=== PATIENT | female | born 1950 | race Caucasian/White ===

== ENCOUNTER 2018-10-17 10:09 | Outpatient (CLI) | payer MEDICARE, OTHER, SELFPAY ==
[2018-10-17 11:37] LABS: ALT 29 U/L (12-78); AST 21 U/L (15-37); Albumin 3.7 g/dL (3.4-5.0); Alkaline Phosphatase 44 U/L (46-116); Anion Gap 5.3 mmol/L (3-11); BUN 22 mg/dL (7-18); Bilirubin, Total 0.2 mg/dL (0.2-1.0); CO2 33.7 mmol/L (21.0-32.0); CREATININE 0.72 mg/dL (0.55-1.02); Calcium 9.6 mg/dL (8.5-10.1); Chloride 106 mmol/L (98-107); Glucose 90 mg/dL (70-100); Potassium 5.3 mmol/L (3.5-5.1); Sodium 145 mmol/L (136-145); Total Protein 6.7 g/dL (6.4-8.2)
== END 2018-10-17 10:29 ==
PROVIDERS: PCP Family Medicine; Visit Provider Family Medicine
DX: E83.42 Hypomagnesemia (principal); J44.9 Chronic obstructive pulmonary disease, unspecified
CPT/HCPCS: 36415; 80053; 83735

== ENCOUNTER 2019-01-15 10:52 | Outpatient (CLI) | payer MEDICARE, OTHER, SELFPAY ==
[2019-01-15 13:08] LABS: Anion Gap 5.4 mmol/L (3-11); BUN 18 mg/dL (7-18); CO2 32.6 mmol/L (21.0-32.0); CREATININE 0.71 mg/dL (0.55-1.02); Calcium 9.4 mg/dL (8.5-10.1); Chloride 105 mmol/L (98-107); Glucose 89 mg/dL (70-100); Potassium 4.8 mmol/L (3.5-5.1); Sodium 143 mmol/L (136-145)
== END 2019-01-15 11:12 ==
PROVIDERS: PCP Family Medicine; Visit Provider Family Medicine
DX: E87.5 Hyperkalemia (principal)
CPT/HCPCS: 36415; 80048

== ENCOUNTER 2019-04-22 19:03 | Emergency (ER) | payer MEDICARE, OTHER, SELFPAY ==
[2019-04-22] VITALS (22 sets, daily range): BP systolic 105–129; BP diastolic 61–91; PULSE 93–110; RESP 17–28; TEMP 37.5–37.6; O2SAT 92–97
--- NOTE | 2019-04-22 19:23 | W.ED.GENAD ---
Discharge Plan Disposition Patient Disposition: HOME Condition: Stable Discharge Details Chief Complaint: SOB Clinical Impression: Acute exacerbation of chronic obstructive pulmonary disease (COPD) Primary Care Provider: Ivy Morton ED Provider: Earl Alfaro Home Meds and New Rx's Prescriptions: New prednisone 20 mg tablet 60 mg PO DAILY 4 Days Qty: 12 RF: 0 levofloxacin 750 mg tablet 750 mg PO DAILY Qty: 4 RF: 0 No Action triamcinolone acetonide 0.5 % cream 1 applic TP BID Qty: 15 RF: 2 ascorbic acid (vitamin C) [Vitamin C] 500 MG tablet 500 mg PO DAILY RF: 0 calcium carbonate-vitamin D3 [Calcium 600 + D(3)] 1 EACH tablet 1 ea PO DAILY RF: 0 fluticasone propionate [Flonase] 16 GM spray,suspension 1 - 2 spray NS daily prn Qty: 1 RF: 4 cetirizine 10 MG tablet 10 mg PO DAILY Qty: 30 RF: 3 Oxygen EACH NS PRN Qty: 2 RF: 1 PROVENTIL HFA 18 GM HFA.AER.AD 1 - 2 puff Inhalation Q4H PRN Qty: 2 RF: 4 Incruse Ellipta 62.5 mcg/actuation blister with device 62.5 mcg Inhalation DAILY Qty: 90 RF: 4 Arnuity Ellipta 100 mcg/actuation blister with device 1 inh PO DAILY Qty: 30 RF: 12 simvastatin 10 mg tablet 10 mg PO HS Qty: 90 RF: 4 albuterol sulfate [Ventolin HFA] 90 mcg/actuation HFA aerosol inhaler 1 - 2 puff IH QID PRN (Reason: bronchospasm) Qty: 18 RF: 6 nystatin 100,000 unit/mL suspension 5 ml PO QID PRN (Reason: thrush) Qty: 120 RF: 0 azithromycin 250 mg tablet 250 - 500 mg PO DAILY Qty: 6 RF: 1 prednisone 20 mg tablet 40 mg PO DAILY Qty: 10 RF: 0 ipratropium-albuterol 0.5 mg-3 mg(2.5 mg base)/3 mL solution for nebulization 3 ml Inhalation 5X/DAY Qty: 450 RF: 12 omeprazole 20 mg tablet,delayed release (DR/EC) 20 mg PO DAILY PRNQty: 90 RF: 2 clonazepam 0.5 mg tablet 0.25 mg PO BID PRN (Reason: anxiety) Qty: 90 RF: 1 Discharge Instructions Instructions: COPD (Chronic Obstructive Pulmonary Disease) (ED) Additional Instructions: your lab work and xray did not show any concerning findings. You were treated for a COPD Exacerbation do not start taking the azithromycin, start the levofloxacin if you feel more ill or having worsening shortness of breath or pain return to the emergency department, otherwise follow up with your primary care provider in 1-2 weeks Medical Decision Making 68 yo female with hx of copd on home o2 who comes in with complaints of worsening productive coughs, fevers at home to 101 and worsening dyspnea. She denies recent travel or chest pain but states when she coughs she gets a sharp twinge in her left chest but hasn't had any outside coughing. No chest pressure or radiating chest pain. She does have diffuse wheezing on exam and I suspect her symptoms are likely from copd exacerbation. Will tx with nebs and steroids and also obtain xray and lab work to eval for pna. Physical exam consistent with copd exacerbation, no evidence of dvt so doubt acs and no jcd or peripheral edema so doubt chf pt feeling much better after neb and is speaking in full sentences, will continue to monitor xray negative, labs unremarkable and she feels much better and requesting d/c. Given improvement in symptoms with abx, steroids and neb will d/c on 4 more days of abx and steroids and return precautions given Differential Diagnosis copd exacerbation, pna, anemia Imaging Data Radiologic Study: Attestation: I personally reviewed and interpreted this imaging study as follows: Imaging: X-Ray Radiologist's impression: IMPRESSION: No acute thoracic pathology, within the limits of this exam. Lab Data Lab results reviewed: Yes I reviewed the patient's lab results. ECG Data Attestation: I personally reviewed and interpreted this ECG (s) as follows: Prior ECG tracings: available for review Interpretation: sinus rhythm, rate of 107 pr 138, no acute st t wave ischemic changes HPI General Mode of arrival: ambulatory. Date/Time Provider Initiated Documentation: 04/22/19 19:16. Limitations to Documentation: no limitations. Information obtained by: patient. History of Present Illness 68 year old F presents to the emergency department with the chief complaint of cough, described as moderate, Patient reports no radiation. Patient started experiencing this day(s) (3) and it has been constant. No relieving factors improve symptom(s), No exacerbating factors reported . Patient notes fever/chills. Patient did receive the following treatments prior to arrival, none Related Data Home Medications Medication Instructions Recorded Confirmed ascorbic acid (vitamin C) [Vitamin 500 mg PO DAILY 02/03/13 04/22/19 C] calcium carbonate-vitamin D3 1 ea PO DAILY 02/03/13 04/22/19 [Calcium 600 + D(3)] fluticasone propionate [Flonase] 1 - 2 spray NS daily prn #1 bottle 06/19/14 04/22/19 cetirizine 10 mg PO DAILY #30 tab-cap 01/04/16 04/22/19 umeclidinium 62.5 mcg/actuation 62.5 mcg INHALATION DAILY #90 each 06/18/18 04/22/19 blister powder for inhalation fluticasone furoate 100 1 inh PO DAILY #30 inh 08/26/18 04/22/19 mcg/actuation blister powder for inhalation simvastatin 10 mg tablet 10 mg PO HS #90 tab-cap 10/07/18 04/22/19 albuterol sulfate 90 mcg/actuation 1 - 2 puff IH QID PRN #18 gm 10/30/18 04/22/19 aerosol inhaler azithromycin 250 mg tablet 250 - 500 mg PO DAILY #6 tab 10/30/18 04/22/19 nystatin 100,000 unit/mL oral 5 ml PO QID PRN #120 ml 10/30/18 04/22/19 suspension prednisone 20 mg tablet 40 mg PO DAILY #10 tab 10/30/18 04/22/19 ipratropium-albuterol 0.5 mg-3 3 ml INHALATION 5X/DAY #450 ml 11/15/18 04/22/19 mg(2.5 mg base)/3 mL nebulization soln triamcinolone acetonide 0.5 % 1 applic TP BID #15 gm 01/15/19 04/22/19 topical cream clonazepam 0.5 mg tablet 0.25 mg PO BID PRN #90 tab-cap 02/10/19 04/22/19 levofloxacin 750 mg PO DAILY #4 tab 04/22/19 omeprazole 20 mg tablet,delayed 20 mg PO DAILY PRN #90 tab-cap 07/23/19 07/23/19 release prednisone 60 mg PO DAILY 4 Days #12 tab 04/22/19 Previous Rx's Medication Instructions Recorded umeclidinium 62.5 mcg/actuation 62.5 mcg INHALATION DAILY #90 each 06/18/18 blister powder for inhalation fluticasone furoate 100 1 inh PO DAILY #30 inh 08/26/18 mcg/actuation blister powder for inhalation simvastatin 10 mg tablet 10 mg PO HS #90 tab-cap 10/07/18 albuterol sulfate 90 mcg/actuation 1 - 2 puff IH QID PRN #18 gm 10/30/18 aerosol inhaler azithromycin 250 mg tablet 250 - 500 mg PO DAILY #6 tab 10/30/18 nystatin 100,000 unit/mL oral 5 ml PO QID PRN #120 ml 10/30/18 suspension prednisone 20 mg tablet 40 mg PO DAILY #10 tab 10/30/18 ipratropium-albuterol 0.5 mg-3 3 ml INHALATION 5X/DAY #450 ml 11/15/18 mg(2.5 mg base)/3 mL nebulization soln triamcinolone acetonide 0.5 % 1 applic TP BID #15 gm 01/15/19 topical cream clonazepam 0.5 mg tablet 0.25 mg PO BID PRN #90 tab-cap 02/10/19 levofloxacin 750 mg PO DAILY #4 tab 04/22/19 omeprazole 20 mg tablet,delayed 20 mg PO DAILY PRN #90 tab-cap 04/22/19 release prednisone 60 mg PO DAILY 4 Days #12 tab 04/22/19 Allergies Allergy/AdvReac Type Severity Reaction Status Date / Time doxycycline AdvReac Unknown nausea Verified 04/22/19 19:15 toan Allergy Intermediate Uncoded 04/22/19 19:15 General Stated Complaint: SOB LARON: 2 Review of Systems Review of Systems All systems reviewed & are unremarkable except as noted in HPI and below Constitutional Denies chills Gastrointestinal Denies vomiting Musculoskeletal Denies joint swelling PFS Medical History Chronic obstructive airway disease Hyperlipidemia Low back pain Osteoarthritis Osteopenia Renal cyst Tobacco abuse Surgical History Appendectomy Colonoscopy - MAC (10/10/16) Ligation of fallopian tube NECK SURGERY Open Carpal Tunnel release RIB RESECTION Family History Mother Diabetes Essential hypertension Hyperlipidemia Stroke Asthma Brother Essential hypertension Neoplasm Chronic obstructive lung disease Asthma Maternal Grandmother Chronic obstructive lung disease Asthma Social History Smoking/Tobacco Use Status: Former Tobacco Use Quit Date: 12/29/18 Second Hand Exposure: Yes Alcohol Intake: former Drug use: Never Caregiver/Support person: Yes Household members: spouse Pets and animals: Yes Pets and animals: cat(s) Sexually active: No Do you think of yourself as: straight/heterosexual Current gender identity: female What is your relationship status?: How often do you talk on the phone with friends or family?: decline to answer How often do you get together with friends or relatives?: decline to answer How often do you attend sabianist or jehovah's witness services?: decline to answer Do you belong to any clubs or organized social groups?: no Panel score (0-1 are the most socially isolated patients): 1 What type of physical activity do you participate in: other Details: housework- split level Fay/Adventist: Cheondoism Special fay needs: No Do you feel safe in your relationship?: Yes History History Para 1 Hx # Term Pregnancies Multiple births Hx # Pregnancies Ectopic pregnancies AB induced Hx Number of Living Children AB spontaneous Exam Const General: no acute distress Orientation: alert HENMT Head: normal to inspection Ears: external ears normal General nose exam: external nose normal Mouth: moist mucous membranes Eyes General: appearance normal, both eyes and all related structures Neck Neck: normal visual inspection Resp Effort & Inspection: prolonged expiratory phase Cardio Rate: regular rate Skin General skin exam: no rashes or lesions noted Neuro General: alert and oriented x3 Extrem General: normal to inspection Psych Mental Status: mental status grossly normal Course Vital Signs Temperature 37.5 C 04/22/19 19:12 Pulse 100 H 04/22/19 19:12 Respiratory Rate 28 H 04/22/19 19:12 Blood Pressure 129/83 04/22/19 19:12 Pulse Oximetry 96 04/22/19 19:12 Temperature 37.5 C 04/22/19 19:12 Temperature Source Skin 04/22/19 19:12 Pulse 100 H 04/22/19 19:12 Respiratory Rate 28 H 04/22/19 19:12 Respiratory Effort Accessory Muscle Use 04/22/19 19:14 Blood Pressure 129/83 04/22/19 19:12 Blood Pressure Position Supine 04/22/19 19:12 Pulse Oximetry 96 04/22/19 19:12 Oxygen Delivery Method Nasal Cannula 04/22/19 19:12 Oxygen Flow Rate 2 04/22/19 19:12 Pain Level 0 04/22/19 19:12 Lab/Test Results Lab/Test Results: 04/22/19 19:21 Blood Blood Culture - Pending 04/22/19 19:21 Blood Blood Culture - Pending
--- NOTE | 2019-04-22 19:25 | DI.RAD_ITS ---
SYMPTOMS/DIAGNOSIS: COUGH, FEVERS PORTABLE CHEST: The study is limited due to technique. The heart size and pulmonary vasculature are within normal limits. No focal consolidating infiltrates, effusions or pneumothoraces are identified. Nonunited left rib fracture is identified. No acute osseous abnormality is identified. IMPRESSION: No acute pulmonary process.
[2019-04-22] MEDS: Albuterol/Ipratropium 3 ML UPD VIAL UPD (19:30)
[2019-04-22] MEDS: methylPREDNISolone SUCC 125 MG VIAL IVP (19:45)
--- NOTE | 2019-04-22 19:51 | DI.VRAD_ITS ---
EXAM: XR Chest, 1 View EXAM DATE/TIME: 04/22/2019 7:22 PM CLINICAL HISTORY: 68 years old, female; Cough and fever; Patient HX: Fever, cough, smoker, chronic obstructive airway disease TECHNIQUE: Imaging protocol: XR of the chest, 1 view. COMPARISON: CR CHEST 2 VIEWS PA,LAT 12/10/2017 10:09 AM FINDINGS: Limitations: Overpenetrated film limits evaluation of the pulmonary parenchyma. Lungs: No discrete interstitial or airspace disease appreciated. Pleural space: Costophrenic angles are clear. Heart/Mediastinum: Normal cardiomediastinal silhouette except for a calcified aortic knob. Bones/joints: No acute skeletal abnormality or aggressive osseous lesion. IMPRESSION: No acute thoracic pathology, within the limits of this exam. Dictated and Authenticated by: Alex Brower MD. Ordering:LYNN Elliott MD
[2019-04-22 19:52] LABS: Abs Immature Grans 0.01 k/cumm (0.0-0.09); Absolute Basophil Count 0.04 k/cumm (0.0-0.2); Absolute Eosinophil Count 0.09 k/cumm (0.0-0.7); Absolute Lymphocyte Count 1.58 k/cumm (1.2-3.4); Absolute Monocyte Count 1.08 k/cumm (0.11-0.7); Absolute Neutrophil Count 5.87 k/cumm (1.2-6.7); Basophils % 0.5; HCT 40.6 % (36.0-46.0); HGB 13.3 g/dL (12.0-15.5); Immature Grans % 0.1; Lymphocytes % 18.2; Mean Corp. HGB Concentration 32.8 g/dL (32.0-36.0); Mean Corpuscular Hemoglobin 31.1 pg (27.0-33.0); Mean Corpuscular Volume 94.9 fL (80-95); Mean Platelet Volume 10.6 fL (8.0-11.0); Monocytes % 12.5; Neutrophils % 67.7; Platelet Count 201 x1000/uL (130-400); RBC 4.28 m/cumm (4.00-5.20); RBC Distribution Width 13.3 % (11.7-14.6); White Blood Cell Count 8.67 k/cumm (4.4-10.8)
[2019-04-22] MEDS: levoFLOXacin 750 MG/150 ML BAG 100 MG IVPB (20:07)
[2019-04-22] MEDS: Normal Saline 1,000 ML 1000 ML IV (20:07)
[2019-04-22 20:08] LABS: ALT 19 U/L (12-78); AST 10 U/L (15-37); Albumin 3.6 g/dL (3.4-5.0); Alkaline Phosphatase 54 U/L (46-116); Anion Gap 7.6 mmol/L (3-11); BUN 14 mg/dL (7-18); Bilirubin, Total 0.4 mg/dL (0.2-1.0); CO2 30.4 mmol/L (21.0-32.0); CREATININE 0.67 mg/dL (0.55-1.02); Calcium 9.4 mg/dL (8.5-10.1); Chloride 100 mmol/L (98-107); Glucose 104 mg/dL (70-100); Potassium 4.1 mmol/L (3.5-5.1); Sodium 138 mmol/L (136-145); Total Protein 7.7 g/dL (6.4-8.2)
== END 2019-04-22 21:47 | disposition home or self-care (01) ==
PROVIDERS: Emergency Provider Emergency Medicine; PCP Family Medicine
DX: J44.1 Chronic obstructive pulmonary disease with (acute) exacerbation (principal); Z87.891 Personal history of nicotine dependence; Z99.81 Dependence on supplemental oxygen
CPT/HCPCS: 36415; 80053; 87040; 93005; 94640; 96361; 96365; 96375; 99285; 71045; 85025; 93010; J1956; J2930; J7620

== ENCOUNTER 2019-09-27 04:44 | Emergency (ER) | payer MEDICARE, OTHER, SELFPAY ==
[2019-09-27 04:49] VITALS: BP 121/76; PULSE 94; RESP 22; TEMP 36.4; O2SAT 91
[2019-09-27] MEDS: diphenhydrAMINE 25 MG CAP (04:57)
--- NOTE | 2019-09-27 04:59 | ED.GENADUL_ITS ---
Discharge Plan Disposition Patient Disposition: HOME Condition: Stable Discharge Details Chief Complaint: Allergic Clinical Impression: Hives Primary Care Provider: Ivy Morton ED Provider: Earl Alfaro Home Meds and New Rx's Prescriptions: Continued Incruse Ellipta 62.5 mcg/actuation blister with device 62.5 mcg Inhalation DAILY Qty: 90 RF: 4 albuterol sulfate [Ventolin HFA] 90 mcg/actuation HFA aerosol inhaler 1 - 2 puff IH QID PRN (Reason: bronchospasm) Qty: 18 RF: 6 simvastatin 10 mg tablet 10 mg PO HS Qty: 90 RF: 4 clonazepam 0.5 mg tablet 0.25 mg PO BID PRN (Reason: anxiety) Qty: 90 RF: 1 prednisone 20 mg tablet 20 mg PO DAILY Qty: 13 RF: 3 citalopram 20 mg tablet 20 mg PO DAILY Qty: 30 RF: 3 cholecalciferol (vitamin D3) 2,000 unit capsule 2,000 unit PO DAILY RF: 0 fexofenadine 180 mg tablet 180 mg PO DAILY Qty: 30 RF: 6 ascorbic acid (vitamin C) [Vitamin C] 500 MG tablet 500 mg PO DAILY RF: 0 calcium carbonate-vitamin D3 [Calcium 600 + D(3)] 1 EACH tablet 1 ea PO DAILY RF: 0 fluticasone propionate [Flonase] 16 GM spray,suspension 1 - 2 spray NS daily prn Qty: 1 RF: 4 Oxygen EACH NS PRN Qty: 2 RF: 1 nystatin 100,000 unit/mL suspension 5 ml PO QID PRN (Reason: thrush) Qty: 120 RF: 0 ipratropium-albuterol 0.5 mg-3 mg(2.5 mg base)/3 mL solution for nebulization 3 ml Inhalation 5X/DAY Qty: 450 RF: 12 omeprazole 20 mg tablet,delayed release (DR/EC) 20 mg PO DAILY PRNQty: 90 RF: 2 Arnuity Ellipta 200 mcg/actuation blister with device 1 inh IH DAILY Qty: 30 RF: 6 Discharge Instructions Instructions: Urticaria (ED) Additional Instructions: if symptoms continue this week see your primary care provider for itching take 25mg benadryl every 6 hours as needed if you feel more ill, have worsening trouble breathing or abdominal pain return to the emergency department Medical Decision Making 69 yo female with copd on home o2 who yesterday finished prednisone which she blair s been on numerous times in her life withotu issues and bactrim which she is unsure if she's been on before comes in with itching rash on her torso. Denies on my questioning any increase in her baseline dyspnea, speaking in full setntences on exam and denies fevers or gi symptoms. She has multiple areas of mild erythema that is slightly raised and of various sizes not warm to touch or tender and bessie that seem consistent with urticaria. Unclear if this is from the bactrim or other etologies such as detergents, No evidence of anaphylaxis will give a dose of benadryl and observe pt feels better and has no itching and requesting d/c. ADvised f/u with pcp and return precautions given Differential Diagnosis Differential Diagnosis: medication reaction, hives, urticaria HPI General Mode of arrival: ambulatory . Date/Time Provider Initiated Documentation: 09/27/19 04:47 . Limitations to Documentation: no limitations . Information obtained by: patient . History of Present Illness 69 year old F presents to the emergency department with the chief complaint of rash, described as moderate, Quality is described as other (itching), and it has been constant. No relieving factors improve symptom(s), No exacerbating factors reported . Patient did receive the following treatments prior to arrival, none Related Data Home Medications Medication Instructions Recorded Confirmed ascorbic acid (vitamin C) [Vitamin 500 mg PO DAILY 02/03/13 09/27/19 C] calcium carbonate-vitamin D3 1 ea PO DAILY 02/03/13 09/27/19 [Calcium 600 + D(3)] fluticasone propionate [Flonase] 1 - 2 spray NS daily prn #1 bottle 06/19/14 09/15/19 nystatin 100,000 unit/mL oral 5 ml PO QID PRN #120 ml 10/30/18 09/27/19 suspension ipratropium-albuterol 0.5 mg-3 3 ml INHALATION 5X/DAY #450 ml 11/15/18 09/27/19 mg(2.5 mg base)/3 mL nebulization soln omeprazole 20 mg tablet,delayed 20 mg PO DAILY PRN #90 tab-cap 04/22/19 09/27/19 release cholecalciferol (vitamin D3) 50 2,000 unit PO DAILY 05/22/19 09/27/19 mcg (2,000 unit) capsule fexofenadine 180 mg tablet 180 mg PO DAILY #30 tab 05/22/19 09/27/19 albuterol sulfate 90 mcg/actuation 1 - 2 puff IH QID PRN #18 gm 07/28/19 09/27/19 aerosol inhaler clonazepam 0.5 mg tablet 0.25 mg PO BID PRN #90 tab-cap 07/28/19 09/27/19 fluticasone furoate 200 1 inh IH DAILY #30 each 07/28/19 09/27/19 mcg/actuation blister powder for inhalation simvastatin 10 mg tablet 10 mg PO HS #90 tab-cap 07/28/19 09/27/19 umeclidinium 62.5 mcg/actuation 62.5 mcg INHALATION DAILY #90 each 07/28/19 09/27/19 blister powder for inhalation citalopram 20 mg tablet 20 mg PO DAILY #30 tab 09/15/19 09/27/19 prednisone 20 mg tablet 20 mg PO DAILY #13 tab 09/15/19 09/27/19 Previous Rx's Medication Instructions Recorded nystatin 100,000 unit/mL oral 5 ml PO QID PRN #120 ml 10/30/18 suspension ipratropium-albuterol 0.5 mg-3 3 ml INHALATION 5X/DAY #450 ml 11/15/18 mg(2.5 mg base)/3 mL nebulization soln omeprazole 20 mg tablet,delayed 20 mg PO DAILY PRN #90 tab-cap 04/22/19 release fexofenadine 180 mg tablet 180 mg PO DAILY #30 tab 05/22/19 albuterol sulfate 90 mcg/actuation 1 - 2 puff IH QID PRN #18 gm 07/28/19 aerosol inhaler clonazepam 0.5 mg tablet 0.25 mg PO BID PRN #90 tab-cap 07/28/19 fluticasone furoate 200 1 inh IH DAILY #30 each 07/28/19 mcg/actuation blister powder for inhalation simvastatin 10 mg tablet 10 mg PO HS #90 tab-cap 07/28/19 umeclidinium 62.5 mcg/actuation 62.5 mcg INHALATION DAILY #90 each 10/28/19 blister powder for inhalation citalopram 20 mg tablet 20 mg PO DAILY #30 tab 09/15/19 prednisone 20 mg tablet 20 mg PO DAILY #13 tab 09/15/19 Allergies Allergy/AdvReac Type Severity Reaction Status Date / Time sulfamethoxazole Allergy Mild Skin Rash Unverified 09/27/19 04:55 [From Bactrim] trimethoprim [From Bactrim] Allergy Mild Skin Rash Unverified 09/27/19 04:55 doxycycline AdvReac Unknown nausea Verified 09/27/19 04:53 toan Allergy Intermediate Uncoded 09/27/19 04:53 General Stated Complaint: Allergic LARON: 3 Review of Systems All systems reviewed & are unremarkable except as noted in HPI and below Constitutional Constitutional: Denies chills, Denies fever(s) and Denies weakness Eyes Eyes: Denies loss of vision Cardiovascular Cardiovascular: Denies chest pain Respiratory Respiratory: Denies cough Gastrointestinal Gastrointestinal: Denies abdominal pain, Denies nausea and Denies vomiting Musculoskeletal Musculoskeletal: Denies joint swelling Neurologic Neurologic: Denies loss of vision and Denies weakness [facility] Social History Smoking/Tobacco Use Status: Former Tobacco Use Quit Date: 12/29/18 Second Hand Exposure: Yes Alcohol Intake: former Drug use: Never Substance use type: does not use Caregiver/Support person: Yes Household members: spouse Pets and animals: Yes Pets and animals: cat(s) Sexually active: No Do you think of yourself as: straight/heterosexual Current gender identity: female What is your relationship status?: How often do you talk on the phone with friends or family?: decline to answer How often do you get together with friends or relatives?: decline to answer How often do you attend hindu or yazidi services?: decline to answer Do you belong to any clubs or organized social groups?: no Panel score (0-1 are the most socially isolated patients): 1 What type of physical activity do you participate in: other Details: housework- split level Fay/Shinto: Muslim Special fay needs: No Do you feel safe at home: Yes Do you feel safe in your relationship?: Yes History History Para 1 Hx # Term Pregnancies Multiple births Hx # Pregnancies Ectopic pregnancies AB induced Hx Number of Living Children AB spontaneous Exam Const General: no acute distress Orientation: alert HENMT Head: normal to inspection Ears: external ears normal General nose exam: external nose normal Mouth: moist mucous membranes Eyes General: appearance normal, both eyes and all related structures Neck Neck: normal visual inspection Resp Effort & Inspection: normal respiratory effort and able to speak in complete sentences Cardio Rate: regular rate Skin General skin exam: elasticity normal Neuro General: alert and oriented x3 Extrem General: normal to inspection Psych Mental Status: mental status grossly normal Course Vital Signs Vital signs: Vital Signs Temperature 36.4 C L 09/27/19 04:49 Pulse 94 H 09/27/19 04:49 Respiratory Rate 22 09/27/19 04:49 Blood Pressure 121/76 09/27/19 04:49 Pulse Oximetry 91 L 09/27/19 04:49 Temperature 36.4 C L 09/27/19 04:49 Temperature Source Temporal Artery Scan 09/27/19 04:49 Pulse 94 H 09/27/19 04:49 Respiratory Rate 22 09/27/19 04:49 Respiratory Effort Pursed Lip 09/27/19 04:49 Respiratory Pattern Normal 09/27/19 04:49 Blood Pressure 121/76 09/27/19 04:49 Blood Pressure Position Sitting 09/27/19 04:49 Pulse Oximetry 91 L 09/27/19 04:49 Oxygen Delivery Method Nasal Cannula 09/27/19 04:49 Oxygen Flow Rate 2 09/27/19 04:49 Comment 09/27/19 04:49
[2019-09-27 05:22] VITALS: PULSE 85; O2SAT 95
[2019-09-27 05:51] VITALS: PULSE 88; RESP 16; O2SAT 94
== END 2019-09-27 05:50 | disposition home or self-care (01) ==
PROVIDERS: Emergency Provider Emergency Medicine; PCP Family Medicine
DX: L50.0 Allergic urticaria (principal); J44.9 Chronic obstructive pulmonary disease, unspecified; Z87.891 Personal history of nicotine dependence; Z99.81 Dependence on supplemental oxygen
CPT/HCPCS: 99284

== ENCOUNTER 2019-11-26 01:37 | Outpatient (CLI) | payer MEDICARE, OTHER, SELFPAY ==
--- NOTE | 2019-11-26 11:15 | DI.MAMMO_ITS ---
EXAM: MAMMO SCREENING CLINICAL HISTORY: screening Z12.39 TECHNIQUE: Mammograms were interpreted according to the usual protocol including computer analysis w [employer] CAD system, tomosynthesis and C-view imaging. COMPARISON: 2009 through 2017 FINDINGS: The breasts are composed of heterogeneously dense fibroglandular densities, Breast Density category C . No suspicious masses or suspicious microcalcifications are seen. No skin thickening or abnormal axillary lymph nodes are seen. There has been no significant change from prior exams. IMPRESSION: BIRADS Category 1, negative mammogram. Yearly screening mammography is recommended. BREAST DENSITY: The mammogram demonstrates the patient's breast tissue is dense. Dense breast tissue is very common and is not abnormal but dense breast tissue can make it harder to find cancer on a ma mmogram. Also, dense breast tissue may increase breast cancer risk. This information about the result of the mammogram report was provided to the patient to raise their awareness. Use this report when y ou speak with the patient about their risks for breast cancer, which includes their family history. A t that time, you may recommend additional screening tests (Ultrasound or MRI) as they might be useful based on their risk. A negative radiographic report should not delay biopsy if a dominant or clinically suspicious mass is present. Up to ten percent of cancers are not identified on mammography. A negative report may reinforce clinical impression. Adenosis and dense breasts may obscure an underlying neoplasm. False positive reports average 6 to 10%.
== END 2019-11-26 01:57 ==
PROVIDERS: PCP Family Medicine; Visit Provider Family Medicine
DX: Z12.31 Encounter for screening mammogram for malignant neoplasm of breast (principal)
CPT/HCPCS: 77063; 77067

== ENCOUNTER 2020-09-29 16:59 | Outpatient (REF) | payer MEDICARE, OTHER, SELFPAY ==
[2020-09-30 04:19] LABS: COVID-19 RT-PCR UVMMC Result Negative (Negative)
== END 2020-09-29 17:19 ==
LOC: LBN 16:59
PROVIDERS: PCP Family Medicine; Visit Provider Nurse Practitioner Family
DX: Z11.59 Encounter for screening for other viral diseases (principal)
CPT/HCPCS: U0003

== ENCOUNTER 2020-11-26 04:01 | Outpatient (CLI) | payer MEDICARE, OTHER, SELFPAY ==
[2020-11-26 08:39] LABS: Abs Immature Grans 0.01 10^3/uL (0.0-0.06); Absolute Basophil Count 0.07 10^3/uL (0.0-0.2); Absolute Eosinophil Count 0.49 10^3/uL (0.0-0.7); Absolute Lymphocyte Count 1.57 10^3/uL (1.2-3.4); Absolute Monocyte Count 0.63 10^3/uL (0.1-0.8); Absolute Neutrophil Count 2.53 10^3/uL (1.2-6.7); Basophils % 1.3; Eosinophils % 9.2; HCT 37.8 % (36.0-46.0); HGB 12.2 g/dL (11.2-15.7); Immature Grans % 0.2; Lymphocytes % 29.6; MCH 31.4 pg (27.0-33.0); MCHC 32.3 % (32.0-36.0); MCV 97.2 fL (80-95); MPV 10.1 fL (8.0-11.0); Monocytes % 11.9; Neutrophils % 47.8; Nucleated RBC 0 %; Platelet Count 210 10^3/uL (130-400); RBC 3.89 10^6/uL (3.93-5.22); RDW 13.6 % (11.7-14.6); RDW-SD 49.1 fL
[2020-11-26 09:00] LABS: ALT 20 U/L (14-59); AST 15 U/L (15-37); Albumin 3.4 g/dL (3.4-5.0); Alkaline Phosphatase 46 U/L (46-116); Anion Gap 6.1 mmol/L (3-11); BUN 12 mg/dL (7-18); Bilirubin, Total 0.2 mg/dL (0.2-1.0); CO2 31.9 mmol/L (21.0-32.0); CREATININE 0.7 mg/dL (0.55-1.02); Calcium 9.1 mg/dL (8.5-10.1); Calculated LDL 120 mg/dL (<100); Chloride 104 mmol/L (98-107); Cholesterol 207 mg/dL (<200); Glucose 90 mg/dL (74-106); HDL Cholesterol 74 mg/dL (40-60); Magnesium 1.9 mg/dL (1.8-2.4); Potassium 3.6 mmol/L (3.5-5.1); Sodium 142 mmol/L (136-145); TSH 3.41 uIU/mL (0.36-3.74); Triglyceride 66 mg/dL (<150)
--- NOTE | 2020-11-26 09:33 | DI.CT_ITS ---
EXAM: CT CHEST W CLINICAL HISTORY: increased dyspnea /emphysema/weight loss,LUNG NODULE,R91.1 TECHNIQUE: Imaging Protocol: Axial computed tomography images with coronal and sagittal reformatted images were created and reviewed CONTRAST MATERIAL: Intravenous: Omnipaque 350 Contrast volume:70 ml. COMPARISON: CT CHEST WITH CONTRAST from 08/17/2016 FINDINGS: Tracheobronchial tree: Patent where visualized. Mediastinum and Angelina: No dominant adenopathy or fluid collection. Pulmonary parenchyma: No consolidation or dominant measurable mass. Moderate to severe emphysematous changes could greatest in the upper lobes. Scarring greatest in the right upper lobe. Medial basila r atelectasis. Scattered tiny peripheral nodules in both posterior lower lobes with a tree-in-bud ap pearance, likely infectious or inflammatory. Pleura: No effusion or pneumothorax. Heart: The heart is not dilated. No coronary artery calcifications are seen. Aorta: Thoracic aorta non-dilated. Nuen-jx-uititikd calcification. Upper abdomen: Cyst upper pole left kidney. Liver and spleen are unremarkable. Adrenals appear nor mal. Lymph nodes: Within normal limits. Bones: Degenerative changes greatest in the thoracolumbar junction. Soft tissues: Unremarkable. IMPRESSION: Moderate to severe underlying emphysematous changes, greatest in the upper lobes. No evidence of a s uspicious mass or adenopathy. Bilateral posterior lower lobe tree-in-bud opacities likely reflecting inflammation or infection. No consolidation. RADIATION DOSE DELIVERED: 348.24mGy.cm Total DLP DATA REPOSITORY: All CT scans at this facility are submitted to the National Radiology Data Registry (NRDR) Dose Index Registry (DIR) with the [employer] (A[employer]). RADIATION OPTIMIZATION: All CT scans at this facility use at least one of these dose optimization te chniques: automated exposure control; mA and/or kV adjustment per patient size (includes targeted exa ms where dose is matched to clinical indication); or iterative reconstruction.
[2020-11-26] MEDS: Omnipaque 350 MG/ML 100 ML BTL IJ (09:38)
[2020-11-26 16:20] LABS: ESR 16 mm/hr (<or=30)
== END 2020-11-26 04:21 ==
PROVIDERS: PCP Family Medicine; Visit Provider Family Medicine
DX: R06.09 Other forms of dyspnea (principal); R06.02 Shortness of breath; R91.1 Solitary pulmonary nodule; R91.8 Other nonspecific abnormal finding of lung field; E78.5 Hyperlipidemia, unspecified; R63.4 Abnormal weight loss; E83.42 Hypomagnesemia; J43.9 Emphysema, unspecified; J44.9 Chronic obstructive pulmonary disease, unspecified
CPT/HCPCS: 80053; 80061; 85652; 71260; 83735; 84443; 85025; J3490

== ENCOUNTER 2020-12-01 15:55 | Outpatient (REF) | payer MEDICARE, SELFPAY | END 2020-12-01 15:56 | disposition home or self-care (01) | LOC: NCHCN 15:55 | PROVIDERS: PCP Family Medicine; Visit Provider Family Medicine | DX: R09.3 Abnormal sputum (principal); J44.1 Chronic obstructive pulmonary disease with (acute) exacerbation | CPT/HCPCS: 87070; 87205 ==

== ENCOUNTER 2021-03-01 18:12 | Inpatient (IN) | payer MEDICARE, SELFPAY ==
[2021-03-01] VITALS (36 sets, daily range): BP systolic 132–151; BP diastolic 71–116; PULSE 64–90; RESP 11–27; TEMP 35.7–36.8; O2SAT 90–99
--- NOTE | 2021-03-01 18:00 | RT.EKG_ITS ---
APPROVED REPORT Exam: Resting ECG Reason for Exam: chest pain Patient Location: E HR:93 bpm ECG Measurements Heart Rate 93 AXIS ME 145 P 263 QRSd 84 QRS 255 QT 362 T 90 QTc 452 Conclusion Poor/wandering baseline Multiform ventricular premature complexes Left anterior fascicular block. Nonspecific T abnrm, anterolateral leads.. ST elevation, consider lateral injury...ST >0.10mV, I aVL V5 V6
--- NOTE | 2021-03-01 18:15 | RT.EKG_ITS ---
APPROVED REPORT Exam: Resting ECG Reason for Exam: chest pain Patient Location: E HR:[id number] bpm ECG Measurements Heart Rate [id number] AXIS [place] [id number] P [id number] QRSd [id number] QRS [id number] QT [id number] T [id number] QTc 0 Conclusion error
--- NOTE | 2021-03-01 18:15 | RT.EKG_ITS ---
APPROVED REPORT Exam: Resting ECG Reason for Exam: cp, poor quality 1st ekg Patient Location: E HR:[id number] bpm ECG Measurements Heart Rate [id number] [place] [id number] P [id number] QRSd 9526580238 QRS [id number] QT 1383578615 T [id number] QTc 0 Conclusion error
--- NOTE | 2021-03-01 18:15 | DI.RAD_ITS ---
Exam(s) XR PORTABLE CHEST AP EXAM: XR PORTABLE CHEST AP CLINICAL HISTORY: R chest pain, COPD TECHNIQUE: 2D digital imaging was performed. COMPARISON: CR XR PORTABLE CHEST AP from 04/22/2019 FINDINGS: MEDIASTINUM: Normal. HEART: Normal. PULMONARY VASCULATURE: Normal. LUNGS: Clear. Lungs are hyperinflated suggesting underlying COPD. PLEURAL SPACE: No pleural effusion or pneumothorax. BONE:Within normal limits for the patient's age. There is a nonunited fracture of the posterior aspe ct of the left 7th rib. OTHER FINDINGS:Normal. IMPRESSION: No acute pulmonary findings. DATA REPOSITORY: RADIATION DOSE DELIVERED:
--- NOTE | 2021-03-01 18:26 | ED.GENADUL_ITS ---
Discharge Plan Disposition Patient Disposition: [facility] INPATIENT Condition: Improving Discharge Details Chief Complaint: Chest Pain Clinical Impression: Chest pain Admit Date/Time: 03/03/21 09:10 Admit Provider: Mac Quintana Attending Provider: Mac Quintana Primary Care Provider: Ivy Morton ED Provider: Kristopher Pereira Discharge Instructions Activity:: Activity as Tolerated Equipment/Supplies:: No Equipment Needed Diet:: low cholesterol Discharge Orders Discharge Orders: Discharge Order (Routine); Ordered 03/05/21 Ordered By: Karol Chacon Discharge Data Discharge Date/Time-TO BE ENTERED AT DEPARTURE: 03/01/21 23:11 Medical Decision Making 70-year-old female presents from home with onset of right posterior chest pain this been constant since yesterday. She feels it improved while leaning over forward. Somewhat worse lying flat and with deep breath. She is a former smoker with a history of COPD. States that she has recently been well. She arrives to the ER afebrile, with blood pressure 151/91, pulse 87, 98% on room air. Differential diagnosis is broad and includes muscle spasm, pneumothorax, pericarditis, dissection, PE. IV access established, screening labs obtained, patient given morphine for analgesia. Laboratories reveal a normal troponin, white blood cell count of 7, hematocrit 39. Chemistries reassuring and unremarkable. D-dimer elevated at 1105. Stated chest x-ray without acute findings. Patient self referred for CT of the chest which reveals emphysematous changes, no pulmonary embolism. See formal report. Patient does have some mild recurrent right infrascapular pain for which she was given repeat parenteral analgesia. She is observed on a cardiac monitor technician and repeat troponin and EKG obtained (negative). Given the patient's age, cardiac risk factors, ongoing posterior thoracic pain, will admit for further observation and management. HPI General Mode of arrival: ambulatory . Date/Time Provider Initiated Documentation: 03/01/21 18:12 . Limitations to Documentation: no limitations . Information obtained by: patient . History of Present Illness 70 year old F presents to the emergency department with the chief complaint of Right posterior chest pain since last night, Quality is described as dull and constant, and is localized to the chest and right. Patient reports no radiation. Patient started experiencing this hour(s) and it has been constant. other things th at improve symptom(s), (Relieved sitting up and leaning over) No exacerbating factors reported . Patient notes denies malaise, nausea/vomiting, syncope and weakness. Patient did receive the following treatments prior to arrival, none Related Data Home Medications Medication Instructions Recorded Confirmed ascorbic acid (vitamin C) [Vitamin 500 mg PO DAILY 02/03/13 03/01/21 C] calcium carbonate-vitamin D3 1 ea PO DAILY 02/03/13 03/01/21 [Calcium 600 + D(3)] nystatin 100,000 unit/mL oral 5 ml PO QID PRN #120 ml 10/30/18 03/01/21 suspension ipratropium 0.5 mg-albuterol 3 mg 3 ml INHALATION 5X/DAY #450 ml 11/15/18 03/01/21 (2.5 mg base)/3 mL nebulization soln cholecalciferol (vitamin D3) 50 2,000 unit PO DAILY 05/22/19 03/01/21 mcg (2,000 unit) capsule citalopram 20 mg tablet 20 mg PO DAILY #90 tab 03/01/20 03/02/21 albuterol sulfate 90 mcg/actuation 1 - 2 puff IH QID PRN #3 units 08/27/20 03/01/21 aerosol inhaler clonazepam 0.5 mg tablet 0.25 mg PO BID PRN #90 tab-cap 09/07/20 03/01/21 diphenhydramine HCl 25 mg tablet 25 mg PO QHS 09/29/20 03/01/21 budesonide-formoterol HFA 160 2 puff INHALATION BID #10.2 g 12/02/20 03/01/21 mcg-4.5 mcg/actuation aerosol inhaler fluticasone propionate 50 1 - 2 spray NS DAILY #15.8 ml 12/30/20 03/01/21 mcg/actuation nasal spray,suspension simvastatin 10 mg tablet 10 mg PO HS #90 tab-cap 01/04/21 03/01/21 baclofen 5 mg PO Q12H #20 tab 03/05/21 diclofenac sodium 100 g TOPICAL QID #100 g 03/05/21 gabapentin 100 mg PO TID #90 cap 03/05/21 pantoprazole [Protonix] 40 mg PO DAILY #30 tab 03/05/21 polyethylene glycol 3350 17 g PO DAILY PRN PRN #14 ea 03/05/21 prednisone 40 mg PO DAILY #2 tab 03/05/21 tramadol 50 mg PO Q4H PRN PRN #20 tab 03/05/21 Previous Rx's Medication Instructions Recorded nystatin 100,000 unit/mL oral 5 ml PO QID PRN #120 ml 10/30/18 suspension ipratropium 0.5 mg-albuterol 3 mg 3 ml INHALATION 5X/DAY #450 ml 11/15/18 (2.5 mg base)/3 mL nebulization soln citalopram 20 mg tablet 20 mg PO DAILY #90 tab 03/01/20 albuterol sulfate 90 mcg/actuation 1 - 2 puff IH QID PRN #3 units 08/27/20 aerosol inhaler clonazepam 0.5 mg tablet 0.25 mg PO BID PRN #90 tab-cap 09/07/20 budesonide-formoterol HFA 160 2 puff INHALATION BID #10.2 g 12/02/20 mcg-4.5 mcg/actuation aerosol inhaler fluticasone propionate 50 1 - 2 spray NS DAILY #15.8 ml 12/30/20 mcg/actuation nasal spray,suspension simvastatin 10 mg tablet 10 mg PO HS #90 tab-cap 01/04/21 baclofen 5 mg PO Q12H #20 tab 03/05/21 diclofenac sodium 100 g TOPICAL QID #100 g 03/05/21 gabapentin 100 mg PO TID #90 cap 03/05/21 pantoprazole [Protonix] 40 mg PO DAILY #30 tab 03/05/21 polyethylene glycol 3350 17 g PO DAILY PRN PRN #14 ea 03/05/21 prednisone 40 mg PO DAILY #2 tab 03/05/21 tramadol 50 mg PO Q4H PRN PRN #20 tab 03/05/21 Allergies Allergy/AdvReac Type Severity Reaction Status Date / Time sulfamethoxazole Allergy Mild Hives Unverified 03/01/21 22:39 [From Bactrim] trimethoprim [From Bactrim] Allergy Mild Hives Unverified 03/01/21 22:39 levofloxacin AdvReac Intermediate BACK AND Verified 03/01/21 22:39 STOMACH ACHE doxycycline AdvReac Unknown nausea Verified 03/01/21 22:39 toan Allergy Intermediate Uncoded 03/01/21 22:39 General Stated Complaint: Chest Pain LARON: 2 Review of Systems Narrative: 6 systems reviewed and otherwise negative [facility] Medical History Chronic obstructive airway disease Oxygen dependent Hyperlipidemia Low back pain Osteoarthritis Osteopenia Pneumonia (11/28/14) Renal cyst Tobacco abuse Tubular adenoma of colon (10/12/16) Surgical History Appendectomy Colonoscopy - MAC (10/10/16) Ligation of fallopian tube BSO NECK SURGERY Open Carpal Tunnel release X 2 RIB RESECTION Family History Mother Diabetes Essential hypertension Hyperlipidemia Stroke Asthma Brother , 58 Essential hypertension Neoplasm Throat Chronic obstructive lung disease Asthma Maternal Grandmother , 93 Chronic obstructive lung disease Asthma Father No problems noted. Sister No problems noted. Sister No problems noted. Brother No problems noted. Son , age 32 - Drown No problems noted. Maternal Grandfather , age 91 No problems noted. Paternal Grandfather No problems noted. Paternal Grandmother No problems noted. Social History Smoking/Tobacco Use Status: Former Tobacco Use tobacco type: cigarettes Quit Date: 12/29/18 Tobacco: How many years used: 51 Second Hand Exposure: Yes Smoking risk assessment performed?: Yes Alcohol Intake: former Drug use: Never Substance use type: does not use Caregiver/Support person: Yes Household members: spouse Housing: house Communication Needs: Corrective Lenses Do you need help understanding health information?: Rarely Pets and animals: Yes Pets and animals: cat(s) Sexually active: No Do you think of yourself as: straight/heterosexual Current gender identity: female What is your relationship status?: How often do you talk on the phone with friends or family?: decline to answer How often do you get together with friends or relatives?: decline to answer How often do you attend caodaism or episcopal services?: decline to answer Do you belong to any clubs or organized social groups?: no Panel score (0-1 are the most socially isolated patients): 1 What type of physical activity do you participate in: other Details: housework- split level Frequency: daily Fay/Alevism: Mormon Special fay needs: No Seatbelt use: always 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 Pleasant, well groomed, interactive. HEAD: Normocephalic, atraumatic ENT: Mucous membranes moist, oropharynx unremarkable, External ear exam unremarkable EYES: PERRL, EOMI NECK: Full ROM, no TIFFANIE, no menigismus CHEST/RESP: No posterior rash. Subtle right infrascapular tenderness posteriorly, anterior nontender, clear to auscultation bilateral, but diminished bilaterally CARDIOVASCULAR: RRR, no murmur, rub rhett. 2+ Rad pulse bilateral ABDOMEN: Soft, nontender, no mass. +Bowel sounds EXT: Full ROM, no edema, no rash Neuro: Grossly normal neurologic exam, conversant, interactive. Psych: Speech fluent, thoughts congruent, affect normal Course Vital Signs Vital signs: Vital Signs Temperature 36.8 C 03/01/21 18:17 Pulse 87 03/01/21 18:17 Respiratory Rate 27 H 03/01/21 18:17 Blood Pressure 151/91 H 03/01/21 18:17 Pulse Oximetry 99 03/01/21 18:17 Temperature 36.8 C 03/01/21 18:17 Temperature Source Temporal Artery Scan 03/01/21 18:17 Pulse 87 03/01/21 18:17 Respiratory Rate 27 H 03/01/21 18:17 Blood Pressure 151/91 H 03/01/21 18:17 Blood Pressure Position Supine 03/01/21 18:17 Pulse Oximetry 99 03/01/21 18:17 Oxygen Delivery Method Nasal Cannula 03/01/21 18:17 Oxygen Flow Rate 2 03/01/21 18:17 Pain Level 10 03/01/21 18:17
[2021-03-01 18:36] LABS: Abs Immature Grans 0.03 10^3/uL (0.0-0.06); Absolute Basophil Count 0.06 10^3/uL (0.0-0.2); Absolute Eosinophil Count 0.34 10^3/uL (0.0-0.7); Absolute Lymphocyte Count 1.98 10^3/uL (1.2-3.4); Absolute Monocyte Count 0.72 10^3/uL (0.1-0.8); Absolute Neutrophil Count 4.35 10^3/uL (1.2-6.7); Basophils % 0.8; Eosinophils % 4.5; HCT 39.7 % (36.0-46.0); Immature Grans % 0.4; Lymphocytes % 26.5; MCHC 32.7 % (32.0-36.0); MCV 97.8 fL (80-95); MPV 10.4 fL (8.0-11.0); Monocytes % 9.6; Neutrophils % 58.2; Nucleated RBC 0 %; Platelet Count 245 10^3/uL (130-400); RBC 4.06 10^6/uL (3.93-5.22); RDW 13.6 % (11.7-14.6); RDW-SD 49.4 fL; WBC 7.48 10^3/uL (4.4-10.8)
[2021-03-01 18:49] LABS: ALT 31 U/L (14-59); AST 23 U/L (15-37); Albumin 3.7 g/dL (3.4-5.0); Alkaline Phosphatase 68 U/L (46-116); BUN 10 mg/dL (7-18); Bilirubin, Total 0.3 mg/dL (0.2-1.0); CREATININE 0.7 mg/dL (0.55-1.02); Chloride 104 mmol/L (98-107); Glucose 106 mg/dL (74-106); Potassium 4.2 mmol/L (3.5-5.1); Sodium 141 mmol/L (136-145); Total Protein 7.5 g/dL (6.4-8.2)
[2021-03-01] MEDS: Normal Saline 1,000 ML 125 ML IV (18:54)
[2021-03-01] MEDS: Normal Saline Flush 10 ML SYR IVP ×2 (18:54→20:06)
[2021-03-01 18:57] LABS: Troponin I < 0.05 ng/mL (<0.06)
--- NOTE | 2021-03-01 19:00 | DI.CT_ITS ---
Exam(s) CT CHEST PE CTA EXAM: CT CHEST PE CTA CLINICAL HISTORY: R posterior pain. TECHNIQUE: Imaging Protocol: Axial CT angiography was performed with multi-slice acquisition and mu lti-planar and/or 3D reconstructions. CONTRAST MATERIAL: Intravenous: Omnipaque 350 Contrast volume:70 mL COMPARISON: CT CT CHEST W from 11/26/2020 FINDINGS: Tracheobronchial tree: Patent where visualized. Pulmonary parenchyma: No consolidation or dominant measurable mass. There is a modest changes are see n in the lungs. Pulmonary Arteries: No evidence of filling defect to suggest pulmonary emboli. Mediastinum and Angelina: No dominant adenopathy or fluid collection. Visualized thyroid gland: Unremarkable. Pleura: No effusion or pneumothorax. Heart: The heart is not dilated. No coronary artery calcifications are seen. No pericardial effusion. Aorta: Thoracic aorta non-dilated. Atherosclerosis. No evidence of dissection. Upper abdomen: Unremarkable. Soft tissues: Unremarkable. Bones: No acute abnormality. IMPRESSION: 1. No evidence of pulmonary embolism, thoracic aortic dissection or aneurysm. 2. No acute fracture. RADIATION DOSE DELIVERED: 214.09mGy.cm Total DLP DATA REPOSITORY: All CT scans at this facility are submitted to the National Radiology Data Registry (NRDR) Dose Index Registry (DIR) with the [employer] (ACR). RADIATION OPTIMIZATION: All CT scans at this facility use at least one of these dose optimization te chniques: automated exposure control; mA and/or kV adjustment per patient size (includes targeted exa ms where dose is matched to clinical indication); or iterative reconstruction.
[2021-03-01 19:05] LABS: D-Dimer 1105 ng/mlFEU (<500)
--- NOTE | 2021-03-01 19:23 | DI.VRAD_ITS ---
PROCEDURE INFORMATION: Exam: XR Chest Exam date and time: 03/01/2021 6:26 PM Age: 70 years old Clinical indication: Other: R chest pain, copd TECHNIQUE: Imaging protocol: XR of the chest. Views: 1 view. COMPARISON: CT CHEST W 11/26/2020 9:22 AM FINDINGS: Lungs: Lungs are hyperinflated. No mass or focal consolidation. Pleural spaces: Unremarkable. No pleural effusion. No pneumothorax. Heart/Mediastinum: Unremarkable. No cardiomegaly. Vasculature: Calcified atherosclerotic disease. Bones/joints: Unremarkable. IMPRESSION: 1. No acute cardiopulmonary abnormality. 2. COPD changes. Dictated and Authenticated by: Ravinder Weldon MD. Ordering:BRENDAN Summers MD
[2021-03-01] MEDS: Omnipaque 350 MG/ML 100 ML BTL IV (20:05)
[2021-03-01] MEDS: Normal Saline - Diluent 50 ML VIAL IV (20:06)
--- NOTE | 2021-03-01 20:30 | RT.EKG_ITS ---
APPROVED REPORT Exam: Resting ECG Reason for Exam: R back pain Patient Location: E HR:74 bpm ECG Measurements Heart Rate 74 AXIS W[place] 178 P 84 QRSd 94 QRS -89 QT 416 T 62 QTc 462 Conclusion Sinus rhythm Probable left atrial enlargement. Left anterior fascicular block. No ST elevation
--- NOTE | 2021-03-01 20:37 | DI.VRAD_ITS ---
PROCEDURE INFORMATION: Exam: CTA Chest With Contrast Exam date and time: 03/01/2021 7:01 PM Age: 70 years old Clinical indication: Right-sided; Patient HX: Right posterior chest pain TECHNIQUE: Imaging protocol: Computed tomographic angiography of the chest with contrast. 3D rendering (Not supervised by radiologist): MIP and/or 3D reconstructed images were created by the technologist. Radiation optimization: All CT scans at this facility use at least one of these dose optimization techniques: automated exposure control; mA and/or kV adjustment per patient size (includes targeted exams where dose is matched to clinical indication); or iterative reconstruction. Contrast material: OMNIPAQUE 350; Contrast volume: 70 ml; Contrast route: INTRAVENOUS (IV); COMPARISON: CT CHEST W 11/26/2020 9:22 AM FINDINGS: Pulmonary arteries: Normal. No pulmonary emboli. Aorta: Mild calcified atherosclerotic disease. No aortic aneurysm. No aortic dissection. Lungs: Severe centrilobular emphysema. No focal mass or airspace consolidation. Pleural spaces: Unremarkable. No pneumothorax. No pleural effusion. Heart: Unremarkable. No cardiomegaly. No pericardial effusion. Lymph nodes: Unremarkable. No enlarged lymph nodes. Spleen: Normal heterogeneous early enhancement of the spleen. Bones/joints: Ununited fracture of the posterolateral left 8th rib, unchanged. No acute fracture. Soft tissues: Unremarkable. IMPRESSION: 1. No pulmonary embolism. 2. Severe centrilobular emphysema. 3. No acute low fracture. Dictated and Authenticated by: Ravinder Weldon MD. Ordering:BRENDAN Summers MD
[2021-03-01 21:54] LABS: Troponin I < 0.05 ng/mL (<0.06)
[2021-03-01 22:25] LABS: Source Nasal/Nares
[2021-03-01] MEDS: Albuterol/Ipratropium 3 ML UPD VIAL IH (23:53)
[2021-03-01] MEDS: Acetaminophen 325 MG TAB 650 MG PO (23:54)
[2021-03-01] MEDS: Baclofen 10 MG TAB PO (23:54)
[2021-03-02] VITALS (14 sets, daily range): BP systolic 106–138; BP diastolic 67–77; PULSE 70–95; RESP 2–22; TEMP 36.5–36.8; O2SAT 90–93
[2021-03-02] MEDS: Ondansetron 4 MG/2 ML VIAL IVP ×3 (00:02→18:12)
[2021-03-02] MEDS: Normal Saline Flush 10 ML SYR IVP ×5 (00:02→20:47)
[2021-03-02 00:06] LABS: COVID-19 PCR Negative (Negative)
[2021-03-02 02:04] LABS: Troponin I < 0.05 ng/mL (<0.06)
[2021-03-02] MEDS: Normal Saline 1,000 ML 125 ML IV (03:04)
[2021-03-02] MEDS: Albuterol/Ipratropium 3 ML UPD VIAL IH ×3 (05:16→17:12)
--- NOTE | 2021-03-02 05:21 | W.PM.HP.N ---
Date of service: 03/01/21 Time of Service: 22:07 Assessment and Plan Assessment and plan (1) COPD (chronic obstructive pulmonary disease): Status: Acute Assessment and plan: Appears to have a possible mild exacerbation. Cont Symbicort. Schedule duonebs. PRN albuterol. IV steroids. Consider oral doxycycline. (2) Acute right-sided thoracic back pain: Status: Acute Assessment and plan: Musculoskeletal vs pleuritic in nature. Exacerbated by deep breath. Given a dose of Baclofen upon admission; slept intermittently and feels some improvement today. Will give a dose of IV solu-medrol and then decision can be made to change to prednisone and taper. PT consult. History of Present Illness History of Present Illness Chief Complaint: R sided back and chest pain Narrative: This is a 70 yo female with a PMH of COPD, former tobacco use, HLD, Depression/anxiety, gastric ulcer. She presented w/o complaint of pain that started to develop in the right side of her back several days prior to admission. She stated it felt like a baseball causing pressure and then the pain spread to her R flank and chest. She did mention a somewhat worsening cough beyond her baseline. No trauma. No F/C. She states no change in her sputum. She started using her albuterol MDI more frequently w/o improvement. She was last on a prednisone taper started on 12/29/20. In the ED her WBC count was normal. Troponin negative x 2. CXR was normal other than changes of COPD. CT chest also showed emphysematous changes, no pulmonary embolism or PNA. Doses of IV morphine in the ED helped with her pain. Review of Systems All systems reviewed & are unremarkable except as noted in HPI and below PFSH Medical History Chronic obstructive airway disease Oxygen dependent Hyperlipidemia Low back pain Osteoarthritis Osteopenia Pneumonia (11/28/14) Renal cyst Tobacco abuse Tubular adenoma of colon (10/12/16) Surgical History Appendectomy Colonoscopy - MAC (10/10/16) Ligation of fallopian tube BSO NECK SURGERY Open Carpal Tunnel release X 2 RIB RESECTION Family History Mother Diabetes Essential hypertension Hyperlipidemia Stroke Asthma Brother , 58 Essential hypertension Neoplasm Throat Chronic obstructive lung disease Asthma Maternal Grandmother , 93 Chronic obstructive lung disease Asthma Father No problems noted. Sister No problems noted. Sister No problems noted. Brother No problems noted. Son , age 32 - Drown No problems noted. Maternal Grandfather , age 91 No problems noted. Paternal Grandfather No problems noted. Paternal Grandmother No problems noted. Social History Smoking/Tobacco Use Status: Former Tobacco Use tobacco type: cigarettes Quit Date: 12/29/18 Tobacco: How many years used: 51 Second Hand Exposure: Yes Smoking risk assessment performed?: Yes Alcohol Intake: former Drug use: Never Substance use type: does not use Caregiver/Support person: Yes Household members: spouse Housing: house Communication Needs: Corrective Lenses Do you need help understanding health information?: Rarely Pets and animals: Yes Pets and animals: cat(s) Sexually active: No Do you think of yourself as: straight/heterosexual Current gender identity: female What is your relationship status?: How often do you talk on the phone with friends or family?: decline to answer How often do you get together with friends or relatives?: decline to answer How often do you attend oriental orthodox or anabaptism services?: decline to answer Do you belong to any clubs or organized social groups?: no Panel score (0-1 are the most socially isolated patients): 1 What type of physical activity do you participate in: other Details: housework- split level Frequency: daily Fay/Worship: Hoahaoism Special fay needs: No Seatbelt use: always 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 Do you feel safe at home: Yes Do you feel safe in your relationship?: Yes History History Para 1 Hx # Term Pregnancies Multiple births Hx # Pregnancies Ectopic pregnancies AB induced Hx Number of Living Children AB spontaneous Meds Allergies and Home Medications Allergies Allergy/AdvReac Type Severity Reaction Status Date / Time sulfamethoxazole Allergy Mild Hives Unverified 03/01/21 22:39 [From Bactrim] trimethoprim [From Bactrim] Allergy Mild Hives Unverified 03/01/21 22:39 levofloxacin AdvReac Intermediate BACK AND Verified 03/01/21 22:39 STOMACH ACHE doxycycline AdvReac Unknown nausea Verified 03/01/21 22:39 toan Allergy Intermediate Uncoded 03/01/21 22:39 Home Medications Medication Instructions Recorded Confirmed Type ascorbic acid (vitamin C) [Vitamin 500 mg PO DAILY 02/03/13 03/01/21 History C] calcium carbonate-vitamin D3 1 ea PO DAILY 02/03/13 03/01/21 History [Calcium 600 + D(3)] Oxygen l NS PRN #2 04/10/16 05/22/19 Clinic nystatin 100,000 unit/mL oral 5 ml PO QID PRN #120 ml 10/30/18 03/01/21 Rx suspension ipratropium 0.5 mg-albuterol 3 mg 3 ml INHALATION 5X/DAY #450 ml 11/15/18 03/01/21 Rx (2.5 mg base)/3 mL nebulization soln cholecalciferol (vitamin D3) 50 2,000 unit PO DAILY 05/22/19 03/01/21 History mcg (2,000 unit) capsule citalopram 20 mg tablet 20 mg PO DAILY #90 tab 03/01/20 03/01/21 Rx omeprazole 20 mg tablet,delayed 20 mg PO DAILY PRN #90 tab-cap 06/23/20 03/01/21 Rx release albuterol sulfate 90 mcg/actuation 1 - 2 puff IH QID PRN #3 units 08/27/20 03/01/21 Rx aerosol inhaler clonazepam 0.5 mg tablet 0.25 mg PO BID PRN #90 tab-cap 09/07/20 03/01/21 Rx diphenhydramine HCl 25 mg tablet 25 mg PO QHS 09/29/20 03/01/21 History budesonide-formoterol HFA 160 2 puff INHALATION BID #10.2 g 12/02/20 03/01/21 Rx mcg-4.5 mcg/actuation aerosol inhaler tiotropium bromide 18 mcg capsule 1 cap INHALATION DAILY #90 inh 12/02/20 03/01/21 Rx with inhalation device fluticasone propionate 50 1 - 2 spray NS DAILY #15.8 ml 12/30/20 03/01/21 Rx mcg/actuation nasal spray,suspension simvastatin 10 mg tablet 10 mg PO HS #90 tab-cap 01/04/21 03/01/21 Rx Exam Const General: cooperative and no acute distress Nutritional Appearance: underweight Orientation: alert and oriented x3 HENMT Head: normocephalic and atraumatic Neck Neck: full ROM and no JVD Chest Chest: no tenderness Resp Effort & Inspection: normal respiratory effort Auscultation: diminished lung sounds, no rhonchi and wheezes (Faint expiratory wheeze in L anterior chest.) Cardio Rate: regular rate Rhythm: regular rhythm Heart Sounds: S1 normal and S2 normal GI Palpation: soft and nontender Skin General skin exam: no rashes or lesions noted and no ecchymosis Extrem General: no pedal edema and no calf tenderness Psych Appearance: grossly normal Mental Status: mental status grossly normal Mood: congruent mood Affect: normal affect Results Labs Result diagrams: 03/01/21 18:18 03/01/21 18:18 Labs: Laboratory Results - last 24 hr 03/01/21 03/01/21 03/01/21 18:18 18:18 18:18 WBC 7.48 RBC 4.06 Hgb 13.0 Hct 39.7 MCV 97.8 H MCH 32.0 MCHC 32.7 RDW 13.6 Plt Count 245 MPV 10.4 Immature Gran % 0.4 Neutrophils % 58.2 Lymphocytes % 26.5 Monocytes % 9.6 Eosinophils % 4.5 Basophils % 0.8 Nucleated RBC % 0 Absolute Neutrophils 4.35 Absolute Lymphocytes 1.98 Absolute Monocytes 0.72 Absolute Eosinophils 0.34 Absolute Basophils 0.06 D-Dimer 1105 H Sodium 141 Potassium 4.2 Chloride 104 Carbon Dioxide 31.0 Anion Gap 6.0 BUN 10 Creatinine 0.7 Estimated GFR/1.73 m2 >= 60.00 Glucose 106 Calcium 9.0 Magnesium 2.0 Total Bilirubin 0.3 AST 23 ALT 31 Alkaline Phosphatase 68 Troponin I < 0.05 Total Protein 7.5 Albumin 3.7 COVID-19 Source SARS-CoV-2 (PCR) 03/01/21 03/01/21 03/02/21 21:30 22:25 01:30 WBC RBC Hgb Hct MCV MCH MCHC RDW Plt Count MPV Immature Gran % Neutrophils % Lymphocytes % Monocytes % Eosinophils % Basophils % Nucleated RBC % Absolute Neutrophils Absolute Lymphocytes Absolute Monocytes Absolute Eosinophils Absolute Basophils D-Dimer Sodium Potassium Chloride Carbon Dioxide Anion Gap BUN Creatinine Estimated GFR/1.73 m2 Glucose Calcium Magnesium Total Bilirubin AST ALT Alkaline Phosphatase Troponin I < 0.05 < 0.05 Total Protein Albumin COVID-19 Source Nasal/nares SARS-CoV-2 (PCR) Negative Last Vital Signs Temp 36.7 C 03/02/21 03:35 Pulse 81 03/02/21 03:35 Resp 22 03/02/21 03:35 BP 118/70 03/02/21 03:35 Pulse Ox 92 03/02/21 03:35 COVID-19 Screening Have you, or household traveled for leisure in last 14 days?: No Had IN PERSON contact w/suspected or confirmed C-19 person: No
[2021-03-02] MEDS: methylPREDNISolone SUCC 125 MG VIAL 60 MG IVP (06:59)
[2021-03-02] MEDS: Budesonide/Formoterol 160/4.5 6 GM 60 PUFF INH IH ×2 (07:57→20:50)
--- NOTE | 2021-03-02 08:54 | PDOC.CMIN ---
- If Service Date Differs Date of service: 03/02/21 Time of Service: 09:02 Care Management Initial Assess REASON FOR HOSPITALIZATION:: Chest Pain PAST MEDICAL HISTORY/PAST SURGICAL HISTORY:: Chronic obstructive airway disease. Oxygen dependent. Hyperlipidemia. Low back pain. Osteoarthritis. Osteopenia. Pneumonia (11/28/14). Renal cyst. Tobacco abuse. Tubular adenoma of colon (10/12/16). Appendectomy. Colonoscopy - MAC (10/10/16). Ligation of fallopian tube. BSO. NECK SURGERY. Open Carpal Tunnel release. X 2. RIB RESECTION PREVIOUS FUNCTIONAL STATUS/SOCIAL/FAMILY SUPPORTS:: Nathalia resides with her Clyde in [facility]. 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 CURRENT FUNCTIONAL STATUS:: Nathalia is lying in bed, David at her bedside. She is pleasant in interaction and forthcoming with information; she is open to increased service supports including [facility] options and [facility] PT/OT. David continues to work as a electric clock mechanic at his own business in a garage attached to their home. ADVANCE DIRECTIVES:: AD and POA lists David as agent. Has patient been provided with info about the portal/API?: Yes Did the patient sign up for the portal?: No CODE STATUS:: Full Code INSURANCE COVERAGE / FINANCIAL ISSUES:: Puja Hernandez, Medicare CURRENT HOME/COMMUNITY SERVICES/EQUIPMENT:: Resume home O2. PRIMARY CARE PHYSICIAN:: Ivy Morton POTENTIAL DISCHARGE NEEDS:: Review discharge instructions, discuss Ask Me Three. PATIENT/FAMILY EDUCATION NEEDS:: Discuss Ask me 3 questions to assure patient understanding of reason for hospitalization and knowledge of self care needs upon discharge. Review d/c instructions re., medications, activity levels, and follow up appointment with PCP. ANTICIPATED BARRIERS TO DISCHARGE:: None anticipated at this time. TRANSPORTATION:: to transport home via private car. PLAN:: Nathalia will return home when ready per MD, she will resume home O2 through [facility] and respiratory medications through [facility]. She will follow up with her PCP and plan of care as prescribed. CM faxed referrals to [facility] for options counseling (MOD needs support) and [facility] for PT/OT. Nathalia will transport via private vehicle with family.
[2021-03-02] MEDS: Furosemide 20 MG/2 ML VIAL IVP (09:30)
[2021-03-02] MEDS: Acetaminophen 325 MG TAB 650 MG PO (09:31)
[2021-03-02] MEDS: Omeprazole 20 MG CAPCR PO (09:31)
[2021-03-02] MEDS: clonazePAM 0.5 MG TAB 0.25 MG PO (09:31)
[2021-03-02] MEDS: Citalopram 10 MG TAB PO (12:36)
--- NOTE | 2021-03-02 16:44 | W.PM.PROGNOT ---
Date of Service Date of service: 03/02/21 Time of Service: 16:45 Assessment and Plan Assessment and plan (1) Acute right-sided thoracic back pain: Status: Acute Assessment and plan: this has now become bilateral. I suspect the patient has a herniated disc with radiculopathy, especially since baclofen was helpful. Encourage IS. Rx prednisone, lidocaine patch, baclofen. PT consult. (2) COPD (chronic obstructive pulmonary disease): Status: Acute Assessment and plan: I agree that this is in mild exacerbation. Continue steroids (prednisone). Continue scheduled and prn nebs as well as Symbicort. No role for abx at this time. Check exercise oximetry (3) Hypoxemia: Status: Chronic Assessment and plan: Due to COPD. COVID-19 ruled out. Check ambulatory pulse ox (4) Osteopenia: Status: Chronic Assessment and plan: Check vitamin d level (5) DVT prophylaxis: Status: Acute Assessment and plan: SC lovenox (6) Discharge planning issues: Status: Acute Assessment and plan: Full code c/s PT anticipate discharge home tomorrow Consider outpatient palliative care due to severity of COPD Subjective Subjective Interval history since last seen: C/o back pain that is radiating to the front of the chest circumferentially. Baclofen helped. Denies dizziness, feels short of breath - feels cannot take deep breaths due to pain. Denies n/v now, but did feel nauseated earlier. Reports a headache. Does not feel ready to go home. Exam Narrative Exam Narrative: General: Pleasant frail elderly female who is dyspneic, speaking in 3-5 word phrases, A&Ox3, uncomfortable when taking deep breaths HEENT: EOMI, MMM Heart: RRR, no m/r/g Lungs: Diminished breath sounds B but clear Abdomen: soft, nontender, nondistended Extremities: no edema BLE's Objective Last Vital Signs Temp 36.7 C 03/02/21 15:30 Pulse 85 03/02/21 15:30 Resp 18 03/02/21 15:30 BP 135/72 03/02/21 15:30 Pulse Ox 92 03/02/21 15:30 Laboratory Results - last 24 hr 03/01/21 03/01/21 03/01/21 18:18 18:18 18:18 WBC 7.48 RBC 4.06 Hgb 13.0 Hct 39.7 MCV 97.8 H MCH 32.0 MCHC 32.7 RDW 13.6 Plt Count 245 MPV 10.4 Immature Gran % 0.4 Neutrophils % 58.2 Lymphocytes % 26.5 Monocytes % 9.6 Eosinophils % 4.5 Basophils % 0.8 Nucleated RBC % 0 Absolute Neutrophils 4.35 Absolute Lymphocytes 1.98 Absolute Monocytes 0.72 Absolute Eosinophils 0.34 Absolute Basophils 0.06 D-Dimer 1105 H Sodium 141 Potassium 4.2 Chloride 104 Carbon Dioxide 31.0 Anion Gap 6.0 BUN 10 Creatinine 0.7 Estimated GFR/1.73 m2 >= 60.00 Glucose 106 Calcium 9.0 Magnesium 2.0 Total Bilirubin 0.3 AST 23 ALT 31 Alkaline Phosphatase 68 Troponin I < 0.05 Total Protein 7.5 Albumin 3.7 COVID-19 Source SARS-CoV-2 (PCR) 03/01/21 03/01/21 03/02/21 21:30 22:25 01:30 WBC RBC Hgb Hct MCV MCH MCHC RDW Plt Count MPV Immature Gran % Neutrophils % Lymphocytes % Monocytes % Eosinophils % Basophils % Nucleated RBC % Absolute Neutrophils Absolute Lymphocytes Absolute Monocytes Absolute Eosinophils Absolute Basophils D-Dimer Sodium Potassium Chloride Carbon Dioxide Anion Gap BUN Creatinine Estimated GFR/1.73 m2 Glucose Calcium Magnesium Total Bilirubin AST ALT Alkaline Phosphatase Troponin I < 0.05 < 0.05 Total Protein Albumin COVID-19 Source Nasal/nares SARS-CoV-2 (PCR) Negative
[2021-03-02] MEDS: Baclofen 10 MG TAB 5 MG PO (17:18)
[2021-03-02] MEDS: predniSONE 20 MG TAB 40 MG PO (17:18)
[2021-03-02] MEDS: Enoxaparin 40 MG/0.4 ML SYR SC (18:07)
[2021-03-02] MEDS: Lidocaine 5% Patch 1 PATCH TP (20:45)
[2021-03-02] MEDS: Mylanta Suspension 30 ML CUP PO (20:45)
[2021-03-02] MEDS: oxyCODONE 5 MG TAB PO (22:57)
[2021-03-02] MEDS: Simvastatin 10 MG TAB PO (22:58)
[2021-03-03] VITALS (7 sets, daily range): BP systolic 129–146; BP diastolic 72–75; PULSE 78–115; RESP 16–20; TEMP 36.5–36.9; O2SAT 84–96
--- NOTE | 2021-03-03 | DI.US_ITS ---
Exam(s) US ABDOMEN LIMITED EXAM: US ABDOMEN LIMITED CLINICAL HISTORY: ?cholecystitis TECHNIQUE: Ultrasound examination was limited to the liver, gallbladder, bile duct and pancreas. COMPARISON: US ABD PELVIS TRANSVAG from 08/10/2017 FINDINGS: PANCREAS: Normal where visualized. LIVER: Visualized portions are unremarkable. Hepatopedal flow in the Portal Vein. GALLBLADDER: No evidence of cholelithiasis. No evidence of wall thickening. No pericholecystic fluid identified. BILIARY SYSTEM: Common bile duct measures < 7 mm. No intrahepatic biliary ductal dilation. HUERTAS'S SIGN: Negative. ASCITES: None seen. IMPRESSION: No findings of cholelithiasis or evidence of acute cholecystitis. No biliary ductal dilatation. DATA REPOSITORY:
[2021-03-03] MEDS: Lidocaine Patch Removal 1 EACH TD (03:05)
[2021-03-03] MEDS: Albuterol/Ipratropium 3 ML UPD VIAL IH ×2 (06:12→18:33)
[2021-03-03] MEDS: Baclofen 10 MG TAB 5 MG PO ×2 (06:12→17:53)
[2021-03-03] MEDS: Acetaminophen 325 MG TAB 650 MG PO ×2 (07:45→15:42)
[2021-03-03] MEDS: Omeprazole 20 MG CAPCR PO (07:45)
[2021-03-03] MEDS: clonazePAM 0.5 MG TAB 0.25 MG PO (07:45)
[2021-03-03] MEDS: Normal Saline Flush 10 ML SYR IVP ×4 (07:46→20:33)
[2021-03-03] MEDS: predniSONE 20 MG TAB 40 MG PO (07:46)
[2021-03-03] MEDS: Citalopram 20 MG TAB 10 MG PO (07:46)
[2021-03-03] MEDS: Budesonide/Formoterol 160/4.5 6 GM 60 PUFF INH IH ×2 (08:02→20:32)
[2021-03-03] MEDS: Ondansetron 4 MG/2 ML VIAL IVP (08:52)
[2021-03-03] MEDS: Pantoprazole 40 MG VIAL IVP (09:17)
--- NOTE | 2021-03-03 11:12 | CMPROGNOTE_ITS ---
- If Service Date Differs Date of service: 03/03/21 Time of Service: 11:12 Care Management Progress Note S/O:Nathalia was sitting up on the side of the bed when CM met with her. She was pleasant and engaged readily with CM. Nathalia talked a bit about her 2 marriages and some of the challenges she has faced. Her first of a heart attack in his 40s and her second also had a heart attack but survived. She also lost her son in an accident 2 years after her first . Nathalia also discussed the fact that she and her have completed a will and advanced directives. She has an elderly mother who lives in [place] who is alone and may lose her house after putting her into exterminator helper termite care and Nathalia does not want the same thing to happen to her. A: Nathalia is a 70 year old woman admitted on 03/01/21 with chest pain P:Nathalia will return home when ready per MD, she will resume home O2 through [facility] and respiratory medications through [facility]. She will follow up with her PCP and plan of care as prescribed. CM faxed referrals to [facility] for options counseling (MOD needs support) and [facility] for PT/OT. Nathalia will transport via private vehicle with family.
--- NOTE | 2021-03-03 11:18 | PT.INIE ---
Date of service: 03/04/21 Time of Service: 11:18 PT Notes Visit Reasons: CHEST PAIN Physical Therapy Inpatient Initial Evaluation Date: 03/03/2021 Referring Doctor: Neelam Coleman MD PT Orders: PT CONSULT: Limited ability Precautions: Fall. Standard. Activity as tolerated. Patient Profile/Admitting Diagnosis: Nathalia is a 70-year-old female who presented to the ED on 03/01/2021 with right posterior thoracic pain that has been constant since yesterday, improved with leaning forward and worse with lying flat. Patient is diagnosed with COPD exacerbation and acute right-sided thoracic back pain. PMHX: Medical History Chronic obstructive airway disease Oxygen dependent Hyperlipidemia Low back pain Osteoarthritis Osteopenia Pneumonia (11/28/14) Renal cyst Tobacco abuse Tubular adenoma of colon (10/12/16) Surgical History Appendectomy Colonoscopy - MAC (10/10/16) Ligation of fallopian tube BSO NECK SURGERY Open Carpal Tunnel release X 2 RIB RESECTION Social History/Home Situation: Lives with in a private home. Independent with all aspects of ADLs without an assistive ambulatory device nor adaptive equipment. Equipment Owned/DME: None Subjective: Indicates that pain is constant and is not related to position changes. Emphasizes that pain is brought on when she breathes deep deeply regardless of her position. Reports no trauma no falls prior to ED admission. She points to the origin of deep pain as the area close to the origin of the left lower trapezius to the T10-T12 level that radiates across the spine onto the same level on the right side and disappears quickly. She elaborated that pain is not constant but is diffused and quick when it happens. She describes the size of the pain as baseball size when she came to the ED but states that the area of pain is now much smaller but radiates still onto the right side with deep breathing. Objective: General Observation: Seated at edge of bed trunk hunched forward. No SOB at rest. On 2 L of oxygen per minute Mental Status: Alert and oriented as to person, place, time, and purpose. Able to pay attention, focus, and respond appropriately. Pain: Moderate pain in the area described above ROM: Right Upper Extremity: Shoulder Flexion WFL. Shoulder abduction WFL. Shoulder ER/IR WFL. Elbow flexion WFL. Forearm pronation/supination WFL. Wrist flexion WFL. Opening and closing of hand WFL. Left Upper Extremity: Shoulder Flexion WFL. Shoulder abduction WFL. Shoulder ER/IR WFL. Elbow flexion WFL. Forearm pronation/supination WFL. Wrist flexion WFL. Opening and closing of hand WFL. Right Lower Extremity: Hip flexion WFL. Hip abduction WFL. Hip ER/IR WFL. Knee flexion WFL. Knee extension. Ankle dorsiflexion/eversion WFL. Ankle plantarflexion/inversion WFL. Left Lower Extremity: Hip flexion WFL. Hip abduction WFL. Hip ER/IR WFL. Knee flexion WFL. Knee extension. Ankle dorsiflexion WFL. Ankle plantarflexion WFL. Strength: Right Upper Extremity: Shoulder flexors 4-/5. Shoulder abductors 4-/5. Elbow flexors 4-/5. Elbow extensors 4-/5. Senior Firmware Engineer strong. Left Upper Extremity: Shoulder flexors 4-/5. Shoulder abductors 4-/5. Elbow flexors 4-/5. Elbow extensors 4-/5. Senior Firmware Engineer strong. Right Lower Extremity: Hip flexors 4-/5. Hip abductors 4-/5. Knee flexors 4-/5. Knee extensors 4-/5. Ankle dorsiflexors/evertors 4-/5. Ankle plantarflexors/invertors 4-/5. Left Lower Extremity: Hip flexors 4-/5. Hip abductors 4-/5. Knee flexors 4-/5. Knee extensors 4-/5. Ankle dorsiflexors/evertors 4-/5. Ankle plantarflexors/invertors 4-/5. Bed Mobility/Transfers: Rolling standby assist Supine to sit standby assist Sit to supine standby assist Sit to stand standby assist Stand to sit standby assist Bed to chair standby assist Gait: Guided patient through level surface ambulation of 20 feet using front wheeled walker with full weightbearing requiring only standby assist with no report of increase in pain in the thoracic area. Minimal shortness of breath observed. Decreased bowen . Step height decreased. Step length decreased. Balance: Static Sitting: Normal Dynamic Sitting: Normal Static Standing: Fair Dynamic Standing: Fair Special Tests: Mobility Limitations Standardized Measure [facility] AM-PAC 6 clicks Basic Mobility Inpatient Short Form: Raw Score: 19 CMS Score: 42% deficit Informed Consent/Education: Patient was instructed in purpose of PT consult and plan of care. Agreeable to proceed with established PT POC to achieve personal goals. Assessment: Nathalia demonstrates functional mobility decline requiring use of front wheel walker for mobility ADL performance to maximize independence, increase activity tolerance and decreased report of back pain. Patient will benefit from chest expansion exercises and deep breathing exercises to increase mobility of ventilatory muscles, increased ability of trunk, and address pain complaint. Patient presents with clinical signs and symptoms consistent with current/admitting diagnoses that have resulted to mobility limitations, gait instability, generalized weakness, and impairment of motor control as demonstrated by the following impairment level findings: 1. Decreased strength to BLE major muscle groups 2. Impaired sitting/standing balance 3. Impaired activity tolerance 4. Shortness of breath 5. Thoracic back pain Impairments are contributing to the following functional limitations: 1. Increased dependence with transfers 2. Inability to safely ambulate without assistive device and physical assistance 3. Increase completion time for mobility ADL performance 4. Increased fall risk 5. Inability to negotiate steps alone safely 6. Inability to return to prior living environment at this time Patient is assessed as a 17708 moderate complexity based on the following: History: 70-year-old female with past medical history as indicated above Examination: Demonstrable impairment in strength, balance, and mobility level with underlying impairments and functional limitations as exhibited above as well as deficit score of 42% utilizing the [facility] Mobility Inpatient Short Form Presentation: Evolving Decision Makin moderate complexity Goals: Goals X1 week 1. Supine-Sit independent 2. Sit-Supine independent 3. Sit-Stand independent 4. Stand-Sit independent 5. Bed-Chair independent 6. Chair-Bed independent 7. Independent gait on level surface with use of front wheel walker for at least 300 feet without report of pain nor dyspnea 8. Independent stair negotiation while holding onto B rails for at least 5 steps without report of pain nor dyspnea 9. Independent with home exercise program 10. Good static and dynamic standing balance/tolerance Plan of Care/Treatment Plan: 1-2x/day, 7 days/week x 1 week. Plan of care has been reviewed with the RADIO ENGINEERING TEACHER providing the service under Physical Therapy direction. Initiate Physical Therapy intervention for pain management as needed, strengthening, bed mobility, transfers, gait, stairs, balance training, and use of assistive device. DISCHARGE RECOMMENDATIONS: Patient will benefit from home health PT services in order to progress mobility level using least restrictive assistive ambulatory device, assess home safety, identify additional equipment needs, and establish a functional maintenance program that will increase ability of patient to remain at home. TREATMENT CODE/TIME: 81633 x 28 minutes beginning at 11:18 AM. Thank you for the opportunity to participate in the care of this patient. Shirlene Bourne PT, DPT, CLT [facility] [place], [place]
[2021-03-03 11:31] LABS: Abs Immature Grans 0.03 10^3/uL (0.0-0.06); Absolute Lymphocyte Count 0.49 10^3/uL (1.2-3.4); Absolute Monocyte Count 0.29 10^3/uL (0.1-0.8); Absolute Neutrophil Count 5.08 10^3/uL (1.2-6.7); HGB 11.3 g/dL (11.2-15.7); Immature Grans % 0.5; Lymphocytes % 8.3; MCH 31.7 pg (27.0-33.0); MCHC 33.2 % (32.0-36.0); MCV 95.2 fL (80-95); MPV 10.3 fL (8.0-11.0); Monocytes % 4.9; Neutrophils % 86.3; Nucleated RBC 0 %; Platelet Count 214 10^3/uL (130-400); RBC 3.57 10^6/uL (3.93-5.22); RDW 13.3 % (11.7-14.6); RDW-SD 47.5 fL; WBC 5.89 10^3/uL (4.4-10.8)
[2021-03-03 11:45] LABS: Anion Gap 7.1 mmol/L (3-11); BUN 13 mg/dL (7-18); CO2 29.9 mmol/L (21.0-32.0); CREATININE 0.9 mg/dL (0.55-1.02); Chloride 99 mmol/L (98-107); Glucose 136 mg/dL (74-106); Magnesium 2.1 mg/dL (1.8-2.4); Potassium 4.2 mmol/L (3.5-5.1); Sodium 136 mmol/L (136-145)
[2021-03-03] MEDS: oxyCODONE 5 MG TAB PO (13:21)
--- NOTE | 2021-03-03 14:38 | CHAPLAIN ---
Nathalia was sitting in the edge of her bed this morning when I visited. She told me she had been restricted to liquids, so she wasn't sure what her diagnosis is. Because of her COPD, Nathalia said she has not been out much during the past year due to COVID. Her runs an auto garage next door to their house. He won't likely retire Nathalia said, because he likes to talk and interact with people. He has been visiting Nathalia here.
--- NOTE | 2021-03-03 15:37 | PT.INTREAT ---
Date of service: 03/03/21 Time of Service: 15:00 PT Notes Visit Reasons: CHEST PAIN Inpatient Physical Therapy Treatment Note [facility] Date: 03/03/2021 PRECAUTIONS: Fall SUBJECTIVE: Nathalia states I'm not feeling to sure of myself right now. She is agreeable to participating in PT. OBJECTIVE: PAIN: Patient c/o R-sided back pain with taking breaths in. BED MOBILITY/TRANSFERS Supine-sit: I Sit-stand: S Stand-sit: S Chair-bed: S GAIT Assistive Device: FWW 4WW Weight bearing: Full Assist: SBA Distance: 150' with FWW 150' with 4WW 4WW TRAINING: Educated and reviewed patient on safe and appropriate use of 4WW locks, brakes, and seat for seated rest. ASSESSMENT: Patient tolerated session with c/o R-sided back pain with taking breaths in. She was able to tolerate a progression in gait distance with 4WW support and SBA, demonstrating steady gait and pacing. PLAN: Continue with gait training with 4WW, and add global strengthening activities for improved activity tolerance and mobility. TREATMENT CODE/TIME: 20 minutes; 74162 (15:00)
--- NOTE | 2021-03-03 16:47 | PGE_ITS ---
Date of Service Date of service: 03/03/21 Time of Service: 16:49 Assessment and Plan Assessment and plan (1) Acute right-sided thoracic back pain: Status: Acute Assessment and plan: bilateral. Will rule out cholecystitis. The patient is more willing to consider MRI with ativan now, so this is being ordered. I suspect the patient has a herniated disc with radiculopathy, especially since baclofen was helpful. Get records from [facility]. Encourage IS. Continue prednisone, lidocaine patch, baclofen. PPI increased. PT consult. (2) COPD (chronic obstructive pulmonary disease): Status: Acute Assessment and plan: I agree that this is in mild exacerbation. Continue steroids (prednisone). Continue scheduled and prn nebs as well as Symbicort. No role for abx at this time. (3) Hypoxemia: Status: Chronic Assessment and plan: Due to COPD. COVID-19 ruled out. Check amb. pulse ox prior to d/c. (4) Osteopenia: Status: Chronic Assessment and plan: Check vitamin d level (5) DVT prophylaxis: Status: Acute Assessment and plan: SC lovenox (6) Discharge planning issues: Status: Acute Assessment and plan: Full code Consult palliative care due to severity of COPD Subjective Subjective Interval history since last seen: Ms Cat states that she is nauseated and vomited several times. Her back pain continues. She now states that this exact this happened two years ago and that she has weekly episodes of n/v at home. She denies abdominal pain, diarrhea, constipation. She states she has seen a Neurosurgeon before in [place] (?at [facility]; no records at [facility]) for this problem and was told it was neurological. Denies dizziness, chest pain, shortness of breath. Exam Narrative Exam Narrative: General: Pleasant frail elderly female who is less dyspneic, but does not look like she is feeling well, A&Ox3, uncomfortable when taking deep breaths/coughing HEENT: EOMI, MMM Heart: RRR, no m/r/g Lungs: Diminished breath sounds B but clear Abdomen: soft, nontender, nondistended, specifically RUQ is nontender Extremities: no edema BLE's Objective Last Vital Signs Temp 36.9 C 03/03/21 15:02 Pulse 80 03/03/21 15:02 Resp 17 03/03/21 15:02 BP 146/74 H 03/03/21 15:02 Pulse Ox 92 03/03/21 15:02 Laboratory Results - last 24 hr 03/03/21 03/03/21 11:15 11:15 WBC 5.89 RBC 3.57 L Hgb 11.3 Hct 34.0 L MCV 95.2 H MCH 31.7 MCHC 33.2 RDW 13.3 Plt Count 214 MPV 10.3 Immature Gran % 0.5 Neutrophils % 86.3 Lymphocytes % 8.3 Monocytes % 4.9 Eosinophils % 0.0 Basophils % 0.0 Nucleated RBC % 0 Absolute Neutrophils 5.08 Absolute Lymphocytes 0.49 L Absolute Monocytes 0.29 Absolute Eosinophils 0.00 Absolute Basophils 0.00 Sodium 136 Potassium 4.2 Chloride 99 Carbon Dioxide 29.9 Anion Gap 7.1 BUN 13 Creatinine 0.9 Estimated GFR/1.73 m2 >= 60.00 Glucose 136 H Calcium 9.0 Magnesium 2.1
--- NOTE | 2021-03-03 17:45 | DI.VRAD_ITS ---
PROCEDURE INFORMATION: Exam: US Abdomen, Limited; Right Upper Quadrant Exam date and time: 03/03/2021 4:46 PM Age: 70 years old Clinical indication: Abdominal pain; Localized; Right upper quadrant (ruq) TECHNIQUE: Imaging protocol: US abdomen. Real time ultrasound with image documentation. Limited exam focused on the right upper quadrant. COMPARISON: CT UPPER ABD W/WO CONTRAST(P) 01/03/2016 8:37 AM FINDINGS: Liver: Visualized portion appears unremarkable. Gallbladder: There appears to be folding of the gallbladder in the midbody region, which was present on prior study as well. The gallbladder wall has a normal thickness of 1-2 mm. No shadowing gallstones are identified. There is no pericholecystic fluid. The technologist reports a negative sonographic Cornelius's sign. Common bile duct: The common duct has a diameter of 3 mm, which is within normal limits. There is no evidence for biliary ductal dilatation. Pancreas: The visualized portion of the pancreatic head, neck and distal body appear unremarkable. The more proximal body and tail of the pancreas are not well visualized due to overlying bowel gas. Intraperitoneal space: No ascites in the right upper quadrant is identified. IMPRESSION: 1. No gallstones or evidence of acute cholecystitis. 2. No biliary ductal dilatation. Dictated and Authenticated by: Zachary Emerson MD. Ordering:VERNA Richter MD
[2021-03-03] MEDS: Enoxaparin 40 MG/0.4 ML SYR SC (17:53)
[2021-03-03] MEDS: Lidocaine 5% Patch 1 PATCH TP (20:32)
[2021-03-03] MEDS: Gabapentin 100 MG CAP PO (20:32)
[2021-03-03] MEDS: Simvastatin 10 MG TAB PO (21:30)
[2021-03-04] VITALS (10 sets, daily range): BP systolic 114–134; BP diastolic 65–82; PULSE 72–96; RESP 1–20; TEMP 36.1–36.9; O2SAT 93–98
[2021-03-04] MEDS: Albuterol/Ipratropium 3 ML UPD VIAL IH ×4 (00:15→18:30)
[2021-03-04] MEDS: Baclofen 10 MG TAB 5 MG PO ×2 (05:33→17:56)
[2021-03-04 06:59] LABS: Abs Immature Grans 0.02 10^3/uL (0.0-0.06); Absolute Eosinophil Count 0.01 10^3/uL (0.0-0.7); Absolute Lymphocyte Count 1.93 10^3/uL (1.2-3.4); Absolute Monocyte Count 0.79 10^3/uL (0.1-0.8); Absolute Neutrophil Count 4.12 10^3/uL (1.2-6.7); Eosinophils % 0.1; HCT 36.1 % (36.0-46.0); HGB 12.3 g/dL (11.2-15.7); Immature Grans % 0.3; Lymphocytes % 28.1; MCH 32.3 pg (27.0-33.0); MCHC 34.1 % (32.0-36.0); MCV 94.8 fL (80-95); MPV 10.6 fL (8.0-11.0); Monocytes % 11.5; Nucleated RBC 0 %; Platelet Count 216 10^3/uL (130-400); RBC 3.81 10^6/uL (3.93-5.22); RDW 13.8 % (11.7-14.6); RDW-SD 47.9 fL; WBC 6.87 10^3/uL (4.4-10.8)
[2021-03-04 07:30] LABS: Anion Gap 4.3 mmol/L (3-11); BUN 10 mg/dL (7-18); CO2 34.7 mmol/L (21.0-32.0); CREATININE 0.9 mg/dL (0.55-1.02); Chloride 102 mmol/L (98-107); Glucose 90 mg/dL (74-106); Potassium 3.5 mmol/L (3.5-5.1); Sodium 141 mmol/L (136-145)
[2021-03-04] MEDS: Budesonide/Formoterol 160/4.5 6 GM 60 PUFF INH IH ×2 (07:49→20:27)
--- NOTE | 2021-03-04 08:00 | DI.MRI_ITS ---
Exam(s) MR THORACIC SPINE WO EXAM: MR THORACIC SPINE WO CLINICAL HISTORY: circumferential back pain. TECHNIQUE: Multiplanar multisequence MRI of the Thoracic spine was performed. COMPARISON: MR MRI - THORACIC SPINE WO CONT from 03/08/2015 FINDINGS: Bones: There has been interval development of loss of height of the T5 vertebral body. Hyperintense signal is seen on the STIR images with hypointense signal seen on the T1 weighted images. The signal abnormality appears to be limited to the vertebral bodies. There is loss of approximately 20 percen t of the height of the vertebral body. No associated soft tissue mass is appreciated no central spin al canal stenosis is present. Alignment is satisfactory. The signal characteristics are unremarkable . Cord: The thoracic cord is normal size and signal intensity. No intrinsic cord lesion is present. Discs: No disc herniation or bulge is present. No central spinal canal or neural foraminal stenosis i s seen in the thoracic spine. Soft tissues: Normal. IMPRESSION: Acute to subacute compression fracture deformity of the T5 vertebral body. There is loss of approxim ately 20 percent of the height of the vertebral body. No retropulsion, central spinal canal or neura l foraminal stenosis. No associated soft tissue mass. DATA REPOSITORY:
[2021-03-04] MEDS: Gabapentin 100 MG CAP PO ×2 (08:41→20:27)
[2021-03-04] MEDS: predniSONE 20 MG TAB 40 MG PO (08:41)
[2021-03-04] MEDS: Citalopram 10 MG TAB PO (08:41)
[2021-03-04] MEDS: Lidocaine Patch Removal 1 EACH TD (08:42)
[2021-03-04] MEDS: oxyCODONE 5 MG TAB PO (08:46)
--- NOTE | 2021-03-04 08:54 | RESPIRATORY ---
Pt uses 2L O2 via nasal cannula / at home. Uses Inogen pulse-dose at 3L when ambulating. DME: [facility].
[2021-03-04] MEDS: Ondansetron 4 MG/2 ML VIAL IVP (10:28)
[2021-03-04] MEDS: Pantoprazole 40 MG VIAL IVP (10:28)
[2021-03-04] MEDS: Normal Saline Flush 10 ML SYR IVP (10:29)
[2021-03-04] MEDS: LORazepam 2 MG/ML VIAL 1 MG IVP (11:22)
--- NOTE | 2021-03-04 11:29 | PT.INNT ---
Date of service: 03/04/21 Time of Service: 11:29 PT Notes Visit Reasons: CHEST PAIN Patient not available. She is headed out for MRI testing. Will plan on seeing patient this afternoon, as scheduled.
--- NOTE | 2021-03-04 12:40 | DI.MRI_ITS ---
Exam(s) MR LUMBAR SPINE WO EXAM: MR LUMBAR SPINE WO CLINICAL HISTORY: circumferential back pain. TECHNIQUE: Multiplanar multisequence MRI of the Lumbar spine was performed. COMPARISON: MR MRI - LUMBAR SPINE WO CONTRAST from 12/31/2014 FINDINGS: Bones: The last intervertebral disc space is designated the L5/S1 level for the numbering purpose of this examination. The vertebral body heights are well maintained. Alignment is satisfactory. The si gnal characteristics are unremarkable. No evidence of an occult fracture. Cord: The conus tip ends at the L1 level. It is of normal size and signal intensity. T12-L1: No disc herniations or bulges are present. No central spinal canal or neural foraminal stenos is. L1-2: No disc herniations or bulges are present. No central spinal canal or neural foraminal stenosis . L2-3: Degenerative endplate signal changes are present. Mild prominence of the osteophyte disc compl ex. No significant central spinal canal or neural foraminal stenosis. L3-4: There is a mild diffuse disc bulge eccentric to the left. No significant central spinal canal stenosis is seen. No significant right neural foraminal stenosis is present. There is mild narrowin g of the left neural foramen. L4-5: There is disc desiccation. There is a mild diffuse disc bulge. Mild degenerative changes of t he facets are seen. No significant central spinal canal stenosis is seen. No significant neural for aminal stenosis is present. L5-S1: No disc herniations or bulges are present. Degenerative changes of the facets are seen. No si gnificant central spinal canal or neural foraminal stenosis is present. Soft tissues: The visualized SI joints and sacrum are well maintained. The paraspinal soft tissues ar e unremarkable. IMPRESSION: 1. No evidence of an occult fracture or subluxation. 2. Multilevel degenerative changes in the lumbar spine as described above. DATA REPOSITORY:
--- NOTE | 2021-03-04 15:26 | PDOC.CMPRO ---
Care Management Progress Note S/O: Nathalia remains pleasant and engages easily with CM. Per MD, she will be pre-medicated for an MRI; awaiting results to inform next steps in treatment plan, CM continues to follow. A: Nathalia is a 70 year old woman admitted on 03/01/21 with chest pain P: Nathalia will return home when ready per MD, she will resume home O2 through [facility] and respiratory medications through [facility]. She will follow up with her PCP and plan of care as prescribed. CM faxed referrals to [facility] for options counseling ([facility] needs support) and [facility] for PT/OT. Nathalia will transport via private vehicle with family.
--- NOTE | 2021-03-04 17:29 | W.PM.PROGNOT ---
Date of Service Date of service: 03/04/21 Time of Service: 17:29 Assessment and Plan Assessment and plan (1) Compression fracture of T5 vertebra: Status: Acute Assessment and plan: compression fracture T5 pain better managed, continue current pain management Encourage IS. Continue prednisone, lidocaine patch, baclofen. PPI increased. PT consult. (2) Acute right-sided thoracic back pain: Status: Acute Assessment and plan: d/t compression fracture T5 pain better managed, continue current pain management Encourage IS. Continue prednisone, lidocaine patch, baclofen. PPI increased. PT consult. (3) COPD (chronic obstructive pulmonary disease): Status: Acute Assessment and plan: mild exacerbation. Continue steroids (prednisone). Continue scheduled and prn nebs as well as Symbicort. No role for abx at this time. (4) Hypoxemia: Status: Chronic Assessment and plan: Due to COPD. COVID-19 ruled out. Check amb. pulse ox prior to d/c. (5) Osteopenia: Status: Chronic Assessment and plan: continue vit d/calcium add calcitonin (6) DVT prophylaxis: Status: Acute Assessment and plan: SC lovenox (7) Discharge planning issues: Status: Acute Assessment and plan: Full code Consult palliative care due to severity of COPD anticipate discharge to home over the weekend with home health services discussed with dr Coleman Subjective Subjective Patient reports: pain is less, tolerating liquids well and afebrile; denies nausea and vomiting Interval history since last seen: pain is better controlled, no further nausea and tolerating fluids well. Exam Narrative Exam Narrative: GEN: awake, alert, oriented 3. Pleasant, well groomed, interactive. HEAD: Normocephalic, atraumatic ENT: Mucous membranes moist, oropharynx unremarkable, External ear exam unremarkable EYES: PERRL, EOMI NECK: Full ROM, no TIFFANIE, no menigismus CHEST/RESP: No posterior rash. Subtle right infrascapular tenderness posteriorly, anterior nontender, clear to auscultation bilateral, but diminished bilaterally CARDIOVASCULAR: RRR, no murmur, rub rhett. 2+ Rad pulse bilateral ABDOMEN: Soft, nontender, no mass. +Bowel sounds EXT: Full ROM, no edema, no rash Neuro: Grossly normal neurologic exam, conversant, interactive. Psych: Speech fluent, thoughts congruent, affect normal Objective Last Vital Signs Temp 36.7 C 03/04/21 15:10 Pulse 80 03/04/21 15:10 Resp 18 03/04/21 15:10 BP 114/74 03/04/21 15:10 Pulse Ox 94 03/04/21 15:10 Laboratory Results - last 24 hr 03/04/21 03/04/21 06:20 06:20 WBC 6.87 RBC 3.81 L Hgb 12.3 Hct 36.1 MCV 94.8 MCH 32.3 MCHC 34.1 RDW 13.8 Plt Count 216 MPV 10.6 Immature Gran % 0.3 Neutrophils % 60.0 Lymphocytes % 28.1 Monocytes % 11.5 Eosinophils % 0.1 Basophils % 0.0 Nucleated RBC % 0 Absolute Neutrophils 4.12 Absolute Lymphocytes 1.93 Absolute Monocytes 0.79 Absolute Eosinophils 0.01 Absolute Basophils 0.00 Sodium 141 Potassium 3.5 Chloride 102 Carbon Dioxide 34.7 H Anion Gap 4.3 BUN 10 Creatinine 0.9 Estimated GFR/1.73 m2 >= 60.00 Glucose 90 Calcium 9.0 Magnesium 2.0
[2021-03-04] MEDS: Acetaminophen 325 MG TAB 650 MG PO (17:56)
[2021-03-04] MEDS: Enoxaparin 40 MG/0.4 ML SYR SC (17:56)
[2021-03-04] MEDS: Lidocaine 5% Patch 1 PATCH TP (20:26)
[2021-03-04] MEDS: Simvastatin 10 MG TAB PO (21:27)
[2021-03-05] MEDS: Acetaminophen 325 MG TAB 650 MG PO (00:22)
[2021-03-05 00:23] VITALS: BP 152/73; PULSE 86; RESP 18; TEMP 37.1; O2SAT 96
[2021-03-05] MEDS: Albuterol/Ipratropium 3 ML UPD VIAL IH ×3 (00:23→11:24)
[2021-03-05 00:53] VITALS: RESP 1; RESP 8
[2021-03-05] MEDS: Baclofen 10 MG TAB 5 MG PO (06:28)
[2021-03-05] MEDS: Lidocaine Patch Removal 1 EACH TD (06:29)
[2021-03-05 07:18] VITALS: BP 118/74; PULSE 80; RESP 18; TEMP 36.5; O2SAT 92
[2021-03-05] MEDS: Budesonide/Formoterol 160/4.5 6 GM 60 PUFF INH IH (08:25)
[2021-03-05] MEDS: Calcitonin-Salmon, Synthetic 3.7 ML BTL NS (08:48)
[2021-03-05] MEDS: Ondansetron 4 MG/2 ML VIAL IVP (08:50)
[2021-03-05] MEDS: Citalopram 10 MG TAB PO (08:50)
[2021-03-05] MEDS: Gabapentin 100 MG CAP PO (08:50)
[2021-03-05] MEDS: predniSONE 20 MG TAB 40 MG PO (08:50)
[2021-03-05] MEDS: Normal Saline Flush 10 ML SYR IVP (08:51)
--- NOTE | 2021-03-05 09:15 | PDOC.CMPRO ---
Care Management Progress Note S/O: Nathalia remains pleasant and engages easily with CM. No change to overall plan, CM continues to follow. A: Nathalia is a 70 year old woman admitted on 03/01/21 with chest pain P: Nathalia will return home when ready per MD, she will resume home O2 through [facility] and respiratory medications through [facility]. She will follow up with her PCP and plan of care as prescribed including Palliative Care. CM faxed referrals to [facility] for options counseling ([facility] needs support) and [facility] for PT/OT. Nathalia will transport via private vehicle with family.
[2021-03-05 09:20] VITALS: O2SAT 96
[2021-03-05 11:24] VITALS: RESP 4
--- NOTE | 2021-03-05 11:32 | CMDISCH_ITS ---
LACE Index Scoring Tool - Questions: Length of Stay (in days): 4 - 6 Acuity (Admit via E.D.?): Yes Comorbidities: Chronic Pulmonary Disease E.D. Visits: 1 - Answers: Total Score: 10 Risk of Readmission: High Risk Care Management Discharge Reason for Hospitalization: Chest Pain Discharge Plan: Nathalia will return home when ready per MD, she will resume home O2 through [facility] and respiratory medications through [facility]. She will follow up with her PCP and plan of care as prescribed including Palliative Care. CM faxed referrals to [facility] for options counseling ([facility] needs support) and [facility] for PT/OT. Nathalia will transport via private vehicle with her , David. Patient/Family Education Needs: Discuss Ask me 3 questions to assure patient understanding of reason for hospitalization and knowledge of self care needs upon discharge. Review d/c instructions re., medications, activity levels, and follow up appointment with PCP. Services Needed at Discharge: Home Health Care Services ([facility] RN/PT/OT )
[2021-03-05] MEDS: Pantoprazole 40 MG TABCR PO (11:40)
[2021-03-05] MEDS: traMADol 50 MG TAB PO (11:40)
[2021-03-05 11:54] VITALS: RESP 4
--- NOTE | 2021-03-05 12:21 | PTTR_ITS ---
PT Notes Visit Reasons: CHEST PAIN Inpatient Physical Therapy Treatment Note [facility] Date: 03/05/21 SUBJECTIVE: Nathalia reports that she continues to have pain with deep breaths. She indicated that she feels fine as long as she is not doing anything. She ind icated that muscle relaxers worked in past but not sure if she still has them. OBJECTIVE: [] PAIN: pain in left thoracic region BED MOBILITY/TRANSFERS Supine-sit: I Sit-supine: I Sit-stand: I Stand-sit: I GAIT Assistive Device: 4WW Weight bearing: full Assist: SBA Distance: 150'x2 2L of O2 ASSESSMENT: increased pain/spasms in her left thoracic region with deep breathing. I did provide her with PRT of left iliocostalis thoracic which responded well. She may benefit from diaphragm release. PLAN: possible dc to home per pt. TREATMENT CODE/TIME: 20 min. [id number]
--- NOTE | 2021-03-05 12:26 | DSE_ITS ---
Date of service: 03/05/21 Time of Service: 12:26 DS: Diagnosis Discharge Diagnosis (1) Compression fracture of T5 vertebra: Start date: 03/05/21 Start time: 12:27 Status: Acute Asessment and Plan: compression fracture T5 found on MRI ,Will give tramadol for better pain control along with voltaren gel to area as she stated lidocaine not effective. Walker for home per PT HH services PT/OT RN, AIRPLANE FLIGHT ATTENDANT IS, prednisone burst voltaren gel, baclofen. PPI . F/U with PCP in 1 week. (2) Acute right-sided thoracic back pain: Start date: 03/05/21 Start time: 12:57 Status: Acute Asessment and Plan: d/t compression fracture T5 pain better managed, continue current pain management (3) COPD (chronic obstructive pulmonary disease): Start date: 03/05/21 Start time: 13:00 Status: Chronic Asessment and Plan: not exacerbated at this time continue home regimen (4) Hypoxemia: Start date: 03/05/21 Start time: 13:01 Status: Chronic Asessment and Plan: Due to COPD. Negative COVID At baseline oxygen requirement. Continue home oxygen (5) Osteopenia: Start date: 03/05/21 Start time: 13:03 Status: Chronic Asessment and Plan: continue calcium and vitamin D discussed with Dr. De La O Discharge Plan Disposition Patient Disposition: HOME W/HOME HEALTH SERVICE Condition: Improving Discharge Details Reason For Visit: CHEST PAIN Admit Date/Time: 03/03/21 09:10 Admit Provider: Mac Quintana Attending Provider: Mac Quintana Primary Care Provider: [facility] Hospital Course: This is a 70 yo female with a PMH of COPD, former tobacco use, HLD, Depression/anxiety, gastric ulcer. She presented w/o complaint of pain that started to develop in the right side of her back several days prior to admission. She stated it felt like a baseball causing pressure and then the pain spread to her R flank and chest. She did mention a somewhat worsening cough beyond her baseline. No trauma. No F/C. She states no change in her sputum. She started using her albuterol MDI more frequently w/o improvement. She was last on a prednisone taper started on 12/29/20. In the ED her WBC count was normal. Troponin negative x 2. CXR was normal other than changes of COPD. CT chest also showed emphysematous changes, no pulmonary embolism or PNA. She was asked to be admitted to Hospitalist group for further management. She was placed on steroids with thought to be in mild COPD exacerbation, , prn meds, no anbx. Placed on lidocaine patch, baclofen, PT consult. MRI ordered and found to have compression fracture of T5 per patient today she didn't want to move due to pain, tramadol pain and pain was relieved without nausea, vomiting or AMS. Voltaren gel also improved pain. At this time she is at baseline oxygen requirements and no longer having any exacerbation of COPD. She is on a steroid burst for fracture and exacerbation. Recommend f/u with PCP in 1 week. She is ready to be discharged home will discharge home with HH services PT/OT/RN/AIRPLANE FLIGHT ATTENDANT. PT recommends home PT with walker. Will supply analgesic, muscle relaxant and topical gel. Patient denies CP, SOB, N/V/D. Home Meds and New Rx's Prescriptions: New polyethylene glycol 3350 17 gram Powder In Packet 17 g PO DAILY PRN PRN (Reason: Constipation) Qty: 14 RF: 0 baclofen 10 mg Tablet 5 mg PO Q12H Qty: 20 RF: 0 gabapentin 100 mg Capsule 100 mg PO TID Qty: 90 RF: 0 diclofenac sodium 1 % Gel 100 g topical QID Qty: 100 RF: 0 prednisone 20 mg Tablet 40 mg PO DAILY Qty: 2 RF: 0 tramadol 50 mg Tablet 50 mg PO Q4H PRN PRNQty: 20 RF: 0 pantoprazole [Protonix] 40 mg tablet,delayed release (DR/EC) 40 mg PO DAILY Qty: 30 RF: 0 Continued citalopram 20 mg tablet 20 mg PO DAILY Qty: 90 RF: 3 diphenhydramine HCl [Complete Allergy] 25 mg tablet 25 mg PO QHS RF: 0 cholecalciferol (vitamin D3) 2,000 unit capsule 2,000 unit PO DAILY RF: 0 ascorbic acid (vitamin C) [Vitamin C] 500 MG tablet 500 mg PO DAILY RF: 0 calcium carbonate-vitamin D3 [Calcium 600 + D(3)] 1 EACH tablet 1 ea PO DAILY RF: 0 Oxygen EACH NS PRN Qty: 2 RF: 1 nystatin 100,000 unit/mL suspension 5 ml PO QID PRN (Reason: thrush) Qty: 120 RF: 0 ipratropium-albuterol 0.5 mg-3 mg(2.5 mg base)/3 mL solution for nebulization 3 ml Inhalation 5X/DAY Qty: 450 RF: 12 albuterol sulfate [Ventolin HFA] 90 mcg/actuation HFA aerosol inhaler 1 - 2 puff IH QID PRN (Reason: bronchospasm) Qty: 3 RF: 6 clonazepam 0.5 mg tablet 0.25 mg PO BID PRN (Reason: anxiety) Qty: 90 RF: 1 budesonide-formoterol [Symbicort] 160-4.5 mcg/actuation HFA aerosol inhaler 2 puff inhalation BID Qty: 10.2 RF: 6 Spiriva with HandiHaler 18 mcg capsule, w/inhalation device 1 cap inhalation DAILY Qty: 90 RF: 4 fluticasone propionate 50 mcg/actuation spray,suspension 1 - 2 spray NS DAILY Qty: 15.8 RF: 3 simvastatin 10 mg tablet 10 mg PO HS Qty: 90 RF: 4 Discontinued omeprazole 20 mg tablet,delayed release (DR/EC) 20 mg PO DAILY PRN (Reason: GERD) Qty: 90 RF: 2 Discharge Instructions Instructions: Chest Pain (DC), Vertebral Compression Fracture (DC), Acute Low Back Pain (GEN) Additional Instructions: Follow up with PCP in 1-2 weeks Take medications as directed Use walker at home PT/OT/Nursing and AIRPLANE FLIGHT ATTENDANT will come to the house to help Follow up with pain management as an outpatient Stand Alone Forms: Nursing Discharge Form Referrals: [facility] [OTHER] - (Compression fracture T 5) Ivy Morton MD [Primary Care Provider] - (call your pcp sunday for an appt in one week) Activity:: Activity as Tolerated Equipment/Supplies:: No Equipment Needed Diet:: low cholesterol Discharge Orders Discharge Orders: Discharge Order (Routine); Ordered 03/05/21 Ordered By: Karol Chacon DS: Summary Time Spent with Patient providing and/or coordinating discharge services: Greater than 30 minutes (approx 45) Status at Discharge Functional status at discharge: uses cane/walker Overall status at discharge: patient is progressing back to baseline Mental Status: mental status grossly normal Speech and Movement: speech and movement normal Mood: congruent mood Affect: normal affect Exam Narrative Exam Narrative: GEN: awake, alert, oriented 3. Pleasant, well groomed, interactive. HEAD: Normocephalic, atraumatic ENT: Mucous membranes moist, oropharynx unremarkable, External ear exam unremarkable EYES: PERRL, EOMI NECK: Full ROM, no TIFFANIE, no menigismus CHEST/RESP: No posterior rash. Subtle right infrascapular tenderness posteriorly, anterior nontender, clear to auscultation bilateral, but diminished bilaterally CARDIOVASCULAR: RRR, no murmur, rub rhett. 2+ Rad pulse bilateral ABDOMEN: Soft, nontender, no mass. +Bowel sounds EXT: Full ROM, no edema, no rash Neuro: Grossly normal neurologic exam, conversant, interactive. Psych: Speech fluent, thoughts congruent, affect normal Psych Mental Status: mental status grossly normal Speech and Movement: speech and movement normal Mood: congruent mood Affect: normal affect DS: Data Vitals/I&O Vitals and I&O: Vital Signs Temperature 36.5 C 03/05/21 07:18 Temperature Source Tympanic 03/05/21 07:18 Pulse 80 03/05/21 07:18 Pulse Rhythm Regular 03/05/21 00:25 Pulse 64 03/01/21 22:10 Respiratory Rate 18 03/05/21 07:18 Respiratory Effort Non-Labored 03/05/21 00:25 Respiratory Depth Normal 03/05/21 00:25 Respiratory Pattern Normal 03/05/21 00:25 Blood Pressure 118/74 03/05/21 07:18 Blood Pressure Mean 96 03/01/21 20:00 Blood Pressure Position Supine 03/01/21 18:17 Pulse Oximetry 92 03/05/21 07:18 Oxygen Delivery Method Nasal Cannula 03/05/21 07:18 Oxygen Flow Rate 2 03/05/21 07:18 Pain Level 0 03/05/21 11:40 Comment 03/04/21 23:56 Intake & Output 03/04/21 03/05/21 03/05/21 23:59 11:59 23:59 Intake Total 600 / 600 Output Total 900 / 2250 600 / 600 Balance -900 / -1170 0 / 0 Intake: Oral 600 / 600 Output: Urine 900 / 2250 600 / 600 Other: Urine Color Yellow Yellow Urine Appearance Clear Clear Urine Odor Normal Normal Comment pT ind. in room Voiding Methods Toilet Toilet Data Completed and Pending Completed studies during hospitalization [Text1]: Exam(s) XR PORTABLE CHEST AP EXAM: XR PORTABLE CHEST AP CLINICAL HISTORY: R chest pain, COPD TECHNIQUE: 2D digital imaging was performed. COMPARISON: CR XR PORTABLE CHEST AP from 04/22/2019 FINDINGS: MEDIASTINUM: Normal. HEART: Normal. PULMONARY VASCULATURE: Normal. LUNGS: Clear. Lungs are hyperinflated suggesting underlying COPD. PLEURAL SPACE: No pleural effusion or pneumothorax. BONE:Within normal limits for the patient's age. There is a nonunited fracture of the posterior aspect of the left 7th rib. OTHER FINDINGS:Normal. IMPRESSION: No acute pulmonary findings. Exam(s) a CT:CT chest PE CTA Exam(s) CT CHEST PE CTA EXAM: CT CHEST PE CTA CLINICAL HISTORY: R posterior pain. TECHNIQUE: Imaging Protocol: Axial CT angiography was performed with multi- slice acquisition and multi-planar and/or 3D reconstructions. CONTRAST MATERIAL: Intravenous: Omnipaque 350 Contrast volume:70 mL COMPARISON: CT CT CHEST W from 11/26/2020 FINDINGS: Tracheobronchial tree: Patent where visualized. Pulmonary parenchyma: No consolidation or dominant measurable mass. There is a modest changes are seen in the lungs. Pulmonary Arteries: No evidence of filling defect to suggest pulmonary emboli. Mediastinum and Angelina: No dominant adenopathy or fluid collection. Visualized thyroid gland: Unremarkable. Pleura: No effusion or pneumothorax. Heart: The heart is not dilated. No coronary artery calcifications are seen. No pericardial effusion. Aorta: Thoracic aorta non-dilated. Atherosclerosis. No evidence of dissection. Upper abdomen: Unremarkable. Soft tissues: Unremarkable. Bones: No acute abnormality. IMPRESSION: 1. No evidence of pulmonary embolism, thoracic aortic dissection or aneurysm. 2. No acute fracture. Exam(s) PROCEDURE INFORMATION: Exam: XR Chest Exam date and time: 03/01/2021 6:26 PM Age: 70 years old Clinical indication: Other: R chest pain, copd TECHNIQUE: Imaging protocol: XR of the chest. Views: 1 view. COMPARISON: CT CHEST W 11/26/2020 9:22 AM FINDINGS: Lungs: Lungs are hyperinflated. No mass or focal consolidation. Pleural spaces: Unremarkable. No pleural effusion. No pneumothorax. Heart/Mediastinum: Unremarkable. No cardiomegaly. Vasculature: Calcified atherosclerotic disease. Bones/joints: Unremarkable. IMPRESSION: 1. No acute cardiopulmonary abnormality. 2. COPD changes. Exam(s) PROCEDURE INFORMATION: Exam: CTA Chest With Contrast Exam date and time: 03/01/2021 7:01 PM Age: 70 years old Clinical indication: Right-sided; Patient HX: Right posterior chest pain TECHNIQUE: Imaging protocol: Computed tomographic angiography of the chest with contrast. 3D rendering (Not supervised by radiologist): MIP and/or 3D reconstructed images were created by the technologist. Radiation optimization: All CT scans at this facility use at least one of these dose optimization techniques: automated exposure control; mA and/or kV adjustment per patient size (includes targeted exams where dose is matched to clinical indication); or iterative reconstruction. Contrast material: OMNIPAQUE 350; Contrast volume: 70 ml; Contrast route: INTRAVENOUS (IV); COMPARISON: CT CHEST W 11/26/2020 9:22 AM FINDINGS: Pulmonary arteries: Normal. No pulmonary emboli. Aorta: Mild calcified atherosclerotic disease. No aortic aneurysm. No aortic dissection. Lungs: Severe centrilobular emphysema. No focal mass or airspace consolidation. Pleural spaces: Unremarkable. No pneumothorax. No pleural effusion. Heart: Unremarkable. No cardiomegaly. No pericardial effusion. Lymph nodes: Unremarkable. No enlarged lymph nodes. Spleen: Normal heterogeneous early enhancement of the spleen. Bones/joints: Ununited fracture of the posterolateral left 8th rib, unchanged. No acute fracture. Soft tissues: Unremarkable. IMPRESSION: 1. No pulmonary embolism. 2. Severe centrilobular emphysema. 3. No acute low fracture. Exam(s) US ABDOMEN LIMITED EXAM: US ABDOMEN LIMITED CLINICAL HISTORY: ?cholecystitis TECHNIQUE: Ultrasound examination was limited to the liver, gallbladder, bile duct and pancreas. COMPARISON: US ABD PELVIS TRANSVAG from 08/10/2017 FINDINGS: PANCREAS: Normal where visualized. LIVER: Visualized portions are unremarkable. Hepatopedal flow in the Portal Vein. GALLBLADDER: No evidence of cholelithiasis. No evidence of wall thickening. No pericholecystic fluid identified. BILIARY SYSTEM: Common bile duct measures < 7 mm. No intrahepatic biliary ductal dilation. CORNELIUS'S SIGN: Negative. ASCITES: None seen. IMPRESSION: No findings of cholelithiasis or evidence of acute cholecystitis. No biliary ductal dilatation. Exam(s) PROCEDURE INFORMATION: Exam: US Abdomen, Limited; Right Upper Quadrant Exam date and time: 03/03/2021 4:46 PM Age: 70 years old Clinical indication: Abdominal pain; Localized; Right upper quadrant (ruq) TECHNIQUE: Imaging protocol: US abdomen. Real time ultrasound with image documentation. Limited exam focused on the right upper quadrant. COMPARISON: CT UPPER ABD W/WO CONTRAST(P) 01/03/2016 8:37 AM FINDINGS: Liver: Visualized portion appears unremarkable. Gallbladder: There appears to be folding of the gallbladder in the midbody region, which was present on prior study as well. The gallbladder wall has a normal thickness of 1-2 mm. No shadowing gallstones are identified. There is no pericholecystic fluid. The technologist reports a negative sonographic Cornelius's sign. Common bile duct: The common duct has a diameter of 3 mm, which is within normal limits. There is no evidence for biliary ductal dilatation. Pancreas: The visualized portion of the pancreatic head, neck and distal body appear unremarkable. The more proximal body and tail of the pancreas are not well visualized due to overlying bowel gas. Intraperitoneal space: No ascites in the right upper quadrant is identified. IMPRESSION: 1. No gallstones or evidence of acute cholecystitis. 2. No biliary ductal dilatation. Bones: There has been interval development of loss of height of the T5 vertebral body. Hyperintense signal is seen on the STIR images with hypointense signal seen on the T1 weighted images. The signal abnormality appears to be limited to the vertebral bodies. There is loss of approximately 20 percent of the height of the vertebral body. No associated soft tissue mass is appreciated no central spinal canal stenosis is present. Alignment is satisfactory. The signal characteristics are unremarkable. Cord: The thoracic cord is normal size and signal intensity. No intrinsic cord lesion is present. Discs: No disc herniation or bulge is present. No central spinal canal or neural foraminal stenosis is seen in the thoracic spine. Soft tissues: Normal. IMPRESSION: Acute to subacute compression fracture deformity of the T5 vertebral body. There is loss of approximately 20 percent of the height of the vertebral body. No retropulsion, central spinal canal or neural foraminal stenosis. No associated soft tissue mass. Exam(s) MR LUMBAR SPINE WO EXAM: MR LUMBAR SPINE WO CLINICAL HISTORY: circumferential back pain. TECHNIQUE: Multiplanar multisequence MRI of the Lumbar spine was performed. COMPARISON: MR MRI - LUMBAR SPINE WO CONTRAST from 12/31/2014 FINDINGS: Bones: The last intervertebral disc space is designated the L5/S1 level for the numbering purpose of this examination. The vertebral body heights are well maintained. Alignment is satisfactory. The signal characteristics are unremarkable. No evidence of an occult fracture. Cord: The conus tip ends at the L1 level. It is of normal size and signal intensity. T12-L1: No disc herniations or bulges are present. No central spinal canal or neural foraminal stenosis. L1-2: No disc herniations or bulges are present. No central spinal canal or neural foraminal stenosis. L2-3: Degenerative endplate signal changes are present. Mild prominence of the osteophyte disc complex. No significant central spinal canal or neural foraminal stenosis. L3-4: There is a mild diffuse disc bulge eccentric to the left. No significant central spinal canal stenosis is seen. No significant right neural foraminal stenosis is present. There is mild narrowing of the left neural foramen. L4-5: There is disc desiccation. There is a mild diffuse disc bulge. Mild degenerative changes of the facets are seen. No significant central spinal canal stenosis is seen. No significant neural foraminal stenosis is present. L5-S1: No disc herniations or bulges are present. Degenerative changes of the facets are seen. No significant central spinal canal or neural foraminal stenosis is present. Soft tissues: The visualized SI joints and sacrum are well maintained. The para spinal soft tissues are unremarkable. IMPRESSION: 1. No evidence of an occult fracture or subluxation. 2. Multilevel degenerative changes in the lumbar spine as described above. [facility] Medical History Chronic obstructive airway disease Oxygen dependent Hyperlipidemia Low back pain Osteoarthritis Osteopenia Pneumonia (11/28/14) Renal cyst Tobacco abuse Tubular adenoma of colon (10/12/16) Surgical History Appendectomy Colonoscopy - [facility] [place] (10/10/16) Ligation of fallopian tube BSO NECK SURGERY Open Carpal Tunnel release X 2 RIB RESECTION Family History Mother Diabetes Essential hypertension Hyperlipidemia Stroke Asthma Brother , 58 Essential hypertension Neoplasm Throat Chronic obstructive lung disease Asthma Maternal Grandmother , 93 Chronic obstructive lung disease Asthma Father No problems noted. Sister No problems noted. Sister No problems noted. Brother No problems noted. Son , age 32 - Drown No problems noted. Maternal Grandfather , age 91 No problems noted. Paternal Grandfather No problems noted. Paternal Grandmother No problems noted. Social History Smoking/Tobacco Use Status: Former Tobacco Use tobacco type: cigarettes Quit Date: 12/29/18 Tobacco: How many years used: 51 Second Hand Exposure: Yes Smoking risk assessment performed?: Yes Alcohol Intake: former Drug use: Never Substance use type: does not use Caregiver/Support person: Yes Household members: spouse Housing: house Communication Needs: Corrective Lenses Do you need help understanding health information?: Rarely Pets and animals: Yes Pets and animals: cat(s) Sexually active: No Do you think of yourself as: straight/heterosexual Current gender identity: female What is your relationship status?: How often do you talk on the phone with friends or family?: decline to answer How often do you get together with friends or relatives?: decline to answer How often do you attend jew or gnosticism services?: decline to answer Do you belong to any clubs or organized social groups?: no Panel score (0-1 are the most socially isolated patients): 1 What type of physical activity do you participate in: other Details: housework- split level Frequency: daily Fay/Catholic: Buddhism Special fay needs: No Seatbelt use: always Drive intox or ride w/intox sprinkling truck driver: No Do you feel safe at home: Yes Do you feel safe in your relationship?: Yes History History Para 1 Hx # Term Pregnancies Multiple births Hx # Pregnancies Ectopic pregnancies AB induced Hx Number of Living Children AB spontaneous
[2021-03-05] MEDS: Diclofenac 1% Gel 100 GM TUBE TP (13:28)
--- NOTE | 2021-03-05 14:38 | PDOC.HHF2F_ITS ---
Home Health Certification Home Health Certification: 1. Encounter Date and Reason I certify that Nathalia Cat was seen by Karol Chacon on 03/05/21 and that I had a [id number] encounter with this patient that meets the physician face to face encounter requirements. 2. Clinical Findings Supporting Skilled Need and Homebound Status I certify that home health services are medically necessary, include either intermittent alf and/or physical/speech therapy, and that this patient is homebound in that absences from the home require considerable and taxing effort and are infrequent or of short duration, or are attributable to the need to receive medical care. [X] (a) Attached documentation from encounter provides clinical findings supporting skilled need and homebound status (including what assistance patient requires to leave the home). The encounter with the patient was in whole, or in part, for the following medical condition, which is the primary reason for home health care: CHEST PAIN Residential: Patient would benefit from nursing services to help with medication administration, adls, etc Physical Therapy: Patient would benefit from PT/OT for strength and balance with gait and adls PHYSICIAN ASSISTANT SURGERY patient would benefit from community support Homebound: Unable to leave home without assistance. 3. Certification and Authentication I certify that I composed the above information based on my clinical judgement relating to this patient's medical condition and, if applicable, clinical findings communicated to me by the NPP or inpatient physician who performed the Home Health Referral. All further orders will be obtained through __Jocelynn Morton__(Community Based Physician - PCP)
[2021-03-07 05:29] LABS: Vitamin D 25 Total 92.8 ng/mL (30-100)
--- NOTE | 2021-03-07 17:00 | PT.INDS ---
Date of service: 03/07/21 PT Notes Visit Reasons: CHEST PAIN Physical Therapy Inpatient Discharge Summary Date: 03/07/2021 Dates of Service: 03/03/2021 through 03/05/2021 This is a clinical summary of care provided for the duration of dates listed above. No charge was made in the completion of this documentation. Referring Doctor: Neelam Coleman MD PT Orders: PT CONSULT: Limited ability Precautions: Fall. Standard. Activity as tolerated. Patient Profile/Admitting Diagnosis: Nathalia is a 70-year-old female who presented to the ED on 03/01/2021 with right posterior thoracic pain that has been constant since yesterday, improved with leaning forward and worse with lying flat. Patient is diagnosed with COPD exacerbation and acute right-sided thoracic back pain. PMHX: Medical History Chronic obstructive airway disease Oxygen dependent Hyperlipidemia Low back pain Osteoarthritis Osteopenia Pneumonia (11/28/14) Renal cyst Tobacco abuse Tubular adenoma of colon (10/12/16) Surgical History Appendectomy Colonoscopy - MAC (10/10/16) Ligation of fallopian tube BSO NECK SURGERY Open Carpal Tunnel release X 2 RIB RESECTION Social History/Home Situation: Lives with in a private home. Independent with all aspects of ADLs without an assistive ambulatory device nor adaptive equipment. Equipment Owned/DME: None Subjective: NT. See most recent CONTINUOUS MINING MACHINE COAL MINER notes. Objective: General Observation: NT. See most recent CONTINUOUS MINING MACHINE COAL MINER notes. Mental Status: NT. See most recent CONTINUOUS MINING MACHINE COAL MINER notes. Pain: NT. See most recent CONTINUOUS MINING MACHINE COAL MINER notes. ROM: Right Upper Extremity: Shoulder Flexion WFL. Shoulder abduction WFL. Shoulder ER/IR WFL. Elbow flexion WFL. Forearm pronation/supination WFL. Wrist flexion WFL. Opening and closing of hand WFL. Left Upper Extremity: Shoulder Flexion WFL. Shoulder abduction WFL. Shoulder ER/IR WFL. Elbow flexion WFL. Forearm pronation/supination WFL. Wrist flexion WFL. Opening and closing of hand WFL. Right Lower Extremity: Hip flexion WFL. Hip abduction WFL. Hip ER/IR WFL. Knee flexion WFL. Knee extension. Ankle dorsiflexion/eversion WFL. Ankle plantarflexion/inversion WFL. Left Lower Extremity: Hip flexion WFL. Hip abduction WFL. Hip ER/IR WFL. Knee flexion WFL. Knee extension. Ankle dorsiflexion WFL. Ankle plantarflexion WFL. Strength: Right Upper Extremity: Shoulder flexors 4-/5. Shoulder abductors 4-/5. Elbow flexors 4-/5. Elbow extensors 4-/5. Web Content Coordinator strong. Left Upper Extremity: Shoulder flexors 4-/5. Shoulder abductors 4-/5. Elbow flexors 4-/5. Elbow extensors 4-/5. Web Content Coordinator strong. Right Lower Extremity: Hip flexors 4-/5. Hip abductors 4-/5. Knee flexors 4-/5. Knee extensors 4-/5. Ankle dorsiflexors/evertors 4-/5. Ankle plantarflexors/invertors 4-/5. Left Lower Extremity: Hip flexors 4-/5. Hip abductors 4-/5. Knee flexors 4-/5. Knee extensors 4-/5. Ankle dorsiflexors/evertors 4-/5. Ankle plantarflexors/invertors 4-/5. Bed Mobility/Transfers: Rolling independent Supine to sit independent Sit to supine independent Sit to stand independent Stand to sit independent Bed to chair independent Gait: Able to tolerate up to 250 feet x 2 on 2 L of oxygen supplementation per minute using the 4 4 wheeled walker with full weight bearing standby assist. Balance: Static Sitting: Normal Dynamic Sitting: Normal Static Standing: Fair Dynamic Standing: Fair Assessment: Nathalia continues to demonstrate functional mobility decline requiring use of front wheel walker for mobility ADL performance to maximize independence, increase activity tolerance and decreased report of back pain. Patient will benefit from chest expansion exercises and deep breathing exercises to increase mobility of ventilatory muscles, increased ability of trunk, and address pain complaint. Patient continues to present s with clinical signs and symptoms consistent with current/admitting diagnoses that have resulted to mobility limitations, gait instability, generalized weakness, and impairment of motor control as demonstrated by the following impairment level findings: 1. Decreased strength to BLE major muscle groups 2. Impaired sitting/standing balance 3. Impaired activity tolerance 4. Shortness of breath 5. Thoracic back pain Impairments are continuing to contribute to the following functional limitations: 1. Increased dependence with transfers 2. Inability to safely ambulate without assistive device 3. Increase completion time for mobility ADL performance 4. Increased fall risk Goals: Goals X1 week 1. Supine-Sit independent MET 2. Sit-Supine independent MET 3. Sit-Stand independent MET 4. Stand-Sit independent MET 5. Bed-Chair independent MET 6. Chair-Bed independent MET 7. Independent gait on level surface with use of front wheel walker for at least 300 feet without report of pain nor dyspnea NOT MET 8. Independent stair negotiation while holding onto B rails for at least 5 steps without report of pain nor dyspnea NOT MET 9. Independent with home exercise program NOT MET 10. Good static and dynamic standing balance/tolerance NOT MET DISCHARGE RECOMMENDATIONS: Patient will benefit from home health PT services in order to progress mobility level using least restrictive assistive ambulatory device, assess home safety, identify additional equipment needs, and establish a functional maintenance program that will increase ability of patient to remain at home. TREATMENT CODE/TIME: GA Thank you for the opportunity to participate in the care of this patient. Shirlene Bourne PT, DPT, CLT [facility] [place], [place]
[2021-03-08 13:38] LABS: 1,25-Dihydroxyvitamin D 54 pg/mL (18-78)
== END 2021-03-05 15:29 | disposition home health service (06) | DRG 543 ==
LOC: ER 22:22 → MS 22:46
PROVIDERS: Internal Medicine; Admitting Provider Family Medicine; Emergency Provider Emergency Medicine; PCP Family Medicine; Visit Provider Family Medicine
DX: M48.54XA Collapsed vertebra, not elsewhere classified, thoracic region, initial encounter for fracture (principal); J44.1 Chronic obstructive pulmonary disease with (acute) exacerbation; M85.88 Other specified disorders of bone density and structure, other site; E78.5 Hyperlipidemia, unspecified; Z87.891 Personal history of nicotine dependence; Z99.81 Dependence on supplemental oxygen; R09.02 Hypoxemia; R11.2 Nausea with vomiting, unspecified; F41.9 Anxiety disorder, unspecified; K25.9 Gastric ulcer, unspecified as acute or chronic, without hemorrhage or perforation; Z20.822 Contact with and (suspected) exposure to COVID-19
CPT/HCPCS: 36415; 71275; 80048; 80053; 82306; 87635; 93005; 94640; 96361; 96374; 96376; 97162; 97530; 99285; J1650; 71045; 72146; 72148; 76705; 82652; 83735; 84484; 85025; 85379; 93010; 94667; 99219; 99232; 99239; G0378; J1941; J2060; J2405; J2930; J3490; J7512; J7620

== ENCOUNTER 2021-05-30 19:22 | Outpatient (REF) | payer MEDICARE, SELFPAY | END 2021-05-30 19:23 | disposition home or self-care (01) | LOC: LBN 19:22 | PROVIDERS: PCP Family Medicine | DX: N39.0 Urinary tract infection, site not specified (principal) | CPT/HCPCS: 87086 ==

== ENCOUNTER 2021-06-01 14:10 | Inpatient (IN) | payer MEDICARE, SELFPAY ==
[2021-06-01] VITALS (31 sets, daily range): BP systolic 112–163; BP diastolic 67–107; PULSE 90–112; RESP 8–32; TEMP 31–37.1; O2SAT 90–99
--- NOTE | 2021-06-01 14:00 | RT.EKG_ITS ---
APPROVED REPORT Exam: Resting ECG Reason for Exam: SOB Patient Location: E HR:114 bpm ECG Measurements Heart Rate 114 AXIS NV 117 P -84 QRSd 86 QRS 268 QT 339 T 78 QTc 467 Conclusion Sinus tachycardia Inferior infarct, old...Q >35mS, II III aVF
--- NOTE | 2021-06-01 14:00 | DI.RAD_ITS ---
Exam(s) XR PORTABLE CHEST AP EXAM: XR PORTABLE CHEST AP CLINICAL HISTORY: cough, copd, sob TECHNIQUE: 2D digital imaging was performed. COMPARISON: CT CT CHEST PE CTA from 03/01/2021 FINDINGS: LUNGS: Hyperinflated. Increased interstitial changes. No pleural abnormality seen. HEART: Normal. MEDIASTINUM: Normal. BONES: Old left upper rib fracture. IMPRESSION: No acute pulmonary findings. DATA REPOSITORY: RADIATION DOSE DELIVERED:
--- NOTE | 2021-06-01 14:14 | ED.GENADUL_ITS ---
Discharge Plan Disposition Patient Disposition: [facility] INPATIENT Condition: Serious Discharge Details Clinical Impression: Acute exacerbation of chronic obstructive pulmonary disease Admit Date/Time: 06/01/21 17:45 Admit Provider: Mac Quintana Attending Provider: Mac Quintana Primary Care Provider: Ivy Morton ED Provider: Robert Liu Discharge Data Discharge Date/Time-TO BE ENTERED AT DEPARTURE: 06/01/21 18:59 Medical Decision Making <Kristopher Pereira MD - Last Filed: 06/01/21 15:50> This is a 71-year-old female with oxygen dependent COPD, on 2 L home continuous oxygen. She is followed by pulmonology. She does take daily prophylactic azithromycin 250 mg, and was diagnosed with urinary tract infection for which she is taking nitrofurantoin the past 2 days with Pyridium. She presents today via EMS with complaints of shortness of breath at home. EMS found her to be with an elevated respiratory rate and hypoxia to 85%. Patient was given an albuterol updraft en route placed on continuous positive airway pressure at 10mmHg, and brought to the ED. Patient is improving by the time of arrival and able to speak in full sentences. Her exam reveals diminished breath sounds throat and slight tachycardia. Differential diagnosis includes COPD exacerbation, must exclude underlying pneumonitis or bronchitis in this patient with history of recurrent pneumonias. Patient was placed on a hospital monitor, IV access established, patient seen with respiratory therapy and maintained on CPAP pressure 10. She was given DuoNeb updraft, parenteral steroids, referred for EKG, chest x-ray, laboratory testing with nasal Covid swab. Please note patient states she is fully immunized against COVID-19. EKG is reassuring. Patient's laboratories show white count 6, hematocrit 38, platelets 1 2. Chemistries note sodium 140, potassium 4.1, chloride 100, bicarb elevated at 38, BUN 13, creatinine 0.6. Troponin negative and BNP 107. COVID- 19 negative. Respiratory therapist worked with the patient able to wean to 4 L nasal cannula. We await her chest x-ray. Will sign the patient out to Dr. Liu pending further beta agonist therapy, observation, repeat troponin. <Robert Liu MD - Last Filed: 06/01/21 21:21> 1755 -- Care signed out by Dr. Pereira plan to follow-up on chest x-ray and troponin. Labs reviewed and troponin negative. Chest x-ray reviewed and interpreted by me: No acute cardiopulmonary disease. Covid negative. Patient was having some anxiety per nursing and was given Ativan 1 mg IV. I spoke with respiratory therapy has been consulted on the patient and notes patient appropriate for floor on oxygen. Plan to admit for COPD exacerbation. --I called and spoke with Dr. Quintana, discussed ED presentation course including diagnostics, he will admit the patient. 1814 --second delta troponin now elevated at 0.10 in the indeterminate range. Repeat EKG was performed, reviewed and interpreted by me: Please see report, there is artifact, no STEMI. No significant change from prior EKG. Patient reassessed and notes continued improvement. No chest pain. Consider pulmonary embolism. Plan to obtain CT of the chest. I suspect slightly elevated troponin stress-induced secondary to COPD exacerbation. Less likely ACS but troponin will be trended. --I called and updated Dr. Quintana. CT of the chest pending at time of admission. HPI <Kristopher Pereira MD - Last Filed: 06/01/21 15:50> General Mode of arrival: ambulatory . Date/Time Provider Initiated Documentation: 06/01/21 14:39 . Limitations to Documentation: no limitations . Information obtained by: patient . History of Present Illness 71 year old F presents to the emergency department with the chief complaint of Short of breath, worse today, described as moderate and similar to prior episodes, Quality is described as constant, and is localized to the chest. Patient reports no radiation. Patient started experiencing this hour(s) and it has been constant. No relieving factors improve symptom(s), No exacerbating factors reported . Patient notes cough and other (Recent UTI and now feels her urine is quite orange.); denies fever/chills. Patient did receive the following treatments prior to arrival, other (Takes daily 250 mg azithromycin for respiratory disease, started nitrofurantoin and Pyridium on May 30.) Related Data Home Medications Medication Instructions Recorded Confirmed ascorbic acid (vitamin C) [Vitamin 500 mg PO DAILY 02/03/13 06/01/21 C] calcium carbonate-vitamin D3 1 ea PO DAILY 02/03/13 06/01/21 [Calcium 600 + D(3)] ipratropium 0.5 mg-albuterol 3 mg 3 ml INHALATION 5X/DAY #450 ml 11/15/18 06/01/21 (2.5 mg base)/3 mL nebulization soln cholecalciferol (vitamin D3) 50 2,000 unit PO DAILY 05/22/19 06/01/21 mcg (2,000 unit) capsule albuterol sulfate 90 mcg/actuation 1 - 2 puff IH QID PRN #3 units 08/27/20 06/01/21 aerosol inhaler diphenhydramine HCl 25 mg tablet 25 mg PO QHS 09/29/20 06/01/21 fluticasone propionate 50 1 - 2 spray NS DAILY #15.8 ml 12/30/20 06/01/21 mcg/actuation nasal spray,suspension simvastatin 10 mg tablet 10 mg PO HS #90 tab-cap 01/04/21 06/01/21 polyethylene glycol 3350 17 g PO DAILY PRN PRN #14 ea 03/05/21 06/01/21 clonazepam 0.5 mg tablet 0.25 mg PO BID PRN #90 tab-cap 03/16/21 06/01/21 omeprazole 40 mg capsule,delayed 40 mg PO DAILY #30 cap 04/04/21 06/01/21 release gabapentin 100 mg capsule 100 mg PO TID 04/27/21 06/01/21 azithromycin 250 mg tablet 250 mg PO DAILY 30 Days #30 tab 04/28/21 06/01/21 baclofen 5 mg tablet 5 mg PO .HS and qd prn #60 tab 05/18/21 06/01/21 tramadol 50 mg tablet 50 mg PO Q6H PRN #90 tab 05/18/21 06/01/21 benzonatate 100 mg capsule 100 mg PO BID PRN #30 cap 05/25/21 06/01/21 citalopram 20 mg tablet 20 mg PO DAILY #90 tab 05/25/21 06/01/21 diclofenac sodium 1 % topical gel 100 g TOPICAL QID #100 g 05/25/21 06/01/21 nitrofurantoin macrocrystal 100 mg 100 mg PO BID #7 cap 05/30/21 06/01/21 capsule phenazopyridine 100 mg tablet 100 mg PO TID PRN #6 tab 05/30/21 06/01/21 Previous Rx's Medication Instructions Recorded ipratropium 0.5 mg-albuterol 3 mg 3 ml INHALATION 5X/DAY #450 ml 11/15/18 (2.5 mg base)/3 mL nebulization soln albuterol sulfate 90 mcg/actuation 1 - 2 puff IH QID PRN #3 units 08/27/20 aerosol inhaler fluticasone propionate 50 1 - 2 spray NS DAILY #15.8 ml 12/30/20 mcg/actuation nasal spray,suspension simvastatin 10 mg tablet 10 mg PO HS #90 tab-cap 01/04/21 polyethylene glycol 3350 17 g PO DAILY PRN PRN #14 ea 03/05/21 clonazepam 0.5 mg tablet 0.25 mg PO BID PRN #90 tab-cap 03/16/21 omeprazole 40 mg capsule,delayed 40 mg PO DAILY #30 cap 04/04/21 release azithromycin 250 mg tablet 250 mg PO DAILY 30 Days #30 tab 04/28/21 baclofen 5 mg tablet 5 mg PO .HS and qd prn #60 tab 05/18/21 tramadol 50 mg tablet 50 mg PO Q6H PRN #90 tab 05/18/21 benzonatate 100 mg capsule 100 mg PO BID PRN #30 cap 05/25/21 citalopram 20 mg tablet 20 mg PO DAILY #90 tab 05/25/21 diclofenac sodium 1 % topical gel 100 g TOPICAL QID #100 g 05/25/21 nitrofurantoin macrocrystal 100 mg 100 mg PO BID #7 cap 05/30/21 capsule phenazopyridine 100 mg tablet 100 mg PO TID PRN #6 tab 05/30/21 Allergies Allergy/AdvReac Type Severity Reaction Status Date / Time sulfamethoxazole Allergy Mild Hives Unverified 06/01/21 14:09 [From Bactrim] trimethoprim [From Bactrim] Allergy Mild Hives Unverified 06/01/21 14:09 levofloxacin AdvReac Intermediate BACK AND Verified 06/01/21 14:09 STOMACH ACHE doxycycline AdvReac Unknown nausea Verified 06/01/21 14:09 toan Allergy Intermediate Uncoded 06/01/21 14:09 General Stated Complaint: SOB LARON: 3 Review of Systems <Kristopher Pereira MD - Last Filed: 06/01/21 15:50> Narrative: See HPI, 8 systems reviewed and otherwise negative PFSH <Kristopher Pereira MD - Last Filed: 06/01/21 15:50> Medical History Chronic obstructive airway disease Oxygen dependent Hyperlipidemia Low back pain Osteoarthritis Osteopenia Pneumonia (11/28/14) Renal cyst Tobacco abuse Tubular adenoma of colon (10/12/16) Surgical History Appendectomy Colonoscopy - MAC (10/10/16) Ligation of fallopian tube BSO NECK SURGERY Open Carpal Tunnel release X 2 RIB RESECTION Family History Mother Diabetes Essential hypertension Hyperlipidemia Stroke Asthma Brother , 58 Essential hypertension Neoplasm Throat Chronic obstructive lung disease Asthma Maternal Grandmother , 93 Chronic obstructive lung disease Asthma Father No problems noted. Sister No problems noted. Sister No problems noted. Brother No problems noted. Son , age 32 - Drown No problems noted. Maternal Grandfather , age 91 No problems noted. Paternal Grandfather No problems noted. Paternal Grandmother No problems noted. Social History Smoking/Tobacco Use Status: Former Tobacco Use tobacco type: cigarettes Quit Date: 12/29/18 Tobacco: How many years used: 51 Second Hand Exposure: Yes Smoking risk assessment performed?: Yes Alcohol Intake: former Drug use: Never Substance use type: does not use Caregiver/Support person: Yes Household members: spouse Housing: house Communication Needs: Corrective Lenses Do you need help understanding health information?: Rarely Pets and animals: Yes Pets and animals: cat(s) Sexually active: No Do you think of yourself as: straight/heterosexual Current gender identity: female What is your relationship status?: How often do you talk on the phone with friends or family?: decline to answer How often do you get together with friends or relatives?: decline to answer How often do you attend pentecostal or muslim services?: decline to answer Do you belong to any clubs or organized social groups?: no Panel score (0-1 are the most socially isolated patients): 1 What type of physical activity do you participate in: other Details: housework- split level Frequency: daily Fay/Hinduism: Mormon Special fay needs: No Seatbelt use: always Drive intox or ride 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 Pleasant, well groomed, i nteractive. HEAD: Normocephalic, atraumatic ENT: Mucous membranes dry, oropharynx unremarkable, External ear exam unremarkable EYES: PERRL, EOMI NECK: Full ROM, no TIFFANIE, no menigismus CHEST/RESP: Distant, diminished breath sounds bilaterally, few scant end expiratory wheeze CARDIOVASCULAR: Regular and tachycardic, no murmur, rub rhett. 2+ Rad pulse bilateral ABDOMEN: Soft, nontender, no mass. +Bowel sounds EXT: Full ROM, no edema, no rash Neuro: Grossly normal neurologic exam, conversant, interactive. Psych: Speech fluent, thoughts congruent, affect normal Course <Kristopher Pereira MD - Last Filed: 06/01/21 15:50> Vital Signs Vital signs: Vital Signs Temperature 37.1 C 06/01/21 14:05 Pulse 112 H 06/01/21 14:05 Respiratory Rate 22 06/01/21 14:05 Blood Pressure 152/93 H 06/01/21 14:05 Pulse Oximetry 94 06/01/21 14:05 Temperature 37.1 C 06/01/21 14:05 Temperature Source Temporal Artery Scan 06/01/21 14:05 Pulse 112 H 06/01/21 14:05 Respiratory Rate 22 06/01/21 14:05 Respiratory Effort 06/01/21 14:09 Blood Pressure 152/93 H 06/01/21 14:05 Blood Pressure Position Sitting 06/01/21 14:05 Pulse Oximetry 94 06/01/21 14:05 Oxygen Delivery Method Cpap 06/01/21 14:05 Sign Out <Kristopher Pereira MD - Last Filed: 06/01/21 15:50> Sign Out Data: Sign Out Comment: followup repeat labs, re-eval Last updated by Kristopher Pereira MD at 06/01/21 15:42
[2021-06-01] MEDS: methylPREDNISolone SUCC 125 MG VIAL (14:35)
[2021-06-01] MEDS: Normal Saline 1,000 ML 150 ML IV ×2 (14:35→20:34)
[2021-06-01 14:38] LABS: Source Nasal/Nares
[2021-06-01] MEDS: Albuterol/Ipratropium 3 ML UPD VIAL UPD ×2 (14:42→20:35)
[2021-06-01 14:49] LABS: Abs Immature Grans 0.02 10^3/uL (0.0-0.06); Absolute Basophil Count 0.04 10^3/uL (0.0-0.2); Absolute Eosinophil Count 0.31 10^3/uL (0.0-0.7); Absolute Lymphocyte Count 1.32 10^3/uL (1.2-3.4); Absolute Monocyte Count 0.63 10^3/uL (0.1-0.8); Absolute Neutrophil Count 3.92 10^3/uL (1.2-6.7); Basophils % 0.6; HCT 38.8 % (36.0-46.0); HGB 12.4 g/dL (11.2-15.7); Immature Grans % 0.3; Lymphocytes % 21.2; MCH 31.6 pg (27.0-33.0); MPV 11.7 fL (8.0-11.0); Monocytes % 10.1; Neutrophils % 62.8; Nucleated RBC 0 %; RBC 3.92 10^6/uL (3.93-5.22); RDW 12.7 % (11.7-14.6); RDW-SD 46.1 fL; WBC 6.24 10^3/uL (4.4-10.8)
[2021-06-01 15:05] LABS: Platelet Count 152 10^3/uL (130-400)
[2021-06-01 15:18] LABS: ALT 22 U/L (14-59); AST 23 U/L (15-37); Albumin 3.7 g/dL (3.4-5.0); Alkaline Phosphatase 62 U/L (46-116); Anion Gap 1.7 mmol/L (3-11); BUN 13 mg/dL (7-18); Bilirubin, Total 0.3 mg/dL (0.2-1.0); CO2 38.3 mmol/L (21.0-32.0); CREATININE 0.6 mg/dL (0.55-1.02); Calcium 9.2 mg/dL (8.5-10.1); Chloride 100 mmol/L (98-107); Glucose 110 mg/dL (74-106); Potassium 4.1 mmol/L (3.5-5.1); Sodium 140 mmol/L (136-145); Total Protein 7.3 g/dL (6.4-8.2)
[2021-06-01 15:29] LABS: NT-proBNP 107 pg/mL (<300); Troponin I < 0.05 ng/mL (<0.06)
[2021-06-01 15:31] LABS: COVID-19 PCR Negative (Negative)
--- NOTE | 2021-06-01 16:36 | DI.VRAD_ITS ---
PROCEDURE INFORMATION: Exam: XR Chest Exam date and time: 06/01/2021 2:14 PM Age: 71 years old Clinical indication: Cough and shortness of breath TECHNIQUE: Imaging protocol: XR of the chest. Views: 1 view. COMPARISON: CR XR PORTABLE CHEST AP 03/01/2021 6:38 PM FINDINGS: Lungs: The lungs are again hyperinflated. There is no new interstitial opacity or airspace consolidation. Pleural spaces: Unremarkable. No pleural effusion. No pneumothorax. Heart/Mediastinum: The cardiomediastinal silhouette is fairly stable in appearance. Bones/joints: Some chronic left rib fractures are again present. IMPRESSION: Hyperinflation, as on 03/01/2021, without new disease. Dictated and Authenticated by: Earl Levi MD. Ordering:BRENDNA Summers MD
--- NOTE | 2021-06-01 17:45 | RT.EKG_ITS ---
APPROVED REPORT Exam: Resting ECG Reason for Exam: elevated trop Patient Location: E HR:94 bpm ECG Measurements Heart Rate 94 AXIS NC 127 P 269 QRSd 100 QRS 268 QT 378 T 71 QTc 474 Conclusion Ectopic atrial rhythm...abnormal P axis, normal rate T upright, II III aVF Anterior infarct, old...Q >40mS, abnormal ST-T, V2-V5 no stemi, no significant change
--- NOTE | 2021-06-01 18:11 | RESPIRATORY ---
Pt reports she is on 2 LPM NC 23/04 . She will switch to pulse dose on the setting of 3 if,ambulating in the community. DME:[facility]
--- NOTE | 2021-06-01 18:15 | DI.CT_ITS ---
Exam(s) CT CHEST PE CTA EXAM: CT CHEST PE CTA CLINICAL HISTORY: shortness of breath. TECHNIQUE: Imaging Protocol: Axial CT angiography was performed with multi-slice acquisition and mu lti-planar and/or 3D reconstructions. CONTRAST MATERIAL: Intravenous: Omnipaque 350 Contrast volume:70 COMPARISON: CT CT CHEST PE CTA from 03/01/2021 FINDINGS: Pulmonary Arteries: No evidence of filling defect to suggest pulmonary emboli. Tracheobronchial tree: Mild bronchiectasis. Mild amount of mucous medial right lower lobe. Mediastinum and Angelina: No dominant adenopathy or fluid collection. Pulmonary parenchyma: No consolidation or dominant measurable mass. Emphysematous changes greater in the upper lobes. Pleura: No effusion or pneumothorax. Heart: The heart is not dilated. No coronary artery calcifications are seen. Aorta: Thoracic aorta non-dilated. Upper abdomen: Unremarkable. Bones: Worsening of previously noted T5 compression fracture, now moderate.. Mild compression fractu re superior endplate T7, new since the previous exam.. Old left 8th rib fracture. Degenerative disc changes. : IMPRESSION: No evidence of pulmonary embolism. Emphysematous changes. New mild compression fracture T7. Worsening of T5 compression fracture. No visible underlying suspi cious lesion. RADIATION DOSE DELIVERED: 216.2mGy.cm Total DLP DATA REPOSITORY: All CT scans at this facility are submitted to the National Radiology Data Registry (NRDR) Dose Index Registry (DIR) with the [employer] (ACR). RADIATION OPTIMIZATION: All CT scans at this facility use at least one of these dose optimization te chniques: automated exposure control; mA and/or kV adjustment per patient size (includes targeted exa ms where dose is matched to clinical indication); or iterative reconstruction.
[2021-06-01] MEDS: Omnipaque 350 MG/ML 100 ML BTL IV (18:42)
[2021-06-01] MEDS: Normal Saline Flush 10 ML SYR IVP ×3 (18:45→22:01)
--- NOTE | 2021-06-01 19:40 | DI.VRAD_ITS ---
PROCEDURE INFORMATION: Exam: CTA Chest With Contrast Exam date and time: 06/01/2021 6:23 PM Age: 71 years old Clinical indication: Shortness of breath and other: Shortness of breath TECHNIQUE: Imaging protocol: Computed tomographic angiography of the chest with contrast. 3D rendering (Not supervised by radiologist): MIP and/or 3D reconstructed images were created by the technologist. Radiation optimization: All CT scans at this facility use at least one of these dose optimization techniques: automated exposure control; mA and/or kV adjustment per patient size (includes targeted exams where dose is matched to clinical indication); or iterative reconstruction. Contrast material: OMNIPAQUE 350; Contrast volume: 70 ml; Contrast route: INTRAVENOUS (IV); COMPARISON: CT CHEST PE CTA 03/01/2021 8:09 PM FINDINGS: Pulmonary arteries: Normal. No pulmonary emboli. Aorta: Unremarkable. No aortic aneurysm. No aortic dissection. Lungs: Diffuse severe emphysematous changes throughout the lungs. Patchy consolidation within the inferior lingular segment most likely compatible with atelectasis versus chronic changes. No suspicious parenchymal lung lesion. Mild bronchiectasis predominantly within the lower lobes. Mucus/secretions are noted within the larger bronchi of the right lower lobe, without complete occlusion. Pleural spaces: Unremarkable. No pneumothorax. No pleural effusion. Heart: Unremarkable. No cardiomegaly. No pericardial effusion. Lymph nodes: Unremarkable. No enlarged lymph nodes. Bones/joints: Chronic fracture of the posterior left 8th rib. Worsening chronic compression fracture of T5 with increased kyphotic deformity of the thoracic spine. Interval development of an age-indeterminate mild compression fracture of T7, new since prior exam. Soft tissues: Unremarkable. IMPRESSION: 1. No evidence of pulmonary embolism. 2. Interval development of an age-indeterminate mild compression fracture of T7, new since prior exam. Consider further evaluation with MRI to better asses age of the injury if the patient presents with midline tenderness. 3. Diffuse severe emphysematous changes throughout the lungs. 4. Mild bronchiectasis predominantly within the lower lobes. Mucus/secretions are noted within the larger bronchi of the right lower lobe, without complete occlusion. 5. Worsening chronic compression fracture of T5 with increased kyphotic deformity of the thoracic spine. Dictated and Authenticated by: Naresh Fuller MD. Ordering:ROSA Jones MD
[2021-06-01] MEDS: Gabapentin 100 MG CAP PO (20:35)
--- NOTE | 2021-06-01 21:08 | HPE_ITS ---
Date of service: 06/01/21 Time of Service: 21:08 Assessment and Plan Assessment and plan (1) Chronic respiratory failure with hypoxia: Status: Acute Assessment and plan: Uses supplemental O2 at home; 2L at rest. Now stable on 4L NC Continuous O2 monitoring. (2) GERD (gastroesophageal reflux disease): Status: Chronic Assessment and plan: Cont omeprazole. (3) Anxiety: Status: Acute Assessment and plan: Cont citalopram and BID prn Clonazepam Given 1mg IV Ativan in the ED for appearance of a panic attack. She had a similar episode during my evaluation and another 0.5mg IV Ativan ordered. (4) Acute exacerbation of chronic obstructive pulmonary disease: Status: Acute Assessment and plan: Duonebs x 2 and albuterol UD x 1 in ED. Solu-medrol 125mg IV given in ED. Cont sched Duonebs, prn albuterol. Solu-medrol 40mg IV Q12H starting in AM; adjust as necessary. Pulmonary medicine consulted. Cont daily Azithromycin. Tessalon Perls prn. (5) Smoker: Status: Chronic Assessment and plan: Offer nicoderm patch. (6) UTI (urinary tract infection): Status: Acute Assessment and plan: Dxd with UTI and started Macrobid and prn pydridium 2 days ago. Cx results showing gram + mixed camryn. Stop Macrobid. History of Present Illness History of Present Illness Chief Complaint: Shortness of breath Narrative: This is a 71 yo female with a PMH of severe COPD, chronic hypoxic respiratory failure (chronic use of 2L supplemental O2), Anxiety, tobacco abuse, HLD, OA. She presented to the ED with worsening SOA. She notes a cough. No F/C. EMS transported her to the ED and noted tachypnea and O2 saturation of 85%. An albuterol updraft given en route. CPAP initiated at 10mmHg. In the ED she was then able to speak in full sentences. EKG unremarkable. WBC count normal. Na 140, K 4.1. BUN 13, creatinine 0.6. Troponin neg and BNP 107. Covid-19 negative. Second troponin mildly elevated at 0.10. She denied any CP, N/V/abd pain. She was able to wean from CPAP to 4L NC. CXR w/o acute findings. CTA chest w/o pulmonary emboli. IV solumedrol 125mg administered. Review of Systems All systems reviewed & are unremarkable except as noted in HPI and below PFSH Medical History Chronic obstructive airway disease Oxygen dependent Hyperlipidemia Low back pain Osteoarthritis Osteopenia Pneumonia (11/28/14) Renal cyst Tobacco abuse Tubular adenoma of colon (10/12/16) Surgical History Appendectomy Colonoscopy - MAC (10/10/16) Ligation of fallopian tube BSO NECK SURGERY Open Carpal Tunnel release X 2 RIB RESECTION Family History Mother Diabetes Essential hypertension Hyperlipidemia Stroke Asthma Brother , 58 Essential hypertension Neoplasm Throat Chronic obstructive lung disease Asthma Maternal Grandmother , 93 Chronic obstructive lung disease Asthma Father No problems noted. Sister No problems noted. Sister No problems noted. Brother No problems noted. Son , age 32 - Drown No problems noted. Maternal Grandfather , age 91 No problems noted. Paternal Grandfather No problems noted. Paternal Grandmother No problems noted. Social History Smoking/Tobacco Use Status: Former Tobacco Use tobacco type: cigarettes Quit Date: 12/29/18 Tobacco: How many years used: 51 Second Hand Exposure: Yes Smoking risk assessment performed?: Yes Alcohol Intake: former Drug use: Never Substance use type: does not use Caregiver/Support person: Yes Household members: spouse Housing: house Communication Needs: Corrective Lenses Do you need help understanding health information?: Rarely Pets and animals: Yes Pets and animals: cat(s) Sexually active: No Do you think of yourself as: straight/heterosexual Current gender identity: female What is your relationship status?: How often do you talk on the phone with friends or family?: decline to answer How often do you get together with friends or relatives?: decline to answer How often do you attend hoahaoism or episcopalian services?: decline to answer Do you belong to any clubs or organized social groups?: no Panel score (0-1 are the most socially isolated patients): 1 What type of physical activity do you participate in: other Details: housework- split level Frequency: daily Fay/Mu-Ism: Faith Special fay needs: No Seatbelt use: always 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 Do you feel safe at home: Yes Do you feel safe in your relationship?: Yes Additional Social history: previous exposure to cleaning supplies History History Para 1 Hx # Term Pregnancies Multiple births Hx # Pregnancies Ectopic pregnancies AB induced Hx Number of Living Children AB spontaneous Meds Allergies and Home Medications Allergies Allergy/AdvReac Type Severity Reaction Status Date / Time sulfamethoxazole Allergy Mild Hives Unverified 06/01/21 14:09 [From Bactrim] trimethoprim [From Bactrim] Allergy Mild Hives Unverified 06/01/21 14:09 levofloxacin AdvReac Intermediate BACK AND Verified 06/01/21 14:09 STOMACH ACHE doxycycline AdvReac Unknown nausea Verified 06/01/21 14:09 toan Allergy Intermediate Uncoded 06/01/21 14:09 Home Medications Medication Instructions Recorded Confirmed Type ascorbic acid (vitamin C) [Vitamin 500 mg PO DAILY 02/03/13 06/01/21 History C] calcium carbonate-vitamin D3 1 ea PO DAILY 02/03/13 06/01/21 History [Calcium 600 + D(3)] Oxygen l NS PRN #2 04/10/16 05/22/19 Clinic ipratropium 0.5 mg-albuterol 3 mg 3 ml INHALATION 5X/DAY #450 ml 11/15/18 06/01/21 Rx (2.5 mg base)/3 mL nebulization soln cholecalciferol (vitamin D3) 50 2,000 unit PO DAILY 05/22/19 06/01/21 History mcg (2,000 unit) capsule albuterol sulfate 90 mcg/actuation 1 - 2 puff IH QID PRN #3 units 08/27/20 06/01/21 Rx aerosol inhaler diphenhydramine HCl 25 mg tablet 25 mg PO QHS 09/29/20 06/01/21 History fluticasone propionate 50 1 - 2 spray NS DAILY #15.8 ml 12/30/20 06/01/21 Rx mcg/actuation nasal spray,suspension simvastatin 10 mg tablet 10 mg PO HS #90 tab-cap 01/04/21 06/01/21 Rx polyethylene glycol 3350 17 g PO DAILY PRN PRN #14 ea 03/05/21 06/01/21 Rx clonazepam 0.5 mg tablet 0.25 mg PO BID PRN #90 tab-cap 03/16/21 06/01/21 Rx omeprazole 40 mg capsule,delayed 40 mg PO DAILY #30 cap 04/04/21 06/01/21 Rx release gabapentin 100 mg capsule 100 mg PO TID 04/27/21 06/01/21 History azithromycin 250 mg tablet 250 mg PO DAILY 30 Days #30 tab 04/28/21 06/01/21 Rx baclofen 5 mg tablet 5 mg PO .HS and qd prn #60 tab 05/18/21 06/01/21 Rx tramadol 50 mg tablet 50 mg PO Q6H PRN #90 tab 05/18/21 06/01/21 Rx benzonatate 100 mg capsule 100 mg PO BID PRN #30 cap 05/25/21 06/01/21 Rx citalopram 20 mg tablet 20 mg PO DAILY #90 tab 05/25/21 06/01/21 Rx diclofenac sodium 1 % topical gel 100 g TOPICAL QID #100 g 05/25/21 06/01/21 Rx nitrofurantoin macrocrystal 100 mg 100 mg PO BID #7 cap 05/30/21 06/01/21 Rx capsule phenazopyridine 100 mg tablet 100 mg PO TID PRN #6 tab 05/30/21 06/01/21 Rx Exam Const General: cooperative and acute distress (with coughing paroxysms.) moderate Nutritional Appearance: thin Orientation: alert and oriented x3 HENMT Head: normocephalic and atraumatic Eyes General: appearance normal, both eyes and all related structures Sclera: sclerae normal Resp Effort & Inspection: cough and labored Auscultation: rhonchi and wheezes expiratory wheezes Cardio Rate: regular rate Rhythm: regular rhythm Heart Sounds: S1 normal and S2 normal GI Palpation: soft and nontender Skin General skin exam: no rashes or lesions noted Extrem General: no pedal edema and no calf tenderness Psych Speech and Movement: speech and movement normal Affect: normal affect Results Labs Result diagrams: 06/01/21 14:25 06/01/21 14:25 Labs: Laboratory Results - last 24 hr 06/01/21 06/01/21 06/01/21 14:20 14:25 14:25 WBC 6.24 RBC 3.92 L Hgb 12.4 Hct 38.8 MCV 99.0 H MCH 31.6 MCHC 32.0 RDW 12.7 Plt Count 152 MPV 11.7 H Immature Gran % 0.3 Neutrophils % 62.8 Lymphocytes % 21.2 Monocytes % 10.1 Eosinophils % 5.0 Basophils % 0.6 Nucleated RBC % 0 Absolute Neutrophils 3.92 Absolute Lymphocytes 1.32 Absolute Monocytes 0.63 Absolute Eosinophils 0.31 Absolute Basophils 0.04 Sodium 140 Potassium 4.1 Chloride 100 Carbon Dioxide 38.3 H Anion Gap 1.7 L BUN 13 Creatinine 0.6 Estimated GFR/1.73 m2 >= 60.00 Glucose 110 H Calcium 9.2 Total Bilirubin 0.3 AST 23 ALT 22 Alkaline Phosphatase 62 Troponin I NT-Pro-B Natriuret Pep Total Protein 7.3 Albumin 3.7 COVID-19 Source Nasal/Nares SARS-CoV-2 (PCR) Negative 06/01/21 06/01/21 14:25 17:30 WBC RBC Hgb Hct MCV MCH MCHC RDW Plt Count MPV Immature Gran % Neutrophils % Lymphocytes % Monocytes % Eosinophils % Basophils % Nucleated RBC % Absolute Neutrophils Absolute Lymphocytes Absolute Monocytes Absolute Eosinophils Absolute Basophils Sodium Potassium Chloride Carbon Dioxide Anion Gap BUN Creatinine Estimated GFR/1.73 m2 Glucose Calcium Total Bilirubin AST ALT Alkaline Phosphatase Troponin I < 0.05 0.10 H* NT-Pro-B Natriuret Pep 107 Total Protein Albumin COVID-19 Source SARS-CoV-2 (PCR) Last Vital Signs Temp 36.0 C L 06/01/21 19:32 Pulse 102 H 06/01/21 19:32 Resp 18 06/01/21 19:32 BP 160/84 H 06/01/21 19:32 Pulse Ox 95 06/01/21 19:32
[2021-06-01] MEDS: LORazepam 2 MG/ML VIAL 0.5 MG IVP (21:59)
[2021-06-01] MEDS: diphenhydrAMINE 25 MG CAP PO (22:00)
[2021-06-01] MEDS: Baclofen 10 MG TAB 5 MG PO (22:00)
[2021-06-01] MEDS: Simvastatin 10 MG TAB PO (22:01)
[2021-06-01] MEDS: Diclofenac 1% Gel 100 GM TUBE TP (22:04)
[2021-06-01 22:35] LABS: Troponin I 0.11 ng/mL (<0.06)
[2021-06-02] VITALS (12 sets, daily range): BP systolic 114–139; BP diastolic 68–81; PULSE 79–98; RESP 2–20; TEMP 30–36.8; O2SAT 93–98
[2021-06-02] MEDS: Normal Saline 1,000 ML 150 ML IV ×3 (03:29→19:52)
[2021-06-02] MEDS: Albuterol/Ipratropium 3 ML UPD VIAL UPD ×4 (04:34→23:22)
[2021-06-02 07:38] LABS: Magnesium 1.9 mg/dL (1.8-2.4)
[2021-06-02 07:43] LABS: Anion Gap 4.5 mmol/L (3-11); BUN 14 mg/dL (7-18); CO2 33.5 mmol/L (21.0-32.0); CREATININE 0.6 mg/dL (0.55-1.02); Calcium 8.7 mg/dL (8.5-10.1); Chloride 106 mmol/L (98-107); Glucose 144 mg/dL (74-106); Sodium 144 mmol/L (136-145); Troponin I 0.06 ng/mL (<0.06)
[2021-06-02] MEDS: Ascorbic Acid 500 MG TAB PO (08:09)
[2021-06-02] MEDS: Omeprazole 20 MG CAPCR 40 MG PO (08:09)
[2021-06-02] MEDS: Gabapentin 100 MG CAP PO ×3 (08:09→20:26)
[2021-06-02] MEDS: methylPREDNISolone SUCC 40 MG VIAL IVP ×2 (08:09→20:25)
[2021-06-02] MEDS: Normal Saline Flush 10 ML SYR IVP (08:09)
[2021-06-02] MEDS: Azithromycin 250 MG TAB PO (08:09)
[2021-06-02] MEDS: Citalopram 20 MG TAB PO (08:09)
[2021-06-02] MEDS: Diclofenac 1% Gel 100 GM TUBE TP ×4 (08:10→20:27)
[2021-06-02] MEDS: Fluticasone NASAL SPRAY 16 GM BTL NS (09:58)
[2021-06-02] MEDS: guaiFENesin 600 MG TABCR PO ×2 (09:58→20:26)
[2021-06-02 10:23] LABS: BE 8 mmol/L (-2-3); HCO3 33 mmol/L (22-26); pCO2 54 mmHg (35-45); pH 7.39 (7.35-7.45); pO2 59 mmHg (80-105); sO2 91 % (95-98); tCO2 30 mmol/L (23-27)
[2021-06-02 10:30] LABS: FIO2 55 %; FIO2L 30 L; Site Left Radial
--- NOTE | 2021-06-02 10:52 | W.PM.PROGNOT ---
Date of Service Date of service: 06/02/21 Time of Service: 10:52 Assessment and Plan Assessment and plan (1) Acute exacerbation of chronic obstructive pulmonary disease: Status: Acute Assessment and plan: Solu-medrol 125mg IV given in ED. Cont sched Duonebs, prn albuterol. Solu-medrol 40mg IV Q12H, plan taper when ready Pulmonary medicine consulted. Cont daily Azithromycin. Tessalon Perrls prn. (2) Chronic respiratory failure with hypoxia: Status: Acute Assessment and plan: Uses supplemental O2 at home; 2L at rest. requiring hi flow now continue steroids, updrafts, azithromycin Continuous O2 monitoring. (3) GERD (gastroesophageal reflux disease): Status: Chronic Assessment and plan: Cont omeprazole. (4) Anxiety: Status: Acute Assessment and plan: Cont citalopram and BID prn Clonazepam required ativan for symptoms. (5) Smoker: Status: Chronic Assessment and plan: Offer nicoderm patch while hospitalized (6) UTI (urinary tract infection): Status: Acute Assessment and plan: Dxd with UTI and started Macrobid and prn pydridium 2 days ago. Cx results showing gram + mixed camryn. Stop Macrobid. repeat urine negative for UTI (7) DVT prophylaxis: Status: Acute Assessment and plan: TEDS, enoxaparin (8) Discharge planning issues: Status: Acute Assessment and plan: case management following discussed with DR Coleman Subjective Subjective Patient reports: shortness of breath Interval history since last seen: anxiety but feels better post medication. Exam Const General: cooperative and acute distress (with coughing paroxysms.) moderate Nutritional Appearance: thin Orientation: alert and oriented x3 HENMT Head: normocephalic and atraumatic Eyes General: appearance normal, both eyes and all related structures Sclera: sclerae normal Resp Effort & Inspection: cough and labored Auscultation: rhonchi and wheezes expiratory wheezes Cardio Rate: regular rate Rhythm: regular rhythm Heart Sounds: S1 normal and S2 normal GI Palpation: soft and nontender Skin General skin exam: no rashes or lesions noted Extrem General: no pedal edema and no calf tenderness Psych Speech and Movement: speech and movement normal Affect: normal affect Objective Last Vital Signs Temp 36.1 C L 06/02/21 07:25 Pulse 79 06/02/21 07:25 Resp 20 06/02/21 07:25 BP 114/74 06/02/21 07:25 Pulse Ox 95 06/02/21 07:25 Laboratory Results - last 24 hr 06/01/21 06/01/21 06/01/21 14:20 14:25 14:25 WBC 6.24 RBC 3.92 L Hgb 12.4 Hct 38.8 MCV 99.0 H MCH 31.6 MCHC 32.0 RDW 12.7 Plt Count 152 MPV 11.7 H Immature Gran % 0.3 Neutrophils % 62.8 Lymphocytes % 21.2 Monocytes % 10.1 Eosinophils % 5.0 Basophils % 0.6 Nucleated RBC % 0 Absolute Neutrophils 3.92 Absolute Lymphocytes 1.32 Absolute Monocytes 0.63 Absolute Eosinophils 0.31 Absolute Basophils 0.04 ABG Sample Site ABG pH ABG pCO2 ABG pO2 ABG HCO3 ABG Total CO2 ABG O2 Saturation ABG Base Excess Oxygen Liter Flow FiO2 Sodium 140 Potassium 4.1 Chloride 100 Carbon Dioxide 38.3 H Anion Gap 1.7 L BUN 13 Creatinine 0.6 Estimated GFR/1.73 m2 >= 60.00 Glucose 110 H Calcium 9.2 Magnesium Total Bilirubin 0.3 AST 23 ALT 22 Alkaline Phosphatase 62 Troponin I NT-Pro-B Natriuret Pep Total Protein 7.3 Albumin 3.7 COVID-19 Source Nasal/Nares SARS-CoV-2 (PCR) Negative 06/01/21 06/01/21 06/01/21 14:25 17:30 17:53 WBC RBC Hgb Hct MCV MCH MCHC RDW Plt Count MPV Immature Gran % Neutrophils % Lymphocytes % Monocytes % Eosinophils % Basophils % Nucleated RBC % Absolute Neutrophils Absolute Lymphocytes Absolute Monocytes Absolute Eosinophils Absolute Basophils ABG Sample Site ABG pH ABG pCO2 ABG pO2 ABG HCO3 ABG Total CO2 ABG O2 Saturation ABG Base Excess Oxygen Liter Flow FiO2 Sodium Potassium Chloride Carbon Dioxide Anion Gap BUN Creatinine Estimated GFR/1.73 m2 Glucose Calcium Magnesium Total Bilirubin AST ALT Alkaline Phosphatase Troponin I < 0.05 0.10 H* NT-Pro-B Natriuret Pep 107 Total Protein Albumin COVID-19 Source Cancelled SARS-CoV-2 (PCR) Cancelled 06/01/21 06/02/21 06/02/21 22:10 07:05 07:05 WBC RBC Hgb Hct MCV MCH MCHC RDW Plt Count MPV Immature Gran % Neutrophils % Lymphocytes % Monocytes % Eosinophils % Basophils % Nucleated RBC % Absolute Neutrophils Absolute Lymphocytes Absolute Monocytes Absolute Eosinophils Absolute Basophils ABG Sample Site ABG pH ABG pCO2 ABG pO2 ABG HCO3 ABG Total CO2 ABG O2 Saturation ABG Base Excess Oxygen Liter Flow FiO2 Sodium 144 Potassium 4.0 Chloride 106 Carbon Dioxide 33.5 H Anion Gap 4.5 BUN 14 Creatinine 0.6 Estimated GFR/1.73 m2 >= 60.00 Glucose 144 H Calcium 8.7 Magnesium 1.9 Total Bilirubin AST ALT Alkaline Phosphatase Troponin I 0.11 H* 0.06 NT-Pro-B Natriuret Pep Total Protein Albumin COVID-19 Source SARS-CoV-2 (PCR) 06/02/21 10:18 WBC RBC Hgb Hct MCV MCH MCHC RDW Plt Count MPV Immature Gran % Neutrophils % Lymphocytes % Monocytes % Eosinophils % Basophils % Nucleated RBC % Absolute Neutrophils Absolute Lymphocytes Absolute Monocytes Absolute Eosinophils Absolute Basophils ABG Sample Site Left Radial ABG pH 7.39 ABG pCO2 54 H ABG pO2 59 L ABG HCO3 33 H ABG Total CO2 30 H ABG O2 Saturation 91 L ABG Base Excess 8 H Oxygen Liter Flow 30 FiO2 55 Sodium Potassium Chloride Carbon Dioxide Anion Gap BUN Creatinine Estimated GFR/1.73 m2 Glucose Calcium Magnesium Total Bilirubin AST ALT Alkaline Phosphatase Troponin I NT-Pro-B Natriuret Pep Total Protein Albumin COVID-19 Source SARS-CoV-2 (PCR)
[2021-06-02 11:02] LABS: Bilirubin Negative (Negative); Blood Negative (Negative); Clarity Clear (Clear); Glucose Negative (Negative); Ketones Trace mg/dL (Negative); Leukocyte Esterase Negative (Negative); Nitrite Negative (Negative); Specific Gravity 1.015 (1.005-1.025); Urobilinogen 0.2 EU/dL (Up TO 0.2)
--- NOTE | 2021-06-02 17:24 | INITIAL_ITS ---
- If Service Date Differs Date of service: 06/02/21 Time of Service: 17:24 Care Management Initial Assess REASON FOR HOSPITALIZATION:: COPD PAST MEDICAL HISTORY/PAST SURGICAL HISTORY:: Chronic obstructive airway disease. Oxygen dependent. Hyperlipidemia. Low back pain. Osteoarthritis. Osteopenia. Pneumonia (11/28/14). Renal cyst. Tobacco abuse. Tubular adenoma of colon (10/12/16). Appendectomy. Colonoscopy - MAC (10/10/16). Ligation of fallopian tube. BSO. NECK SURGERY. Open Carpal Tunnel release. X 2. RIB RESECTION PREVIOUS FUNCTIONAL STATUS/SOCIAL/FAMILY SUPPORTS:: Nathalia resides with her Clyde in [facility]. 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 ADVANCE DIRECTIVES:: AD and POA lists David as agent. Has patient been provided with info about the portal/API?: Yes Did the patient sign up for the portal?: No CODE STATUS:: Full Code INSURANCE COVERAGE / FINANCIAL ISSUES:: [employer], [employer], Medicare CURRENT HOME/COMMUNITY SERVICES/EQUIPMENT:: Resume home O2. PRIMARY CARE PHYSICIAN:: Ivy Morton POTENTIAL DISCHARGE NEEDS:: Review discharge instructions, discuss Ask Me Three. PATIENT/FAMILY EDUCATION NEEDS:: Discuss Ask me 3 questions to assure patient understanding of reason for hospitalization and knowledge of self care needs upon discharge. Review d/c instructions re., medications, activity levels, and follow up appointment with PCP. ANTICIPATED BARRIERS TO DISCHARGE:: None anticipated at this time. TRANSPORTATION:: to transport home via private car. PLAN:: Nathalia will return home when ready per MD, she will resume home O2 through [facility] and respiratory medications through [facility]. She will follow up with her PCP and plan of care as prescribed. Undetermined if additional services will be recommended upon discharge. Nathalia will transport via private vehicle with family.
[2021-06-02] MEDS: Normal Saline 1,000 ML 50 ML IV (20:22)
[2021-06-02] MEDS: diphenhydrAMINE 25 MG CAP PO (21:38)
[2021-06-02] MEDS: Baclofen 10 MG TAB 5 MG PO (21:39)
[2021-06-02] MEDS: Simvastatin 10 MG TAB PO (21:39)
[2021-06-03 00:37] VITALS: BP 130/73; PULSE 75; RESP 18; TEMP 36.7; O2SAT 92
[2021-06-03 06:07] VITALS: RESP 4; RESP 5; RESP 6
[2021-06-03] MEDS: Albuterol/Ipratropium 3 ML UPD VIAL UPD (06:07)
[2021-06-03 07:23] VITALS: BP 134/75; PULSE 85; RESP 18; TEMP 36.7; O2SAT 96
[2021-06-03 07:51] VITALS: O2SAT 93
[2021-06-03] MEDS: clonazePAM 0.5 MG TAB 0.25 MG PO ×2 (08:49→19:59)
[2021-06-03] MEDS: Omeprazole 20 MG CAPCR 40 MG PO (08:51)
[2021-06-03] MEDS: guaiFENesin 600 MG TABCR PO ×2 (08:52→19:59)
[2021-06-03] MEDS: Azithromycin 250 MG TAB PO (08:52)
[2021-06-03] MEDS: Gabapentin 100 MG CAP PO ×3 (08:52→19:59)
[2021-06-03] MEDS: Ascorbic Acid 500 MG TAB PO (08:52)
[2021-06-03] MEDS: Citalopram 20 MG TAB PO (08:53)
[2021-06-03] MEDS: predniSONE 20 MG TAB 40 MG PO (08:53)
--- NOTE | 2021-06-03 09:47 | PUCON_ITS ---
General Date Of Service Date of service: 06/03/21 Time of Service: 08:00 Requesting physician: Neelam Coleman Reason for Consult: COPD exacerbation Assessment and Plan Assessment and plan (1) Chronic respiratory failure with hypoxia: Status: Acute (2) Lung nodule: Status: Acute (3) Anxiety: Status: Acute (4) Acute exacerbation of chronic obstructive pulmonary disease: Status: Acute Assessment and plan: This is a 71-year-old female who I seen in clinic for severe COPD and chronic hypoxic respiratory failure on 2 L nasal cannula who was admitted currently for COPD exacerbation. She certainly is having a COPD exacerbation however this is in the setting of relatively significant anxiety and which seems to be contributing to her symptoms. Have concerns of the high dosing of her steroids is contributing to her hallucinations. There is no bene fit in giving IV dosing of steroids for COPD exacerbation and no benefit in giving more than 40 mg prednisone equivalent daily. I removed her high flow nasal cannula this morning and she is doing well on her home oxygen at the moment. COPD Exacerbation - recommend switching IV methylpred 40mg bid to 40mg prednisone daily for 5 days, followed by 30mg for 4 days, 20mg for 4 days, 10mg for 3 days, 5mg for 3 days - recommend placing her on her home regimen of Stiolto with Duonebs prn - continue home daily azithromycin - discontinue IVF - she already has a follow up visit scheduled with me this month Anxiety - recommend scheduling her home anxiety meds as she takes them at home (clonazepam bid) Lung Nodule - LDCT due 03/22 Chronic hypoxic respiratory failure - continue 2L nc (home dose) for sats between 88-92% History of Present Illness History of Present Illness Chief Complaint: SOB Narrative: This is a 71-year-old female with high risk COPD and very significant anxiety who I know well from my clinic. She is on home oxygen and is maintained on Stiolto. At her last clinic visit I started her on chronic azithromycin due to her frequency of COPD exacerbations in the preceding year. She has a [id number] smoking history and quit in 2019. Most recent PFTs I have on her are from 2017 which show an FEV1 percent of 38. I ordered for her to have PFTs completed at our last visit in March however this has not been done. She is up-to-date on lung cancer screening. She tells me that she started feeling ill approximately a week ago and thought that it might just passed so she did not call our office. She then started having more trouble breathing which provoked her anxiety which then continued to worsen her breathing. She came into the emergency department for shortness of breath and was on CPAP which was then transitioned to high flow nasal cannula to provide her with more flow. She is currently being treated for COPD exacerbation and has her anxiety medicine ordered but only as as needed wears at home she takes it twice a day. Per report from nursing and respiratory therapy she has been having some hallucinations and acting slightly bizarrely which is not her baseline. She states that she is feeling much better than when she first came in and she is anxious to go home. During our conversation I had her switched off of high flow nasal cannula onto nasal cannula at her home settings of 2 L and her saturations were remained in the 90s at this level. Review of Systems All systems reviewed & are unremarkable except as noted in HPI and below Constitutional Constitutional: Reports difficulty sleeping and Reports weakness ENT Ears, Nose, Mouth, and Throat: Reports nasal discharge Cardiovascular Cardiovascular: Denies chest pain, Denies leg edema, Reports dyspnea and Reports dyspnea on exertion Respiratory Respiratory: Reports cough, Denies excessive phlegm production, Reports dyspnea and Reports dyspnea on exertion Neurologic Neurologic: Reports weakness [facility] Medical History Chronic obstructive airway disease Oxygen dependent Hyperlipidemia Low back pain Osteoarthritis Osteopenia Pneumonia (11/28/14) Renal cyst Tobacco abuse Tubular adenoma of colon (10/12/16) Surgical History Appendectomy Colonoscopy - [facility] [place] (10/10/16) Ligation of fallopian tube BSO NECK SURGERY Open Carpal Tunnel release X 2 RIB RESECTION Family History Mother Diabetes Essential hypertension Hyperlipidemia Stroke Asthma Brother , 58 Essential hypertension Neoplasm Throat Chronic obstructive lung disease Asthma Maternal Grandmother , 93 Chronic obstructive lung disease Asthma Father No problems noted. Sister No problems noted. Sister No problems noted. Brother No problems noted. Son , age 32 - Drown No problems noted. Maternal Grandfather , age 91 No problems noted. Paternal Grandfather No problems noted. Paternal Grandmother No problems noted. Social History Smoking/Tobacco Use Status: Former Tobacco Use tobacco type: cigarettes Quit Date: 12/29/18 Tobacco: How many years used: 51 Second Hand Exposure: Yes Smoking risk assessment performed?: Yes Alcohol Intake: former Drug use: Never Substance use type: does not use Caregiver/Support person: Yes Household members: spouse Housing: house Communication Needs: Corrective Lenses Do you need help understanding health information?: Rarely Pets and animals: Yes Pets and animals: cat(s) Sexually active: No Do you think of yourself as: straight/heterosexual Current gender identity: female What is your relationship status?: How often do you talk on the phone with friends or family?: decline to answer How often do you get together with friends or relatives?: decline to answer How often do you attend congregational or scientology services?: decline to answer Do you belong to any clubs or organized social groups?: no Panel score (0-1 are the most socially isolated patients): 1 What type of physical activity do you participate in: other Details: housework- split level Frequency: daily Fay/Judaism: Mosque Special fay needs: No Seatbelt use: always Drive intox 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 off highway: No Do you feel safe at home: Yes Do you feel safe in your relationship?: Yes Additional Social history: previous exposure to cleaning supplies History History Para 1 Hx # Term Pregnancies Multiple births Hx # Pregnancies Ectopic pregnancies AB induced Hx Number of Living Children AB spontaneous Visit Medication and Allergies Active Medications Generic Name Dose Route Start Last Admin Trade Name Freq PRN Reason Stop Dose Admin Acetaminophen 650 mg 06/01/21 17:47 Acetaminophen 325 Mg Tab PO Q4H PRN PRN Albuterol Sulfate 2.5 mg 06/01/21 17:47 Albuterol 2.5 Mg/3 Ml Inh Soln Vial UPD Q2H PRN PRN Albuterol/Ipratropium 3 ml 06/03/21 08:34 Albuterol/Ipratropium 3 Ml Upd Vial UPD Q6H PRN PRN SOB, wheezing Ascorbic Acid 500 mg 06/02/21 08:30 06/03/21 08:52 Ascorbic Acid 500 Mg Tab PO 500 mg DAILY GABI Administration Azithromycin 250 mg 06/02/21 08:30 06/03/21 08:52 Azithromycin 250 Mg Tab PO 250 mg DAILY GABI Administration Baclofen 5 mg 06/01/21 22:00 06/02/21 21:39 Baclofen 10 Mg Tab PO 5 mg HS GABI Administration Benzonatate 100 mg 06/01/21 17:50 Benzonatate 100 Mg Cap PO BID PRN cough Citalopram Hydrobromide 20 mg 06/02/21 08:30 06/03/21 08:53 Citalopram 20 Mg Tab PO 20 mg DAILY GABI Administration Clonazepam 0.25 mg 06/01/21 17:50 06/03/21 08:49 Clonazepam 0.5 Mg Tab PO 0.25 mg BID PRN PRN Administration anxiety Device 1 each 06/03/21 09:00 Inhaler, Assist Device DIRECTED [facility] Diclofenac Sodium 100 gm 06/01/21 20:00 06/03/21 08:49 Diclofenac 1% Gel 100 Gm Tube TP Not Given QID GABI Dimethicone/Zinc Oxide 0 gm 06/01/21 17:44 Nasrin Protect Cream 142 Gm Tube TP PRN PRN Diphenhydramine HCl 25 mg 06/01/21 22:00 06/02/21 21:38 Diphenhydramine 25 Mg Cap PO 25 mg HS GABI Administration Fluticasone Propionate 0 gm 06/02/21 08:30 06/03/21 08:48 Fluticasone Nasal [place] 16 Gm Btl NS Not Given DAILY [facility] Gabapentin 100 mg 06/01/21 20:00 06/03/21 08:52 Gabapentin 100 Mg Cap PO 100 mg TID GABI Administration Guaifenesin 600 mg 06/02/21 09:25 06/03/21 08:52 Guaifenesin 600 Mg Tabcr PO 600 mg BID GABI Administration IV Miscellaneous Supplies 1 each 06/01/21 14:15 Iv Access IV DIRECTED GABI Iohexol 100 ml 06/01/21 18:45 06/01/21 18:42 Omnipaque 350 Mg/Ml 100 Ml Btl IV 07/01/21 23:59 70 ml DIRECTED GABI Administration Nicotine 21 mg 06/01/21 21:23 Nicotine 21 Mg/24 Hr Patch TD DAILY PRN PRN Omeprazole 40 mg 06/02/21 07:30 06/03/21 08:51 Omeprazole 20 Mg Capcr PO 40 mg DAILY@0730 [facility] Administration Polyethylene Glycol 17 gm 06/01/21 17:47 Polyethylene Glycol 3350 17 Gm Packet PO DAILY PRN PRN Constipation Prednisone 40 mg 06/03/21 08:30 06/03/21 08:53 Prednisone 20 Mg Tab PO 40 mg DAILY GABI Administration Simvastatin 10 mg 06/01/21 22:00 06/02/21 21:39 Simvastatin 10 Mg Tab PO 10 mg HS GABI Administration Sodium Chloride 50 ml 06/01/21 18:45 06/01/21 18:43 Normal Saline 50 Ml Bag IJ 50 ml DIRECTED GABI Administration Sodium Chloride 10 ml 06/01/21 18:45 06/02/21 08:09 Normal Saline Flush 10 Ml Syr IVP 10 ml PRN PRN Administration Tiotropium [place]/Olodaterol 2 puff 06/03/21 08:30 Tiotropium/Olodaterol 10 Puff Inhaler IH DAILY GABI Tramadol HCl 50 mg 06/01/21 17:50 Tramadol 50 Mg Tab PO Q6H PRN pain Allergies sulfamethoxazole [From Bactrim] Allergy (Mild, Unverified 06/01/21 14:09) Hives trimethoprim [From Bactrim] Allergy (Mild, Unverified 06/01/21 14:09) Hives levofloxacin Adverse Reaction (Intermediate, Verified 06/01/21 14:09) BACK AND STOMACH ACHE doxycycline Adverse Reaction (Unknown, Verified 06/01/21 14:09) nausea toan Allergy (Intermediate, Uncoded 06/01/21 14:09) Exam Const General: no acute distress Nutritional Appearance: cachectic [facility] Head: normocephalic Ears: external ears normal and no periauricular adenopathy General nose exam: nasal mucous membranes and turbinates normal Face and sinus: sinuses nontender Mouth: oropharynx normal and moist mucous membranes Teeth and gingiva: dentition normal Eyes General: appearance normal, both eyes and all related structures Pupils: PERRL Neck Neck: normal visual inspection and no lymphadenopathy Chest Chest: normal inspection of the chest Resp Effort & Inspection: normal respiratory effort Auscultation: diminished lung sounds, no rales, no rhonchi and wheezes Cardio Rate: regular rate Rhythm: regular rhythm Heart Sounds: S1 normal, S2 normal and no murmurs Pulses: radial pulses present bilaterally GI Inspection: normal to inspection Palpation: soft Skin General skin exam: no rashes or lesions noted Neuro General: patient alert, patient awake and patient oriented x3 Extrem General: no clubbing, cyanosis or edema Psych Mental Status: mental status grossly normal Affect: normal affect Attitude: cooperative Results Last Vital Signs Temp 36.7 C 06/03/21 07:23 Pulse 85 06/03/21 07:23 Resp 18 06/03/21 07:23 BP 134/75 06/03/21 07:23 Pulse Ox 93 06/03/21 07:51 Labs Result diagrams: 06/01/21 14:25 06/02/21 07:05 Labs: Laboratory Results - last 24 hr 06/02/21 06/02/21 10:18 10:25 ABG Sample Site Left Radial ABG pH 7.39 ABG pCO2 54 H ABG pO2 59 L ABG HCO3 33 H ABG Total CO2 30 H ABG O2 Saturation 91 L ABG Base Excess 8 H Oxygen Liter Flow 30 FiO2 55 Urine Color Yellow Urine Clarity Clear Urine pH 7.0 Ur Specific [place] 1.015 Urine Protein Negative Urine Ketones Trace H Urine Blood Negative Urine Nitrite Negative Urine Bilirubin Negative Urine Urobilinogen 0.2 Ur Leukocyte Esterase Negative Urine Glucose Negative
[2021-06-03 10:12] LABS: Abs Immature Grans 0.02 10^3/uL (0.0-0.06); Absolute Lymphocyte Count 1.09 10^3/uL (1.2-3.4); Absolute Monocyte Count 0.78 10^3/uL (0.1-0.8); Absolute Neutrophil Count 5.34 10^3/uL (1.2-6.7); HCT 33.7 % (36.0-46.0); HGB 10.9 g/dL (11.2-15.7); Immature Grans % 0.3; Lymphocytes % 15.1; MCH 31.6 pg (27.0-33.0); MCHC 32.3 % (32.0-36.0); MCV 97.7 fL (80-95); Monocytes % 10.8; Neutrophils % 73.8; Nucleated RBC 0 %; Platelet Count 152 10^3/uL (130-400); RBC 3.45 10^6/uL (3.93-5.22); RDW 12.9 % (11.7-14.6); WBC 7.23 10^3/uL (4.4-10.8)
[2021-06-03 10:20] LABS: Anion Gap 5.1 mmol/L (3-11); BUN 11 mg/dL (7-18); CO2 31.9 mmol/L (21.0-32.0); CREATININE 0.6 mg/dL (0.55-1.02); Calcium 8.6 mg/dL (8.5-10.1); Chloride 106 mmol/L (98-107); Glucose 116 mg/dL (74-106); Potassium 3.3 mmol/L (3.5-5.1); Sodium 143 mmol/L (136-145)
[2021-06-03] MEDS: Tiotropium/Olodaterol 10 PUFF INHALER 2 PUFF IH (10:24)
[2021-06-03 12:13] LABS: Magnesium 1.9 mg/dL (1.8-2.4)
--- NOTE | 2021-06-03 14:11 | PDOC.CMPRO ---
Care Management Progress Note S/O: Nathalia continues to be closely monitored and treated. She is lying in bed, sharing that she has been having liquid stools and declined RT walk due to not feeling well. Per provider, anticipate possible discharge tomorrow. CM continues to follow. A: 71 year old female admitted to [facility] 06/01/21 COPD Exacerbation P: Nathalia will return home when ready per MD, she will resume home O2 through [facility] and respiratory medications through [facility]. She will follow up with her PCP and plan of care as prescribed. Nathalia will transport via private vehicle with family.
[2021-06-03] MEDS: Potassium Chloride 20 MEQ TABCR 40 MEQ PO (14:16)
[2021-06-03 15:52] VITALS: BP 126/64; PULSE 93; RESP 17; TEMP 36.7; O2SAT 90
[2021-06-03] MEDS: Diclofenac 1% Gel 100 GM TUBE TP ×2 (17:10→19:58)
--- NOTE | 2021-06-03 18:43 | W.PM.PROGNOT ---
Date of Service Date of service: 06/03/21 Time of Service: 18:43 Assessment and Plan Assessment and plan (1) Diarrhea: Start date: 06/03/21 Start time: 12:45 Status: Acute Assessment and plan: Diarhea all day unable to do exercise oximetry due to this. R/o cdiff cholestrymine bid. (2) Acute exacerbation of chronic obstructive pulmonary disease: Start date: 06/03/21 Start time: 12:45 Status: Acute Assessment and plan: Prednisone PO 40 mg daily taken off high emil and placed on 2 l at baseline level oxygen. Cont daily Azithromycin. Tessalon Perrls prn. Evaluated by Dr. Bravo, recommendations placed exercise oximetry for tomorrow (3) Chronic respiratory failure with hypoxia: Start date: 06/03/21 Start time: 12:45 Status: Acute Assessment and plan: Uses supplemental O2 at home; 2L at rest. requiring hi flow now continue steroids, updrafts, azithromycin Continuous O2 monitoring. (4) GERD (gastroesophageal reflux disease): Start date: 06/03/21 Start time: 12:45 Status: Chronic Assessment and plan: Cont omeprazole. (5) Anxiety: Start date: 06/03/21 Start time: 12:45 Status: Acute Assessment and plan: Cont citalopram and BID klonipin scheduled for anxiety, jeanie today (6) Smoker: Start date: 06/03/21 Start time: 12:45 Status: Chronic Assessment and plan: Offer nicoderm patch while hospitalized (7) UTI (urinary tract infection): Start date: 06/03/21 Start time: 12:45 Status: Acute Assessment and plan: Dxd with UTI and started Macrobid and prn pydridium 2 days ago. Cx results showing gram + mixed camryn. Stop Macrobid. repeat urine negative for UTI (8) DVT prophylaxis: Start date: 06/03/21 Start time: 12:45 Status: Acute Assessment and plan: TEDS, enoxaparin (9) Discharge planning issues: Start date: 06/03/21 Start time: 12:45 Status: Acute Assessment and plan: case management following discussed with DR Coleman Subjective Subjective Patient reports: other Interval history since last seen: Patient was threatening to sign out ama this afternoon and wanted to go home. I was willing to work with her and if she did an ambulatory exercise discharge her this afternoon; however she would not work with RT and do an ambulatory exercise therefore she agreed to stay another night. She stated she had diarrhea all day. Will r/o cdiff, place her cholestryme and trial exercise oximetry tomorrow. I would have liked her to stay overnight anyway as this was the plan Dr. Casper and I spoke about this am due to her just getting off high emil this morning. She states she is at baseline breathing. Requiring 2 l NC 90-92%. She denies CP, N/V Exam Const General: cooperative, no acute distress, frail appearing and ill appearing chronically Nutritional Appearance: thin Orientation: alert, awake and oriented x3 HENMT Head: normocephalic and atraumatic Eyes General: appearance normal, both eyes and all related structures Sclera: sclerae normal Resp Effort & Inspection: able to speak in complete sentences, cough, decreased respiratory effort and other (baseline respiratory status) Auscultation: rhonchi Cardio Jugular venous pressure: no JVD Rate: regular rate Rhythm: regular rhythm Heart Sounds: S1 normal and S2 normal GI Palpation: soft and no hepatosplenomegaly Auscultation: normal bowel sounds Skin General skin exam: no rashes or lesions noted Extrem General: no pedal edema and no calf tenderness Psych Speech and Movement: speech and movement normal Affect: normal affect Objective Last Vital Signs Temp 36.7 C 06/03/21 15:52 Pulse 93 H 06/03/21 15:52 Resp 17 06/03/21 15:52 BP 126/64 06/03/21 15:52 Pulse Ox 90 L 06/03/21 15:52 Laboratory Results - last 24 hr 06/03/21 06/03/21 06/03/21 10:05 10:05 10:05 WBC 7.23 RBC 3.45 L Hgb 10.9 L Hct 33.7 L MCV 97.7 H MCH 31.6 MCHC 32.3 RDW 12.9 Plt Count 152 MPV 11.0 Immature Gran % 0.3 Neutrophils % 73.8 Lymphocytes % 15.1 Monocytes % 10.8 Eosinophils % 0.0 Basophils % 0.0 Nucleated RBC % 0 Absolute Neutrophils 5.34 Absolute Lymphocytes 1.09 L Absolute Monocytes 0.78 Absolute Eosinophils 0.00 Absolute Basophils 0.00 Sodium 143 Potassium 3.3 L Chloride 106 Carbon Dioxide 31.9 Anion Gap 5.1 BUN 11 Creatinine 0.6 Estimated GFR/1.73 m2 >= 60.00 Glucose 116 H Calcium 8.6 Magnesium 1.9
[2021-06-03 19:46] VITALS: BP 153/80; PULSE 80; RESP 18; TEMP 36.6; O2SAT 92
[2021-06-03] MEDS: Cholestyramine/Aspartame PKT 1 EACH PO (19:58)
[2021-06-03] MEDS: Albuterol 2.5 MG/3 ML INH SOLN VIAL UPD (20:05)
[2021-06-03] MEDS: Simvastatin 10 MG TAB PO (22:17)
[2021-06-03] MEDS: diphenhydrAMINE 25 MG CAP PO (22:17)
[2021-06-03] MEDS: Baclofen 10 MG TAB 5 MG PO (22:17)
[2021-06-04 00:20] VITALS: BP 134/75; PULSE 85; RESP 18; TEMP 36.5; O2SAT 97
[2021-06-04] MEDS: Albuterol 2.5 MG/3 ML INH SOLN VIAL UPD (01:36)
[2021-06-04 02:54] VITALS: O2SAT 94
[2021-06-04 07:42] VITALS: PULSE 82; RESP 16; RESP 4; RESP 8; O2SAT 95
[2021-06-04] MEDS: Albuterol/Ipratropium 3 ML UPD VIAL UPD (07:42)
[2021-06-04] MEDS: Tiotropium/Olodaterol 10 PUFF INHALER 2 PUFF IH (07:44)
[2021-06-04 08:00] VITALS: PULSE 84; RESP 18; O2SAT 90
[2021-06-04 08:33] VITALS: BP 148/77; PULSE 79; RESP 19; TEMP 36.6; O2SAT 95
[2021-06-04] MEDS: Citalopram 20 MG TAB PO (09:09)
[2021-06-04] MEDS: predniSONE 20 MG TAB 40 MG PO (09:10)
[2021-06-04] MEDS: clonazePAM 0.5 MG TAB 0.25 MG PO (09:10)
[2021-06-04] MEDS: Omeprazole 20 MG CAPCR 40 MG PO (09:10)
[2021-06-04] MEDS: guaiFENesin 600 MG TABCR PO (09:11)
[2021-06-04] MEDS: Azithromycin 250 MG TAB PO (09:11)
[2021-06-04] MEDS: Ascorbic Acid 500 MG TAB PO (09:11)
[2021-06-04] MEDS: Gabapentin 100 MG CAP PO (09:14)
[2021-06-04] MEDS: Cholestyramine/Aspartame PKT 1 EACH PO (10:32)
--- NOTE | 2021-06-04 11:48 | W.PM.DS.N ---
Date of service: 06/04/21 Time of Service: 11:48 DS: Diagnosis Discharge Diagnosis (1) Acute exacerbation of chronic obstructive pulmonary disease: Start date: 06/04/21 Start time: 11:50 Status: Acute Asessment and Plan: Now baseline oxygen, will discharge home with f/u as outpatient Ambulatory walk patient maintained 90% the entire time on her baseline oxygen 2 L 40mg prednisone daily for 5 days, followed by 30mg for 4 days, 20mg for 4 days, 10mg for 3 days, 5mg for 3 days continue azithromycin and tesslowell [place], f/u with Dr. Mari as scheduled. (2) Chronic respiratory failure with hypoxia: Start date: 06/04/21 Start time: 11:55 Status: Acute Asessment and Plan: as above (3) Diarrhea: Start date: 06/04/21 Start time: 11:48 Status: Ruled-out Asessment and Plan: R/o. Patient had 4 soft formed stools. No cdiff needed. (4) GERD (gastroesophageal reflux disease): Start date: 06/04/21 Start time: 11:56 Status: Chronic Asessment and Plan: on omeprazole (5) Anxiety: Start date: 06/04/21 Start time: 11:57 Status: Chronic Asessment and Plan: Take klonipin BID and citalopram continue both (6) Smoker: Start date: 06/04/21 Start time: 11:58 Status: Chronic Asessment and Plan: recommend stopping smoking cessation especially while on oxygen. (7) UTI (urinary tract infection): Start date: 06/04/21 Start time: 11:59 Status: Ruled-out Asessment and Plan: Dxd with UTI and started Macrobid and prn pydridium 2 days ago. Cx results showing gram + mixed camryn. Stop Macrobid. repeat urine negative for UTI discussed with Dr. De La O Discharge Plan Disposition Patient Disposition: HOME Condition: Stable Discharge Details Reason For Visit: COPD Exacerbation Admit Date/Time: 06/01/21 17:45 Admit Provider: Mac Quintana Attending Provider: Mac Quintana [facility] Hospital Course: This is a 71 yo female with a PMH of severe COPD, chronic hypoxic respiratory failure (chronic use of 2L supplemental O2), Anxiety, tobacco abuse, HLD, OA. She presented to the ED with worsening SOA. She notes a cough. No F/C. EMS transported her to the ED and noted tachypnea and O2 saturation of 85%. An albuterol updraft given en route. CPAP initiated at 10mmHg. In the ED she was then able to speak in full sentences. EKG unremarkable. WBC count normal. Na 140, K 4.1. BUN 13, creatinine 0.6. Troponin neg and BNP 107. Covid-19 negative. Second troponin mildly elevated at 0.10. She denied any CP, N/V/abd pain. She was able to wean from CPAP to 4L NC. CXR w/o acute findings. CTA chest w/o pulmonary emboli. IV solumedrol 125mg administered. She was then asked to be admitted to hospitalist service for further management. Over course of management she required high emil oxygen. Dr. Casper was consulted (see note for recommendations). She follows her as an outpatient. After 24 hours of IV steroids and nebs she was able to be weaned off high emil and placed on 2 L. She wanted to go home yesterday but every time respiratory tried to ambulate her she stated she had the poops and could not go, finally she agreed to stay overnight for monitor to make sure she would not require high emil again. She has done well maintaining her saturation on 2 L. She had an ambulatory walk this am and maintained 90% saturation the entire time. She denies CP, N/V/D. She did have a repeat UA here revealing no UTI therefore macrobid dcd. She is being discharged home on steroid taper, with f/u with Dr. Mari as scheduled. Home Meds and New Rx's Prescriptions: New guaifenesin [Mucinex] 600 mg Tablet Extended Release 12hr 600 mg PO BID Qty: 20 RF: 0 Bio-K plus 50 billion cell capsule,delayed release(DR/EC) 1 cap PO DAILY Qty: 60 RF: 0 Continued diphenhydramine HCl [Complete Allergy] 25 mg tablet 25 mg PO QHS RF: 0 gabapentin 100 mg capsule 100 mg PO TID RF: 0 cholecalciferol (vitamin D3) 2,000 unit capsule 2,000 unit PO DAILY RF: 0 tramadol 50 mg tablet 50 mg PO Q6H PRN (Reason: pain) Qty: 90 RF: 1 baclofen 5 mg tablet 5 mg PO .HS and qd prn Qty: 60 RF: 0 citalopram 20 mg tablet 20 mg PO DAILY Qty: 90 RF: 4 diclofenac sodium 1 % gel 100 g topical QID Qty: 100 RF: 2 benzonatate [Tessalon Perles] 100 mg capsule 100 mg PO BID PRN (Reason: cough) Qty: 30 RF: 1 ascorbic acid (vitamin C) [Vitamin C] 500 MG tablet 500 mg PO DAILY RF: 0 calcium carbonate-vitamin D3 [Calcium 600 + D(3)] 1 EACH tablet 1 ea PO DAILY RF: 0 Oxygen EACH NS PRN Qty: 2 RF: 1 ipratropium-albuterol 0.5 mg-3 mg(2.5 mg base)/3 mL solution for nebulization 3 ml Inhalation 5X/DAY Qty: 450 RF: 12 albuterol sulfate [Ventolin HFA] 90 mcg/actuation HFA aerosol inhaler 1 - 2 puff IH QID PRN (Reason: bronchospasm) Qty: 3 RF: 6 fluticasone propionate 50 mcg/actuation spray,suspension 1 - 2 spray NS DAILY Qty: 15.8 RF: 3 simvastatin 10 mg tablet 10 mg PO HS Qty: 90 RF: 4 clonazepam 0.5 mg tablet 0.25 mg PO BID PRN (Reason: anxiety) Qty: 90 RF: 0 omeprazole 40 mg capsule,delayed release(DR/EC) 40 mg PO DAILY Qty: 30 RF: 2 azithromycin 250 mg tablet 250 mg PO DAILY 30 Days Qty: 30 RF: 4 polyethylene glycol 3350 17 gram Powder In Packet 17 g PO DAILY PRN PRN (Reason: Constipation) Qty: 14 RF: 0 Discontinued nitrofurantoin macrocrystal [Macrodantin] 100 mg capsule 100 mg PO BID Qty: 7 RF: 0 phenazopyridine [Pyridium] 100 mg tablet 100 mg PO TID PRN (Reason: pain/bladder spasms) Qty: 6 RF: 0 Discharge Instructions Instructions: How to Stop Smoking (DC), Cigarette Smoking and Your Health (GEN), Using Oxygen at Home (DC), COPD (Chronic Obstructive Pulmonary Disease) (DC), Hypoxemia (DC) Additional Instructions: STOP SMOKING Follow up with Dr. Mari as scheduled. Take prednisone taper as follows 40mg prednisone daily for 5 days, followed by 30mg for 4 days, 20mg for 4 days, 10mg for 3 days, 5mg for 3 days Continue to use your oxygen Follow up with your PCP as needed. Stand Alone Forms: Nursing Discharge Form Referrals: Ivy Morton MD [Primary Care Provider] - (Follow up as needed.) Jayashree Jovel MD [ [facility] STAFF PHYSICIAN] - (Follow up as scheduled. ) Activity:: Activity as Tolerated Equipment/Supplies:: No Equipment Needed Diet:: As Tolerated Discharge Orders Discharge Orders: Discharge Order (Routine); Ordered 06/04/21 Ordered By: Karol Chacon DS: Summary Time Spent with Patient providing and/or coordinating discharge services: Greater than 30 minutes Status at Discharge Functional status at discharge: independent ambulation Overall status at discharge: patient is back to baseline Mental Status: mental status grossly normal Speech and Movement: speech and movement normal Mood: congruent mood Affect: normal affect Exam Const General: cooperative, no acute distress, frail appearing and ill appearing chronically Nutritional Appearance: thin Orientation: alert, awake and oriented x3 HENMT Head: normocephalic and atraumatic Eyes General: appearance normal, both eyes and all related structures Sclera: sclerae normal Resp Effort & Inspection: able to speak in complete sentences, cough, decreased respiratory effort and other (baseline respiratory status) Auscultation: wheezes expiratory wheezes Cardio Jugular venous pressure: no JVD Rate: regular rate Rhythm: regular rhythm Heart Sounds: S1 normal and S2 normal GI Palpation: soft and no hepatosplenomegaly Auscultation: normal bowel sounds Skin General skin exam: no rashes or lesions noted Extrem General: no pedal edema and no calf tenderness Psych Mental Status: mental status grossly normal Speech and Movement: speech and movement normal Mood: congruent mood Affect: normal affect DS: Data Vitals/I&O Vitals and I&O: Vital Signs Temperature 36.6 C 06/04/21 08:33 Temperature Source Tympanic 06/04/21 08:33 Pulse 79 06/04/21 08:33 Pulse Rhythm Regular 06/04/21 02:38 Pulse 90 06/01/21 18:01 Respiratory Rate 19 06/04/21 08:33 Respiratory Effort 06/04/21 02:38 Respiratory Depth Deep 06/04/21 02:38 Respiratory Pattern Tachypnea 06/04/21 02:38 Blood Pressure 148/77 H 06/04/21 08:33 Blood Pressure Mean 87 06/01/21 18:01 Blood Pressure Position Sitting 06/01/21 14:05 Pulse Oximetry 95 06/04/21 08:33 Oxygen Delivery Method Nasal Cannula 06/04/21 08:33 Oxygen Flow Rate 2 06/04/21 08:33 Fraction of Inspired Oxygen (FIO2) 54 06/03/21 07:23 Pain Level 0 06/04/21 08:33 Comment 06/03/21 07:23 Intake & Output 06/03/21 06/03/21 06/04/21 11:59 23:59 11:59 Intake Total 708.333 / 708.333 Output Total 1050 / 1225 175 / 1225 700 / 700 Balance -341.667 / -516.667 -175 / -516.667 -700 / -700 Intake: IV 708.333 / 708.333 Output: Urine 1050 / 1125 75 / 1125 700 / 700 Stool 100 / 100 Other: Urine Color Yellow Yellow Urine Appearance Cloudy Clear Clear Urine Odor Normal Normal Stool Size Small Small Stool Characteristics Soft Soft Formed Brown Brown Voiding Methods Bedside Commode Bedside Commode Data Completed and Pending Completed studies during hospitalization [Text1]: Exam(s) XR PORTABLE CHEST AP EXAM: XR PORTABLE CHEST AP CLINICAL HISTORY: cough, copd, sob TECHNIQUE: 2D digital imaging was performed. COMPARISON: CT CT CHEST PE CTA from 03/01/2021 FINDINGS: LUNGS: Hyperinflated. Increased interstitial changes. No pleural abnormality seen. HEART: Normal. MEDIASTINUM: Normal. BONES: Old left upper rib fracture. IMPRESSION: No acute pulmonary findings. : 1950Age: 71 Exam(s) PROCEDURE INFORMATION: Exam: XR Chest Exam date and time: 06/01/2021 2:14 PM Age: 71 years old Clinical indication: Cough and shortness of breath TECHNIQUE: Imaging protocol: XR of the chest. Views: 1 view. COMPARISON: CR XR PORTABLE CHEST AP 03/01/2021 6:38 PM FINDINGS: Lungs: The lungs are again hyperinflated. There is no new interstitial opacity or airspace consolidation. Pleural spaces: Unremarkable. No pleural effusion. No pneumothorax. Heart/Mediastinum: The cardiomediastinal silhouette is fairly stable in appearance. Bones/joints: Some chronic left rib fractures are again present. IMPRESSION: Hyperinflation, as on 03/01/2021, without new disease. Exam(s) a CT:CT chest PE CTA Exam(s) CT CHEST PE CTA EXAM: CT CHEST PE CTA CLINICAL HISTORY: shortness of breath. TECHNIQUE: Imaging Protocol: Axial CT angiography was performed with multi-slice acquisition and multi-planar and/or 3D reconstructions. CONTRAST MATERIAL: Intravenous: Omnipaque 350 Contrast volume:70 COMPARISON: CT CT CHEST PE CTA from 03/01/2021 FINDINGS: Pulmonary Arteries: No evidence of filling defect to suggest pulmonary emboli. Tracheobronchial tree: Mild bronchiectasis. Mild amount of mucous medial right lower lobe. Mediastinum and Angelina: No dominant adenopathy or fluid collection. Pulmonary parenchyma: No consolidation or dominant measurable mass. Emphysematous changes greater in the upper lobes. Pleura: No effusion or pneumothorax. Heart: The heart is not dilated. No coronary artery calcifications are seen. Aorta: Thoracic aorta non-dilated. Upper abdomen: Unremarkable. Bones: Worsening of previously noted T5 compression fracture, now moderate.. Mild compression fracture superior endplate T7, new since the previous exam.. Old left 8th rib fracture. Degenerative disc changes. : IMPRESSION: No evidence of pulmonary embolism. Emphysematous changes. New mild compression fracture T7. Worsening of T5 compression fracture. No visible underlying suspicious lesion. Exam(s) a CT:CT chest PE CTA Exam(s) CT CHEST PE CTA EXAM: CT CHEST PE CTA CLINICAL HISTORY: shortness of breath. TECHNIQUE: Imaging Protocol: Axial CT angiography was performed with multi-slice acquisition and multi-planar and/or 3D reconstructions. CONTRAST MATERIAL: Intravenous: Omnipaque 350 Contrast volume:70 COMPARISON: CT CT CHEST PE CTA from 03/01/2021 FINDINGS: Pulmonary Arteries: No evidence of filling defect to suggest pulmonary emboli. Tracheobronchial tree: Mild bronchiectasis. Mild amount of mucous medial right lower lobe. Mediastinum and Angelina: No dominant adenopathy or fluid collection. Pulmonary parenchyma: No consolidation or dominant measurable mass. Emphysematous changes greater in the upper lobes. Pleura: No effusion or pneumothorax. Heart: The heart is not dilated. No coronary artery calcifications are seen. Aorta: Thoracic aorta non-dilated. Upper abdomen: Unremarkable. Bones: Worsening of previously noted T5 compression fracture, now moderate.. Mild compression fracture superior endplate T7, new since the previous exam.. Old left 8th rib fracture. Degenerative disc changes. : IMPRESSION: No evidence of pulmonary embolism. Emphysematous changes. New mild compression fracture T7. Worsening of T5 compression fracture. No visible underlying suspicious lesion. Exam(s) PROCEDURE INFORMATION: Exam: CTA Chest With Contrast Exam date and time: 06/01/2021 6:23 PM Age: 71 years old Clinical indication: Shortness of breath and other: Shortness of breath TECHNIQUE: Imaging protocol: Computed tomographic angiography of the chest with contrast. 3D rendering (Not supervised by radiologist): MIP and/or 3D reconstructed images were created by the technologist. Radiation optimization: All CT scans at this facility use at least one of these dose optimization techniques: automated exposure control; mA and/or kV adjustment per patient size (includes targeted exams where dose is matched to clinical indication); or iterative reconstruction. Contrast material: OMNIPAQUE 350; Contrast volume: 70 ml; Contrast route: INTRAVENOUS (IV); COMPARISON: CT CHEST PE CTA 03/01/2021 8:09 PM FINDINGS: Pulmonary arteries: Normal. No pulmonary emboli. Aorta: Unremarkable. No aortic aneurysm. No aortic dissection. Lungs: Diffuse severe emphysematous changes throughout the lungs. Patchy consolidation within the inferior lingular segment most likely compatible with atelectasis versus chronic changes. No suspicious parenchymal lung lesion. Mild bronchiectasis predominantly within the lower lobes. Mucus/secretions are noted within the larger bronchi of the right lower lobe, without complete occlusion. Pleural spaces: Unremarkable. No pneumothorax. No pleural effusion. Heart: Unremarkable. No cardiomegaly. No pericardial effusion. Lymph nodes: Unremarkable. No enlarged lymph nodes. Bones/joints: Chronic fracture of the posterior left 8th rib. Worsening chronic compression fracture of T5 with increased kyphotic deformity of the thoracic spine. Interval development of an age-indeterminate mild compression fracture of T7, new since prior exam. Soft tissues: Unremarkable. IMPRESSION: 1. No evidence of pulmonary embolism. 2. Interval development of an age-indeterminate mild compression fracture of T7, new since prior exam. Consider further evaluation with MRI to better asses age of the injury if the patient presents with midline tenderness. 3. Diffuse severe emphysematous changes throughout the lungs. 4. Mild bronchiectasis predominantly within the lower lobes. Mucus/secretions are noted within the larger bronchi of the right lower lobe, without complete occlusion. 5. Worsening chronic compression fracture of T5 with increased kyphotic deformity of the thoracic spine. Labs on day of discharge: Labs from last 24 hours 06/03/21 10:05 Magnesium 1.9 PFSH Medical History Chronic obstructive airway disease Oxygen dependent Hyperlipidemia Low back pain Osteoarthritis Osteopenia Pneumonia (11/28/14) Renal cyst Tobacco abuse Tubular adenoma of colon (10/12/16) Surgical History Appendectomy Colonoscopy - MAC (10/10/16) Ligation of fallopian tube BSO NECK SURGERY Open Carpal Tunnel release X 2 RIB RESECTION Family History Mother Diabetes Essential hypertension Hyperlipidemia Stroke Asthma Brother , 58 Essential hypertension Neoplasm Throat Chronic obstructive lung disease Asthma Maternal Grandmother , 93 Chronic obstructive lung disease Asthma Father No problems noted. Sister No problems noted. Sister No problems noted. Brother No problems noted. Son , age 32 - Drown No problems noted. Maternal Grandfather , age 91 No problems noted. Paternal Grandfather No problems noted. Paternal Grandmother No problems noted. Social History Smoking/Tobacco Use Status: Former Tobacco Use tobacco type: cigarettes Quit Date: 12/29/18 Tobacco: How many years used: 51 Second Hand Exposure: Yes Smoking risk assessment performed?: Yes Alcohol Intake: former Drug use: Never Substance use type: does not use Caregiver/Support person: Yes Household members: spouse Housing: house Communication Needs: Corrective Lenses Do you need help understanding health information?: Rarely Pets and animals: Yes Pets and animals: cat(s) Sexually active: No Do you think of yourself as: straight/heterosexual Current gender identity: female What is your relationship status?: How often do you talk on the phone with friends or family?: decline to answer How often do you get together with friends or relatives?: decline to answer How often do you attend latter-day or nondenominational services?: decline to answer Do you belong to any clubs or organized social groups?: no Panel score (0-1 are the most socially isolated patients): 1 What type of physical activity do you participate in: other Details: housework- split level Frequency: daily Fay/Episcopalian: [employer]oration Special fay needs: No Seatbelt use: always 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
--- NOTE | 2021-06-04 17:30 | PDOC.CMDIS ---
- If Service Date Differs Date of service: 06/04/21 Time of Service: 17:30 LACE Index Scoring Tool - Questions: Length of Stay (in days): 3 Acuity (Admit via E.D.?): Yes Comorbidities: Chronic Pulmonary Disease E.D. Visits: 2 - Answers: Total Score: 10 Risk of Readmission: High Risk Care Management Discharge Reason for Hospitalization: COPD Discharge Plan: Nathalia will return home and will resume home O2 through [facility] and respiratory medications through [facility]. She will follow up with her PCP and plan of care as prescribed. Nathalia will transport via private vehicle with family.
== END 2021-06-04 13:18 | disposition home or self-care (01) | DRG 191 ==
LOC: ER 17:54 → MS 19:15
PROVIDERS: Emergency Medicine; Internal Medicine; Admitting Provider Family Medicine; Emergency Provider Student in an Organized Health Care Education/Training Program; PCP Family Medicine; Visit Provider Family Medicine
DX: J44.1 Chronic obstructive pulmonary disease with (acute) exacerbation (principal); J96.11 Chronic respiratory failure with hypoxia; Z99.81 Dependence on supplemental oxygen; E78.5 Hyperlipidemia, unspecified; M54.5 Low back pain; F17.210 Nicotine dependence, cigarettes, uncomplicated; M85.80 Other specified disorders of bone density and structure, unspecified site; Z86.010 Personal history of colon polyps; N28.1 Cyst of kidney, acquired; K21.9 Gastro-esophageal reflux disease without esophagitis; F41.9 Anxiety disorder, unspecified; Z20.822 Contact with and (suspected) exposure to COVID-19; R91.1 Solitary pulmonary nodule; R19.7 Diarrhea, unspecified
CPT/HCPCS: 36415; 71275; 80048; 80053; 82805; 87635; 93005; 94640; 96361; 96374; 99285; 36600; 71045; 81003; 83735; 83880; 84484; 85025; 87070; 87086; 87205; 93010; 94667; 99222; 99232; 99233; 99239; J2060; J2930; J3490; J7512; J7613; J7620

== ENCOUNTER 2021-06-15 07:53 | Outpatient (CLI) | payer MEDICARE, SELFPAY ==
[2021-06-15 12:43] LABS: HCT 42.2 % (36.0-46.0); HGB 13.1 g/dL (11.2-15.7); MCH 31.4 pg (27.0-33.0); MCV 101.2 fL (80-95); MPV 10.9 fL (8.0-11.0); Platelet Count 249 10^3/uL (130-400); RBC 4.17 10^6/uL (3.93-5.22); RDW-SD 48.7 fL; WBC 6.13 10^3/uL (4.4-10.8)
[2021-06-15 12:52] LABS: Anion Gap 4.1 mmol/L (3-11); BUN 8 mg/dL (7-18); CO2 34.9 mmol/L (21.0-32.0); CREATININE 0.9 mg/dL (0.55-1.02); Chloride 103 mmol/L (98-107); Glucose 87 mg/dL (74-106); Potassium 4.5 mmol/L (3.5-5.1); Sodium 142 mmol/L (136-145)
== END 2021-06-15 07:54 | disposition home or self-care (01) ==
LOC: LOS 07:53
PROVIDERS: PCP Family Medicine; Referring Provider Family Medicine; Visit Provider Family Medicine
DX: E87.6 Hypokalemia; D64.9 Anemia, unspecified
CPT/HCPCS: 36415; 80048; 85027

== ENCOUNTER 2021-06-16 18:45 | Outpatient (REF) | payer MEDICARE, SELFPAY ==
[2021-06-16 21:10] LABS: Bilirubin Negative (Negative); Blood Negative (Negative); Clarity Sl Cloudy (Clear); Glucose Negative (Negative); Ketones Negative (Negative); Leukocyte Esterase Small (Negative); Nitrite Negative (Negative); Specific Gravity 1.015 (1.005-1.025); Urobilinogen 0.2 EU/dL (Up TO 0.2)
[2021-06-16 21:28] LABS: Bacteria Rare HPF (Negative); C & S Indicated? Yes; Casts Negative LPF (Negative); Crystals Negative HPF (Negative); Epithelial Cells Rare HPF (Negative); Mucus Negative (Negative); RBC 0-2 HPF (0-2); WBC 0-2 HPF (0-5)
== END 2021-06-16 18:46 | disposition home or self-care (01) ==
LOC: LBN 18:45
PROVIDERS: PCP Family Medicine; Visit Provider Family Medicine
DX: R35.0 Frequency of micturition (principal)
CPT/HCPCS: 81003; 81015; 87086

== ENCOUNTER 2021-07-17 09:12 | Observation (INO) | payer MEDICARE, SELFPAY ==
[2021-07-17] VITALS (86 sets, daily range): BP systolic 98–157; BP diastolic 52–109; PULSE 88–115; RESP 10–24; TEMP 36.5–37.2; O2SAT 88–100
--- NOTE | 2021-07-17 09:15 | RT.EKG_ITS ---
APPROVED REPORT Exam: Resting ECG Reason for Exam: sob Patient Location: E HR:100 bpm ECG Measurements Heart Rate 100 AXIS SC 129 P 269 QRSd 89 QRS 268 QT 379 T 77 QTc 488 Conclusion sinus tachycardia, Left anterior fascicular block...axis(240,-40), init forces inf
--- NOTE | 2021-07-17 09:30 | DI.RAD_ITS ---
Exam(s) XR PORTABLE CHEST AP EXAM: XR PORTABLE CHEST AP CLINICAL HISTORY: shortness of breath TECHNIQUE: 2D digital imaging was performed of the chest. One image was obtained. An AP view was ob tained. COMPARISON: CR,XR XR PORTABLE CHEST AP from 06/01/2021 FINDINGS: MEDIASTINUM: Normal. HEART: Normal. PULMONARY VASCULATURE: Normal. LUNGS: The lungs are hyperinflated suggesting underlying COPD. No focal consolidating infiltrates. PLEURAL SPACE: No pleural effusion or pneumothorax. BONE:Within normal limits for the patient's age. OTHER FINDINGS:Normal. IMPRESSION: No acute pulmonary findings. DATA REPOSITORY: RADIATION DOSE DELIVERED:
[2021-07-17] MEDS: methylPREDNISolone SUCC 125 MG VIAL IVP (09:50)
[2021-07-17] MEDS: Albuterol/Ipratropium 3 ML UPD VIAL 6 ML UPD (09:50)
--- NOTE | 2021-07-17 09:52 | ED.GENADUL_ITS ---
Discharge Plan Disposition Patient Disposition: [facility] INPATIENT Condition: Serious Discharge Details Chief Complaint: SOB Clinical Impression: Acute exacerbation of chronic obstructive pulmonary disease, Hypoxemia Admit Date/Time: 07/17/21 15:04 Admit Provider: Mac Quintana Attending Provider: Mac Quintana Primary Care Provider: Kaycee Meyer ED Provider: Bre Rodas Discharge Data Discharge Date/Time-TO BE ENTERED AT DEPARTURE: 07/17/21 16:39 Medical Decision Making Patient is alert, oriented, of his decisional capacity, she is hypercarbic at 76 which is new for her, suspect this is secondary to emphysema, she does not have leukocytosis, she is chronically on azithromycin I did consider pulmonary embolism but she feels as though this is COPD and her exam is consistent with COPD exacerbation I did not order CTA as my suspicion for pulmonary embolism is low After neb and intermittent BiPAP, patient is feeling improvement, however she is still quite hypoxic and dyspneic on exertion, dipping down to 86% on her 2 L, I think she benefit given her hypercarbia overnight admission and intermittent BiPAP with reassessment in the morning and pulmonary consultation discretion of the admitting hospitalist Her Covid was negative, her chest x-ray does not show an infiltrate Her BNP is negative and her troponins are negative Her EKG does not show evidence of acute ischemia and she is agreeable to admission at this time Initial plan was to send patient was still given lack capacity, however secondary very to new capacity, we are able to admit patient as she is agreeable to admission at this time She is quite claustrophobic and having difficulty maintaining BiPAP secondary to this She is stable for admission at this time, case was accepted for admission by Dr. Bragg, admitting hospitalist Patient has received Solu-Medrol, 2 L of oxygen, intermittent BiPAP therapy, 2 DuoNeb's with 1 prior to arrival Medical Records Medical records reviewed: Yes I reviewed the patient's medical records. Lab Data Lab results reviewed: Yes I reviewed the patient's lab results. HPI General Mode of arrival: ambulatory . Date/Time Provider Initiated Documentation: 07/17/21 09:13 . Limitations to Documentation: no limitations . Information obtained by: patient . HPI Narrative: This 71-year-old female presents with report of shortness of breath with cough that is productive progressively worsening over the past 3 days. States her symptoms are co nsistent with her prior episodes of COPD. Denies any associated chest discomfort, calf pain or swelling, orthopnea, fever or chills. She is taking her azithromycin 250 mg daily as prescribed. She denies any weakness or dizziness. She denies any pleuritic pain. She has used her inhalers this morning without relief in symptoms. She denies any recent flights, surgeries, long drives. She denies known sick contacts. She is Covid vaccinated. She has not smoked tobacco for the past year reportedly. Her symptoms are exacerbated with exertion. Related Data Home Medications Medication Instructions Recorded Confirmed ascorbic acid (vitamin C) [Vitamin 500 mg PO DAILY 02/03/13 07/17/21 C] calcium carbonate-vitamin D3 1 ea PO DAILY 02/03/13 07/17/21 [Calcium 600 + D(3)] ipratropium 0.5 mg-albuterol 3 mg 3 ml INHALATION 5X/DAY #450 ml 11/15/18 07/17/21 (2.5 mg base)/3 mL nebulization soln cholecalciferol (vitamin D3) 50 2,000 unit PO DAILY 05/22/19 07/17/21 mcg (2,000 unit) capsule albuterol sulfate 90 mcg/actuation 1 - 2 puff IH QID PRN #3 units 08/27/20 07/17/21 aerosol inhaler fluticasone propionate 50 1 - 2 spray NS DAILY #15.8 ml 12/30/20 07/17/21 mcg/actuation nasal spray,suspension simvastatin 10 mg tablet 10 mg PO HS #90 tab-cap 01/04/21 07/17/21 polyethylene glycol 3350 17 g PO DAILY PRN PRN #14 ea 03/05/21 07/17/21 azithromycin 250 mg tablet 250 mg PO DAILY 30 Days #30 tab 04/28/21 07/17/21 baclofen 5 mg tablet 5 mg PO .HS and qd prn #60 tab 05/18/21 07/17/21 benzonatate 100 mg capsule 100 mg PO BID PRN #30 cap 05/25/21 07/17/21 citalopram 20 mg tablet 20 mg PO DAILY #90 tab 05/25/21 07/17/21 diclofenac sodium 1 % topical gel 100 g TOPICAL QID #100 g 05/25/21 07/17/21 L. acidophilus,casei,rhamnosus 1 cap PO DAILY #60 cap 06/04/21 06/29/21 [Bio-K plus] omeprazole 40 mg capsule,delayed 40 mg PO DAILY #90 cap 06/11/21 07/17/21 release clonazepam 0.5 mg tablet 0.25 mg PO BID PRN #60 tab-cap 07/05/21 07/17/21 Previous Rx's Medication Instructions Recorded ipratropium 0.5 mg-albuterol 3 mg 3 ml INHALATION 5X/DAY #450 ml 11/15/18 (2.5 mg base)/3 mL nebulization soln albuterol sulfate 90 mcg/actuation 1 - 2 puff IH QID PRN #3 units 08/27/20 aerosol inhaler fluticasone propionate 50 1 - 2 spray NS DAILY #15.8 ml 12/30/20 mcg/actuation nasal spray,suspension simvastatin 10 mg tablet 10 mg PO HS #90 tab-cap 01/04/21 polyethylene glycol 3350 17 g PO DAILY PRN PRN #14 ea 03/05/21 azithromycin 250 mg tablet 250 mg PO DAILY 30 Days #30 tab 04/28/21 baclofen 5 mg tablet 5 mg PO .HS and qd prn #60 tab 05/18/21 benzonatate 100 mg capsule 100 mg PO BID PRN #30 cap 05/25/21 citalopram 20 mg tablet 20 mg PO DAILY #90 tab 05/25/21 diclofenac sodium 1 % topical gel 100 g TOPICAL QID #100 g 05/25/21 L. acidophilus,casei,rhamnosus 1 cap PO DAILY #60 cap 06/04/21 [Bio-K plus] omeprazole 40 mg capsule,delayed 40 mg PO DAILY #90 cap 06/11/21 release clonazepam 0.5 mg tablet 0.25 mg PO BID PRN #60 tab-cap 07/05/21 Allergies Allergy/AdvReac Type Severity Reaction Status Date / Time sulfamethoxazole Allergy Mild Hives Unverified 06/29/21 11:03 [From Bactrim] trimethoprim [From Bactrim] Allergy Mild Hives Unverified 06/29/21 11:03 levofloxacin AdvReac Intermediate BACK AND Verified 06/29/21 11:03 STOMACH ACHE doxycycline AdvReac Unknown nausea Verified 06/29/21 11:03 toan Allergy Intermediate Uncoded 06/29/21 11:03 General Stated Complaint: SOB LARON: 2 Review of Systems All systems reviewed & are unremarkable except as noted in HPI and below PFSH Medical History Chronic obstructive airway disease Oxygen dependent Hyperlipidemia Low back pain Osteoarthritis Osteopenia Pneumonia (11/28/14) Renal cyst Tobacco abuse Tubular adenoma of colon (10/12/16) Surgical History Appendectomy Colonoscopy - MAC (10/10/16) Ligation of fallopian tube BSO NECK SURGERY Open Carpal Tunnel release X 2 RIB RESECTION Family History Mother Diabetes Essential hypertension Hyperlipidemia Stroke Asthma Brother , 58 Essential hypertension Neoplasm Throat Chronic obstructive lung disease Asthma Maternal Grandmother , 93 Chronic obstructive lung disease Asthma Father No problems noted. Sister No problems noted. Sister No problems noted. Brother No problems noted. Son , age 32 - Drown No problems noted. Maternal Grandfather , age 91 No problems noted. Paternal Grandfather No problems noted. Paternal Grandmother No problems noted. Social History Smoking/Tobacco Use Status: Former Tobacco Use tobacco type: cigarettes Quit Date: 12/29/18 Tobacco: How many years used: 51 Second Hand Exposure: Yes Smoking risk assessment performed?: Yes Alcohol Intake: former Drug use: Never Substance use type: does not use Caregiver/Support person: Yes Household members: spouse Housing: house Communication Needs: Corrective Lenses Do you need help understanding health information?: Rarely Pets and animals: Yes Pets and animals: cat(s) Sexually active: No Do you think of yourself as: straight/heterosexual Current gender identity: female What is your relationship status?: How often do you talk on the phone with friends or family?: decline to answer How often do you get together with friends or relatives?: decline to answer How often do you attend advent or jain services?: decline to answer Do you belong to any clubs or organized social groups?: no Panel score (0-1 are the most socially isolated patients): 1 What type of physical activity do you participate in: other Details: housework- split level Frequency: daily Fay/Oriental Orthodox: Congregational Special fay needs: No Seatbelt use: always Drive intox or ride w/intox driver/refuse collector: No Do you feel safe at home: Yes Do you feel safe in your relationship?: Yes Additional Social history: previous exposure to cleaning supplies History History Para 1 Hx # Term Pregnancies Multiple births Hx # Pregnancies Ectopic pregnancies AB induced Hx Number of Living Children AB spontaneous Exam Const General: no acute distress and frail appearing Eyes Pupils: PERRL Neck Neck: no JVD Chest Chest: normal inspection of the chest Resp Effort & Inspection: audible wheezes, labored and tachypneic Auscultation: diminished lung sounds Cardio Rate: tachycardic Rhythm: regular rhythm Other: Distal pulses intact GI Inspection: normal to inspection Other: Nontender Skin General skin exam: no rashes or lesions noted Neuro General: patient alert and patient oriented x3 Extrem Other: No calf swelling or tenderness Course Vital Signs Vital signs: Vital Signs Pulse Oximetry 100 07/17/21 09:20 Temperature 36.5 C 07/17/21 09:25 Temperature Source Skin 07/17/21 09:25 Pulse 97 H 07/17/21 09:25 Respiratory Rate 18 07/17/21 09:25 Respiratory Effort Incrsd Work of Breathing 07/17/21 09:37 Blood Pressure 152/98 H 07/17/21 09:25 Blood Pressure Position Supine 07/17/21 09:25 Pulse Oximetry 98 07/17/21 09:25 Oxygen Delivery Method Room Air 07/17/21 09:25 Oxygen Flow Rate 0 07/17/21 09:25 Pain Level 0 07/17/21 09:25 Critical Care Time Critical Care Time Critical Care Time: Yes Total Critical Care Time: 45 Attestation: Telemetry monitoring, x-ray imaging, diagnostic labs, DuoNeb administration, IV Solu-Medrol, BiPAP intervention
[2021-07-17 09:57] LABS: Source Nasal/Nares
[2021-07-17 09:57] LABS: Abs Immature Grans 0.01 10^3/uL (0.0-0.06); Absolute Basophil Count 0.04 10^3/uL (0.0-0.2); Absolute Eosinophil Count 0.49 10^3/uL (0.0-0.7); Absolute Monocyte Count 0.53 10^3/uL (0.1-0.8); Absolute Neutrophil Count 2.28 10^3/uL (1.2-6.7); Basophils % 0.8; Eosinophils % 10.3; HCT 40.3 % (36.0-46.0); HGB 13.2 g/dL (11.2-15.7); Immature Grans % 0.2; Lymphocytes % 29.5; MCH 32.3 pg (27.0-33.0); MCHC 32.8 % (32.0-36.0); MCV 98.5 fL (80-95); MPV 10.3 fL (8.0-11.0); Monocytes % 11.2; Nucleated RBC 0 %; Platelet Count 225 10^3/uL (130-400); RBC 4.09 10^6/uL (3.93-5.22); RDW 13.2 % (11.7-14.6); RDW-SD 48.1 fL; WBC 4.75 10^3/uL (4.4-10.8)
[2021-07-17 10:04] LABS: BE (Venous) 9 mmol/L (-2-3); HCO3 (Venous) 35 mmol/L (23-28); O2 Sat (Venous) 42 %; TCO2 (Venous) 38 mmol/l (24-29); pH (Venous) 7.28 (7.31-7.41)
[2021-07-17 10:07] LABS: pCO2 (Venous) 76 mmHg (41-51); pO2 (Venous) 28 mmHg
[2021-07-17 10:26] LABS: ALT 21 U/L (14-59); AST 14 U/L (15-37); Albumin 3.7 g/dL (3.4-5.0); Alkaline Phosphatase 46 U/L (46-116); BUN 8 mg/dL (7-18); Bilirubin, Total 0.3 mg/dL (0.2-1.0); CREATININE 0.7 mg/dL (0.55-1.02); Calcium 8.9 mg/dL (8.5-10.1); Chloride 102 mmol/L (98-107); Glucose 100 mg/dL (74-106); NT-proBNP 72 pg/mL (<300); Sodium 141 mmol/L (136-145); Total Protein 7.1 g/dL (6.4-8.2); Troponin I < 0.05 ng/mL (<0.06)
--- NOTE | 2021-07-17 10:50 | DI.VRAD_ITS ---
PROCEDURE INFORMATION: Exam: XR Chest Exam date and time: 07/17/2021 9:36 AM Age: 71 years old Clinical indication: Shortness of breath TECHNIQUE: Imaging protocol: XR of the chest. Views: 1 view. COMPARISON: CR XR PORTABLE CHEST AP 06/01/2021 4:00 PM FINDINGS: Lungs: Hyperexpanded lungs suggestive of COPD. There is no convincing consolidation. Mild interstitial prominence both lungs similar to prior and suspected to be related to chronic lung disease. Pleural spaces: No sizable pleural effusion. No pneumothorax. Heart/Mediastinum: Similar/stable cardiomediastinal silhouette. Bones/joints: No acute displaced fracture. Chronic appearing rib fractures. IMPRESSION: No acute cardiopulmonary findings. Dictated and Authenticated by: Elia Campbell MD. Ordering:JAMIE Díaz MD
[2021-07-17 11:14] LABS: COVID-19 PCR Negative (Negative)
[2021-07-17 12:55] LABS: Troponin I < 0.05 ng/mL (<0.06)
[2021-07-17] MEDS: clonazePAM 0.5 MG TAB 0.25 MG PO (13:10)
--- NOTE | 2021-07-17 14:59 | NUR.NOTE ---
pt sitting on edge of stretcher on 2 liters oxygen via NC has side table to rest on in room awaiting admission Nursing Note:
[2021-07-17] MEDS: Albuterol/Ipratropium 3 ML UPD VIAL UPD (16:05)
[2021-07-17] MEDS: Acetaminophen 500 MG TAB 1000 MG PO (16:08)
--- NOTE | 2021-07-17 16:35 | W.PM.HP.N ---
Date of service: 07/17/21 Time of Service: 16:35 Assessment and Plan Assessment and plan (1) Anxiety: Status: Chronic Assessment and plan: Cont prn clonazepam (2) Acute exacerbation of chronic obstructive pulmonary disease: Status: Acute Assessment and plan: Cont home Stiolto and prn Duonebs. Given IV solumedrol in ED. Prednisone 40mg po daily starting in AM Supplemental O2 as needed. Pulmonary consult; missed f/u after d/c last month. (3) Depression: Status: Chronic Assessment and plan: Cont citalopram (4) Underweight: Status: Acute Assessment and plan: Related to her COPD. Encourage nutritional intake. Offer protein supp. History of Present Illness History of Present Illness Chief Complaint: Shortness of air Narrative: This is a 71 yo female with a PMH of COPD, anxiety, hypogammaglobulinemia, depression, HLD, OA. She presented to the ED with progressive cough/sputum, shortness of air over the last 3 days. She states it feels similar to prior episodes of COPD. Since d/c from [facility] on 06/04/21 (admitted for COPD exacerbation), she endorses continuing to take azithromycin daily. No tobacco use for 1 year. No fever/chills. No CP/palpitations. No abd pain, N/V. She is vaccinated for COVID-19. In the ED her CXR was negative for acute findings. BNP and troponins normal. WBC count normal. She was afebrile with intermiitent O2 saturations in the upper 80's but then stabilized on RA with sats in the low 90's. She did have an elevated VBG pCO2 of 76. She was initiated on BiPAP and tolerated this for appx 30 mins before becoming claustrophobic. She was administered 125mg IV solumedrol and Duoneb treatments. Admitted for observation. Review of Systems All systems reviewed & are unremarkable except as noted in HPI and below PFSH Medical History Chronic obstructive airway disease Oxygen dependent Hyperlipidemia Low back pain Osteoarthritis Osteopenia Pneumonia (11/28/14) Renal cyst Tobacco abuse Tubular adenoma of colon (10/12/16) Surgical History Appendectomy Colonoscopy - MAC (10/10/16) Ligation of fallopian tube BSO NECK SURGERY Open Carpal Tunnel release X 2 RIB RESECTION Family History Mother Diabetes Essential hypertension Hyperlipidemia Stroke Asthma Brother , 58 Essential hypertension Neoplasm Throat Chronic obstructive lung disease Asthma Maternal Grandmother , 93 Chronic obstructive lung disease Asthma Father No problems noted. Sister No problems noted. Sister No problems noted. Brother No problems noted. Son , age 32 - Drown No problems noted. Maternal Grandfather , age 91 No problems noted. Paternal Grandfather No problems noted. Paternal Grandmother No problems noted. Social History Smoking/Tobacco Use Status: Former Tobacco Use tobacco type: cigarettes Quit Date: 12/29/18 Tobacco: How many years used: 51 Second Hand Exposure: Yes Smoking risk assessment performed?: Yes Alcohol Intake: former Drug use: Never Substance use type: does not use Caregiver/Support person: Yes Household members: spouse Housing: house Communication Needs: Corrective Lenses Do you need help understanding health information?: Rarely Pets and animals: Yes Pets and animals: cat(s) Sexually active: No Do you think of yourself as: straight/heterosexual Current gender identity: female What is your relationship status?: How often do you talk on the phone with friends or family?: decline to answer How often do you get together with friends or relatives?: decline to answer How often do you attend episcopalian or hinduism services?: decline to answer Do you belong to any clubs or organized social groups?: no Panel score (0-1 are the most socially isolated patients): 1 What type of physical activity do you participate in: other Details: housework- split level Frequency: daily Fay/Jew: Religion Special fay needs: No Seatbelt use: always Drive intox or ride w/intox racing car driver: No Do you feel safe at home: Yes Do you feel safe in your relationship?: Yes Additional Social history: previous exposure to cleaning supplies History History Para 1 Hx # Term Pregnancies Multiple births Hx # Pregnancies Ectopic pregnancies AB induced Hx Number of Living Children AB spontaneous Meds Allergies and Home Medications Allergies Allergy/AdvReac Type Severity Reaction Status Date / Time sulfamethoxazole Allergy Mild Hives Unverified 06/29/21 11:03 [From Bactrim] trimethoprim [From Bactrim] Allergy Mild Hives Unverified 06/29/21 11:03 levofloxacin AdvReac Intermediate BACK AND Verified 06/29/21 11:03 STOMACH ACHE doxycycline AdvReac Unknown nausea Verified 06/29/21 11:03 toan Allergy Intermediate Uncoded 06/29/21 11:03 Home Medications Medication Instructions Recorded Confirmed Type ascorbic acid (vitamin C) [Vitamin 500 mg PO DAILY 02/03/13 07/17/21 History C] calcium carbonate-vitamin D3 1 ea PO DAILY 02/03/13 07/17/21 History [Calcium 600 + D(3)] Oxygen l NS PRN #2 04/10/16 05/22/19 Clinic ipratropium 0.5 mg-albuterol 3 mg 3 ml INHALATION 5X/DAY #450 ml 11/15/18 07/17/21 Rx (2.5 mg base)/3 mL nebulization soln cholecalciferol (vitamin D3) 50 2,000 unit PO DAILY 05/22/19 07/17/21 History mcg (2,000 unit) capsule albuterol sulfate 90 mcg/actuation 1 - 2 puff IH QID PRN #3 units 08/27/20 07/17/21 Rx aerosol inhaler fluticasone propionate 50 1 - 2 spray NS DAILY #15.8 ml 12/30/20 07/17/21 Rx mcg/actuation nasal spray,suspension simvastatin 10 mg tablet 10 mg PO HS #90 tab-cap 01/04/21 07/17/21 Rx polyethylene glycol 3350 17 g PO DAILY PRN PRN #14 ea 03/05/21 07/17/21 Rx azithromycin 250 mg tablet 250 mg PO DAILY 30 Days #30 tab 04/28/21 07/17/21 Rx baclofen 5 mg tablet 5 mg PO .HS and qd prn #60 tab 05/18/21 07/17/21 Rx benzonatate 100 mg capsule 100 mg PO BID PRN #30 cap 05/25/21 07/17/21 Rx citalopram 20 mg tablet 20 mg PO DAILY #90 tab 05/25/21 07/17/21 Rx diclofenac sodium 1 % topical gel 100 g TOPICAL QID #100 g 05/25/21 07/17/21 Rx L. acidophilus,casei,rhamnosus 1 cap PO DAILY #60 cap 06/04/21 06/29/21 Rx [Bio-K plus] omeprazole 40 mg capsule,delayed 40 mg PO DAILY #90 cap 06/11/21 07/17/21 Rx release clonazepam 0.5 mg tablet 0.25 mg PO BID PRN #60 tab-cap 07/05/21 07/17/21 Rx Exam Const General: cooperative, no acute distress and frail appearing Nutritional Appearance: underweight Orientation: alert and oriented x3 HENMT Head: normocephalic and atraumatic Neck Neck: full ROM and no JVD Resp Effort & Inspection: normal respiratory effort Auscultation: diminished lung sounds and wheezes (occasional soft wheeze) Cardio Rate: regular rate Rhythm: regular rhythm Heart Sounds: S1 normal and S2 normal GI Palpation: soft and nontender Skin General skin exam: no rashes or lesions noted Neuro General: no focal motor deficits Cognition: normal cognition Speech: speech normal Extrem General: no calf tenderness and normal gait Results Labs Result diagrams: 07/17/21 09:30 07/17/21 09:30 Labs: Laboratory Results - last 24 hr 07/17/21 07/17/21 07/17/21 09:30 09:30 09:30 WBC 4.75 RBC 4.09 Hgb 13.2 Hct 40.3 MCV 98.5 H MCH 32.3 MCHC 32.8 RDW 13.2 Plt Count 225 MPV 10.3 Immature Gran % 0.2 Neutrophils % 48.0 Lymphocytes % 29.5 Monocytes % 11.2 Eosinophils % 10.3 Basophils % 0.8 Nucleated RBC % 0 Absolute Neutrophils 2.28 Absolute Lymphocytes 1.40 Absolute Monocytes 0.53 Absolute Eosinophils 0.49 Absolute Basophils 0.04 VBG pH 7.28 L VBG pCO2 76 H* VBG pO2 28 L* VBG HCO3 35 H VBG Total CO2 38 H VBG O2 Saturation 42 VBG Base Excess 9 H Sodium 141 Potassium 4.0 Chloride 102 Carbon Dioxide 36.0 H Anion Gap 3.0 BUN 8 Creatinine 0.7 Estimated GFR/1.73 m2 >= 60.00 Glucose 100 Calcium 8.9 Total Bilirubin 0.3 AST 14 L ALT 21 Alkaline Phosphatase 46 Troponin I < 0.05 NT-Pro-B Natriuret Pep 72 Total Protein 7.1 Albumin 3.7 COVID-19 Source SARS-CoV-2 (PCR) 07/17/21 07/17/21 09:45 12:30 WBC RBC Hgb Hct MCV MCH MCHC RDW Plt Count MPV Immature Gran % Neutrophils % Lymphocytes % Monocytes % Eosinophils % Basophils % Nucleated RBC % Absolute Neutrophils Absolute Lymphocytes Absolute Monocytes Absolute Eosinophils Absolute Basophils VBG pH VBG pCO2 VBG pO2 VBG HCO3 VBG Total CO2 VBG O2 Saturation VBG Base Excess Sodium Potassium Chloride Carbon Dioxide Anion Gap BUN Creatinine Estimated GFR/1.73 m2 Glucose Calcium Total Bilirubin AST ALT Alkaline Phosphatase Troponin I < 0.05 NT-Pro-B Natriuret Pep Total Protein Albumin COVID-19 Source Nasal/Nares SARS-CoV-2 (PCR) Negative Last Vital Signs Temp 36.7 C 07/17/21 15:49 Pulse 96 H 07/17/21 16:05 Resp 15 07/17/21 16:05 BP 123/79 07/17/21 15:30 Pulse Ox 92 07/17/21 16:05
[2021-07-17] MEDS: Simvastatin 10 MG TAB PO (23:03)
[2021-07-18] VITALS (16 sets, daily range): PULSE 100; RESP 10–22; TEMP 37; O2SAT 87–99
[2021-07-18] MEDS: Albuterol 2.5 MG/3 ML INH SOLN VIAL UPD (04:52)
[2021-07-18 07:23] LABS: Anion Gap 5.5 mmol/L (3-11); BUN 13 mg/dL (7-18); CO2 30.5 mmol/L (21.0-32.0); CREATININE 0.6 mg/dL (0.55-1.02); Calcium 8.7 mg/dL (8.5-10.1); Chloride 100 mmol/L (98-107); Glucose 109 mg/dL (74-106); Potassium 3.9 mmol/L (3.5-5.1); Sodium 136 mmol/L (136-145)
[2021-07-18] MEDS: Citalopram 20 MG TAB PO (08:27)
[2021-07-18] MEDS: Omeprazole 20 MG CAPCR 40 MG PO (08:27)
[2021-07-18] MEDS: clonazePAM 0.5 MG TAB 0.25 MG PO (08:29)
[2021-07-18] MEDS: Benzonatate 100 MG CAP PO (08:30)
[2021-07-18] MEDS: predniSONE 20 MG TAB 40 MG PO (08:30)
[2021-07-18] MEDS: Fluticasone NASAL SPRAY 16 GM BTL NS (08:32)
[2021-07-18] MEDS: Diclofenac 1% Gel 100 GM TUBE TP (08:32)
--- NOTE | 2021-07-18 09:08 | PDOC.CMIN ---
- If Service Date Differs Date of service: 07/18/21 Time of Service: 09:08 Care Management Initial Assess REASON FOR HOSPITALIZATION:: COPD Exacerbation. PAST MEDICAL HISTORY/PAST SURGICAL HISTORY:: Medical History: Chronic obstructive airway disease - Oxygen dependent,. Hyperlipidemia, Low back pain, Osteoarthritis, Osteopenia, Pneumonia (11/28/14), Renal cyst, Tobacco abuse, and Tubular adenoma of colon (10/12/16). Surgical History: Appendectomy, Colonoscopy - MAC (10/10/16), Ligation of fallopian tube - BSO, NECK SURGERY, Open Carpal Tunnel release X 2, and RIB RESECTION. PREVIOUS FUNCTIONAL STATUS/SOCIAL/FAMILY SUPPORTS:: Nathalia lives in [facility] with Clyde, her of 27 years. Nathalia has one son but he in a tragic accident several years ago. 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 She now occupies her time with gardening, quilting, and [employer]. She names her and a neighbor, Hellen, as her supports. CURRENT FUNCTIONAL STATUS:: Nathalia is lying in bed when CM comes to meet with her. She is pleasant and easily engages in conversation. She talks about the of her first and son and shares how jonathan she is to have met Clyde, as he is very good to her. ADVANCE DIRECTIVES:: AD and POA On file; Myah Jacksonabraham, Sr. is appointed as Health Care Agent. Has patient been provided with info about the portal/API?: Yes Did the patient sign up for the portal?: No CODE STATUS:: DNR/DNI INSURANCE COVERAGE / FINANCIAL ISSUES:: [place] and Medicare. CURRENT HOME/COMMUNITY SERVICES/EQUIPMENT:: [facility] She also has a floor concentrator, nebulizer, oxygen tanks and cart, and recently purchased a rollator walker. She denies any other home/community services or equipment. PRIMARY CARE PHYSICIAN:: Nathalia states her PCP is Ivy Morton MD, until the end of August at which time her care will be transferred to Kaycee Meyer MD ([facility]). POTENTIAL DISCHARGE NEEDS:: Follow up appointments with PCP and sheet metal welder. PATIENT/FAMILY EDUCATION NEEDS:: Review of discharge instructions re medications, activity level and follow up plan of care and discuss Ask Me Three. ANTICIPATED BARRIERS TO DISCHARGE:: No anticipated barriers currently. TRANSPORTATION:: Via private vehicle with family. PLAN:: Nathalia will be discharged home with no new services when medically cleared by provider. She will follow up with her PCP, sheet metal welder and discharge plan of care as instructed. Her , Clyde, will drive her home via private vehicle when ready. CM will continue to follow.
[2021-07-18] MEDS: Tiotropium/Olodaterol 10 PUFF INHALER 2 PUFF IH (10:14)
--- NOTE | 2021-07-18 10:20 | W.PULMCON ---
General Date Of Service Date of service: 07/18/21 Time of Service: 07:30 Reason for Consult: COPD Exacerbation Assessment and Plan Assessment and plan (1) Chronic respiratory failure with hypoxia: Status: Acute (2) Anxiety: Status: Chronic (3) Lung nodule: Status: Acute (4) COPD (chronic obstructive pulmonary disease): Status: Chronic Assessment and plan: This is a 71-year-old female who I see in clinic for severe COPD and chronic hypoxic respiratory failure on 2 L nasal cannula who was admitted for a COPD exacerbation requiring BiPAP overnight. She was started on steroids and continued on her chronic azithromycin and this morning was feeling much better and is ready to go home. We tried her on chronic azithromycin as an outpatient however she is having adverse reactions to the azithromycin in the form of nausea and upset stomach. Given her low BMI anything that prevents her from consuming calories provides more risk than benefit. She certainly has significant anxiety that plays a strong role in her dyspnea however given her persistent CO2 retention she likely we will 5 for outpatient nocturnal BiPAP. We discussed that today and although she is hesitant after discussion of its benefits she is willing to see if she would qualify for it. COPD Exacerbation - continue prednisone 40mg for 7 days, 30mg for 5 days, 20mg for 5 days, 10mg for 5 days and then to remain on 5mg - continueStiolto and Ranonebs - discontinue chronic azithromycine due to non tolerance - she needs to attend her appointment with me in 1 week - art assess her for nocturnal BiPAP at this visit Anxiety - continue benzodiezepines Lung Nodule - LDCT due 03/2022 Chronic hypoxic respiratory failure - continue 2L NC for sats 88-92% Qualifiers: COPD type: emphysema Emphysema type: centrilobular Qualified Code(s): J43.2 - Centrilobular emphysema History of Present Illness Narrative: This is a 71 yo female with COPD and anxiety who I know well. She had a recent admission for COPD exacerbation June 03, 2021 that was likely a combination of significant anxiety as well as COPD. She represents today after presenting to the emergency department with significant dyspnea. She was admitted for a COPD exacerbation. She was again found to be retaining CO2 and did wear BiPAP overnight with improvement. She was continued on her outpatient chronic azithromycin and given steroids. Her chest x-ray showed no acute findings. Today she states she is feeling much better after receiving steroids and the BiPAP. Her shortness of breath is resolved and she feels to be at her baseline. She does have a cough that is sometimes productive but again this is at her baseline as well. He states the chronic azithromycin gives her a terribly upset stomach and causes nausea. Review of Systems All systems reviewed & are unremarkable except as noted in HPI and below PFSH Medical History Chronic obstructive airway disease Oxygen dependent Hyperlipidemia Low back pain Osteoarthritis Osteopenia Pneumonia (11/28/14) Renal cyst Tobacco abuse Tubular adenoma of colon (10/12/16) Surgical History Appendectomy Colonoscopy - MAC (10/10/16) Ligation of fallopian tube BSO NECK SURGERY Open Carpal Tunnel release X 2 RIB RESECTION Family History Mother Diabetes Essential hypertension Hyperlipidemia Stroke Asthma Brother , 58 Essential hypertension Neoplasm Throat Chronic obstructive lung disease Asthma Maternal Grandmother , 93 Chronic obstructive lung disease Asthma Father No problems noted. Sister No problems noted. Sister No problems noted. Brother No problems noted. Son , age 32 - Drown No problems noted. Maternal Grandfather , age 91 No problems noted. Paternal Grandfather No problems noted. Paternal Grandmother No problems noted. Social History Smoking/Tobacco Use Status: Former Tobacco Use tobacco type: cigarettes Quit Date: 12/29/18 Tobacco: How many years used: 51 Second Hand Exposure: Yes Smoking risk assessment performed?: Yes Alcohol Intake: former Drug use: Never Substance use type: does not use Caregiver/Support person: Yes Household members: spouse Housing: house Communication Needs: Corrective Lenses Do you need help understanding health information?: Rarely Pets and animals: Yes Pets and animals: cat(s) Sexually active: No Do you think of yourself as: straight/heterosexual Current gender identity: female What is your relationship status?: How often do you talk on the phone with friends or family?: decline to answer How often do you get together with friends or relatives?: decline to answer How often do you attend congregation or mandaeism services?: decline to answer Do you belong to any clubs or organized social groups?: no Panel score (0-1 are the most socially isolated patients): 1 What type of physical activity do you participate in: other Details: housework- split level Frequency: daily Fay/Presybeterian: Roman Catholic Special fay needs: No Seatbelt use: always Drive intox or ride w/intox charter bus driver: No Do you feel safe at home: Yes Do you feel safe in your relationship?: Yes Additional Social history: previous exposure to cleaning supplies History History Para 1 Hx # Term Pregnancies Multiple births Hx # Pregnancies Ectopic pregnancies AB induced Hx Number of Living Children AB spontaneous Visit Medication and Allergies Active Medications Generic Name Dose Route Start Last Admin Trade Name Freq PRN Reason Stop Dose Admin Acetaminophen 0 mg 07/17/21 15:09 Acetaminophen 325 Mg Tab PO Q4H PRN PRN Albuterol Sulfate 2.5 mg 07/17/21 15:09 07/18/21 04:52 Albuterol 2.5 Mg/3 Ml Inh Soln Vial UPD 2.5 mg Q2H PRN PRN Administration Albuterol/Ipratropium 3 ml 07/17/21 15:20 Albuterol/Ipratropium 3 Ml Upd Vial UPD Q4H PRN PRN Azithromycin 250 mg 07/18/21 08:30 07/18/21 08:31 Azithromycin 250 Mg Tab PO Not Given DAILY GABI Baclofen 5 mg 07/17/21 19:00 Baclofen 10 Mg Tab PO BID PRN PRN Benzonatate 100 mg 07/18/21 07:51 07/18/21 08:30 Benzonatate 100 Mg Cap PO 100 mg BID PRN PRN Administration cough Citalopram Hydrobromide 20 mg 07/18/21 08:30 07/18/21 08:27 Citalopram 20 Mg Tab PO 20 mg DAILY GABI Administration Clonazepam 0.25 mg 07/18/21 20:00 Clonazepam 0.5 Mg Tab PO BID GABI Device 1 each 07/17/21 16:00 Inhaler, Assist Device DIRECTED GABI Diclofenac Sodium 1 gm 07/17/21 16:00 07/18/21 08:32 Diclofenac 1% Gel 100 Gm Tube TP 1 applic QID GABI Administration Dimethicone/Zinc Oxide 0 gm 07/17/21 15:04 Nasrin Protect Cream 142 Gm Tube TP PRN PRN Fluticasone Propionate 0 gm 07/18/21 08:30 07/18/21 08:32 Fluticasone Nasal [place] 16 Gm Btl NS 1 spr DAILY GABI Administration Omeprazole 40 mg 07/18/21 07:30 07/18/21 08:27 Omeprazole 20 Mg Capcr PO 40 mg DAILY@0730 GABI Administration Polyethylene Glycol 17 gm 07/17/21 15:09 Polyethylene Glycol 3350 17 Gm Packet PO DAILY PRN PRN Constipation Prednisone 40 mg 07/18/21 08:30 07/18/21 08:30 Prednisone 20 Mg Tab PO 40 mg DAILY GABI Administration Simvastatin 10 mg 07/17/21 22:00 07/17/21 23:03 Simvastatin 10 Mg Tab PO 10 mg HS GABI Administration Tiotropium [place]/Olodaterol 2 puff 07/18/21 08:30 07/18/21 10:14 Tiotropium/Olodaterol 10 Puff Inhaler IH 2 inh DAILY GABI Administration Allergies sulfamethoxazole [From Bactrim] Allergy (Mild, Unverified 06/29/21 11:03) Hives trimethoprim [From Bactrim] Allergy (Mild, Unverified 06/29/21 11:03) Hives levofloxacin Adverse Reaction (Intermediate, Verified 06/29/21 11:03) BACK AND STOMACH ACHE doxycycline Adverse Reaction (Unknown, Verified 06/29/21 11:03) nausea toan Allergy (Intermediate, Uncoded 06/29/21 11:03) Exam Const General: no acute distress Nutritional Appearance: well nourished [facility] Head: normocephalic Ears: external ears normal and no periauricular adenopathy General nose exam: nasal mucous membranes and turbinates normal Face and sinus: sinuses nontender Mouth: oropharynx normal and moist mucous membranes Teeth and gingiva: dentition normal Eyes General: appearance normal, both eyes and all related structures Pupils: PERRL Neck Neck: normal visual inspection and no lymphadenopathy Chest Chest: normal inspection of the chest Resp Effort & Inspection: normal respiratory effort Auscultation: no rales, no rhonchi and wheezes expiratory wheezes, lower bilaterally and upper bilaterally Cardio Rate: regular rate Rhythm: regular rhythm Heart Sounds: S1 normal, S2 normal and no murmurs Pulses: radial pulses present bilaterally GI Inspection: normal to inspection Palpation: soft Skin General skin exam: no rashes or lesions noted Neuro General: patient alert, patient awake and patient oriented x3 Extrem General: no clubbing, cyanosis or edema Psych Mental Status: mental status grossly normal Affect: normal affect Attitude: cooperative Results Last Vital Signs Temp 37 C 07/18/21 07:15 Pulse 100 H 07/18/21 07:15 Resp 22 07/18/21 07:15 BP 105/52 L 07/17/21 18:01 Pulse Ox 96 07/18/21 08:00 Labs Result diagrams: 07/17/21 09:30 07/18/21 06:08 Labs: Laboratory Results - last 24 hr 07/17/21 07/17/21 07/17/21 09:30 09:45 12:30 Sodium 141 Potassium 4.0 Chloride 102 Carbon Dioxide 36.0 H Anion Gap 3.0 BUN 8 Creatinine 0.7 Estimated GFR/1.73 m2 >= 60.00 Glucose 100 Calcium 8.9 Total Bilirubin 0.3 AST 14 L ALT 21 Alkaline Phosphatase 46 Troponin I < 0.05 < 0.05 NT-Pro-B Natriuret Pep 72 Total Protein 7.1 Albumin 3.7 SARS-CoV-2 (PCR) Negative 07/18/21 06:08 Sodium 136 Potassium 3.9 Chloride 100 Carbon Dioxide 30.5 Anion Gap 5.5 BUN 13 Creatinine 0.6 Estimated GFR/1.73 m2 >= 60.00 Glucose 109 H Calcium 8.7 Total Bilirubin AST ALT Alkaline Phosphatase Troponin I NT-Pro-B Natriuret Pep Total Protein Albumin SARS-CoV-2 (PCR)
--- NOTE | 2021-07-18 11:55 | W.PM.DS.N ---
Date of service: 07/18/21 Time of Service: 11:55 DS: Diagnosis Discharge Diagnosis (1) Anxiety: Status: Chronic (2) Acute exacerbation of chronic obstructive pulmonary disease: Status: Acute (3) Depression: Status: Chronic (4) Underweight: Status: Acute Discharge Plan Disposition Patient Disposition: HOME Condition: Fair Discharge Details Reason For Visit: COPD Exacerbation Admit Date/Time: 07/17/21 15:04 Admit Provider: Mac Quintana Attending Provider: Mac Quintana Primary Care Provider: Kaycee Meyer [facility] Course Hospital Course: This is a 71 yo female with a PMH of COPD, anxiety, hypogammaglobulinemia, depression, HLD, OA. She presented to the ED with progressive cough/sputum, shortness of air over the last 3 days. She states it feels similar to prior episodes of COPD. Since d/c from [facility] on 06/04/21 (admitted for COPD exacerbation), she endorses continuing to take azithromycin daily. No tobacco use for 1 year. No fever/chills. No CP/palpitations. No abd pain, N/V. She is vaccinated for COVID-19. In the ED her CXR was negative for acute findings. BNP and troponins normal. WBC count normal. She was afebrile with intermiitent O2 saturations in the upper 80's but then stabilized on RA with sats in the low 90's. She did have an elevated VBG pCO2 of 76. She was initiated on BiPAP and tolerated this for appx 30 mins before becoming claustrophobic. She was administered 125mg IV solumedrol and Duoneb treatments. Admitted for observation. She was evaluated by Dr Jovel with pulmonary medicine. Stiolto initiated. Prednisone taper initiated. Follow with Dr Jovel has been arranged. Follow with PCP in 2-3 weeks. Home Meds and New Rx's Prescriptions: New Stiolto Respimat 2.5-2.5 mcg/actuation Mist 2 puff inhalation DAILY Qty: 4 RF: 0 prednisone 10 mg tablet See Rx Instructions .ROUTE .COMPLEX Qty: 90 RF: 0 Continued cholecalciferol (vitamin D3) 2,000 unit capsule 2,000 unit PO DAILY RF: 0 baclofen 5 mg tablet 5 mg PO .HS and qd prn Qty: 60 RF: 0 citalopram 20 mg tablet 20 mg PO DAILY Qty: 90 RF: 4 diclofenac sodium 1 % gel 100 g topical QID Qty: 100 RF: 2 benzonatate [Tessalon Perles] 100 mg capsule 100 mg PO BID PRN (Reason: cough) Qty: 30 RF: 1 ascorbic acid (vitamin C) [Vitamin C] 500 MG tablet 500 mg PO DAILY RF: 0 calcium carbonate-vitamin D3 [Calcium 600 + D(3)] 1 EACH tablet 1 ea PO DAILY RF: 0 Oxygen EACH NS PRN Qty: 2 RF: 1 ipratropium-albuterol 0.5 mg-3 mg(2.5 mg base)/3 mL solution for nebulization 3 ml Inhalation 5X/DAY Qty: 450 RF: 12 albuterol sulfate [Ventolin HFA] 90 mcg/actuation HFA aerosol inhaler 1 - 2 puff IH QID PRN (Reason: bronchospasm) Qty: 3 RF: 6 fluticasone propionate 50 mcg/actuation spray,suspension 1 - 2 spray NS DAILY Qty: 15.8 RF: 3 simvastatin 10 mg tablet 10 mg PO HS Qty: 90 RF: 4 omeprazole 40 mg capsule,delayed release(DR/EC) 40 mg PO DAILY Qty: 90 RF: 2 polyethylene glycol 3350 17 gram Powder In Packet 17 g PO DAILY PRN PRN (Reason: Constipation) Qty: 14 RF: 0 Bio-K plus 50 billion cell capsule,delayed release(DR/EC) 1 cap PO DAILY Qty: 60 RF: 0 Changed clonazepam 0.5 mg tablet 0.25 mg PO BID Qty: 60 RF: 0 Discontinued azithromycin 250 mg tablet 250 mg PO DAILY 30 Days Qty: 30 RF: 4 Discharge Instructions Instructions: Emphysema (DC) Activity:: Activity as Tolerated Equipment/Supplies:: No Equipment Needed Diet:: Resume usual diet Discharge Orders Discharge Orders: Discharge Order (Routine); Ordered 07/18/21 Ordered By: Mac Quintana DS: Summary Time Spent with Patient providing and/or coordinating discharge services: Greater than 30 minutes Status at Discharge Functional status at discharge: independent ambulation Overall status at discharge: patient is progressing back to baseline Mental Status: mental status grossly normal Speech and Movement: speech and movement normal Mood: congruent mood Affect: normal affect Exam Const General: cooperative, no acute distress and frail appearing Nutritional Appearance: underweight Orientation: alert and oriented x3 HENMT Head: normocephalic and atraumatic Neck Neck: full ROM and no JVD Resp Effort & Inspection: normal respiratory effort Auscultation: diminished lung sounds and wheezes (occasional soft wheeze) Cardio Rate: regular rate Rhythm: regular rhythm Heart Sounds: S1 normal and S2 normal GI Palpation: soft and nontender Skin General skin exam: no rashes or lesions noted Neuro General: no focal motor deficits Cognition: normal cognition Speech: speech normal Extrem General: no calf tenderness and normal gait Psych Mental Status: mental status grossly normal Speech and Movement: speech and movement normal Mood: congruent mood Affect: normal affect DS: Data Vitals/I&O Vitals and I&O: Vital Signs Temperature 37 C 07/18/21 07:15 Temperature Source Temporal Artery Scan 07/18/21 07:15 Pulse 100 H 07/18/21 07:15 Pulse Rhythm Regular 07/18/21 07:15 Pulse 95 H 07/17/21 16:20 Respiratory Rate 22 07/18/21 07:15 Respiratory Effort 07/18/21 07:15 Respiratory Depth Normal 07/18/21 07:15 Respiratory Pattern Normal 07/18/21 07:15 Blood Pressure 105/52 L 07/17/21 18:01 Blood Pressure Mean 66 07/17/21 18:01 Blood Pressure Position Supine 07/17/21 09:25 Pulse Oximetry 99 07/18/21 10:28 Oxygen Delivery Method Nasal Cannula 07/18/21 10:28 Oxygen Flow Rate 2 07/18/21 10:28 Fraction of Inspired Oxygen (FIO2) 30 07/18/21 10:15 Pain Level 0 07/18/21 07:15 Intake & Output 07/17/21 07/17/21 07/18/21 11:59 23:59 11:59 Intake Total 10 / 130 120 / 130 10 Output Total 300 / 300 450 / 450 Balance 10 / -170 -180 / -170 -440 / -440 Weight 44.1 kg 42.8 kg Intake: IV 10 Oral 120 / 120 Output: Urine 300 / 300 450 / 450 Other: Urine Color Yellow Yellow Urine Appearance Clear Clear Urine Odor Normal Comment Also incontinent small amount before transferring from ED stretcher. Voiding Methods Bedside Commode Bedside Commode Data Completed and Pending Labs on day of discharge: Labs from last 24 hours 07/18/21 07/17/21 06:08 12:30 Sodium 136 Potassium 3.9 Chloride 100 Carbon Dioxide 30.5 Anion Gap 5.5 BUN 13 Creatinine 0.6 Estimated GFR/1.73 m2 >= 60.00 Glucose 109 H Calcium 8.7 Troponin I < 0.05 [facility] Medical History Chronic obstructive airway disease Oxygen dependent Hyperlipidemia Low back pain Osteoarthritis Osteopenia Pneumonia (11/28/14) Renal cyst Tobacco abuse Tubular adenoma of colon (10/12/16) Surgical History Appendectomy Colonoscopy - MAC (10/10/16) Ligation of fallopian tube BSO NECK SURGERY Open Carpal Tunnel release X 2 RIB RESECTION Family History Mother Diabetes Essential hypertension Hyperlipidemia Stroke Asthma Brother , 58 Essential hypertension Neoplasm Throat Chronic obstructive lung disease Asthma Maternal Grandmother , 93 Chronic obstructive lung disease Asthma Father No problems noted. Sister No problems noted. Sister No problems noted. Brother No problems noted. Son , age 32 - Drown No problems noted. Maternal Grandfather , age 91 No problems noted. Paternal Grandfather No problems noted. Paternal Grandmother No problems noted. Social History Smoking/Tobacco Use Status: Former Tobacco Use tobacco type: cigarettes Quit Date: 12/29/18 Tobacco: How many years used: 51 Second Hand Exposure: Yes Smoking risk assessment performed?: Yes Alcohol Intake: former Drug use: Never Substance use type: does not use Caregiver/Support person: Yes Household members: spouse Housing: house Communication Needs: Corrective Lenses Do you need help understanding health information?: Rarely Pets and animals: Yes Pets and animals: cat(s) Sexually active: No Do you think of yourself as: straight/heterosexual Current gender identity: female What is your relationship status?: How often do you talk on the phone with friends or family?: decline to answer How often do you get together with friends or relatives?: decline to answer How often do you attend voodoo or congregation services?: decline to answer Do you belong to any clubs or organized social groups?: no Panel score (0-1 are the most socially isolated patients): 1 What type of physical activity do you participate in: other Details: housework- split level Frequency: daily Fay/Tenriism: Pentecostal Special fay needs: No Seatbelt use: always Drive intox or ride w/intox dinkey driver: No Do you feel safe at home: Yes Do you feel safe in your relationship?: Yes Additional Social history: previous exposure to cleaning supplies History History Para 1 Hx # Term Pregnancies Multiple births Hx # Pregnancies Ectopic pregnancies AB induced Hx Number of Living Children AB spontaneous
--- NOTE | 2021-07-18 12:46 | CMDISCH_ITS ---
- If Service Date Differs Date of service: 07/18/21 Time of Service: 12:46 LACE Index Scoring Tool - Questions: Length of Stay (in days): 1 Acuity (Admit via E.D.?): Yes Comorbidities: Chronic Pulmonary Disease E.D. Visits: 3 - Answers: Total Score: 9 Risk of Readmission: Low Risk Care Management Discharge Reason for Hospitalization: COPD Exacerbation. Discharge Plan: Nathalia is discharged home with no new services. She will resume home O2 through [facility] and will follow up with her PCP, installer metal flooring and plan of care as directed. Her , Clyde, is driving her home via private vehicle. Patient/Family Education Needs: Review discharge instructions re medications, activity level and follow up plan of care, and discuss Ask Me Three. Services Needed at Discharge: Oxygen Therapy (Resumption of O2 through [facility].)
== END 2021-07-18 13:30 | disposition home or self-care (01) ==
LOC: ER 09:21 → ICU 16:40
PROVIDERS: Admitting Provider Family Medicine; Emergency Provider Physician Assistant; PCP Family Medicine; Visit Provider Family Medicine
DX: J44.1 Chronic obstructive pulmonary disease with (acute) exacerbation (principal); F41.9 Anxiety disorder, unspecified; F32.A Depression, unspecified; R63.6 Underweight; Z68.1 Body mass index [BMI] 19.9 or less, adult; D80.1 Nonfamilial hypogammaglobulinemia; E78.5 Hyperlipidemia, unspecified; Z87.891 Personal history of nicotine dependence; Z20.822 Contact with and (suspected) exposure to COVID-19
CPT/HCPCS: 36415; 80048; 80053; 82805; 87635; 93005; 94640; 96374; 99285; 71045; 83880; 84484; 85025; 93010; 94660; 99217; 99220; G0378; J2930; J7512; J7613; J7620

== ENCOUNTER 2021-07-27 04:59 | Outpatient (CLI) | payer MEDICARE, SELFPAY ==
[2021-07-27 15:05] LABS: BE 6 mmol/L (-2-3); HCO3 30 mmol/L (22-26); pCO2 46 mmHg (35-45); pH 7.43 (7.35-7.45); pO2 95 mmHg (80-105); sO2 98 % (95-98); tCO2 27 mmol/L (23-27)
[2021-07-27 15:38] LABS: FIO2L 3 L; Site Left Radial
== END 2021-07-27 05:00 | disposition home or self-care (01) ==
LOC: RT 04:59
PROVIDERS: PCP Family Medicine; Visit Provider Student in an Organized Health Care Education/Training Program
DX: J44.9 Chronic obstructive pulmonary disease, unspecified (principal); J96.11 Chronic respiratory failure with hypoxia; J43.2 Centrilobular emphysema
CPT/HCPCS: 82805; 36600; 94762

== ENCOUNTER 2021-11-02 00:54 | Outpatient (CLI) | payer MEDICARE, SELFPAY ==
--- NOTE | 2021-11-02 16:00 | DI.DEXA_ITS ---
Exam(s) XR DEXA BONE DENSITY W/WO TONG EXAM: XR DEXA BONE DENSITY W/WO TONG CLINICAL HISTORY: osteoporosis,comp fx t5,s22.050a TECHNIQUE: [employer] Horizon C densitometer COMPARISON: 2003, 2006 and 2009. FINDINGS: Lateral view of the thoracic and lumbar spine shows no evidence of compression fractures. Bone mineral density measurements of the lumbar spine correspond to a total T-score of -2.4, in the osteopenic range. The least dense vertebral bodies is L4 with a bone mineral density of -2.9. Total bone mineral density of the spine has decreased 4.3 percent compared with 2009 and 6.9 percent when compared with 2003. Bone mineral density measurements of the left hip correspond to a total T-score of -2.8. The femora l neck T-score is -2.6, in the osteoporotic range. This represents 20.5 percent decrease compared t o 2009 and 24.4 decrease compared with 2003.. The left forearm bone mineral density measurements correspond to a T-score of the distal 3rd of -2.0 , in the osteopenic range. This represents a 15.3 percent decrease when compared with 2009. Forearm was not analyzed on older prior exams.. IMPRESSION: Osteoporosis of the left hip with significant decrease compared with previous exams. Osteopenia of t he lumbar spine and left forearm with mild decrease when compared with priors.
== END 2021-11-02 01:14 ==
PROVIDERS: PCP Family Medicine; Visit Provider Family Medicine
DX: M81.0 Age-related osteoporosis without current pathological fracture (principal); M85.88 Other specified disorders of bone density and structure, other site; Z87.311 Personal history of (healed) other pathological fracture
CPT/HCPCS: 77080

== ENCOUNTER 2021-11-14 00:21 | Outpatient (CLI) | payer MEDICARE, SELFPAY ==
--- NOTE | 2021-11-14 | DI.CT_ITS ---
Exam(s) CT CHEST WO EXAM: CT CHEST WO CLINICAL HISTORY: SEVERE COPD,J44.9,WORK UP FOR BRONCHOSCOPIC LUNG VOLUME REDUCTION,. TECHNIQUE: Multi planar reconstructions were performed. CONTRAST MATERIAL: None COMPARISON: CT CT CHEST PE CTA from 06/01/2021 FINDINGS: CHEST: LUNGS: There is scarring in the peripheral right upper lobe again noted, unchanged. There are no new focal right lung findings. No new left lung findings. No pleural effusions no new findings in trac hea and mainstem bronchi. MEDIASTINUM: There is no obvious hilar nor mediastinal adenopathy. Visualized thyroid unremarkable.No obvious axillary adenopathy CARDIAC: Heart size is normal. Slight thickening of the anterior pericardium is unchanged. This exh ibits maximum thickness of 6 millimeters, inferiorly..Caliber of the thoracic aorta is upper normal. VISUALIZED UPPER ABDOMEN:No adrenal masses. There are multiple hyperechoic nodules seen in the left kidney, possibly hemorrhagic cysts are otherwise. Only partially included in the field of view here. Recommend follow-up ultrasound. Similar findings are not seen in the partially visualized right ki dney. OSSEOUS: Multiple healed and healing left-sided rib fractures are noted. T5 compression fracture is again noted. Also T7 superior endplate compression fracture, unchanged from 06/01/2021. IMPRESSION: 1. Stable appearance of the T5 and T7 compression fractures when compared to 06/01/2021. 2. Right upper lobe scarring. No new pulmonary findings. No pleural effusions nor intrathoracic dora nopathy. 3. Left kidney nodules which may represent hemorrhagic cyst but were not evident on the prior study. Therefore recommend follow-up renal ultrasound as the next step. RADIATION DOSE DELIVERED: 305.36mGy.cm Total DLP DATA REPOSITORY: All CT scans at this facility are submitted to the National Radiology Data Registry (NRDR) Dose Index Registry (DIR) with the [employer] (ACR). RADIATION OPTIMIZATION: All CT scans at this facility use at least one of these dose optimization te chniques: automated exposure control; mA and/or kV adjustment per patient size (includes targeted exa ms where dose is matched to clinical indication); or iterative reconstruction.
--- NOTE | 2021-11-14 14:32 | DI.US_ITS ---
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 Estimated ejection fraction is 60%. Wall m otion is normal Normal right ventricular size and systolic function Both atria are normal in size Mild mitral annular calcification. Trace mitral regurgitation Estimated right ventricular systolic pressure is 28 mmHg Wall motion Left Ventricle The left ventricle is normal size. The left ventricular systolic function is normal. The left ventric ular ejection fraction is within the normal range. There is normal left ventricular wall thickness. T here is normal LV segmental wall motion. There is no ventricular septal defect visualized. LVEF is 60 %. Right Ventricle The right ventricle is normal size. The right ventricular systolic function is normal. The RVSP is 28 .4 mmHg. Atria The left atrium size is normal. The right atrium size is normal. The interatrial septum is intact wit h no evidence for an atrial septal defect. Aortic Valve The aortic valve is normal in structure. There is no aortic valvular stenosis. No aortic regurgitatio n is present. Mitral Valve Mild mitral annular calcification. No evidence of mitral valve stenosis. Trace mitral regurgitation. Tricuspid Valve The tricuspid valve is normal in structure. There is no tricuspid valve stenosis. Trace tricuspid reg urgitation. Pulmonic Valve The pulmonary valve is normal in structure. There is no pulmonic valvular stenosis. There is no pulmo ines valvular regurgitation. Great Vessels The aortic root is normal in size. The ascending aorta is normal in size. IVC is normal in size and c ollapses >50% with inspiration. Pericardium There is no pericardial effusion. 2D Dimensions IVSD d PLAX 0.76 cm F: 0.6-1.0 LV Vol A2C d MOD 62.6 mL LVPW d PLAX 0.78 cm F: 0.6 - 1.0 LV Vol A4C d MOD 50.5 mL LVID d PLAX 4.07 cm F: 3.8 - 5.2 LA vol/ BSA A2C s A-L 15.8 mL/m2 LVDs 2.85 cm F: 2.2 - 3.5 LA vol/ BSA A4C s A-L 23.8 mL/m2 Ao Root d 2.51 cm F: 2.7 - 3.3 LA Vol/ BSA Biplane s A-L 20.0 mL/m2 RA Area A4C 7.49 cm2 LA Area A4C s MOD 12.38 cm2 RA Vol/ BSA A4C s A-L 11.5 mL/m2 LA Area A2C s MOD 9.78 cm2 Ao Asc Diam d 2.84 cm F: 2.3 - 3.1 LV EF A4C MOD 60.6 % LV EF Teichholz 56.9 % LV EF A2C MOD 60.1 % LVEF (Moralez's) 58.49 % F: 54 - 74 LV EF Biplane MOD 58.5 % LV Volume 50.20 mL F: 46 - 106 SV 33.45 mL LV Volume Index 38.03 mL/m2 F: 29 - 61 SV Index 25.28 mL/m2 LV Vol Biplane MOD 57.2 mL FS 29.40 % M-Mode TAPSE 2.05 cm (M/F) >1.7 LV Diastology MV E' medial 0.084 (>0.07 m/s) E/A Ratio 1.0 LV E/e MED 11.30 (<14) MV E Vmax 0.96 (0.4-1.3 m/s) MV E' lateral 0.101 (>0.1 m/s) MV A Vmax 0.95 (0.4-1.3 m/s) LV E/e LAT 9.40 (<14) MV E/A Ratio 0.96 MV E/E' medial 11.35 MV E/E' lateral 9.43 Aortic Valve LVOT Area 2.72 cm2 AoV Area Vmax 2.23 cm2 LVOT Vmax 1.28 m/s AoV Area/ BSA (Vmax) 1.69 cm2/m2 LVOT Mean Rafi. 0.90 m/s NIGEL Mean Rafi. 2.01 cm2 LVOT Peak Grad 6.5 mmHg NIGLE Mean Rafi. Index 1.52 cm2/m2 LVOT Mean Grad 3.5 mmHg LVOT VTI 0.290 m LVOT Diam s 1.85 cm AoV Vmax 1.55 m/s Velocity Ratio 0.82 AoV Mean Rafi. 1.21 m/s AoV Peak Grad 9.7 mmHg LVOT SV 78.77 mL AoV Mean Grad 6.2 mmHg AoV VTI 0.372 m AoV Area VTI 2.12 cm2 AoV Area/ BSA (VTI) 1.60 cm/m2 Mitral Valve MV DT 258 (160-240 msec) MV PHT 75 msec MV Area PHT 2.94 cm2 MV VTI 0.301 m MV Area VTI 2.62 (4.0-6.0 cm2) Pulmonary Valve PV Vmax 1.07 (0.5-1.5 m/s) RVOT Peak Gr. 4.61 mmHg PV Peak Grad 4.6 mmHg RVOT Mean Gr. 2.35 mmHg PV Mean Grad 2.5 mmHg RVOT VTI 0.218 m PV VTI 0.232 m RVOT Vmax 1.07 m/s Tricuspid Valve TR Peak Grad 25.3 mmHg TR Vmax 2.52 m/s RA Pressure 3.00 mmHg RVSP (TR) 28.4 mmHg
== END 2021-11-14 00:41 ==
PROVIDERS: PCP Family Medicine; Visit Provider Internal Medicine Pulmonary Disease
DX: R06.00 Dyspnea, unspecified (principal); J44.9 Chronic obstructive pulmonary disease, unspecified; S22.050A Wedge compression fracture of T5-T6 vertebra, initial encounter for closed fracture; S22.060A Wedge compression fracture of T7-T8 vertebra, initial encounter for closed fracture; X58.XXXA Exposure to other specified factors, initial encounter; J98.4 Other disorders of lung; R93.422 Abnormal radiologic findings on diagnostic imaging of left kidney
CPT/HCPCS: 71250; 93306

== ENCOUNTER 2022-01-27 01:26 | Outpatient (CLI) | payer MEDICARE, SELFPAY | END 2022-01-27 01:27 | disposition home or self-care (01) | LOC: RT 01:26 | PROVIDERS: PCP Family Medicine; Visit Provider Student in an Organized Health Care Education/Training Program ==

== ENCOUNTER 2022-03-17 09:24 | Outpatient (REF) | payer MEDICARE, SELFPAY ==
[2022-03-17 09:35] LABS: Source Nasal/Nares
[2022-03-17 15:42] LABS: COVID-19 PCR Negative (Negative)
== END 2022-03-17 09:25 | disposition home or self-care (01) ==
LOC: LBN 09:24
PROVIDERS: PCP Family Medicine; Visit Provider Student in an Organized Health Care Education/Training Program
DX: Z20.822 Contact with and (suspected) exposure to COVID-19 (principal); Z01.818 Encounter for other preprocedural examination
CPT/HCPCS: 87635; U0005

== ENCOUNTER 2022-06-11 09:40 | Inpatient (IN) | payer MEDICARE, SELFPAY ==
[2022-06-11] VITALS (113 sets, daily range): BP systolic 114–151; BP diastolic 61–87; PULSE 79–109; RESP 2–31; TEMP 36.6–36.9; O2SAT 82–95
--- NOTE | 2022-06-11 09:30 | RT.EKG_ITS ---
APPROVED REPORT Exam: Resting ECG Reason for Exam: SOB Patient Location: E HR:96 bpm ECG Measurements Heart Rate 96 AXIS HI 136 P 95 QRSd 90 QRS -88 QT 359 T 91 QTc 453 Conclusion Sinus rhythm LAD Nonspecific T abnormalities, lateral leads
--- NOTE | 2022-06-11 09:45 | DI.RAD_ITS ---
Exam(s) XR PORTABLE CHEST AP EXAM: XR PORTABLE CHEST AP CLINICAL HISTORY: SOB. TECHNIQUE: 2D digital imaging was performed. COMPARISON: CR,XR XR PORTABLE CHEST AP from 07/17/2021 FINDINGS: Single AP portable view. Heart size normal. Mediastinum not widened. Pulmonary hyperinflation again noted. No infiltrates in the right lung. Mildly increased interstiti al markings in the lower half of the left lung field. No pleural effusions. Healed fracture of the left 5th rib again noted. IMPRESSION: COPD. Mild increased markings in the lower half of the left lung field. Recommend nonportable PA an d lateral views when clinically possible. Suspect early infiltrate. DATA REPOSITORY: RADIATION DOSE DELIVERED: All CT scans at this facility use at least one of these dose optimization techniques: automated exposure control; mA and/or kV adjustment per patient size (includes targeted e xams where dose is matched to clinical indication); or iterative reconstruction.
[2022-06-11] MEDS: methylPREDNISolone SUCC 125 MG VIAL IVP (10:22)
[2022-06-11] MEDS: Albuterol 2.5 MG/3 ML INH SOLN VIAL UPD (10:23)
[2022-06-11] MEDS: Albuterol/Ipratropium 3 ML UPD VIAL UPD ×3 (10:24→22:19)
[2022-06-11 10:27] LABS: Abs Immature Grans 0.01 10^3/uL (0.0-0.06); Absolute Basophil Count 0.02 10^3/uL (0.0-0.2); Absolute Eosinophil Count 0.58 10^3/uL (0.0-0.7); Absolute Lymphocyte Count 0.91 10^3/uL (1.2-3.4); Absolute Monocyte Count 0.97 10^3/uL (0.1-0.8); Absolute Neutrophil Count 3.49 10^3/uL (1.2-6.7); Basophils % 0.3; Eosinophils % 9.7; HCT 35.8 % (36.0-46.0); HGB 11.1 g/dL (11.2-15.7); Immature Grans % 0.2; Lymphocytes % 15.2; MCH 29.8 pg (27.0-33.0); MCV 96 fL (80-95); MPV 10.4 fL (8.0-11.0); Monocytes % 16.2; Neutrophils % 58.4; Platelet Count 287 10^3/uL (130-400); RBC 3.72 10^6/uL (3.93-5.22); RDW 12.3 % (11.7-14.6); RDW-SD 43.7 fL; WBC 5.98 10^3/uL (4.4-10.8)
[2022-06-11 10:36] LABS: PTT Activated 24.3 sec (21.0-27.5); Prothrombin Time 10.3 sec (9.3-11.0)
--- NOTE | 2022-06-11 10:41 | DI.VRAD_ITS ---
PROCEDURE INFORMATION: Exam: XR Chest Exam date and time: 06/11/2022 10:05 AM Age: 72 years old Clinical indication: Shortness of breath; Patient HX: SOB TECHNIQUE: Imaging protocol: Radiologic exam of the chest. Views: 1 view. COMPARISON: CT CHEST WO 11/14/2021 3:01 PM FINDINGS: Tubes, catheters and devices: Telemetry leads. Lungs: Lungs are hyperexpanded. Relative lucency of the apices. No focal airspace consolidation. Pleural spaces: No pleural effusion. No pneumothorax. Heart/Mediastinum: Heart size is within normal limits. Bones/joints: Degenerative changes of the shoulders and spine. IMPRESSION: 1. No acute cardiopulmonary findings. 2. Emphysema and hyperinflation of lungs compatible with COPD. Dictated and Authenticated by: Mercy Grubbs MD. Ordering:KY Ibarra MD
--- NOTE | 2022-06-11 10:43 | W.ED.GENAD ---
Discharge Plan Disposition Patient Disposition: HOME Condition: Improving Discharge Details Clinical Impression: Acute exacerbation of chronic obstructive pulmonary disease, Pulmonary nodule Primary Care Provider: Kaycee Meyer ED Provider: Fred Gentile Home Meds and New Rx's Prescriptions: New prednisone 20 mg tablet 60 mg PO DAILY 5 Days Qty: 15 0RF Continued fluticasone propionate [Flovent HFA] 220 mcg/actuation HFA aerosol inhaler 2 puff inhalation BID Qty: 12 4RF cholecalciferol (vitamin D3) 2,000 unit capsule 2,000 unit PO DAILY citalopram 20 mg tablet 20 mg PO DAILY Qty: 90 4RF Rx Instructions: 1 Tab (20mg) daily diclofenac sodium 1 % gel 100 g topical QID Qty: 100 2RF Stiolto Respimat 2.5-2.5 mcg/actuation mist 2 puff inhalation DAILY Qty: 12 4RF diphenhydramine HCl [Allergy (diphenhydramine)] 25 mg tablet 50 mg PO QHS omeprazole 40 mg capsule,delayed release(DR/EC) 40 mg PO DAILY Qty: 90 5RF ascorbic acid (vitamin C) [Vitamin C] 500 MG tablet 500 mg PO DAILY calcium carbonate-vitamin D3 [Calcium 600 + D(3)] 1 EACH tablet 1 ea PO DAILY Oxygen EACH NS PRN Qty: 2 1RF Rx Instructions: oxygen 2-2.5 L/NC prn ([facility]) fluticasone propionate 50 mcg/actuation spray,suspension 1 - 2 spray NS DAILY Qty: 15.8 3RF Rx Instructions: 1 spray each nostril daily benzonatate [Tessalon Perles] 100 mg capsule 100 mg PO BID PRN (Reason: cough) Qty: 30 1RF albuterol sulfate [Ventolin HFA] 90 mcg/actuation HFA aerosol inhaler 1 - 2 puff IH QID PRN (Reason: bronchospasm) Qty: 3 6RF ipratropium-albuterol 0.5 mg-3 mg(2.5 mg base)/3 mL solution for nebulization 3 ml Inhalation 5X/DAY Qty: 450 12RF Rx Instructions: J44.9 clonazepam 0.5 mg tablet 0.25 mg PO BID Qty: 60 3RF Rx Instructions: take 0.5 tablet twice a day as needed for anxiety simvastatin 10 mg tablet 10 mg PO HS Qty: 90 5RF Rx Instructions: 1 TAB HS polyethylene glycol 3350 17 gram Powder In Packet 17 g PO DAILY PRN PRN (Reason: Constipation) Qty: 14 0RF Discharge Instructions Instructions: COPD (Chronic Obstructive Pulmonary Disease) (ED), Pulmonary Nodules (ED) Additional Instructions: Work-up in the ER does not reveal any obvious emergent process. You have responded well to the breathing treatments and steroids provided. We discussed disposition including admission but you prefer to go home and I believe this to be reasonable. You already have oxygen at home that you may increase slightly if needed while not feeling well. Prednisone as directed. As we discussed your CAT scan revealed a pulmonary nodule which will require further evaluation for your primary care provider. Please watch for new or worsening symptoms and return to the ER for any concerns. Lastly, please contact the office of your PCP tomorrow to discuss your ER visit, ongoing symptoms, and need for outpatient reevaluation. Medical Decision Making This is a 72-year-old female with a past medical history of COPD, O2 dependent, presenting to the ER for not feeling well, worsening dyspnea over the past week or so. I was able to review her recent visit to her PCP on 05/22, O2 sat at that time on 3 L was 86 and 89, patient does not seem to be far from her baseline during this visit. Given her subjective swelling and discomfort in her legs, higher concern for DVT and/or PE, will initiate cardiac work-up with D-dimer. Will provide IV Solu-Medrol and both a duo and albuterol neb treatment. Patient reports moderate improvement of her symptoms with breathing treatments and steroids. Subsequently throughout her ER stay we had difficulty obtaining an accurate O2 sat. At 1 point her oxygen level was increased between 4 and 5 L and her O2 sat was still difficult to obtain. We then changed her reading to her toes and she was able to maintain an O2 sat between 91 and 92 down to 2 L which is appears to be her baseline. Laboratory values do not reveal any obvious emergent process. Nonspecific D-dimer of 1806, will pursue CTA of the chest. COVID-negative. Chest x-ray unremarkable. CTA unremarkable for PE, aortic dissection or aneurysm. There is a 1 cm spiculated noncalcified nodule in the left upper lobe Discussed work-up both with patient and family. We discussed her pulmonary nodule that requires outpatient follow-up through her PCP as this could be cancerous. Patient reports continuing to feel improvement, she is moving more air, lungs at the base still are slightly diminished. O2 sats are in the low 90s on 2 L nasal cannula which is her baseline. We discussed disposition, patient would prefer to be discharged home, does not feel as though admission is indicated. I believe this is reasonable as she has oxygen at home already. I can provide her a prescription of steroids. I will also obtain a delta troponin, she is agreeable to awaiting this test result. Delta troponin remains less than 50. Standard discharge and return precautions were provided. Patient understands, is agreeable to this plan, and has no additional questions or concerns upon discharge. This documentation was generated using [employer] system, please disregard any oddities of phrase or misspellings. Medical Records Medical records reviewed: Yes I reviewed the patient's medical records. Imaging Data Radiologic Study: Attestation: I personally reviewed and interpreted this imaging study as follows: Imaging: X-Ray Radiologist's impression: PROCEDURE INFORMATION: Exam: XR Chest Exam date and time: 06/11/2022 10:05 AM Age: 72 years old Clinical indication: Shortness of breath; Patient HX: SOB TECHNIQUE: Imaging protocol: Radiologic exam of the chest. Views: 1 view. COMPARISON: CT CHEST WO 11/14/2021 3:01 PM FINDINGS: Tubes, catheters and devices: Telemetry leads. Lungs: Lungs are hyperexpanded. Relative lucency of the apices. No focal airspace consolidation. Pleural spaces: No pleural effusion. No pneumothorax. Heart/Mediastinum: Heart size is within normal limits. Bones/joints: Degenerative changes of the shoulders and spine. IMPRESSION: 1. No acute cardiopulmonary findings. 2. Emphysema and hyperinflation of lungs compatible with COPD. Radiologic Study #2: Attestation: I personally reviewed and interpreted this imaging study as follows: Imaging: CT Scan Radiologist's impression: Addendum created by Robles Connors MD on 06/11/2022 12:44 PM Eastern Time ([place] & [place]): THIS REPORT CONTAINS FINDINGS THAT MAY BE CRITICAL TO PATIENT CARE. The findings were verbally communicated via telephone conference with Fred Gentile at 12:44 PM EDT on 06/11/2022. The findings were acknowledged and understood. Initial Report created on 06/11/2022 12:41 PM Eastern Time ([place] & [place]): PROCEDURE INFORMATION: Exam: CTA Chest With Contrast Exam date and time: 06/11/2022 12:04 PM Age: 72 years old Clinical indication: Shortness of breath; Patient HX: SOB elevated d-dimer TECHNIQUE: Imaging protocol: Computed tomographic angiography of the chest with contrast. 3D rendering (Not supervised by radiologist): MIP and/or 3D reconstructed images were created by the technologist. Radiation optimization: All CT scans at this facility use at least one of these dose optimization techniques: automated exposure control; mA and/or kV adjustment per patient size (includes targeted exams where dose is matched to clinical indication); or iterative reconstruction. Contrast material: 0MNI 350; Contrast volume: 56 ml; Contrast route: INTRAVENOUS (IV); COMPARISON: CT CHEST PE CTA 06/01/2021 7:04 PM FINDINGS: Pulmonary arteries: Normal. No pulmonary emboli. Aorta: There is mild calcification of the aorta. There is no thoracic aortic aneurysm or dissection. Lungs: There is pulmonary emphysema and scattered pulmonary fibrosis. There is a noncalcified spiculated 1 cm nodule in the left lingula. A 5 mm noncalcified nodule is present in the left lower lobe on series 5/image 34.Pleural spaces: Unremarkable. No pneumothorax. No pleural effusion. Heart: The heart is not enlarged. There is no significant coronary artery calcification. Lymph nodes: Unremarkable. No enlarged lymph nodes. Bones/joints: Chronic degenerative changes are present in the spine. Are old mild thoracic vertebral compression fractures. Soft tissues: Unremarkable. IMPRESSION: 1. No evidence of pulmonary embolus or aortic aneurysm/dissection. 2. There is a 1 cm spiculated noncalcified nodule in the left upper lobe. 5 mm noncalcified nodule is present in the left lower lobe.Highly suspicious nodule(s). Consider non-emergent PET/CT, or tissue sampling.(Reference: [place]) Lab Data Lab results reviewed: Yes I reviewed the patient's lab results. Labs: Laboratory Tests Range/Units 06/11/22 06/11/22 06/11/22 10:08 10:08 10:08 WBC (4.4-10.8) 10^3/uL 5.98 RBC (3.93-5.22) 10^6/uL 3.72 L Hgb (11.2-15.7) g/dL 11.1 L Hct (36.0-46.0) % 35.8 L MCV (80-95) fL 96 H MCH (27.0-33.0) pg 29.8 MCHC (32.0-36.0) % 31.0 L RDW (11.7-14.6) % 12.3 Plt Count (130-400) 10^3/uL 287 MPV (8.0-11.0) fL 10.4 Immature Gran % 0.2 Neutrophils % 58.4 Lymphocytes % 15.2 Monocytes % 16.2 Eosinophils % 9.7 Basophils % 0.3 Nucleated RBC % (0.0-0.3) % 0.0 Absolute Neutrophils (1.2-6.7) 10^3/uL 3.49 Absolute Lymphocytes (1.2-3.4) 10^3/uL 0.91 L Absolute Monocytes (0.1-0.8) 10^3/uL 0.97 H Absolute Eosinophils (0.0-0.7) 10^3/uL 0.58 Absolute Basophils (0.0-0.2) 10^3/uL 0.02 PT (9.3-11.0) sec 10.3 INR (0.9-1.1) 1.0 APTT (21.0-27.5) sec 24.3 D-Dimer (<500) ng/mlFEU 1806 H Sodium (136-145) mmol/L 135 L Potassium (3.5-5.1) mmol/L 4.1 Chloride (98-107) mmol/L 95 L Carbon Dioxide (21.0-32.0) mmol/L 38.6 H Anion Gap (3-11) mmol/L 1.4 L BUN (7-18) mg/dL 13 Creatinine (0.55-1.02) mg/dL 0.7 Est GFR (CKD-EPI 2020) (mL/min/1.73m2) 91.83 Glucose (74-106) mg/dL 131 H Calcium (8.5-10.1) mg/dL 8.8 Magnesium (1.8-2.4) mg/dL 1.7 L Total Bilirubin (0.2-1.0) mg/dL 0.2 AST (15-37) U/L 14 L ALT (14-59) U/L 13 L Alkaline Phosphatase (46-116) U/L 64 Troponin I (<or=60) ng/L < 50 NT-Pro-B Natriuret Pep (<300) pg/mL 81 Total Protein (6.4-8.2) g/dL 7.5 Albumin (3.4-5.0) g/dL 2.7 L COVID-19 Source SARS-CoV-2 (PCR) (Negative) Range/Units 06/11/22 10:58 WBC (4.4-10.8) 10^3/uL RBC (3.93-5.22) 10^6/uL Hgb (11.2-15.7) g/dL Hct (36.0-46.0) % MCV (80-95) fL MCH (27.0-33.0) pg MCHC (32.0-36.0) % RDW (11.7-14.6) % Plt Count (130-400) 10^3/uL MPV (8.0-11.0) fL Immature Gran % Neutrophils % Lymphocytes % Monocytes % Eosinophils % Basophils % Nucleated RBC % (0.0-0.3) % Absolute Neutrophils (1.2-6.7) 10^3/uL Absolute Lymphocytes (1.2-3.4) 10^3/uL Absolute Monocytes (0.1-0.8) 10^3/uL Absolute Eosinophils (0.0-0.7) 10^3/uL Absolute Basophils (0.0-0.2) 10^3/uL PT (9.3-11.0) sec INR (0.9-1.1) APTT (21.0-27.5) sec D-Dimer (<500) ng/mlFEU Sodium (136-145) mmol/L Potassium (3.5-5.1) mmol/L Chloride (98-107) mmol/L Carbon Dioxide (21.0-32.0) mmol/L Anion Gap (3-11) mmol/L BUN (7-18) mg/dL Creatinine (0.55-1.02) mg/dL Est GFR (CKD-EPI 2020) (mL/min/1.73m2) Glucose (74-106) mg/dL Calcium (8.5-10.1) mg/dL Magnesium (1.8-2.4) mg/dL Total Bilirubin (0.2-1.0) mg/dL AST (15-37) U/L ALT (14-59) U/L Alkaline Phosphatase (46-116) U/L Troponin I (<or=60) ng/L NT-Pro-B Natriuret Pep (<300) pg/mL Total Protein (6.4-8.2) g/dL Albumin (3.4-5.0) g/dL COVID-19 Source Nasal/Nares SARS-CoV-2 (PCR) (Negative) Negative ECG Data Attestation: I personally reviewed and interpreted this ECG (s) as follows: Interpretation: Sinus rhythm, ventricular rate 96. LAD, nonspecific T wave abnormalities. No STEMI. HPI General Mode of arrival: wheelchair. Date/Time Provider Initiated Documentation: 06/11/22 09:40. Limitations to Documentation: no limitations. Information obtained by: patient and family. HPI Narrative: This is a 72-year-old female with a past medical history that includes COPD, O2 dependent, anxiety, hyperlipidemia, depression, presenting to the ER reporting worsening dyspnea over the past week or so. She also states that she believes her lower extremities are slightly swollen. She denies recent illness or trauma. She states that she was seen by her PCP 21-2 weeks ago and at that time all was well. She reports general fatigue, dyspnea, cough, wheezing. She has been taking her medications as directed as well as using her inhalers and nebulizers. She denies headache, fever, chest pain, abdominal pain, nausea, vomiting, change in bowel or bladder function. Reports decreased appetite secondary to general fatigue. Related Data Home Medications Medication Instructions Recorded Confirmed ascorbic acid (vitamin C) 500 mg 500 mg PO DAILY 02/03/13 06/11/22 tablet (Vitamin C) calcium carbonate 600 mg-vitamin 1 ea PO DAILY 02/03/13 06/11/22 D3 10 mcg (400 unit) tablet (Calcium 600 + D(3)) cholecalciferol (vitamin D3) 50 2,000 unit PO DAILY 05/22/19 06/11/22 mcg (2,000 unit) capsule fluticasone propionate 50 1 - 2 spray NS DAILY #15.8 mL 12/30/20 06/11/22 mcg/actuation nasal spray,suspension polyethylene glycol 3350 17 gram 17 g PO DAILY PRN PRN Constipation 03/05/21 06/11/22 oral powder packet #14 ea citalopram 20 mg tablet 20 mg PO DAILY #90 tabs 05/25/21 06/11/22 diclofenac sodium 1 % topical gel 100 g topical QID #100 grams 05/25/21 06/11/22 benzonatate 100 mg capsule 100 mg PO BID PRN cough #30 caps 07/29/21 06/11/22 (Tessalon Perles) diphenhydramine HCl 25 mg tablet 50 mg PO QHS 08/02/21 06/11/22 (Allergy (diphenhydramine)) omeprazole 40 mg capsule,delayed 40 mg PO DAILY #90 caps 08/02/21 06/11/22 release albuterol sulfate 90 mcg/actuation 1 - 2 puff inhalation QID PRN 08/24/21 06/11/22 aerosol inhaler (Ventolin HFA) bronchospasm #3 multiple units tiotropium 2.5 mcg-olodaterol 2.5 2 puff inhalation DAILY #12 grams 11/22/21 06/11/22 mcg/actuation mist for inhalation (Stiolto Respimat) ipratropium 0.5 mg-albuterol 3 mg 3 ml inhalation 5X/DAY #450 mL 12/26/21 06/11/22 (2.5 mg base)/3 mL nebulization soln clonazepam 0.5 mg tablet 0.25 mg PO BID #60 tab-caps 01/11/22 06/11/22 fluticasone propionate 220 2 puff inhalation BID #12 grams 02/07/22 06/11/22 mcg/actuation HFA aerosol inhaler (Flovent HFA) simvastatin 10 mg tablet 10 mg PO HS #90 tab-caps 04/13/22 06/11/22 prednisone 20 mg tablet 60 mg PO DAILY 5 days #15 tabs 06/11/22 Previous Rx's Medication Instructions Recorded fluticasone propionate 50 1 - 2 spray NS DAILY #15.8 mL 12/30/20 mcg/actuation nasal spray,suspension polyethylene glycol 3350 17 gram 17 g PO DAILY PRN PRN Constipation 03/05/21 oral powder packet #14 ea citalopram 20 mg tablet 20 mg PO DAILY #90 tabs 05/25/21 diclofenac sodium 1 % topical gel 100 g topical QID #100 grams 05/25/21 benzonatate 100 mg capsule 100 mg PO BID PRN cough #30 caps 07/29/21 ([facility] [place]) omeprazole 40 mg capsule,delayed 40 mg PO DAILY #90 caps 08/02/21 release albuterol sulfate 90 mcg/actuation 1 - 2 puff inhalation QID PRN 08/24/21 aerosol inhaler (Ventolin HFA) bronchospasm #3 multiple units tiotropium 2.5 mcg-olodaterol 2.5 2 puff inhalation DAILY #12 grams 11/22/21 mcg/actuation mist for inhalation (Stiolto Respimat) ipratropium 0.5 mg-albuterol 3 mg 3 ml inhalation 5X/DAY #450 mL 12/26/21 (2.5 mg base)/3 mL nebulization soln clonazepam 0.5 mg tablet 0.25 mg PO BID #60 tab-caps 01/11/22 fluticasone propionate 220 2 puff inhalation BID #12 grams 02/07/22 mcg/actuation HFA aerosol inhaler (Flovent HFA) simvastatin 10 mg tablet 10 mg PO HS #90 tab-caps 04/13/22 prednisone 20 mg tablet 60 mg PO DAILY 5 days #15 tabs 06/11/22 Allergies Allergy/AdvReac Type Severity Reaction Status Date / Time sulfamethoxazole Allergy Mild Hives Unverified 06/11/22 09:54 [From Bactrim] trimethoprim [From Bactrim] Allergy Mild Hives Unverified 06/11/22 09:54 levofloxacin AdvReac Intermediate BACK AND Verified 06/11/22 09:54 STOMACH ACHE doxycycline AdvReac Unknown nausea Verified 06/11/22 09:54 toan Allergy Intermediate Uncoded 06/11/22 09:54 General Stated Complaint: SOB LARON: 2 Review of Systems Constitutional Constitutional: Reports fatigue, Denies fever(s), Denies headache(s) and Reports weakness (Generalized) ENT Ears, Nose, Mouth, and Throat: Denies headache(s) and Denies neck pain Cardiovascular Cardiovascular: Denies chest pain and Reports dyspnea Respiratory Respiratory: Reports cough, Reports dyspnea and Reports wheezing Gastrointestinal Gastrointestinal: Denies abdominal pain, Denies nausea and Denies vomiting Genitourinary Genitourinary: Denies dysuria Musculoskeletal Musculoskeletal: Denies neck pain Integumentary/Breasts Skin/Breast: Denies rash Neurologic Neurologic: Denies headache(s) and Reports weakness (Generalized) Endocrine Endocrine: Reports fatigue Hematologic/Lymphatic Hematologic/Lymphatic: Denies easy bleeding and Denies easy bruising Allergic/Immunologic Allergic/Immunologic: Reports wheezing PFSH All Active Problems (Updated 06/11/22 @ 13:58 by ROEL Lubin) Acute exacerbation of chronic obstructive pulmonary disease (Acute) Pulmonary nodule (Acute) Encounter for screening for COVID-19 (Acute) Ear congestion (Acute) Underweight (Acute) Chronic respiratory failure with hypoxia (Acute) GERD (gastroesophageal reflux disease) (Chronic) Tremor (Acute) Chest pain (Acute) Compression fracture of T5 vertebra (Acute) Discharge planning issues (Acute) DVT prophylaxis (Acute) Acute right-sided thoracic back pain (Acute) Tubular adenoma of colon (Acute 10/12/16) Anxiety (Chronic 01/04/16) Acute gastric ulcer due to Helicobacter pylori (Acute 12/06/15) EGD, Dr Mcfarlane. positive SHARON test (treated) (also esophagitis) Hypogammaglobulinemia (Acute) [facility] Hemato.: negative workup/ Lung nodule (Acute 07/09/15) [facility]; [address] : stable/repeat yearly Hypoxemia (Chronic 11/28/14) Depression (Chronic) Hyperlipidemia (Chronic) Low back pain (Chronic) Osteoarthritis (Chronic) Osteopenia (Chronic) COPD (chronic obstructive pulmonary disease) (Chronic) Medical History Acute exacerbation of chronic obstructive pulmonary disease (11/28/14) Chronic obstructive airway disease Oxygen dependent Hyperlipidemia Low back pain Osteoarthritis Osteopenia Pneumonia (11/28/14) Renal cyst Smoker Tobacco abuse Surgical History Appendectomy Colonoscopy - MAC (10/10/16) Ligation of fallopian tube BSO NECK SURGERY Open Carpal Tunnel release X 2 RIB RESECTION Family History Mother Diabetes Essential hypertension Hyperlipidemia Stroke Asthma Brother , 58 Essential hypertension Neoplasm Throat Chronic obstructive lung disease Asthma Maternal Grandmother , 93 Chronic obstructive lung disease Asthma Father , 97 No problems noted. Sister No problems noted. Sister No problems noted. Brother No problems noted. Son , age 32 - Drown No problems noted. Maternal Grandfather , age 91 No problems noted. Paternal Grandfather No problems noted. Paternal Grandmother No problems noted. Social History Smoking/Tobacco Use Status: Former Tobacco Use tobacco type: cigarettes Quit Date: 12/29/18 Tobacco: How many years used: 53 Second Hand Exposure: Yes Smoking risk assessment performed?: Yes Alcohol Intake: former Drug use: Never Substance use type: does not use Caregiver/Support person: No Household members: spouse Housing: house Communication Needs: None Do you need help understanding health information?: Rarely Pets and animals: Yes Pets and animals: cat(s) Sexually active: No Do you think of yourself as: straight/heterosexual Current gender identity: female What is your relationship status?: Panel score (0-1 are the most socially isolated patients): 1 What type of physical activity do you participate in: none Fay/Gnosticism: Tenriism Seatbelt use: always Drive 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 Do you feel safe at home: Yes Do you feel safe in your relationship?: Yes Additional Social history: previous exposure to cleaning supplies History History Para 1 Hx # Term Pregnancies Multiple births Hx # Pregnancies Ectopic pregnancies AB induced Hx Number of Living Children AB spontaneous Exam Const General: cooperative, healthy appearing, comfortable and no acute distress Orientation: alert and awake HENMT Head: normal to inspection, normocephalic and atraumatic Eyes General: appearance normal, both eyes and all related structures Conjunctivae: conjunctivae normal Neck Neck: normal visual inspection, full ROM, no meningeal signs, trachea midline, supple and nontender Resp Effort & Inspection: normal respiratory effort and able to speak in complete sentences Auscultation: diminished lung sounds bilaterally in the lower lung lee and wheezes (Occasional, scattered) Cardio Rate: tachycardic (102) Rhythm: regular rhythm GI Palpation: soft and nontender Back/Spine/Pelvis Back: No back tenderness Skin General skin exam: no rashes or lesions noted Neuro General: patient alert, patient awake, moves all extremities and no focal motor deficits Cognition: normal cognition Speech: speech normal Gait: normal gait Sensory Exam: no sensory deficits noted Extrem General: normal to inspection, full ROM, capillary refill normal, no pedal edema, no calf tenderness and other (Negative Nate bilaterally) Psych Appearance: grossly normal Mental Status: mental status grossly normal Course Vital Signs Vital signs: Vital Signs Pulse Oximetry 88 L 06/11/22 09:40 Temperature 36.8 C 06/11/22 09:44 Temperature Source Skin 06/11/22 09:44 Pulse 98 H 06/11/22 10:24 Respiratory Rate 23 06/11/22 09:57 Respiratory Effort Incrsd Work of Breathing 06/11/22 10:16 Blood Pressure 145/87 H 06/11/22 09:44 Pulse Oximetry 84 L 06/11/22 10:24 Oxygen Delivery Method Nasal Cannula 06/11/22 10:24 Oxygen Flow Rate 3 06/11/22 10:24 Pain Level 0 06/11/22 09:44 Comment has also needed to use inhalers and nebs more often 06/11/22 09:44
[2022-06-11 10:47] LABS: ALT 13 U/L (14-59); AST 14 U/L (15-37); Albumin 2.7 g/dL (3.4-5.0); Alkaline Phosphatase 64 U/L (46-116); Anion Gap 1.4 mmol/L (3-11); BUN 13 mg/dL (7-18); Bilirubin, Total 0.2 mg/dL (0.2-1.0); CO2 38.6 mmol/L (21.0-32.0); CREATININE 0.7 mg/dL (0.55-1.02); Calcium 8.8 mg/dL (8.5-10.1); Chloride 95 mmol/L (98-107); Estimated GFR 91.83 (mL/min/1.73m2); Glucose 131 mg/dL (74-106); Magnesium 1.7 mg/dL (1.8-2.4); NT-proBNP 81 pg/mL (<300); Potassium 4.1 mmol/L (3.5-5.1); Sodium 135 mmol/L (136-145); Total Protein 7.5 g/dL (6.4-8.2); Troponin I < 50 ng/L (<or=60)
[2022-06-11 11:04] LABS: Source Nasal/Nares
--- NOTE | 2022-06-11 11:30 | DI.CT_ITS ---
Exam(s) CT CHEST PE CTA EXAM: CT CHEST PE CTA CLINICAL HISTORY: sob,elevated dimer. TECHNIQUE: Imaging Protocol: CT angiography of the chest was performed using pulmonary embolus sheron col. Multi planar reconstructions were performed. CONTRAST MATERIAL: Intravenous: Omnipaque 350 Contrast volume: 56 cc COMPARISON: CT CT CHEST WO from 11/14/2021 FINDINGS: CHEST: PULMONARY ARTERIES: There are no intraluminal filling defects to suggest acute pulmonary emboli. LUNGS: COPD emphysematous changes. No evidence of pulmonary infarction. However, there is a 1.2 x 1 .2 cm nodular infiltrate in the left upper lobe. Requires close follow-up to rule out malignancy. M ild increased markings benign appearance noted in the posterior basal segment of the left lower lobe. There is also 5 millimeter in nodular density in the left lower lobe. In the opposite-right lung there are no ominous nodules.. There are no pleural effusions. MEDIASTINUM: There is no hilar nor mediastinal adenopathy. CARDIAC: Heart size normal. No pericardial effusion.Caliber of the thoracic aorta is within normal l imits. No evidence of dissection. There is no significant shift of the interventricular septum. PARTIALLY VISUALIZED UPPERMOST ABDOMEN: Slight thickening of the left adrenal gland. No splenomegaly . OSSEOUS: Non healed left 8th rib fracture noted, unchanged from 11/14/2021.There is a T5 compression fracture again noted and superior endplate T7 compression fracture also again noted, unchanged. No n ew fractures. No new osseous lesions.. IMPRESSION: 1. No evidence of acute pulmonary emboli. No evidence of pulmonary infarction.No pleural effusions. 2. However, there are 2 concerning nodules in the left lung. There is a 12 x 12 millimeter spiculate d noncalcified nodule in the left upper lobe and a smaller 5 millimeter nodule in the left lower lobe , both not previously present on CT scan of 11/14/2021. Recommend close follow-up to rule out malign jordon. 3. Other findings as above. No evidence of aortic dissection RADIATION DOSE DELIVERED: 203.89mGy.cm Total DLP DATA REPOSITORY: All CT scans at this facility are submitted to the National Radiology Data Registry (NRDR) Dose Index Registry (DIR) with the [employer] (ACR). RADIATION OPTIMIZATION: All CT scans at this facility use at least one of these dose optimization te chniques: automated exposure control; mA and/or kV adjustment per patient size (includes targeted exa ms where dose is matched to clinical indication); or iterative reconstruction.
[2022-06-11 11:35] LABS: COVID-19 PCR Negative (Negative)
[2022-06-11 11:36] LABS: D-Dimer 1806 ng/mlFEU (<500)
[2022-06-11] MEDS: Omnipaque 350 MG/ML 100 ML BTL 56 ML IJ (12:09)
--- NOTE | 2022-06-11 12:42 | DI.VRAD_ITS ---
Addendum created by Robles Connors MD on 06/11/2022 12:44:32 PM EDT: THIS REPORT CONTAINS FINDINGS THAT MAY BE CRITICAL TO PATIENT CARE. The findings were verbally communicated via telephone conference with Fred Gentile at 12:44 PM EDT on 06/11/2022. The findings were acknowledged and understood. Initial report created on 06/11/2022 12:41:56 PM EDT: PROCEDURE INFORMATION: Exam: CTA Chest With Contrast Exam date and time: 06/11/2022 12:04 PM Age: 72 years old Clinical indication: Shortness of breath; Patient HX: SOB elevated d-dimer TECHNIQUE: Imaging protocol: Computed tomographic angiography of the chest with contrast. 3D rendering (Not supervised by radiologist): MIP and/or 3D reconstructed images were created by the technologist. Radiation optimization: All CT scans at this facility use at least one of these dose optimization techniques: automated exposure control; mA and/or kV adjustment per patient size (includes targeted exams where dose is matched to clinical indication); or iterative reconstruction. Contrast material: 0MNI 350; Contrast volume: 56 ml; Contrast route: INTRAVENOUS (IV); COMPARISON: CT CHEST PE CTA 06/01/2021 7:04 PM FINDINGS: Pulmonary arteries: Normal. No pulmonary emboli. Aorta: There is mild calcification of the aorta. There is no thoracic aortic aneurysm or dissection. Lungs: There is pulmonary emphysema and scattered pulmonary fibrosis. There is a noncalcified spiculated 1 cm nodule in the left lingula. A 5 mm noncalcified nodule is present in the left lower lobe on series 5/image 34. Pleural spaces: Unremarkable. No pneumothorax. No pleural effusion. Heart: The heart is not enlarged. There is no significant coronary artery calcification. Lymph nodes: Unremarkable. No enlarged lymph nodes. Bones/joints: Chronic degenerative changes are present in the spine. Are old mild thoracic vertebral compression fractures. Soft tissues: Unremarkable. IMPRESSION: 1. No evidence of pulmonary embolus or aortic aneurysm/dissection. 2. There is a 1 cm spiculated noncalcified nodule in the left upper lobe. 5 mm noncalcified nodule is present in the left lower lobe.Highly suspicious nodule(s). Consider non-emergent PET/CT, or tissue sampling.(Reference: [place]) REFERENCES: [place] Torres et al. Guidelines for Management of Incidental Pulmonary Nodules Detected on CT Images: From the Fleischner Society 2017. Radiology. 2017;284(1):228-243. Dictated and Authenticated by: Robles Connors MD. Ordering:KY Ibarra MD
[2022-06-11 13:51] LABS: Troponin I < 50 ng/L (<or=60)
[2022-06-11] MEDS: AZITHROMYCIN 500 MG in Normal Saline 250 ML 250 MG IVPB (17:27)
[2022-06-11] MEDS: Magnesium Oxide 400 MG TAB PO (17:32)
[2022-06-11] MEDS: Enoxaparin 40 MG/0.4 ML SYR SC (17:32)
--- NOTE | 2022-06-11 18:31 | HPE_ITS ---
Assessment and Plan Assessment and plan (1) Acute exacerbation of chronic obstructive pulmonary disease: Assessment and plan: Cont sched Duonebs, prn albuterol. Solu-medrol 40mg IV Q12H, plan taper when ready Cont daily Azithromycin. Tessalon Perrls prn. (2) Chronic respiratory failure with hypoxia: Status: Acute Assessment and plan: Uses supplemental O2 at home; 2L at rest. requiring 5 lpm now continue steroids, updrafts, azithromycin Continuous O2 monitoring. (3) GERD (gastroesophageal reflux disease): Status: Chronic Assessment and plan: Cont omeprazole. (4) Anxiety: Status: Chronic Assessment and plan: Cont citalopram and BID prn Clonazepam required ativan for symptoms. (5) Smoker: Assessment and plan: Offer nicoderm patch while hospitalized (6) DVT prophylaxis: Status: Acute Assessment and plan: TEDS, enoxaparin (7) Discharge planning issues: Status: Acute Assessment and plan: case management following discussed with Dr. Quintana History of Present Illness History of Present Illness Chief Complaint: Difficulty breathing Narrative: This is a 72-year-old female with a past medical history of COPD, O2 dependent, anxiety, hyperlipidemia and depression, presented to the [facility] emergency department reporting worsening dyspnea over the past week or so.? She also stated that she believes her lower extremities are slightly swollen.? She denied recent illness or trauma.? She stated that she was seen by her PCP two and ? weeks ago and at that time all was well.? She reports general fatigue, dyspnea, cough, wheezing.? She has been taking her medications as directed as well as using her inhalers and nebulizers.? She denies headache, fever, chest pain, abdominal pain, nausea, vomiting, and change in bowel or bladder function.? R eports decreased appetite secondary to general fatigue. Laboratory values do not reveal any obvious emergent process.? Nonspecific D-dimer of 1806, Troponin less than 50.? COVID-negative.? Chest x-ray unremarkable. CTA unremarkable for PE, aortic dissection or aneurysm.? There is a 1 cm spiculated noncalcified nodule in the left upper lobe.? She was going to be discharged from the emergency department when she attempted to stand and ambulate, she had increased dyspnea with exertion, O2 sats dropped to the high 70s.? She subsequently required her oxygen to be turned up to 5 L nasal cannula.? Both patient and family were uncomfortable with her going home in her current condition and given her exertional dyspnea. She is placed on observation status on the medical floor for exacerbation of COPD. Review of Systems All systems reviewed & are unremarkable except as noted in HPI and below PFSH All Active Problems (Updated 06/11/22 @ 13:58 by ROEL Lubin) Acute exacerbation of chronic obstructive pulmonary disease (Acute) Pulmonary nodule (Acute) Encounter for screening for COVID-19 (Acute) Ear congestion (Acute) Underweight (Acute) Chronic respiratory failure with hypoxia (Acute) GERD (gastroesophageal reflux disease) (Chronic) Tremor (Acute) Chest pain (Acute) Compression fracture of T5 vertebra (Acute) Discharge planning issues (Acute) DVT prophylaxis (Acute) Acute right-sided thoracic back pain (Acute) Tubular adenoma of colon (Acute 10/12/16) Anxiety (Chronic 01/04/16) Acute gastric ulcer due to Helicobacter pylori (Acute 12/06/15) EGD, Dr Mcfarlane. positive SHARON test (treated) (also esophagitis) Hypogammaglobulinemia (Acute) [facility] Hemato.: negative workup/ Lung nodule (Acute 07/09/15) [facility]; [address] : stable/repeat yearly Hypoxemia (Chronic 11/28/14) Depression (Chronic) Hyperlipidemia (Chronic) Low back pain (Chronic) Osteoarthritis (Chronic) Osteopenia (Chronic) COPD (chronic obstructive pulmonary disease) (Chronic) Medical History Acute exacerbation of chronic obstructive pulmonary disease (11/28/14) Chronic obstructive airway disease Oxygen dependent Hyperlipidemia Low back pain Osteoarthritis Osteopenia Pneumonia (11/28/14) Renal cyst Smoker Tobacco abuse Surgical History Appendectomy Colonoscopy - MAC (10/10/16) Ligation of fallopian tube BSO NECK SURGERY Open Carpal Tunnel release X 2 RIB RESECTION Family History Mother Diabetes Essential hypertension Hyperlipidemia Stroke Asthma Brother , 58 Essential hypertension Neoplasm Throat Chronic obstructive lung disease Asthma Maternal Grandmother , 93 Chronic obstructive lung disease Asthma Father , 97 No problems noted. Sister No problems noted. Sister No problems noted. Brother No problems noted. Son , age 32 - Drown No problems noted. Maternal Grandfather , age 91 No problems noted. Paternal Grandfather No problems noted. Paternal Grandmother No problems noted. Social History Smoking/Tobacco Use Status: Former Tobacco Use tobacco type: cigarettes Quit Date: 12/29/18 Tobacco: How many years used: 53 Second Hand Exposure: Yes Smoking risk assessment performed?: Yes Alcohol Intake: former Drug use: Never Substance use type: does not use Caregiver/Support person: No Household members: spouse Housing: house Communication Needs: None Do you need help understanding health information?: Rarely Pets and animals: Yes Pets and animals: cat(s) Sexually active: No Do you think of yourself as: straight/heterosexual Current gender identity: female What is your relationship status?: Panel score (0-1 are the most socially isolated patients): 1 What type of physical activity do you participate in: none Fay/Episcopalian: Lutheran Seatbelt use: always Drive intox 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 Do you feel safe at home: Yes Do you feel safe in your relationship?: Yes Additional Social history: previous exposure to cleaning supplies History History Para 1 Hx # Term Pregnancies Multiple births Hx # Pregnancies Ectopic pregnancies AB induced Hx Number of Living Children AB spontaneous Meds Allergies and Home Medications Allergies Allergy/AdvReac Type Severity Reaction Status Date / Time sulfamethoxazole Allergy Mild Hives Unverified 06/11/22 09:54 [From Bactrim] trimethoprim [From Bactrim] Allergy Mild Hives Unverified 06/11/22 09:54 nickel Allergy Verified 06/11/22 14:26 levofloxacin AdvReac Intermediate BACK AND Verified 06/11/22 09:54 STOMACH ACHE doxycycline AdvReac Unknown nausea Verified 06/11/22 09:54 Home Medications Medication Instructions Recorded Confirmed Type ascorbic acid (vitamin C) 500 mg 500 mg PO DAILY 02/03/13 06/11/22 History tablet (Vitamin C) calcium carbonate 600 mg-vitamin 1 ea PO DAILY 02/03/13 06/11/22 History D3 10 mcg (400 unit) tablet (Calcium 600 + D(3)) Oxygen l NS PRN ##2 04/10/16 05/22/19 Clinic cholecalciferol (vitamin D3) 50 2,000 unit PO DAILY 05/22/19 06/11/22 History mcg (2,000 unit) capsule fluticasone propionate 50 1 - 2 spray NS DAILY #15.8 mL 12/30/20 06/11/22 Rx mcg/actuation nasal spray,suspension polyethylene glycol 3350 17 gram 17 g PO DAILY PRN PRN Constipation 03/05/2108/22 Rx oral powder packet #14 ea citalopram 20 mg tablet 20 mg PO DAILY #90 tabs 05/25/21 06/11/22 Rx diclofenac sodium 1 % topical gel 100 g topical QID #100 grams 05/25/21 06/11/22 Rx benzonatate 100 mg capsule 100 mg PO BID PRN cough #30 caps 07/29/21 06/11/22 Rx ([place]) diphenhydramine HCl 25 mg tablet 50 mg PO QHS 08/02/21 06/11/22 History (Allergy (diphenhydramine)) omeprazole 40 mg capsule,delayed 40 mg PO DAILY #90 caps 08/02/21 06/11/22 Rx release albuterol sulfate 90 mcg/actuation 1 - 2 puff inhalation QID PRN 08/24/21 06/11/22 Rx aerosol inhaler (Ventolin HFA) bronchospasm #3 multiple units tiotropium 2.5 mcg-olodaterol 2.5 2 puff inhalation DAILY #12 grams 11/22/21 06/11/22 Rx mcg/actuation mist for inhalation (Stiolto Respimat) ipratropium 0.5 mg-albuterol 3 mg 3 ml inhalation 5X/DAY #450 mL 12/26/21 06/11/22 Rx (2.5 mg base)/3 mL nebulization soln clonazepam 0.5 mg tablet 0.25 mg PO BID #60 tab-caps 01/11/22 06/11/22 Rx fluticasone propionate 220 2 puff inhalation BID #12 grams 02/07/22 06/11/22 Rx mcg/actuation HFA aerosol inhaler (Flovent HFA) simvastatin 10 mg tablet 10 mg PO HS #90 tab-caps 04/13/22 06/11/22 Rx prednisone 20 mg tablet 60 mg PO DAILY 5 days #15 tabs 06/11/22 Rx Exam Const General: cooperative, healthy appearing, comfortable and no acute distress Orientation: alert and awake [facility] Head: normal to inspection, normocephalic and atraumatic Eyes General: appearance normal, both eyes and all related structures Conjunctivae: conjunctivae normal Neck Neck: normal visual inspection, full ROM, no meningeal signs, trachea midline, supple and nontender Resp Effort & Inspection: normal respiratory effort and able to speak in complete sen tences Auscultation: diminished lung sounds bilaterally in the lower lung lee and wheezes (Occasional, scattered) Cardio Rhythm: regular rhythm GI Palpation: soft and nontender Back/Spine/Pelvis Back: No back tenderness Skin General skin exam: no rashes or lesions noted Neuro General: patient alert, patient awake, moves all extremities and no focal motor deficits Cognition: normal cognition Speech: speech normal Gait: normal gait Sensory Exam: no sensory deficits noted Extrem General: normal to inspection, full ROM, capillary refill normal, no pedal edema, no calf tenderness and other (Negative Nate bilaterally) Psych Appearance: grossly normal Mental Status: mental status grossly normal Results Labs Result diagrams: 06/11/22 10:08 06/11/22 10:08 Labs: Laboratory Results - last 24 hr 06/11/22 06/11/22 06/11/22 10:08 10:08 10:08 WBC 5.98 RBC 3.72 L Hgb 11.1 L Hct 35.8 L MCV 96 H MCH 29.8 MCHC 31.0 L RDW 12.3 Plt Count 287 MPV 10.4 Immature Gran % 0.2 Neutrophils % 58.4 Lymphocytes % 15.2 Monocytes % 16.2 Eosinophils % 9.7 Basophils % 0.3 Nucleated RBC % 0.0 Absolute Neutrophils 3.49 Absolute Lymphocytes 0.91 L Absolute Monocytes 0.97 H Absolute Eosinophils 0.58 Absolute Basophils 0.02 PT 10.3 INR 1.0 APTT 24.3 D-Dimer 1806 H Sodium 135 L Potassium 4.1 Chloride 95 L Carbon Dioxide 38.6 H Anion Gap 1.4 L BUN 13 Creatinine 0.7 Est GFR (CKD-EPI 2020) 91.83 Glucose 131 H Calcium 8.8 Magnesium 1.7 L Total Bilirubin 0.2 AST 14 L ALT 13 L Alkaline Phosphatase 64 Troponin I < 50 NT-Pro-B Natriuret Pep 81 Total Protein 7.5 Albumin 2.7 L COVID-19 Source SARS-CoV-2 (PCR) 06/11/22 06/11/22 10:58 13:20 WBC RBC Hgb Hct MCV MCH MCHC RDW Plt Count MPV Immature Gran % Neutrophils % Lymphocytes % Monocytes % Eosinophils % Basophils % Nucleated RBC % Absolute Neutrophils Absolute Lymphocytes Absolute Monocytes Absolute Eosinophils Absolute Basophils PT INR APTT D-Dimer Sodium Potassium Chloride Carbon Dioxide Anion Gap BUN Creatinine Est GFR (CKD-EPI 2020) Glucose Calcium Magnesium Total Bilirubin AST ALT Alkaline Phosphatase Troponin I < 50 NT-Pro-B Natriuret Pep Total Protein Albumin COVID-19 Source Nasal/Nares SARS-CoV-2 (PCR) Negative Last Vital Signs Temp 36.8 C 06/11/22 14:57 Pulse 92 H 06/11/22 14:57 Resp 24 06/11/22 14:57 BP 126/78 06/11/22 14:57 Pulse Ox 90 L 06/11/22 18:02
[2022-06-11] MEDS: clonazePAM 0.5 MG TAB 0.25 MG PO (19:56)
[2022-06-11] MEDS: Simvastatin 20 MG TAB 10 MG PO (19:56)
[2022-06-11] MEDS: diphenhydrAMINE 25 MG CAP PO (22:19)
[2022-06-11] MEDS: Melatonin 3 MG TAB PO (22:19)
[2022-06-11] MEDS: methylPREDNISolone SUCC 40 MG VIAL IVP (22:20)
[2022-06-12] VITALS (10 sets, daily range): BP systolic 115–120; BP diastolic 62–76; PULSE 70–98; RESP 1–22; TEMP 36.4–37.3; O2SAT 91–97
[2022-06-12] MEDS: Albuterol/Ipratropium 3 ML UPD VIAL UPD ×4 (05:40→22:32)
[2022-06-12 06:23] LABS: Abs Immature Grans 0.02 10^3/uL (0.0-0.06); Absolute Lymphocyte Count 0.59 10^3/uL (1.2-3.4); Absolute Monocyte Count 0.12 10^3/uL (0.1-0.8); Absolute Neutrophil Count 3.12 10^3/uL (1.2-6.7); HCT 33.1 % (36.0-46.0); HGB 10.6 g/dL (11.2-15.7); Immature Grans % 0.5; Lymphocytes % 15.3; MCH 30.2 pg (27.0-33.0); MCV 94 fL (80-95); MPV 10.4 fL (8.0-11.0); Monocytes % 3.1; Neutrophils % 81.1; Platelet Count 303 10^3/uL (130-400); RBC 3.51 10^6/uL (3.93-5.22); RDW 12.4 % (11.7-14.6); RDW-SD 43.3 fL; WBC 3.85 10^3/uL (4.4-10.8)
[2022-06-12 06:35] LABS: Anion Gap 4.4 mmol/L (3-11); BUN 19 mg/dL (7-18); CO2 34.6 mmol/L (21.0-32.0); CREATININE 0.7 mg/dL (0.55-1.02); Calcium 9.3 mg/dL (8.5-10.1); Chloride 96 mmol/L (98-107); Estimated GFR 91.83 (mL/min/1.73m2); Glucose 149 mg/dL (74-106); Magnesium 2.1 mg/dL (1.8-2.4); Potassium 4.9 mmol/L (3.5-5.1); Sodium 135 mmol/L (136-145)
--- NOTE | 2022-06-12 07:52 | PCNE_ITS ---
Date of service: 06/12/22 Time of Service: 07:52 History of Present Illness Narrative: Nathalia is a 72-year-old woman with end-stage COPD. She has been seeing pulmonology and Dr. Mari has made arrangements for her to be seen at [facility] to consider procedures that might help her to breathe better. Unfortunately Nathalia was not a candidate. She finds it very difficult to do much at all. She says getting cleaned up and dressed in the morning tires her for most of the day. Making dinner is an all day process. She became more short of breath recently and came to the hospital. She desatted quickly with minimal exertion. She was admitted to the hospital. She says she feels better but has not needed to do much in the way of moving. She finds it hard to leave the house because of the exertion of doing so. She presently lives with a significant other Dc. She also has a grandson who helps out. She admits that life has never been the same since her first who was a love of her life and her son Castro . Her present arrangements are okay but she has different feelings for Dc than her first . She does not feel guilty and they both need each other but she feels like she is becoming too much for Dc. She is recently we have gotten a different inhaler from Dr. Mari. She says it actually makes her feel worse. The stiletto was a big improvement though She said she will probably of COPD. Her grandmother did when she was about 90 years . Her mom just turned 90. She too expects to live to be 90. Assessment and Plan Assessment and plan (1) Acute exacerbation of chronic obstructive pulmonary disease: Status: Acute Assessment and plan: Very frail 72-year-old woman without much reserve. She is not able to obtain the procedure at [facility] due to her frailty. She is seeing pulmonology but feels like she is at a bit of a standstill. She is not willing to do pulmonary rehab. She is clear that she thinks she will live to 89. I did broach the subject of hospice and said that generally people have 6 months or less to live on hospice. She does not feel like that pertains to her. She certainly does not want intubation or to be revived, but is not able to commit to hospice care. I am happy to follow-up with Nathalia outpatient and do home visits. Nathalia and I talked about this and she said sometimes it is good for her to get out and move even if it is difficult. Will make contingency plan so that I can see her in the office or at home. Nathalia is not interested in pulmonary rehab Nathalia did say that she prefer not to go to a [facility] facility but that she would be willing to do so if necessary she certainly help is not going to be necessary. She admits that her significant other cD may not be able to care for her before going with me and that we will get her last office note I think that is a pitcher for somebody her soon (2) Pulmonary nodule: Status: Acute (3) Underweight: Status: Acute Review of Systems Narrative: Biggest problem is her shortness of breath with minimal exertion. [facility] All Active Problems (Updated 06/11/22 @ 13:58 by ROEL Lubin) Acute exacerbation of chronic obstructive pulmonary disease (Acute) Pulmonary nodule (Acute) Encounter for screening for COVID-19 (Acute) Ear congestion (Acute) Underweight (Acute) Chronic respiratory failure with hypoxia (Acute) GERD (gastroesophageal reflux disease) (Chronic) Tremor (Acute) Chest pain (Acute) Compression fracture of T5 vertebra (Acute) Discharge planning issues (Acute) DVT prophylaxis (Acute) Acute right-sided thoracic back pain (Acute) Tubular adenoma of colon (Acute 10/12/16) Anxiety (Chronic 01/04/16) Acute gastric ulcer due to Helicobacter pylori (Acute 12/06/15) EGD, Dr Mcfarlane. positive SHARON test (treated) (also esophagitis) Hypogammaglobulinemia (Acute) [facility] Hemato.: negative workup/ Lung nodule (Acute 07/09/15) [facility]; [address] : stable/repeat yearly Hypoxemia (Chronic 11/28/14) Depression (Chronic) Hyperlipidemia (Chronic) Low back pain (Chronic) Osteoarthritis (Chronic) Osteopenia (Chronic) COPD (chronic obstructive pulmonary disease) (Chronic) Medical History Acute exacerbation of chronic obstructive pulmonary disease (11/28/14) Chronic obstructive airway disease Oxygen dependent Hyperlipidemia Low back pain Osteoarthritis Osteopenia Pneumonia (11/28/14) Renal cyst Smoker Tobacco abuse Surgical History Appendectomy Colonoscopy - MAC (10/10/16) Ligation of fallopian tube BSO NECK SURGERY Open Carpal Tunnel release X 2 RIB RESECTION Family History Mother Diabetes Essential hypertension Hyperlipidemia Stroke Asthma Brother , 58 Essential hypertension Neoplasm Throat Chronic obstructive lung disease Asthma Maternal Grandmother , 93 Chronic obstructive lung disease Asthma Father , 97 No problems noted. Sister No problems noted. Sister No problems noted. Brother No problems noted. Son , age 32 - Drown No problems noted. Maternal Grandfather , age 91 No problems noted. Paternal Grandfather No problems noted. Paternal Grandmother No problems noted. Social History Smoking/Tobacco Use Status: Former Tobacco Use tobacco type: cigarettes Quit Date: 12/29/18 Tobacco: How many years used: 53 Second Hand Exposure: Yes Smoking risk assessment performed?: Yes Alcohol Intake: former Drug use: Never Substance use type: does not use Caregiver/Support person: No Household members: spouse Housing: house Communication Needs: None Do you need help understanding health information?: Rarely Pets and animals: Yes Pets and animals: cat(s) Sexually active: No Do you think of yourself as: straight/heterosexual Current gender identity: female What is your relationship status?: Panel score (0-1 are the most socially isolated patients): 1 What type of physical activity do you participate in: none Fay/Orthodoxy: Evangelical Seatbelt use: always Drive intox 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 She is speaking in complete sentences. She is able to laugh and reminisce about her present situation. Her heart is regular. Lung sounds are spotty I could hear some good movement in her right lower lung field and in her left middle lung field. I did not hear any wheezing. Her abdomen was soft nontender Results Last Vital Signs Temp 99.1 F 06/12/22 03:20 Pulse 76 06/12/22 03:20 Resp 22 06/12/22 03:20 BP 118/68 06/12/22 03:20 Pulse Ox 92 06/12/22 05:40 Labs Result diagrams: 06/12/22 05:41 06/12/22 05:41 Labs: Laboratory Results - last 24 hr 06/11/22 06/11/22 06/11/22 10:08 10:08 10:08 WBC 5.98 RBC 3.72 L Hgb 11.1 L Hct 35.8 L MCV 96 H MCH 29.8 MCHC 31.0 L RDW 12.3 Plt Count 287 MPV 10.4 Immature Gran % 0.2 Neutrophils % 58.4 Lymphocytes % 15.2 Monocytes % 16.2 Eosinophils % 9.7 Basophils % 0.3 Nucleated RBC % 0.0 Absolute Neutrophils 3.49 Absolute Lymphocytes 0.91 L Absolute Monocytes 0.97 H Absolute Eosinophils 0.58 Absolute Basophils 0.02 PT 10.3 INR 1.0 APTT 24.3 D-Dimer 1806 H Sodium 135 L Potassium 4.1 Chloride 95 L Carbon Dioxide 38.6 H Anion Gap 1.4 L BUN 13 Creatinine 0.7 Est GFR (CKD-EPI 2020) 91.83 Glucose 131 H Calcium 8.8 Magnesium 1.7 L Total Bilirubin 0.2 AST 14 L ALT 13 L Alkaline Phosphatase 64 Troponin I < 50 NT-Pro-B Natriuret Pep 81 Total Protein 7.5 Albumin 2.7 L COVID-19 Source SARS-CoV-2 (PCR) 06/11/22 06/11/22 06/12/22 10:58 13:20 05:41 WBC RBC Hgb Hct MCV MCH MCHC RDW Plt Count MPV Immature Gran % Neutrophils % Lymphocytes % Monocytes % Eosinophils % Basophils % Nucleated RBC % Absolute Neutrophils Absolute Lymphocytes Absolute Monocytes Absolute Eosinophils Absolute Basophils PT INR APTT D-Dimer Sodium 135 L Potassium 4.9 Chloride 96 L Carbon Dioxide 34.6 H Anion Gap 4.4 BUN 19 H Creatinine 0.7 Est GFR (CKD-EPI 2020) 91.83 Glucose 149 H Calcium 9.3 Magnesium 2.1 Total Bilirubin AST ALT Alkaline Phosphatase Troponin I < 50 NT-Pro-B Natriuret Pep Total Protein Albumin COVID-19 Source Nasal/Nares SARS-CoV-2 (PCR) Negative 06/12/22 05:41 WBC 3.85 L RBC 3.51 L Hgb 10.6 L Hct 33.1 L MCV 94 MCH 30.2 MCHC 32.0 RDW 12.4 Plt Count 303 MPV 10.4 Immature Gran % 0.5 Neutrophils % 81.1 Lymphocytes % 15.3 Monocytes % 3.1 Eosinophils % 0.0 Basophils % 0.0 Nucleated RBC % 0.0 Absolute Neutrophils 3.12 Absolute Lymphocytes 0.59 L Absolute Monocytes 0.12 Absolute Eosinophils 0.00 Absolute Basophils 0.00 PT INR APTT D-Dimer Sodium Potassium Chloride Carbon Dioxide Anion Gap BUN Creatinine Est GFR (CKD-EPI 2020) Glucose Calcium Magnesium Total Bilirubin AST ALT Alkaline Phosphatase Troponin I NT-Pro-B Natriuret Pep Total Protein Albumin COVID-19 Source SARS-CoV-2 (PCR) Imaging CT scan - chest: report reviewed Additional studies: EXAM: ? CT CHEST PE CTA CLINICAL HISTORY: ? sob,elevated dimer. ? TECHNIQUE:? Imaging Protocol: CT angiography of the chest was performed using pulmonary embolus protocol.? Multi planar reconstructions were performed. CONTRAST MATERIAL:? Intravenous: Omnipaque 350 Contrast volume: 56 cc COMPARISON:? CT CT CHEST WO from 11/14/2021 FINDINGS: CHEST: PULMONARY ARTERIES: There are no intraluminal filling defects to suggest acute pulmonary emboli. LUNGS: COPD emphysematous changes.? No evidence of pulmonary infarction.? However, there is a 1.2 x 1.2 cm nodular infiltrate in the left upper lobe.? Requires close follow-up to rule out malignancy.? Mild increased markings benign appearance noted in the posterior basal segment of the left lower lobe.? There is also 5 millimeter in nodular density in the left lower lobe. In the opposite-right lung there are no ominous nodules..? There are no pleural effusions. MEDIASTINUM: There is no hilar nor mediastinal adenopathy.? CARDIAC: Heart size normal.? No pericardial effusion.Caliber of the thoracic aorta is within normal limits. No evidence of dissection.? There is no significant shift of the interventricular septum. PARTIALLY VISUALIZED UPPERMOST ABDOMEN: Slight thickening of the left adrenal gland.? No splenomegaly. OSSEOUS: Non healed left 8th rib fracture noted, unchanged from 11/14/2021.There is a T5 compression fracture again noted and superior endplate T7 compression fracture also again noted, unchanged.? No new fractures.? No new osseous lesions.. IMPRESSION: 1. No evidence of acute pulmonary emboli.? No evidence of pulmonary infarction.No pleural effusions. 2. However, there are 2 concerning nodules in the left lung.? There is a 12 x 12 millimeter spiculated noncalcified nodule in the left upper lobe and a smaller 5 millimeter nodule in the left lower lobe, both not previously present on CT scan of 11/14/2021.? Recommend close follow-up to rule out malignancy. 3. Other findings as above.? No evidence of aortic dissection
[2022-06-12] MEDS: Pantoprazole 40 MG TABCR PO (08:02)
[2022-06-12] MEDS: clonazePAM 0.5 MG TAB 0.25 MG PO ×2 (08:02→19:55)
[2022-06-12] MEDS: Citalopram 20 MG TAB PO (08:02)
[2022-06-12] MEDS: Magnesium Oxide 400 MG TAB PO (08:02)
[2022-06-12] MEDS: Tiotropium/Olodaterol 10 PUFF INHALER 2 PUFF IH (08:30)
[2022-06-12] MEDS: methylPREDNISolone SUCC 40 MG VIAL IVP ×2 (10:15→22:33)
--- NOTE | 2022-06-12 15:50 | PGE_ITS ---
Date of Service Date of service: 06/12/22 Time of Service: 15:50 Assessment and Plan Assessment and plan (1) Acute exacerbation of chronic obstructive pulmonary disease: Assessment and plan: Cont sched Duonebs, prn albuterol. Solu-medrol 40mg IV Q12H, plan taper when ready Cont daily Azithromycin. Tessalon Perrls prn. (2) Chronic respiratory failure with hypoxia: Status: Acute Assessment and plan: Uses supplemental O2 at home; 2L at rest. requiring 5 lpm now continue steroids, updrafts, azithromycin Continuous O2 monitoring. (3) GERD (gastroesophageal reflux disease): Status: Chronic Assessment and plan: Cont omeprazole. (4) Anxiety: Status: Chronic Assessment and plan: Cont citalopram and BID prn Clonazepam required ativan for symptoms. (5) Smoker: Assessment and plan: Offer nicoderm patch while hospitalized (6) DVT prophylaxis: Status: Acute Assessment and plan: TEDS, enoxaparin (7) Discharge planning issues: Status: Acute Assessment and plan: case management following discussed with Dr. Quintana Subjective Subjective Patient reports: no new complaints, feels better, tolerating liquids well, v oiding w/o difficulty, shortness of breath and afebrile Exam Const General: cooperative, comfortable and no acute distress Orientation: alert and awake [facility] Head: normal to inspection, normocephalic and atraumatic Eyes General: appearance normal, both eyes and all related structures Conjunctivae: conjunctivae normal Neck Neck: normal visual inspection, full ROM, trachea midline, supple and nontender Resp Effort & Inspection: normal respiratory effort Auscultation: diminished lung sounds bilaterally in the lower lung lee Cardio Rhythm: regular rhythm GI Palpation: soft and nontender Skin General skin exam: no rashes or lesions noted Neuro General: patient alert, patient awake, moves all extremities and no focal motor deficits Cognition: normal cognition Speech: speech normal Gait: normal gait Sensory Exam: no sensory deficits noted Extrem General: normal to inspection, full ROM, capillary refill normal, no pedal edema and no calf tenderness Psych Appearance: grossly normal Mental Status: mental status grossly normal Objective Last Vital Signs Temp 36.4 C L 06/12/22 15:32 Pulse 73 06/12/22 15:32 Resp 19 06/12/22 15:32 BP 117/70 09/12/22 15:32 Pulse Ox 92 06/12/22 15:32 Laboratory Results - last 24 hr 06/12/22 06/12/22 05:41 05:41 WBC 3.85 L RBC 3.51 L Hgb 10.6 L Hct 33.1 L MCV 94 MCH 30.2 MCHC 32.0 RDW 12.4 Plt Count 303 MPV 10.4 Immature Gran % 0.5 Neutrophils % 81.1 Lymphocytes % 15.3 Monocytes % 3.1 Eosinophils % 0.0 Basophils % 0.0 Nucleated RBC % 0.0 Absolute Neutrophils 3.12 Absolute Lymphocytes 0.59 L Absolute Monocytes 0.12 Absolute Eosinophils 0.00 Absolute Basophils 0.00 Sodium 135 L Potassium 4.9 Chloride 96 L Carbon Dioxide 34.6 H Anion Gap 4.4 BUN 19 H Creatinine 0.7 Est GFR (CKD-EPI 2020) 91.83 Glucose 149 H Calcium 9.3 Magnesium 2.1
[2022-06-12] MEDS: AZITHROMYCIN 500 MG in Normal Saline 250 ML 250 MG IVPB (16:07)
[2022-06-12] MEDS: Mometasone 220 MCG 14 DOSE INHALER 2 PUFF IH (19:55)
[2022-06-12] MEDS: Simvastatin 20 MG TAB 10 MG PO (19:56)
[2022-06-12] MEDS: Melatonin 3 MG TAB PO (22:33)
[2022-06-12] MEDS: diphenhydrAMINE 25 MG CAP PO (22:33)
[2022-06-13] VITALS (9 sets, daily range): BP systolic 128–164; BP diastolic 63–81; PULSE 74–88; RESP 4–22; TEMP 36.4–37; O2SAT 88–97
[2022-06-13] MEDS: Albuterol/Ipratropium 3 ML UPD VIAL UPD ×4 (04:00→20:54)
[2022-06-13] MEDS: clonazePAM 0.5 MG TAB 0.25 MG PO ×2 (07:53→20:03)
[2022-06-13] MEDS: Citalopram 20 MG TAB PO (07:53)
[2022-06-13] MEDS: Pantoprazole 40 MG TABCR PO (07:54)
[2022-06-13] MEDS: Magnesium Oxide 400 MG TAB PO (07:54)
[2022-06-13] MEDS: Tiotropium/Olodaterol 10 PUFF INHALER 2 PUFF IH (08:56)
[2022-06-13] MEDS: Mometasone 220 MCG 14 DOSE INHALER 2 PUFF IH ×2 (08:56→20:03)
[2022-06-13] MEDS: methylPREDNISolone SUCC 40 MG VIAL IVP ×2 (10:11→20:55)
[2022-06-13] MEDS: Normal Saline Flush 10 ML SYR ×2 (10:11→16:12)
--- NOTE | 2022-06-13 15:13 | PGE_ITS ---
Date of Service Date of service: 06/13/22 Time of Service: 15:13 Assessment and Plan Assessment and plan (1) Acute exacerbation of chronic obstructive pulmonary disease: Assessment and plan: Cont sched Duonebs, prn albuterol. Solu-medrol 40mg IV Q12H, plan taper when ready Cont daily Azithromycin day . Tessalon Perrls prn. (2) Chronic respiratory failure with hypoxia: Status: Acute Assessment and plan: Uses supplemental O2 at home; 2L at rest. continue steroids, updrafts, azithromycin Continuous O2 monitoring. (3) GERD (gastroesophageal reflux disease): Status: Chronic Assessment and plan: Cont omeprazole. (4) Anxiety: Status: Chronic Assessment and plan: Cont citalopram and BID prn Clonazepam required ativan for symptoms. (5) Smoker: Assessment and plan: Offer nicoderm patch while hospitalized (6) DVT prophylaxis: Status: Acute Assessment and plan: TEDS, enoxaparin (7) Discharge planning issues: Status: Acute Assessment and plan: case management following discussed with Dr. Quintana Subjective Subjective Patient reports: no new complaints, tolerating liquids well, shortness of breath and afebrile Exam Const General: cooperative, comfortable and no acute distress Orientation: alert and awake [facility] Head: normal to inspection, normocephalic and atraumatic Eyes General: appearance normal, both eyes and all related structures Conjunctivae: conjunctivae normal Neck Neck: normal visual inspection, full ROM, trachea midline, supple and nontender Resp Effort & Inspection: normal respiratory effort Auscultation: diminished lung sounds bilaterally in the lower lung lee Cardio Rhythm: regular rhythm GI Palpation: soft and nontender Skin General skin exam: no rashes or lesions noted Neuro General: patient alert, patient awake, moves all extremities and no focal motor deficits Cognition: normal cognition Speech: speech normal Gait: normal gait Sensory Exam: no sensory deficits noted Extrem General: normal to inspection, full ROM, capillary refill normal, no pedal edema and no calf tenderness Psych Appearance: grossly normal Mental Status: mental status grossly normal Objective Last Vital Signs Temp 36.5 C 06/13/22 12:07 Pulse 88 06/13/22 12:07 Resp 19 06/13/22 12:07 BP 137/76 06/13/22 12:07 Pulse Ox 91 L 06/13/22 12:07
[2022-06-13] MEDS: AZITHROMYCIN 500 MG in Normal Saline 250 ML 250 MG IVPB (16:00)
--- NOTE | 2022-06-13 16:45 | CHAPLAIN ---
I had a short visit with Nathalia, as she was having treatment from [facility]. I introduced myself and explained my role and will plan to visit again tomorrow.
--- NOTE | 2022-06-13 18:33 | INITIAL_ITS ---
- If Service Date Differs Date of service: 06/13/22 Time of Service: 18:33 Care Management Initial Assess REASON FOR HOSPITALIZATION:: COPD PAST MEDICAL HISTORY/PAST SURGICAL HISTORY:: Medical History . Acute exacerbation of chronic obstructive pulmonary disease (11/28/14). Chronic obstructive airway disease. Oxygen dependent. Hyperlipidemia. Low back pain. Osteoarthritis. Osteopenia. Pneumonia (11/28/14). Renal cyst. Smoker. Tobacco abuse. Surgical History . Appendectomy. Colonoscopy - MAC (10/10/16). Ligation of fallopian tube. BSO. NECK SURGERY. Open Carpal Tunnel release. X 2. RIB RESECTION PREVIOUS FUNCTIONAL STATUS/SOCIAL/FAMILY SUPPORTS:: Nathalia lives in [facility] with Clyde, her of 27 years. Nathalia has one son but he in a tragic accident several years ago. 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 She now occupies her time with gardening, [employer], and [employer]. She names her and a neighbor, Hellen, as her supports. ADVANCE DIRECTIVES:: AD and POA On file; Myah Jose Cat, . is ap pointed as Health Care Agent. Has patient been provided with info about the portal/API?: Yes Did the patient sign up for the portal?: No CODE STATUS COMMENT:: DNR/DNI INSURANCE COVERAGE / FINANCIAL ISSUES:: [place] and Medicare CURRENT HOME/COMMUNITY SERVICES/EQUIPMENT:: Nathalia has home O2 through [facility]. She also has a floor concentrator, nebulizer, oxygen tanks and cart, and recently purchased a rollator walker. She denies any other home/community services or equipment. PRIMARY CARE PHYSICIAN:: Kaycee Meyer POTENTIAL DISCHARGE NEEDS:: Follow up appointments with PCP and family practice doctor. PATIENT/FAMILY EDUCATION NEEDS:: Review of discharge instructions re medications, activity level and follow up plan of care and discuss Ask Me Three. ANTICIPATED BARRIERS TO DISCHARGE:: No anticipated barriers currently. TRANSPORTATION:: Via private vehicle with family. PLAN:: Nathalia will be discharged home with no new services when medically cleared by provider. She will follow up with her PCP, family practice doctor and discharge plan of care as instructed. Her , Clyde, will drive her home via private vehicle when ready. CM will continue to follow.
[2022-06-13] MEDS: Simvastatin 20 MG TAB 10 MG PO (20:02)
[2022-06-13] MEDS: Albuterol 2.5 MG/3 ML INH SOLN VIAL UPD (20:03)
[2022-06-13] MEDS: Melatonin 3 MG TAB PO (20:55)
[2022-06-13] MEDS: diphenhydrAMINE 25 MG CAP PO (20:55)
[2022-06-14 03:00] VITALS: BP 130/70; PULSE 80; RESP 22; TEMP 36.7; O2SAT 91
[2022-06-14 07:58] VITALS: BP 131/77; PULSE 66; RESP 18; TEMP 36.4; O2SAT 90
[2022-06-14] MEDS: clonazePAM 0.5 MG TAB 0.25 MG PO (08:22)
[2022-06-14] MEDS: Pantoprazole 40 MG TABCR PO (08:22)
[2022-06-14] MEDS: Citalopram 20 MG TAB PO (08:22)
[2022-06-14] MEDS: Magnesium Oxide 400 MG TAB PO (08:22)
[2022-06-14] MEDS: Tiotropium/Olodaterol 10 PUFF INHALER 2 PUFF IH (09:14)
[2022-06-14] MEDS: Mometasone 220 MCG 14 DOSE INHALER 2 PUFF IH (09:14)
[2022-06-14] MEDS: Albuterol 2.5 MG/3 ML INH SOLN VIAL UPD (09:19)
[2022-06-14 09:21] VITALS: PULSE 78; RESP 18; RESP 8; O2SAT 95
[2022-06-14] MEDS: methylPREDNISolone SUCC 40 MG VIAL IVP (11:09)
[2022-06-14 11:27] VITALS: BP 124/73; PULSE 64; RESP 18; TEMP 36.7; O2SAT 92
--- NOTE | 2022-06-14 13:39 | DSE_ITS ---
DS: Diagnosis Discharge Diagnosis (1) Chronic respiratory failure with hypoxia: Status: Acute (2) GERD (gastroesophageal reflux disease): Status: Chronic (3) Anxiety: Status: Chronic (4) DVT prophylaxis: Status: Acute (5) Discharge planning issues: Status: Acute Discharge Plan Disposition Patient Disposition: HOME Condition: Improving Discharge Details Reason For Visit: COPD Admit Date/Time: 06/11/22 14:17 Admit Provider: Mac Quintana Attending Provider: Mac Quintana Primary Care Provider: Kaycee Meyer [place] [facility] Course Hospital Course: This is a 72-year-old female with a past medical history of COPD, O2 dependent, anxiety, hyperlipidemia and depression. She presented to the [facility] emergency department reporting worsening dyspnea over the past week or so.? She also stated that she believes her lower extremities are slightly swollen.? She denied recent illness or trauma.? She stated that she was seen by her PCP two and ? weeks ago and at that time all was well.? She reports general fatigue, dyspnea, cough, wheezing.? She has been taking her medications as directed as well as using her inhalers and nebulizers.? She denies headache, fever, chest pain, abdominal pain, nausea, vomiting, and change in bowel or bladder function.? She reported a decreased appetite she thought was secondary to general fatigue.?Laboratory values did not reveal any obvious emergent process.? Nonspecific D-dimer of 1806, Troponin less than 50.? COVID-negative.? Chest x- ray unremarkable. CTA unremarkable for PE, aortic dissection or aneurysm.? There is a 1 cm spiculated noncalcified nodule in the left upper lobe.? She was going to be discharged from the emergency department when she attempted to stand and ambulate, she had increased dyspnea with exertion, O2 sats dropped to the high 70s.? She subsequently required her oxygen to be turned up to 5 L nasal cannula.? Both patient and family were uncomfortable with her going home in her current condition and given her exertional dyspnea. She was placed on ob servation status on the medical floor for exacerbation of COPD. She improved as expected and was discharged to home with no services. She was instructed to take prednisone for the next three days. Prior to departure she reported her nebulizer working, but making some grinding noises. Care managment contacted [facility] regarding replacement. Home Meds and New Rx's Prescriptions: New prednisone 20 mg tablet 40 mg PO DAILY 3 Days Qty: 6 0RF Continued fluticasone propionate [Flovent HFA] 220 mcg/actuation HFA aerosol inhaler 2 puff inhalation BID Qty: 12 4RF cholecalciferol (vitamin D3) 2,000 unit capsule 2,000 unit PO DAILY citalopram 20 mg tablet 20 mg PO DAILY Qty: 90 4RF Rx Instructions: 1 Tab (20mg) daily diclofenac sodium 1 % gel 100 g topical QID Qty: 100 2RF Stiolto Respimat 2.5-2.5 mcg/actuation mist 2 puff inhalation DAILY Qty: 12 4RF diphenhydramine HCl [Allergy (diphenhydramine)] 25 mg tablet 50 mg PO QHS omeprazole 40 mg capsule,delayed release(DR/EC) 40 mg PO DAILY Qty: 90 5RF ascorbic acid (vitamin C) [Vitamin C] 500 MG tablet 500 mg PO DAILY calcium carbonate-vitamin D3 [Calcium 600 + D(3)] 1 EACH tablet 1 ea PO DAILY Oxygen EACH NS PRN Qty: 2 1RF Rx Instructions: oxygen 2-2.5 L/NC prn ([employer]) fluticasone propionate 50 mcg/actuation spray,suspension 1 - 2 spray NS DAILY Qty: 15.8 3RF Rx Instructions: 1 spray each nostril daily benzonatate [Tessalon Perles] 100 mg capsule 100 mg PO BID PRN (Reason: cough) Qty: 30 1RF albuterol sulfate [Ventolin HFA] 90 mcg/actuation HFA aerosol inhaler 1 - 2 puff IH QID PRN (Reason: bronchospasm) Qty: 3 6RF ipratropium-albuterol 0.5 mg-3 mg(2.5 mg base)/3 mL solution for nebulization 3 ml Inhalation 5X/DAY Qty: 450 12RF Rx Instructions: J44.9 clonazepam 0.5 mg tablet 0.25 mg PO BID Qty: 60 3RF Rx Instructions: take 0.5 tablet twice a day as needed for anxiety simvastatin 10 mg tablet 10 mg PO HS Qty: 90 5RF Rx Instructions: 1 TAB HS polyethylene glycol 3350 17 gram Powder In Packet 17 g PO DAILY PRN PRN (Reason: Constipation) Qty: 14 0RF Discharge Instructions Instructions: COPD (Chronic Obstructive Pulmonary Disease) (ED), Pulmonary Nodules (ED) Additional Instructions: You have responded well to the breathing treatments and steroids provided. You have oxygen at home that you may increase slightly if needed while not feeling well. Prednisone as directed. As we discussed your CT scan revealed a pulmonary nodule which will require further evaluation for your primary care provider and already establishe Please watch for new or worsening symptoms and return to the ER for any concerns. Stand Alone Forms: Nursing Discharge Form Referrals: Kaycee Meyer [place], [place] [Primary Care Provider] - 06/26/22 1:40 pm (Follow up in 1-2 weeks) Jayashree Jovel MD [ [facility] STAFF PHYSICIAN] - 07/04/22 2:30 pm (Follow up regarding pulmonary nodule in 1-2 weeks) Activity:: Activity as Tolerated Equipment/Supplies:: Oxygen (L/min Below) Diet:: As Tolerated Discharge Orders Discharge Orders: Discharge Order (Routine); Ordered 06/14/22 Ordered By: Amita Felix Discharge Data Discharge Date/Time-TO BE ENTERED AT DEPARTURE: 06/14/22 14:25 DS: Summary Time Spent with Patient providing and/or coordinating discharge services: Less than 30 minutes Status at Discharge Functional status at discharge: uses cane/walker Overall status at discharge: patient is back to baseline Mental Status: mental status grossly normal Speech and Movement: speech and movement normal Mood: congruent mood Affect: normal affect Exam Psych Mental Status: mental status grossly normal Speech and Movement: speech and movement normal Mood: congruent mood Affect: normal affect DS: Data Vitals/I&O Vitals and I&O: Vital Signs Temperature 36.7 C 06/14/22 11:27 Temperature Source Tympanic 06/14/22 11:27 Pulse 64 06/14/22 11:27 Pulse Rhythm Regular 06/14/22 09:35 Pulse 90 06/11/22 14:45 Respiratory Rate 18 06/14/22 11:27 Respiratory Effort Accessory Muscle Use 06/14/22 09:35 Respiratory Depth Normal 06/14/22 09:35 Respiratory Pattern Normal 06/14/22 09:35 Blood Pressure 124/73 06/14/22 11:27 Blood Pressure Mean 88 06/11/22 14:45 Pulse Oximetry 92 06/14/22 11:27 Oxygen Delivery Method Nasal Cannula 06/14/22 11:27 Oxygen Flow Rate 3 06/14/22 11:27 Pain Level 0 06/14/22 11:27 Comment 06/13/22 03:24 Intake & Output 06/13/22 06/14/22 06/14/22 23:59 11:59 23:59 Intake Total 490 / 690 400 / 400 Output Total 650 / 1150 1000 / 1000 Balance -160 / -460 -600 / -600 Weight 46.7 kg Intake: IV 250 / 250 Oral 240 / 440 400 / 400 Output: Urine 650 / 1150 1000 / 1000 Other: Urine Color Yellow Yellow Urine Appearance Clear Clear Urine Odor None None Stool Size Small Small Stool Characteristics Soft Formed Voiding Methods Bedside Commode Bedside Commode [facility] All Active Problems (Updated 06/11/22 @ 13:58 by ROEL Lubin) Acute exacerbation of chronic obstructive pulmonary disease (Acute) Pulmonary nodule (Acute) Encounter for screening for COVID-19 (Acute) Ear congestion (Acute) Underweight (Acute) Chronic respiratory failure with hypoxia (Acute) GERD (gastroesophageal reflux disease) (Chronic) Tremor (Acute) Chest pain (Acute) Compression fracture of T5 vertebra (Acute) Discharge planning issues (Acute) DVT prophylaxis (Acute) Acute right-sided thoracic back pain (Acute) Tubular adenoma of colon (Acute 10/12/16) Anxiety (Chronic 01/04/16) Acute gastric ulcer due to Helicobacter pylori (Acute 12/06/15) EGD, Dr Mcfarlane. positive SHARON test (treated) (also esophagitis) Hypogammaglobulinemia (Acute) [facility] negative workup/ Lung nodule (Acute 07/09/15) [facility]; [address] : stable/repeat yearly Hypoxemia (Chronic 11/28/14) Depression (Chronic) Hyperlipidemia (Chronic) Low back pain (Chronic) Osteoarthritis (Chronic) Osteopenia (Chronic) COPD (chronic obstructive pulmonary disease) (Chronic) Medical History Acute exacerbation of chronic obstructive pulmonary disease (11/28/14) Chronic obstructive airway disease Oxygen dependent Hyperlipidemia Low back pain Osteoarthritis Osteopenia Pneumonia (11/28/14) Renal cyst Smoker Tobacco abuse Surgical History Appendectomy Colonoscopy - [facility] (10/10/16) Ligation of fallopian tube BSO NECK SURGERY Open Carpal Tunnel release X 2 RIB RESECTION Family History Mother Diabetes Essential hypertension Hyperlipidemia Stroke Asthma Brother , 58 Essential hypertension Neoplasm Throat Chronic obstructive lung disease Asthma Maternal Grandmother , 93 Chronic obstructive lung disease Asthma Father , 97 No problems noted. Sister No problems noted. Sister No problems noted. Brother No problems noted. Son , age 32 - Drown No problems noted. Maternal Grandfather , age 91 No problems noted. Paternal Grandfather No problems noted. Paternal Grandmother No problems noted. Social History Smoking/Tobacco Use Status: Former Tobacco Use tobacco type: cigarettes Quit Date: 12/29/18 Tobacco: How many years used: 53 Second Hand Exposure: Yes Smoking risk assessment performed?: Yes Alcohol Intake: former Drug use: Never Substance use type: does not use Caregiver/Support person: No Household members: spouse Housing: house Communication Needs: None Do you need help understanding health information?: Rarely Pets and animals: Yes Pets and animals: cat(s) Sexually active: No Do you think of yourself as: straight/heterosexual Current gender identity: female What is your relationship status?: Panel score (0-1 are the most socially isolated patients): 1 What type of physical activity do you participate in: none Fay/Anab[employer]ist: [employer] Seatbelt use: always Drive intox or ride w/intox 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
--- NOTE | 2022-06-14 19:15 | PDOC.CMDIS ---
- If Service Date Differs Date of service: 06/14/22 Time of Service: 19:15 LACE Index Scoring Tool - Questions: Length of Stay (in days): 3 Acuity (Admit via E.D.?): Yes Comorbidities: Chronic Pulmonary Disease E.D. Visits: 2 - Answers: Total Score: 10 Risk of Readmission: High Risk Care Management Discharge Reason for Hospitalization: COPD Discharge Plan: Nathalia will return home today with no new services. Her will drive her home via private vehicle. She will follow up with her PCP and discharge plan of care. She is happy to be going home. Patient/Family Education Needs: Review discharge instructions and limitations, discussion of self care needs including ask me three.
== END 2022-06-14 14:25 | disposition home or self-care (01) | DRG 191 ==
LOC: ER 14:57 → MS 15:05
PROVIDERS: Nurse Practitioner Family; Admitting Provider Family Medicine; Emergency Provider Physician Assistant; PCP Family Medicine; Visit Provider Family Medicine
DX: J44.1 Chronic obstructive pulmonary disease with (acute) exacerbation (principal); D80.1 Nonfamilial hypogammaglobulinemia; J96.11 Chronic respiratory failure with hypoxia; Z68.1 Body mass index [BMI] 19.9 or less, adult; Z99.81 Dependence on supplemental oxygen; K21.9 Gastro-esophageal reflux disease without esophagitis; F41.9 Anxiety disorder, unspecified; F17.210 Nicotine dependence, cigarettes, uncomplicated; E78.5 Hyperlipidemia, unspecified; F32.A Depression, unspecified; R91.1 Solitary pulmonary nodule; R63.6 Underweight; R25.1 Tremor, unspecified; M54.50 Low back pain, unspecified; M85.80 Other specified disorders of bone density and structure, unspecified site
CPT/HCPCS: 36415; 71275; 80048; 80053; 87635; 93005; 94640; 96374; 99285; J1650; 71045; 83735; 83880; 84484; 85025; 85379; 85610; 85730; 93010; 99222; 99233; 99238; J0456; J2930; J3490; J7613; J7620

== ENCOUNTER 2022-07-01 14:55 | Inpatient (IN) | payer MEDICARE, SELFPAY ==
[2022-07-01] VITALS (24 sets, daily range): BP systolic 113–164; BP diastolic 66–95; PULSE 86–105; RESP 4–28; TEMP 36.6–37; O2SAT 86–94
--- NOTE | 2022-07-01 15:00 | RT.EKG_ITS ---
APPROVED REPORT Exam: Resting ECG Reason for Exam: chest tightness Patient Location: E HR:92 bpm ECG Measurements Heart Rate 92 AXIS TX 141 P 89 QRSd 86 QRS -84 QT 370 T 72 QTc 458 Conclusion Sinus rhythm...normal P axis, V-rate 60- 99 Right atrial enlargement...P>0.25mV 2 lds or<-0.24mV aVR/aVL LAD, consider left anterior fascicular block...axis(240,-40), S>R II III aVF
--- NOTE | 2022-07-01 15:15 | DI.RAD_ITS ---
Exam(s) XR PORTABLE CHEST AP EXAM: XR PORTABLE CHEST AP CLINICAL HISTORY: shortness of breath. TECHNIQUE: 2D digital imaging was performed. COMPARISON: CR,XR XR PORTABLE CHEST AP from 06/11/2022 FINDINGS: Single AP portable view. Heart size is normal. Mediastinum is not widened. COPD emphysematous changes are noted but no confluent infiltrates nor pleural effusions. No pulmonar y edema. No pneumothorax. IMPRESSION: No acute pulmonary findings on this single AP portable view of the chest.COPD findings again noted. DATA REPOSITORY: RADIATION DOSE DELIVERED:
[2022-07-01 15:21] LABS: Source Nasal/Nares
--- NOTE | 2022-07-01 15:22 | W.ED.GENAD ---
Discharge Plan Disposition Patient Disposition: [facility] INPATIENT Condition: Stable Discharge Details Chief Complaint: SOB Clinical Impression: Acute exacerbation of chronic obstructive pulmonary disease, VARGAS (dyspnea on exertion) Primary Care Provider: Kaycee Meyer ED Provider: Earl Alfaro Home Meds and New Rx's Prescriptions: No Action fluticasone propionate [Flovent HFA] 220 mcg/actuation HFA aerosol inhaler 2 puff inhalation BID Qty: 12 4RF cholecalciferol (vitamin D3) 2,000 unit capsule 2,000 unit PO DAILY diclofenac sodium 1 % gel 100 g topical QID Qty: 100 2RF Stiolto Respimat 2.5-2.5 mcg/actuation mist 2 puff inhalation DAILY Qty: 12 4RF diphenhydramine HCl [Allergy (diphenhydramine)] 25 mg tablet 50 mg PO QHS omeprazole 40 mg capsule,delayed release(DR/EC) 40 mg PO DAILY Qty: 90 5RF citalopram 20 mg tablet 20 mg PO DAILY Qty: 90 4RF Rx Instructions: 1 Tab (20mg) daily clonazepam 0.5 mg tablet 0.25 mg PO BID Qty: 60 3RF Rx Instructions: take 0.5 tablet twice a day as needed for anxiety prednisone 10 mg tablet See Rx Instructions PO DAILY Qty: 11 0RF Rx Instructions: 10mg daily for 7 days; 5mg daily for 7 days orally daily; ascorbic acid (vitamin C) [Vitamin C] 500 MG tablet 500 mg PO DAILY calcium carbonate-vitamin D3 [Calcium 600 + D(3)] 1 EACH tablet 1 ea PO DAILY Oxygen EACH NS PRN Qty: 2 1RF Rx Instructions: oxygen 2-2.5 L/NC prn ([facility]) fluticasone propionate 50 mcg/actuation spray,suspension 1 - 2 spray NS DAILY Qty: 15.8 3RF Rx Instructions: 1 spray each nostril daily benzonatate [Tessalon Perles] 100 mg capsule 100 mg PO BID PRN (Reason: cough) Qty: 30 1RF albuterol sulfate [Ventolin HFA] 90 mcg/actuation HFA aerosol inhaler 1 - 2 puff IH QID PRN (Reason: bronchospasm) Qty: 3 6RF ipratropium-albuterol 0.5 mg-3 mg(2.5 mg base)/3 mL solution for nebulization 3 ml Inhalation 5X/DAY Qty: 450 12RF Rx Instructions: J44.9 simvastatin 10 mg tablet 10 mg PO HS Qty: 90 5RF Rx Instructions: 1 TAB HS amoxicillin-pot clavulanate 500-125 mg tablet 1 tab PO BID Qty: 14 0RF polyethylene glycol 3350 17 gram Powder In Packet 17 g PO DAILY PRN PRN (Reason: Constipation) Qty: 14 0RF Medical Decision Making 72 yo female with hx of end stage copd on home o2, gerd, who comes in with cc of shortness of breath and feeling like she can't get air in her lungs due to tightness in her chest since yesterday. She states she gets significantly short of breath with any type of exertion, and her oxygen saturation will go into the 70's. On arrival after she stood and got into the stretcher she was visibly short of breath and oxygen saturations were in the mid 70's, after sitting fora few minutes on 5L [place] oxygen saturation is 90%. She denies chest pressure, fevers, worsening cough. She is able to speak in 4-5 word sentences and has no leg swelling or calf tenderness, no jvd. She has diffuse wheezing on exam so suspect copd exacerbation, will treat with methylprednisolone and duoneb and reassess. Will also obtain ekg, troponin, cbc, cmp, and cxr. She had a negative cta last month when she was admitted for similar symptoms so doubt PE labs unremarkable, xray also unremarkable, she has had a cough since being here and states now that she has had a worsening cough throughout the day, will treat with ceftriaxone for copd exacerbation. She is too weak and dyspneic on exertion to go home, will discuss with hospitalist about admission for continued treatment Differential Diagnosis Differential Diagnosis: copd, pneumonia, anemia Medical Records Medical records reviewed: Yes I reviewed the patient's medical records. Lab Data Lab results reviewed: Yes I reviewed the patient's lab results. ECG Data Attestation: I personally reviewed and interpreted this ECG (s) as follows: Prior ECG tracings: available for review Interpretation: sinus rhythm, rate of 92, no acute st t wave ischemic changes compared to prior ekg HPI General Mode of arrival: wheelchair. Date/Time Provider Initiated Documentation: 07/01/22 14:58. Limitations to Documentation: no limitations. Information obtained by: patient. History of Present Illness 72 year old F presents to the emergency department with the chief complaint of shortness of breath, described as moderate, Patient started experiencing this day(s) (1) and it has been constant. Rest improves symptom(s), Movement worsens symptoms . Patient notes no other symptoms.. Patient did receive the following treatments prior to arrival, none Related Data Home Medications Medication Instructions Recorded Confirmed ascorbic acid (vitamin C) 500 mg 500 mg PO DAILY 02/03/13 07/01/22 tablet (Vitamin C) calcium carbonate 600 mg-vitamin 1 ea PO DAILY 02/03/13 07/01/22 D3 10 mcg (400 unit) tablet (Calcium 600 + D(3)) cholecalciferol (vitamin D3) 50 2,000 unit PO DAILY 05/22/19 07/01/22 mcg (2,000 unit) capsule fluticasone propionate 50 1 - 2 spray NS DAILY #15.8 mL 12/30/20 07/01/22 mcg/actuation nasal spray,suspension polyethylene glycol 3350 17 gram 17 g PO DAILY PRN PRN Constipation 03/05/21 07/01/22 oral powder packet #14 ea diclofenac sodium 1 % topical gel 100 g topical QID #100 grams 05/25/21 07/01/22 benzonatate 100 mg capsule 100 mg PO BID PRN cough #30 caps 07/29/21 07/01/22 (Tessalon Iván) diphenhydramine HCl 25 mg tablet 50 mg PO QHS 08/02/21 07/01/22 (Allergy (diphenhydramine)) omeprazole 40 mg capsule,delayed 40 mg PO DAILY #90 caps 08/02/21 07/01/22 release albuterol sulfate 90 mcg/actuation 1 - 2 puff inhalation QID PRN 08/24/21 07/01/22 aerosol inhaler (Ventolin HFA) bronchospasm #3 multiple units tiotropium 2.5 mcg-olodaterol 2.5 2 puff inhalation DAILY #12 grams 11/22/21 07/01/22 mcg/actuation mist for inhalation (Stiolto Respimat) ipratropium 0.5 mg-albuterol 3 mg 3 ml inhalation 5X/DAY #450 mL 12/26/21 07/01/22 (2.5 mg base)/3 mL nebulization soln fluticasone propionate 220 2 puff inhalation BID #12 grams 02/07/22 07/01/22 mcg/actuation HFA aerosol inhaler (Flovent HFA) simvastatin 10 mg tablet 10 mg PO HS #90 tab-caps 04/13/22 07/01/22 citalopram 20 mg tablet 20 mg PO DAILY #90 tabs 06/26/22 07/01/22 clonazepam 0.5 mg tablet 0.25 mg PO BID #60 tab-caps 06/26/22 07/01/22 prednisone 10 mg tablet See Rx Instructions PO DAILY #11 06/26/22 07/01/22 tabs amoxicillin 500 mg-potassium 1 tab PO BID #14 tabs 06/29/22 07/01/22 clavulanate 125 mg tablet Previous Rx's Medication Instructions Recorded fluticasone propionate 50 1 - 2 spray NS DAILY #15.8 mL 12/30/20 mcg/actuation nasal spray,suspension polyethylene glycol 3350 17 gram 17 g PO DAILY PRN PRN Constipation 03/05/21 oral powder packet #14 ea diclofenac sodium 1 % topical gel 100 g topical QID #100 grams 05/25/21 benzonatate 100 mg capsule 100 mg PO BID PRN cough #30 caps 07/29/21 (Tesapolinar Minor) omeprazole 40 mg capsule,delayed 40 mg PO DAILY #90 caps 08/02/21 release albuterol sulfate 90 mcg/actuation 1 - 2 puff inhalation QID PRN 08/24/21 aerosol inhaler (Ventolin HFA) bronchospasm #3 multiple units tiotropium 2.5 mcg-olodaterol 2.5 2 puff inhalation DAILY #12 grams 11/22/21 mcg/actuation mist for inhalation (Stiolto Respimat) ipratropium 0.5 mg-albuterol 3 mg 3 ml inhalation 5X/DAY #450 mL 12/26/21 (2.5 mg base)/3 mL nebulization soln fluticasone propionate 220 2 puff inhalation BID #12 grams 02/07/22 mcg/actuation HFA aerosol inhaler (Flovent HFA) simvastatin 10 mg tablet 10 mg PO HS #90 tab-caps 04/13/22 citalopram 20 mg tablet 20 mg PO DAILY #90 tabs 06/26/22 clonazepam 0.5 mg tablet 0.25 mg PO BID #60 tab-caps 06/26/22 prednisone 10 mg tablet See Rx Instructions PO DAILY #11 06/26/22 tabs amoxicillin 500 mg-potassium 1 tab PO BID #14 tabs 06/29/22 clavulanate 125 mg tablet Allergies Allergy/AdvReac Type Severity Reaction Status Date / Time sulfamethoxazole Allergy Mild Hives Unverified 07/01/22 15:14 [From Bactrim] trimethoprim [From Bactrim] Allergy Mild Hives Unverified 07/01/22 15:14 nickel Allergy Verified 07/01/22 15:14 levofloxacin AdvReac Intermediate BACK AND Verified 07/01/22 15:14 STOMACH ACHE doxycycline AdvReac Unknown nausea Verified 07/01/22 15:14 General Stated Complaint: SOB LARON: 2 Review of Systems All systems reviewed & are unremarkable except as noted in HPI and below Constitutional Constitutional: Denies chills, Denies fever(s) and Denies weakness Eyes Eyes: Denies loss of vision Cardiovascular Cardiovascular: Denies chest pain Respiratory Respiratory: Denies cough Gastrointestinal Gastrointestinal: Denies abdominal pain, Denies nausea and Denies vomiting Genitourinary Genitourinary: Denies dysuria Musculoskeletal Musculoskeletal: Denies joint swelling Neurologic Neurologic: Denies loss of vision and Denies weakness PFSH All Active Problems (Updated 07/01/22 @ 17:36 by Earl Alfaro MD) VARGAS (dyspnea on exertion) (Acute) Rib pain on right side (Acute) Acute exacerbation of chronic obstructive pulmonary disease (Acute) Pulmonary nodule (Acute) Encounter for screening for COVID-19 (Acute) Ear congestion (Acute) Underweight (Acute) Chronic respiratory failure with hypoxia (Acute) GERD (gastroesophageal reflux disease) (Chronic) Tremor (Acute) Chest pain (Acute) Compression fracture of T5 vertebra (Acute) Acute right-sided thoracic back pain (Acute) Tubular adenoma of colon (Acute 10/12/16) Anxiety (Chronic 01/04/16) Acute gastric ulcer due to Helicobacter pylori (Acute 12/06/15) EGD, Dr Mcfarlane. positive SHARON test (treated) (also esophagitis) Hypogammaglobulinemia (Acute) [facility] [place] [facility] negative workup/ Lung nodule (Acute 07/09/15) [facility]; [address] : stable/repeat yearly Hypoxemia (Chronic 11/28/14) Depression (Chronic) Hyperlipidemia (Chronic) Low back pain (Chronic) Osteoarthritis (Chronic) Osteopenia (Chronic) COPD (chronic obstructive pulmonary disease) (Chronic) Medical History Acute exacerbation of chronic obstructive pulmonary disease (11/28/14) Chronic obstructive airway disease Oxygen dependent Hyperlipidemia Low back pain Osteoarthritis Osteopenia Pneumonia (11/28/14) Renal cyst Smoker Tobacco abuse Surgical History Appendectomy Colonoscopy - MAC (10/10/16) Ligation of fallopian tube BSO NECK SURGERY Open Carpal Tunnel release X 2 RIB RESECTION Family History Mother Diabetes Essential hypertension Hyperlipidemia Stroke Asthma Brother , 58 Essential hypertension Neoplasm Throat Chronic obstructive lung disease Asthma Maternal Grandmother , 93 Chronic obstructive lung disease Asthma Father , 97 No problems noted. Sister No problems noted. Sister No problems noted. Brother No problems noted. Son , age 32 - Drown No problems noted. Maternal Grandfather , age 91 No problems noted. Paternal Grandfather No problems noted. Paternal Grandmother No problems noted. Social History Smoking/Tobacco Use Status: Former Tobacco Use tobacco type: cigarettes Quit Date: 12/29/18 Tobacco: How many years used: 53 Second Hand Exposure: Yes Smoking risk assessment performed?: Yes Alcohol Intake: former Drug use: Never Substance use type: does not use Caregiver/Support person: No Household members: spouse Housing: house Communication Needs: None Do you need help understanding health information?: Rarely Pets and animals: Yes Pets and animals: cat(s) Sexually active: No Do you think of yourself as: straight/heterosexual Current gender identity: female What is your relationship status?: Panel score (0-1 are the most socially isolated patients): 1 What type of physical activity do you participate in: none Fay/Moravian: Bahai Seatbelt use: always Drive intox or ride w/intox route driver 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: No Do you feel safe at home: Yes Do you feel safe in your relationship?: Yes Additional Social history: previous exposure to cleaning supplies History History Para 1 Hx # Term Pregnancies Multiple births Hx # Pregnancies Ectopic pregnancies AB induced Hx Number of Living Children AB spontaneous Exam Const General: no acute distress Orientation: alert HENMT Head: normal to inspection Ears: external ears normal General nose exam: external nose normal Mouth: moist mucous membranes Eyes General: appearance normal, both eyes and all related structures Neck Neck: normal visual inspection Resp Effort & Inspection: audible wheezes Cardio Rate: regular rate Skin General skin exam: no rashes or lesions noted Neuro General: patient alert and patient oriented x3 Extrem General: normal to inspection Psych Mental Status: mental status grossly normal Course Vital Signs Vital signs: Vital Signs Temperature 37 C 07/01/22 14:59 Pulse 97 H 07/01/22 14:59 Respiratory Rate 24 07/01/22 14:59 Blood Pressure 134/86 07/01/22 14:59 Pulse Oximetry 87 L 07/01/22 14:59 Temperature 37 C 07/01/22 14:59 Temperature Source Skin 07/01/22 14:59 Pulse 97 H 07/01/22 14:59 Respiratory Rate 24 07/01/22 14:59 Blood Pressure 134/86 07/01/22 14:59 Pulse Oximetry 90 L 07/01/22 15:10 Oxygen Delivery Method Nasal Cannula 07/01/22 15:10 Oxygen Flow Rate 4 07/01/22 15:10 Pain Level 0 07/01/22 14:59 Lab/Test Results Lab/Test Results: 07/01/22 15:05 Blood Blood Culture - Pending 07/01/22 15:05 Blood Blood Culture - Pending Laboratory Tests Range/Units 07/01/22 15:20 COVID-19 Source Nasal/Nares
[2022-07-01 15:42] LABS: BE (Venous) 9 mmol/L (-2-3); HCO3 (Venous) 35 mmol/L (23-28); O2 Sat (Venous) 70 %; TCO2 (Venous) 32 mmol/L (24-29); pCO2 (Venous) 60 mmHg (41-51); pH (Venous) 7.37 (7.31-7.41); pO2 (Venous) 37 mmHg
[2022-07-01 15:56] LABS: COVID-19 PCR Negative (Negative)
[2022-07-01] MEDS: methylPREDNISolone SUCC 125 MG VIAL IVP (15:58)
[2022-07-01] MEDS: Albuterol/Ipratropium 3 ML UPD VIAL UPD ×2 (16:05→17:23)
[2022-07-01 16:13] LABS: Abs Immature Grans 0.01 10^3/uL (0.0-0.06); Absolute Basophil Count 0.04 10^3/uL (0.0-0.2); Absolute Eosinophil Count 0.22 10^3/uL (0.0-0.7); Absolute Lymphocyte Count 0.78 10^3/uL (1.2-3.4); Absolute Monocyte Count 0.71 10^3/uL (0.1-0.8); Absolute Neutrophil Count 3.36 10^3/uL (1.2-6.7); Basophils % 0.8; Eosinophils % 4.3; HCT 35.7 % (36.0-46.0); HGB 11.4 g/dL (11.2-15.7); Immature Grans % 0.2; Lymphocytes % 15.2; MCH 30.2 pg (27.0-33.0); MCHC 31.9 % (32.0-36.0); MCV 95 fL (80-95); MPV 10.3 fL (8.0-11.0); Monocytes % 13.9; Neutrophils % 65.6; Platelet Count 181 10^3/uL (130-400); RBC 3.77 10^6/uL (3.93-5.22); RDW 13.9 % (11.7-14.6); RDW-SD 48.6 fL; WBC 5.12 10^3/uL (4.4-10.8)
[2022-07-01 16:40] LABS: ALT 25 U/L (14-59); AST 21 U/L (15-37); Albumin 3.2 g/dL (3.4-5.0); Alkaline Phosphatase 65 U/L (46-116); Anion Gap 5.3 mmol/L (3-11); BUN 12 mg/dL (7-18); Bilirubin, Total 0.2 mg/dL (0.2-1.0); CO2 34.7 mmol/L (21.0-32.0); CREATININE 0.7 mg/dL (0.55-1.02); Calcium 8.8 mg/dL (8.5-10.1); Chloride 93 mmol/L (98-107); Estimated GFR 91.83 (mL/min/1.73m2); Glucose 117 mg/dL (74-106); Magnesium 1.7 mg/dL (1.8-2.4); NT-proBNP 175 pg/mL (<300); Potassium 3.5 mmol/L (3.5-5.1); Sodium 133 mmol/L (136-145); Total Protein 7.1 g/dL (6.4-8.2); Troponin I < 50 ng/L (<or=60)
--- NOTE | 2022-07-01 16:44 | DI.VRAD_ITS ---
PROCEDURE INFORMATION: Exam: XR Chest Exam date and time: 07/01/2022 3:47 PM Age: 72 years old Clinical indication: Other: SOB TECHNIQUE: Imaging protocol: Radiologic exam of the chest. Views: 1 view. COMPARISON: CR XR PORTABLE CHEST AP 08/09/2022 10:05 FINDINGS: Lungs: Large lung volumes. Emphysematous changes of the lung similar to prior study. No focal consolidation. Patchy reticular markings at the right lung base and left mid lung left lower lobe similar to prior study consistent with scar or fibrotic changes. Pleural spaces: Unremarkable. No pleural effusion. No pneumothorax. Heart/Mediastinum: Stable cardiomediastinal silhouette. Vasculature: Atherosclerotic disease. Diaphragm: Flattening of the hemidiaphragms similar to prior study. Bones/joints: Old bilateral rib fractures. Multilevel degenerative scoliotic changes of the spine. IMPRESSION: 1. Chronic interstitial lung disease. Emphysematous changes. 2. No acute cardiopulmonary disease. 3. Additional findings as discussed above. Dictated and Authenticated by: Codi Islas MD. Ordering:LYNN Elliott MD
[2022-07-01] MEDS: cefTRIAXone 1 GM/50 ML BAG IVPB (17:10)
--- NOTE | 2022-07-01 17:19 | W.PM.HP.N ---
Date of service: 07/01/22 Time of Service: 17:19 Assessment and Plan Assessment and plan (1) Acute exacerbation of chronic obstructive pulmonary disease: Assessment and plan: Cont sched Duonebs, prn albuterol. received ceftriaxone, solumedrol in the ED. increased sputum production, has been on augmentin which started yesterday. will place on zosyn, doubt mrsa infection so hold off on zosyn. continue oxygen, does not tolerate cpap at night so not using. - wears at home 2-3 liters (2) GERD (gastroesophageal reflux disease): Status: Chronic Assessment and plan: Cont omeprazole. (3) Anxiety: Status: Chronic Assessment and plan: Cont citalopram and BID prn Clonazepam (4) DVT prophylaxis: Status: Deleted Assessment and plan: TEDS, enoxaparin (5) Discharge planning issues: Status: Deleted Assessment and plan: case management following anticipate home when medically stable. discussed with Dr. Coleman History of Present Illness History of Present Illness Chief Complaint: shortness of breath Narrative: presents to ED with several days of worsening sob. was placed on augmentin which she started yesterday. she states she has not been around any with similar symptoms. she feels she has had low grade fever but non documented. she states she is starting to produce more sputum since starting augmentin but respiratory status seems to be worsening despite take her inhalers and updrafts as ordered. work up in the ED most consistent with copd exacerbation. she is admitted to hospitalist services for iv antibiotics and steroids and further monitoring and management. Review of Systems All systems reviewed & are unremarkable except as noted in HPI and below Constitutional Constitutional: Reports system reviewed and no additional complaints, except as documented, Reports fever(s) (subjective), Reports poor appetite and Reports weakness (generalized) Cardiovascular Cardiovascular: Denies chest pain, Reports dyspnea and Reports dyspnea on exertion Respiratory Respiratory: Reports cough, Reports excessive phlegm production (no excessive but increased), Denies pain on inspiration, Denies pain with cough, Reports dyspnea, Reports dyspnea on exertion and Reports wheezing Gastrointestinal Gastrointestinal: Denies abdominal pain, Denies nausea and Denies vomiting Neurologic Neurologic: Reports weakness (generalized) Allergic/Immunologic Allergic/Immunologic: Reports wheezing PFSH All Active Problems (Updated 07/01/22 @ 17:36 by Earl Alfaro MD) VARGAS (dyspnea on exertion) (Acute) Rib pain on right side (Acute) Acute exacerbation of chronic obstructive pulmonary disease (Acute) Pulmonary nodule (Acute) Encounter for screening for COVID-19 (Acute) Ear congestion (Acute) Underweight (Acute) Chronic respiratory failure with hypoxia (Acute) GERD (gastroesophageal reflux disease) (Chronic) Tremor (Acute) Chest pain (Acute) Compression fracture of T5 vertebra (Acute) Acute right-sided thoracic back pain (Acute) Tubular adenoma of colon (Acute 10/12/16) Anxiety (Chronic 01/04/16) Acute gastric ulcer due to Helicobacter pylori (Acute 12/06/15) EGD, Dr Mcfarlane. positive SHARON test (treated) (also esophagitis) Hypogammaglobulinemia (Acute) [facility] [place] negative workup/ Lung nodule (Acute 07/09/15) [facility]; [address] : stable/repeat yearly Hypoxemia (Chronic 11/28/14) Depression (Chronic) Hyperlipidemia (Chronic) Low back pain (Chronic) Osteoarthritis (Chronic) Osteopenia (Chronic) COPD (chronic obstructive pulmonary disease) (Chronic) Medical History Acute exacerbation of chronic obstructive pulmonary disease (11/28/14) Chronic obstructive airway disease Oxygen dependent Hyperlipidemia Low back pain Osteoarthritis Osteopenia Pneumonia (11/28/14) Renal cyst Smoker Tobacco abuse Surgical History Appendectomy Colonoscopy - MAC (10/10/16) Ligation of fallopian tube BSO NECK SURGERY Open Carpal Tunnel release X 2 RIB RESECTION Family History Mother Diabetes Essential hypertension Hyperlipidemia Stroke Asthma Brother , 58 Essential hypertension Neoplasm Throat Chronic obstructive lung disease Asthma Maternal Grandmother , 93 Chronic obstructive lung disease Asthma Father , 97 No problems noted. Sister No problems noted. Sister No problems noted. Brother No problems noted. Son , age 32 - Drown No problems noted. Maternal Grandfather , age 91 No problems noted. Paternal Grandfather No problems noted. Paternal Grandmother No problems noted. Social History Smoking/Tobacco Use Status: Former Tobacco Use tobacco type: cigarettes Quit Date: 12/29/18 Tobacco: How many years used: 53 Second Hand Exposure: Yes Smoking risk assessment performed?: Yes Alcohol Intake: former Drug use: Never Substance use type: does not use Caregiver/Support person: No Household members: spouse Housing: house Communication Needs: None Do you need help understanding health information?: Rarely Pets and animals: Yes Pets and animals: cat(s) Sexually active: No Do you think of yourself as: straight/heterosexual Current gender identity: female What is your relationship status?: Panel score (0-1 are the most socially isolated patients): 1 What type of physical activity do you participate in: none Fay/Mormonism: Jehovah'S Witness Seatbelt use: always Drive intox or ride w/intox 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: No Do you feel safe at home: Yes Do you feel safe in your relationship?: Yes Additional Social history: previous exposure to cleaning supplies History History Para 1 Hx # Term Pregnancies Multiple births Hx # Pregnancies Ectopic pregnancies AB induced Hx Number of Living Children AB spontaneous Meds Allergies and Home Medications Allergies Allergy/AdvReac Type Severity Reaction Status Date / Time sulfamethoxazole Allergy Mild Hives Unverified 07/01/22 15:14 [From Bactrim] trimethoprim [From Bactrim] Allergy Mild Hives Unverified 07/01/22 15:14 nickel Allergy Verified 07/01/22 15:14 levofloxacin AdvReac Intermediate BACK AND Verified 07/01/22 15:14 STOMACH ACHE doxycycline AdvReac Unknown nausea Verified 07/01/22 15:14 Home Medications Medication Instructions Recorded Confirmed Type ascorbic acid (vitamin C) 500 mg 500 mg PO DAILY 02/03/13 07/01/22 History tablet (Vitamin C) calcium carbonate 600 mg-vitamin 1 ea PO DAILY 02/03/13 07/01/22 History D3 10 mcg (400 unit) tablet (Calcium 600 + D(3)) Oxygen l NS PRN ##2 04/10/16 05/22/19 Clinic cholecalciferol (vitamin D3) 50 2,000 unit PO DAILY 05/22/19 07/01/22 History mcg (2,000 unit) capsule fluticasone propionate 50 1 - 2 spray NS DAILY #15.8 mL 12/30/20 07/01/22 Rx mcg/actuation nasal spray,suspension polyethylene glycol 3350 17 gram 17 g PO DAILY PRN PRN Constipation 03/05/21 07/01/22 Rx oral powder packet #14 ea diclofenac sodium 1 % topical gel 100 g topical QID #100 grams 05/25/21 07/01/22 Rx benzonatate 100 mg capsule 100 mg PO BID PRN cough #30 caps 07/29/21 07/01/22 Rx (Tesapolinar Minor) diphenhydramine HCl 25 mg tablet 50 mg PO QHS 08/02/21 07/01/22 History (Allergy (diphenhydramine)) omeprazole 40 mg capsule,delayed 40 mg PO DAILY #90 caps 08/02/21 07/01/22 Rx release albuterol sulfate 90 mcg/actuation 1 - 2 puff inhalation QID PRN 08/24/21 07/01/22 Rx aerosol inhaler (Ventolin HFA) bronchospasm #3 multiple units tiotropium 2.5 mcg-olodaterol 2.5 2 puff inhalation DAILY #12 grams 11/22/21 07/01/22 Rx mcg/actuation mist for inhalation (Stiolto Respimat) ipratropium 0.5 mg-albuterol 3 mg 3 ml inhalation 5X/DAY #450 mL 12/26/21 07/01/22 Rx (2.5 mg base)/3 mL nebulization soln fluticasone propionate 220 2 puff inhalation BID #12 grams 02/07/22 07/01/22 Rx mcg/actuation HFA aerosol inhaler (Flovent HFA) simvastatin 10 mg tablet 10 mg PO HS #90 tab-caps 04/13/22 07/01/22 Rx citalopram 20 mg tablet 20 mg PO DAILY #90 tabs 06/26/22 07/01/22 Rx clonazepam 0.5 mg tablet 0.25 mg PO BID #60 tab-caps 06/26/22 07/01/22 Rx prednisone 10 mg tablet See Rx Instructions PO DAILY #11 06/26/22 07/01/22 Rx tabs amoxicillin 500 mg-potassium 1 tab PO BID #14 tabs 06/29/22 07/01/22 Rx clavulanate 125 mg tablet Exam Const General: cooperative, acute distress moderate and respiratory, frail appearing and ill appearing chronically Nutritional Appearance: cachectic Orientation: alert, awake and oriented x3 HENMT Head: normal to inspection, normocephalic and atraumatic General nose exam: external nose normal Mouth: oral mucosae normal Eyes General: appearance normal, both eyes and all related structures Neck Neck: normal visual inspection Chest Chest: normal inspection of the chest Resp Effort & Inspection: audible wheezes Cardio Rate: regular rate Rhythm: regular rhythm GI Inspection: normal to inspection Palpation: soft Skin General skin exam: no rashes or lesions noted Neuro General: patient alert, patient awake and patient oriented x3 Extrem General: normal to inspection Psych Mental Status: mental status grossly normal Results Labs Result diagrams: 07/02/22 06:38 07/01/22 18:19 Labs: Laboratory Results - last 24 hr 07/01/22 07/01/22 07/01/22 15:20 15:34 15:34 WBC RBC Hgb Hct MCV MCH MCHC RDW Plt Count MPV Immature Gran % Neutrophils % Lymphocytes % Monocytes % Eosinophils % Basophils % Nucleated RBC % Absolute Neutrophils Absolute Lymphocytes Absolute Monocytes Absolute Eosinophils Absolute Basophils VBG pH 7.37 VBG pCO2 60 H VBG pO2 37 VBG HCO3 35 H VBG Total CO2 32 H VBG O2 Saturation 70 VBG Base Excess 9 H Sodium 133 L Potassium 3.5 Chloride 93 L Carbon Dioxide 34.7 H Anion Gap 5.3 BUN 12 Creatinine 0.7 Est GFR (CKD-EPI 2020) 91.83 Glucose 117 H Calcium 8.8 Magnesium 1.7 L Total Bilirubin 0.2 AST 21 ALT 25 Alkaline Phosphatase 65 Troponin I < 50 NT-Pro-B Natriuret Pep 175 Total Protein 7.1 Albumin 3.2 L COVID-19 Source Nasal/Nares SARS-CoV-2 (PCR) Negative 07/01/22 15:34 WBC 5.12 RBC 3.77 L Hgb 11.4 Hct 35.7 L MCV 95 MCH 30.2 MCHC 31.9 L RDW 13.9 Plt Count 181 MPV 10.3 Immature Gran % 0.2 Neutrophils % 65.6 Lymphocytes % 15.2 Monocytes % 13.9 Eosinophils % 4.3 Basophils % 0.8 Nucleated RBC % 0.0 Absolute Neutrophils 3.36 Absolute Lymphocytes 0.78 L Absolute Monocytes 0.71 Absolute Eosinophils 0.22 Absolute Basophils 0.04 VBG pH VBG pCO2 VBG pO2 VBG HCO3 VBG Total CO2 VBG O2 Saturation VBG Base Excess Sodium Potassium Chloride Carbon Dioxide Anion Gap BUN Creatinine Est GFR (CKD-EPI 2020) Glucose Calcium Magnesium Total Bilirubin AST ALT Alkaline Phosphatase Troponin I NT-Pro-B Natriuret Pep Total Protein Albumin COVID-19 Source SARS-CoV-2 (PCR) Last Vital Signs Temp 37 C 07/01/22 14:59 Pulse 97 H 07/01/22 14:59 Resp 23 07/01/22 16:05 BP 134/86 07/01/22 14:59 Pulse Ox 90 L 07/01/22 15:10
[2022-07-01 18:47] LABS: Anion Gap 4.7 mmol/L (3-11); BUN 11 mg/dL (7-18); CO2 34.3 mmol/L (21.0-32.0); CREATININE 0.6 mg/dL (0.55-1.02); Calcium 8.9 mg/dL (8.5-10.1); Chloride 94 mmol/L (98-107); Estimated GFR 95.31 (mL/min/1.73m2); Glucose 119 mg/dL (74-106); Potassium 3.8 mmol/L (3.5-5.1); Sodium 133 mmol/L (136-145)
[2022-07-01 18:56] LABS: Troponin I < 50 ng/L (<or=60)
[2022-07-01 18:57] LABS: Procalcitonin < 0.1 ng/mL
[2022-07-01] MEDS: Albuterol/Ipratropium 3 ML UPD VIAL IH ×2 (18:57→21:57)
[2022-07-01] MEDS: Mometasone 220 MCG 14 DOSE INHALER IH (20:56)
[2022-07-01] MEDS: PIPERACILLIN/TAZO 3.375 GM in Normal Saline 50 ML IVPB (20:56)
[2022-07-01] MEDS: Simvastatin 20 MG TAB 10 MG PO (20:58)
[2022-07-01] MEDS: Normal Saline Flush 10 ML SYR IVP ×2 (21:00→21:56)
[2022-07-01 21:37] LABS: Bilirubin Negative (Negative); Blood Negative (Negative); Clarity Clear (Clear); Glucose Negative (Negative); Ketones 40 mg/dL (Negative); Leukocyte Esterase Negative (Negative); Nitrite Negative (Negative); Specific Gravity 1.015 (1.005-1.025); Urobilinogen 0.2 EU/dL (Up TO 0.2)
[2022-07-01] MEDS: diphenhydrAMINE 25 MG CAP 50 MG PO (21:52)
[2022-07-01] MEDS: methylPREDNISolone SUCC 125 MG VIAL 60 MG IVP (21:57)
[2022-07-02] VITALS (9 sets, daily range): BP systolic 133–153; BP diastolic 78–84; PULSE 78–99; RESP 2–22; TEMP 36.3–36.7; O2SAT 88–90
[2022-07-02] MEDS: PIPERACILLIN/TAZO 3.375 GM in Normal Saline 50 ML IVPB ×4 (02:34→19:40)
[2022-07-02] MEDS: Normal Saline Flush 10 ML SYR IVP ×7 (02:37→19:41)
[2022-07-02] MEDS: methylPREDNISolone SUCC 125 MG VIAL 60 MG IVP ×3 (05:45→22:26)
[2022-07-02] MEDS: Albuterol/Ipratropium 3 ML UPD VIAL IH ×5 (05:47→19:17)
[2022-07-02 06:58] LABS: Abs Immature Grans 0.01 10^3/uL (0.0-0.06); Absolute Lymphocyte Count 0.37 10^3/uL (1.2-3.4); Absolute Monocyte Count 0.06 10^3/uL (0.1-0.8); Absolute Neutrophil Count 3.48 10^3/uL (1.2-6.7); HCT 34.7 % (36.0-46.0); HGB 11.3 g/dL (11.2-15.7); Immature Grans % 0.3; Lymphocytes % 9.4; MCH 30.4 pg (27.0-33.0); MCHC 32.6 % (32.0-36.0); MCV 93 fL (80-95); Monocytes % 1.5; Neutrophils % 88.8; Platelet Count 181 10^3/uL (130-400); RBC 3.72 10^6/uL (3.93-5.22); RDW 13.8 % (11.7-14.6); RDW-SD 46.8 fL; WBC 3.92 10^3/uL (4.4-10.8)
[2022-07-02] MEDS: Cholecalciferol (Vitamin D3) 1,000 UNIT TAB 2000 UNITS PO (08:01)
[2022-07-02] MEDS: Mometasone 220 MCG 14 DOSE INHALER IH ×2 (08:01→19:48)
[2022-07-02] MEDS: Calcium 600mg/Vit D 200U TAB 1 TAB PO (08:02)
[2022-07-02] MEDS: Citalopram 20 MG TAB PO (08:02)
[2022-07-02] MEDS: Benzonatate 100 MG CAP PO (08:02)
[2022-07-02] MEDS: Omeprazole 20 MG CAPCR 40 MG PO (08:02)
[2022-07-02] MEDS: Ascorbic Acid 500 MG TAB PO (08:03)
[2022-07-02] MEDS: Tiotropium/Olodaterol 10 PUFF INHALER 2 PUFF IH (08:58)
[2022-07-02] MEDS: Fluticasone NASAL SPRAY 16 GM BTL NS (09:00)
[2022-07-02] MEDS: guaiFENesin 600 MG TABCR PO ×2 (12:41→19:38)
--- NOTE | 2022-07-02 12:53 | PT.INIE ---
Date of service: 07/02/22 Time of Service: 12:20 PT Notes Visit Reasons: COPD Exacerbation Inpatient Physical Therapy Evaluation Date: July 02, 2022 Referring Doctor: Alona Kinney PT Orders: PT CONSULT Precautions: Standard Patient Profile/Admitting Diagnosis: Nathalia is a 72 year old female admitted 07/01/22 acute exacerbation of chronic obstructive pulmonary disease, VARGAS (dyspnea on exertion) PMHX: (Updated 07/01/22 @ 17:36 by Earl Alfaro MD) VARGAS (dyspnea on exertion) (Acute) Rib pain on right side (Acute) Acute exacerbation of chronic obstructive pulmonary disease (Acute) Pulmonary nodule (Acute) Encounter for screening for COVID-19 (Acute) Ear congestion (Acute) Underweight (Acute) Chronic respiratory failure with hypoxia (Acute) GERD (gastroesophageal reflux disease) (Chronic) Tremor (Acute) Chest pain (Acute) Compression fracture of T5 vertebra (Acute) Acute right-sided thoracic back pain (Acute) Tubular adenoma of colon (Acute 10/12/16) Anxiety (Chronic 01/04/16) Acute gastric ulcer due to Helicobacter pylori (Acute 12/06/15) EGD, Dr Mcfarlane. positive SHARON test (treated) (also esophagitis) Hypogammaglobulinemia (Acute) [facility] [place] Hemato.: negative workup/ Lung nodule (Acute 07/09/15) [facility]; [address] : stable/repeat yearly Hypoxemia (Chronic 11/28/14) Depression (Chronic) Hyperlipidemia (Chronic) Low back pain (Chronic) Osteoarthritis (Chronic) Osteopenia (Chronic) COPD (chronic obstructive pulmonary disease) (Chronic) Medical History Acute exacerbation of chronic obstructive pulmonary disease (11/28/14) Chronic obstructive airway disease Oxygen dependent Hyperlipidemia Low back pain Osteoarthritis Osteopenia Pneumonia (11/28/14) Renal cyst Smoker Tobacco abuse Surgical History Appendectomy Colonoscopy - MAC (10/10/16) Ligation of fallopian tube BSO NECK SURGERY Open Carpal Tunnel release X 2 RIB RESECTION Social History/Home Situation: Nathalia lives with her in a private home. She does not utilize an assistive device at baseline however her is putting together a rollator to assist her around her home with ambulation. Does utilize oxygen at home at all times. She reports I in basic ADL's. Her does assist her into and out of shower. Current Functional Limitations: Decreased activity tolerance due to SOB Equipment Owned/DME: Rollator Subjective: Nathalia notes that she is feeling a little better but it does not take her much to lose her energy. Notes it took all she had just to eat lunch. General Observation: Seated at edge of bed trunk hunched forward. Noted dyspnea. On 3 L of oxygen per minute O2 saturation at rest 88% Mental Status: Alert and oriented as to person, place, time, and purpose. Able to pay attention, focus, and respond appropriately. Pain: Moderate pain in the mid back primarily R sided ROM: Right Upper Extremity: Shoulder Flexion WFL. Shoulder abduction WFL. Shoulder ER/IR WFL. Elbow flexion WFL. Forearm pronation/supination WFL. Wrist flexion WFL. Opening and closing of hand WFL. Left Upper Extremity: Shoulder Flexion WFL. Shoulder abduction WFL. Shoulder ER/IR WFL. Elbow flexion WFL. Forearm pronation/supination WFL. Wrist flexion WFL. Opening and closing of hand WFL. Right Lower Extremity: Hip flexion WFL. Hip abduction WFL. Hip ER/IR WFL. Knee flexion WFL. Knee extension. Ankle dorsiflexion/eversion WFL. Ankle plantarflexion/inversion WFL. Left Lower Extremity: Hip flexion WFL. Hip abduction WFL. Hip ER/IR WFL. Knee flexion WFL. Knee extension. Ankle dorsiflexion WFL. Ankle plantarflexion WFL. Strength: Right Upper Extremity: Shoulder flexors 4-/5. Shoulder abductors 4-/5. Elbow flexors 4-/5. Elbow extensors 4-/5. Revolving Inventory Clerk strong. Left Upper Extremity: Shoulder flexors 4-/5. Shoulder abductors 4-/5. Elbow flexors 4-/5. Elbow extensors 4-/5. Revolving Inventory Clerk strong. Right Lower Extremity: Hip flexors 4-/5. Hip abductors 4-/5. Knee flexors 4-/5. Knee extensors 4-/5. Ankle dorsiflexors/evertors 4-/5. Ankle plantarflexors/invertors 4-/5. Left Lower Extremity: Hip flexors 4-/5. Hip abductors 4-/5. Knee flexors 4-/5. Knee extensors 4-/5. Ankle dorsiflexors/evertors 4-/5. Ankle plantarflexors/invertors 4-/5. Bed Mobility/Transfers: Rolling Independent Supine to sit Independent Sit to supine Independent Sit to stand standby assist Stand to sit standby assist Gait: Guided patient through bedside marching with full weightbearing requiring only standby assist with report of increase in pain in the thoracic area. Mild shortness of breath observed. Decreased bowen . Step height decreased. Step length decreased. O2 saturation decreased to 85%. Upon 2 minute recovery 90% on 3 liters. Balance: Static Sitting: Normal Dynamic Sitting: Normal Static Standing: Fair Dynamic Standing: Fair Special Tests: Mobility Limitations Standardized Measure [facility] AM-PAC 6 clicks Basic Mobility Inpatient Short Form: Raw Score: 21 CMS Score: 29% deficit Informed Consent/Education: Patient was instructed in purpose of PT consult and plan of care. Agreeable to proceed with established PT POC to achieve personal goals. Assessment: Nathalia demonstrates functional mobility decline, decrease activity tolerance and report of back pain. Patient will benefit from chest expansion exercises and deep breathing exercises to increase mobility of ventilatory muscles, increased ability of trunk, and address pain complaint. Patient presents with clinical signs and symptoms consistent with current/admitting diagnoses that have resulted to mobility limitations, gait instability, generalized weakness, and impairment of motor control as demonstrated by the following impairment level findings: 1. Decreased strength to B LE major muscle groups 2. Impaired sitting/standing balance 3. Impaired activity tolerance 4. Shortness of breath 5. Thoracic back pain Impairments are contributing to the following functional limitations: 1. Increased dependence with transfers 2. Inability to safely ambulate without assistive device and physical assistance 3. Increase completion time for mobility ADL performance Patient is [place] a 37899 moderate complexity based on the following: History: 72-year-old female with past medical history as indicated above Examination: Demonstrable impairment in strength, balance, and mobility level with underlying impairments and functional limitations Presentation: Evolving Decision Makin moderate complexity Goals: Goals X1 week 1. Supine-Sit independent 2. Sit-Supine independent 3. Sit-Stand independent 4. Stand-Sit independent 5. Bed-Chair independent 6. Chair-Bed independent 7. Independent gait on level surface with use of front wheel walker for at least 200 feet without report of pain nor dyspnea 8. Independent stair negotiation while holding onto B rails for at least 5 steps without report of pain nor dyspnea 9. Independent with home exercise program 10. Good static and dynamic standing balance/tolerance Plan of Care/Treatment Plan: 1-2x/day, 7 days/week x 1 week. Plan of care has been reviewed with the CHICKEN [employer]ANER providing the service under Physical Therapy direction. Initiate Physical Therapy intervention for pain management as needed, strengthening, bed mobility, transfers, gait, stairs, balance training, and use of assistive device. DISCHARGE RECOMMENDATIONS: Home once medically cleared TREATMENT CODE/TIME: [id number] x 30 minutes beginning at 12:20 PM. Thank you for the opportunity to participate in the care of this patient. Delia Kohli, MPT [facility] Disclaimer: This note was created using [employer] voice recognition software. It was reviewed for major content. However, there may be multiple small discrepancies and errors due to the voice recognition aspects of the software.
[2022-07-02] MEDS: LORazepam 2 MG/ML VIAL 0.5 MG IVP (15:53)
--- NOTE | 2022-07-02 15:57 | PDOC.CMIN ---
- If Service Date Differs Date of service: 07/02/22 Time of Service: 15:57 Care Management Initial Assess REASON FOR HOSPITALIZATION:: COPD Exacerbation PAST MEDICAL HISTORY/PAST SURGICAL HISTORY:: All Active Problems. VARGAS (dyspnea on exertion) (Acute). Rib pain on right side (Acute). Acute exacerbation of chronic obstructive pulmonary disease (Acute). Pulmonary nodule (Acute). Encounter for screening for COVID-19 (Acute). Ear congestion (Acute). Underweight (Acute). Chronic respiratory failure with hypoxia (Acute). GERD (gastroesophageal reflux disease) (Chronic). Tremor (Acute). Chest pain (Acute). Compression fracture of T5 vertebra (Acute). Acute right-sided thoracic back pain (Acute). Tubular adenoma of colon (Acute 10/12/16). Anxiety (Chronic 01/04/16). Acute gastric ulcer due to Helicobacter pylori (Acute 12/06/15). EGD, Dr Mcfarlane. positive SHARON test (treated). (also esophagitis). Hypogammaglobulinemia (Acute). [facility] Hemato.: negative workup/. Lung nodule (Acute 07/09/15). [facility]; [address] : stable/repeat yearly. Hypoxemia (Chronic 11/28/14). Depression (Chronic). Hyperlipidemia (Chronic). Low back pain (Chronic). Osteoarthritis (Chronic). Osteopenia (Chronic). COPD (chronic obstructive pulmonary disease) (Chronic). Medical History. Acute exacerbation of chronic obstructive pulmonary disease (11/28/14). Chronic obstructive airway disease. Oxygen dependent. Hyperlipidemia. Low back pain. Osteoarthritis. Osteopenia. Pneumonia (11/28/14). Renal cyst. Smoker. Tobacco abuse. Surgical History. Appendectomy. Colonoscopy - MAC (10/10/16). Ligation of fallopian tube. BSO. NECK SURGERY. Open Carpal Tunnel release. X 2. RIB RESECTION PREVIOUS FUNCTIONAL STATUS/SOCIAL/FAMILY SUPPORTS:: Nathalia lives in [facility] with Clyde, her of 27 years. Nathalia has one son but he in a tragic accident several years ago. 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 She now occupies her time with gardening, quilting, and crocheting. She names her and a neighbor, Hellen, as her supports. CURRENT FUNCTIONAL STATUS:: Nathalia was sitting up in bed when CM met with her. She was pleasant and engaged in conversation. She reported that she started to feel like she was getting a cold last week, and had been communicating with her PCP prior to coming to the ED. She stated that she trusts her PCP and has a very good relationship with her. She is on 2.5-3L O2 at home, and she is currently at her baseline O2, although she states that she is feeling short of breath when talking. She discussed how supportive her is, although he still works out of their garage, he checks on her frequently throughout the day. She is independent with most of her ADLs, although her helps her with bathing and sometimes has to help her cook. She will be seen by PT to evaluate for further needs in the community, as she may benefit from HH support. CM will continue to follow. ADVANCE DIRECTIVES:: AD and POA On file; [employer] Jose Cat Sr. is appointed as Health Care Agent. Has patient been provided with info about the portal/API?: Yes Did the patient sign up for the portal?: No CODE STATUS:: DNR/DNI INSURANCE COVERAGE / FINANCIAL ISSUES:: [employer] and Medicare CURRENT HOME/COMMUNITY SERVICES/EQUIPMENT:: Nathalia has home O2 through [facility]. She also has a floor concentrator, nebulizer, oxygen tanks and cart, and recently purchased a rollator walker. She denies any other home/community services or equipment. PRIMARY CARE PHYSICIAN:: Kaycee Meyer POTENTIAL DISCHARGE NEEDS:: Follow up appointments with PCP and barrel leveler. PATIENT/FAMILY EDUCATION NEEDS:: Review of discharge instructions re medications, activity level and follow up plan of care and discuss Ask Me Three. ANTICIPATED BARRIERS TO DISCHARGE:: None. TRANSPORTATION:: Via private vehicle with family. PLAN:: Nathalia will be discharged home when medically cleared by provider. She may benefit from HH support, if indicated. She will follow up with her PCP, barrel leveler and discharge plan of care as instructed. Her , Clyde, will drive her home via private vehicle when ready. CM will continue to follow. Readmission - Within the Past 30 Days Yes or No: Y - Date of First Admission Date of 1st Admission: 06/11/22 - Date of this Admission Date of Admission: 07/01/22 This admission was: Through ED - Office Visit Since 1st Admission Have you seen your PCP in the office since discharge?: Yes Date of PCP Appointment: 06/26/22 - I. Interview patient and/or Family Difficulty reaching your doctor or getting an office appt?: No Have you had trouble purchasing/ or taking medication?: No Have you had trouble with getting meals at home?: No Did you feel ready for discharge when you left the last time: Yes If patient did not receive services, were there orders at: No Did you call your physician beore you came to the ED?: Yes - ED visits How many ED visits in the past 12 months: 3 - Assessment for Readmission Summary of readmission circumstances, based upon interviews: Nathalia reported that she felt ready for discharge when she recently returned home after hospitalization. She stated that she felt that she was coming down with something and met with her PCP last week, who provided her with steroids. She started feeling worse over the weekend, and with her PCP office closed she didn't feel safe waiting until Sunday, and presented to the ED. Her O2 Sat was 87% upon arrival. She has an appointment scheduled with Pulmonology on 07/04/22, although she may not be medically cleared and discharged prior to that. ANDRE spoke to Alona, [facility], who will place a consult for Pulmonology as well as Palliative care.
--- NOTE | 2022-07-02 16:02 | W.PM.PROGNOT ---
Date of Service Date of service: 07/02/22 Time of Service: 16:02 Assessment and Plan Assessment and plan (1) Acute exacerbation of chronic obstructive pulmonary disease: Assessment and plan: Cont sched Duonebs, prn albuterol. received ceftriaxone, solumedrol in the ED. increased sputum production, has been on augmentin which started yesterday. will place on zosyn, doubt mrsa infection so hold off on zosyn. continue oxygen, does not tolerate cpap at night so not using. - wears at home 2-3 liters (2) GERD (gastroesophageal reflux disease): Status: Chronic Assessment and plan: Cont omeprazole. (3) Anxiety: Status: Chronic Assessment and plan: Cont citalopram and BID prn Clonazepam (4) DVT prophylaxis: Status: Deleted Assessment and plan: TEDS, enoxaparin (5) Discharge planning issues: Status: Deleted Assessment and plan: case management following anticipate home when medically stable. discussed with Dr. Coleman Subjective Subjective Patient reports: no new complaints, shortness of breath and afebrile Exam Const General: cooperative and acute distress mild, moderate and respiratory Nutritional Appearance: cachectic Orientation: alert, awake and oriented x3 HENMT Head: normal to inspection, normocephalic and atraumatic Mouth: moist mucous membranes abnormal (slightly dry, no exudate) Chest Chest: normal inspection of the chest Resp Effort & Inspection: not able to speak in complete sentences, no audible wheezes, pursed lip breathing (with activity), respiratory distress (with activity) and tachypneic Auscultation: diminished lung sounds, no rales, no rhonchi and no wheezes Cardio Rate: regular rate Rhythm: regular rhythm GI Inspection: normal to inspection and scaphoid Palpation: no masses Neuro General: patient alert, patient awake and patient oriented x3 Extrem General: full ROM, no pedal edema and muscle atrophy Objective Last Vital Signs Temp 36.3 C L 07/02/22 15:17 Pulse 86 07/02/22 15:54 Resp 20 07/02/22 15:54 BP 153/84 H 07/02/22 15:17 Pulse Ox 90 L 07/02/22 15:54 Laboratory Results - last 24 hr 07/01/22 07/01/22 07/01/22 15:20 15:34 15:34 WBC RBC Hgb Hct MCV MCH MCHC RDW Plt Count MPV Immature Gran % Neutrophils % Lymphocytes % Monocytes % Eosinophils % Basophils % Nucleated RBC % Absolute Neutrophils Absolute Lymphocytes Absolute Monocytes Absolute Eosinophils Absolute Basophils VBG pH 7.37 VBG pCO2 60 H VBG pO2 37 VBG HCO3 35 H VBG Total CO2 32 H VBG O2 Saturation 70 VBG Base Excess 9 H Sodium 133 L Potassium 3.5 Chloride 93 L Carbon Dioxide 34.7 H Anion Gap 5.3 BUN 12 Creatinine 0.7 Est GFR (CKD-EPI 2020) 91.83 Glucose 117 H Calcium 8.8 Magnesium 1.7 L Total Bilirubin 0.2 AST 21 ALT 25 Alkaline Phosphatase 65 Troponin I < 50 NT-Pro-B Natriuret Pep 175 Total Protein 7.1 Albumin 3.2 L Procalcitonin Urine Color Urine Clarity Urine pH Ur Specific [place] Urine Protein Urine Ketones Urine Blood Urine Nitrite Urine Bilirubin Urine Urobilinogen Ur Leukocyte Esterase Urine Glucose SARS-CoV-2 (PCR) Negative 07/01/22 07/01/22 07/01/22 15:34 15:34 18:19 WBC 5.12 RBC 3.77 L Hgb 11.4 Hct 35.7 L MCV 95 MCH 30.2 MCHC 31.9 L RDW 13.9 Plt Count 181 MPV 10.3 Immature Gran % 0.2 Neutrophils % 65.6 Lymphocytes % 15.2 Monocytes % 13.9 Eosinophils % 4.3 Basophils % 0.8 Nucleated RBC % 0.0 Absolute Neutrophils 3.36 Absolute Lymphocytes 0.78 L Absolute Monocytes 0.71 Absolute Eosinophils 0.22 Absolute Basophils 0.04 VBG pH VBG pCO2 VBG pO2 VBG HCO3 VBG Total CO2 VBG O2 Saturation VBG Base Excess Sodium Potassium Chloride Carbon Dioxide Anion Gap BUN Creatinine Est GFR (CKD-EPI 2020) Glucose Calcium Magnesium Total Bilirubin AST ALT Alkaline Phosphatase Troponin I < 50 NT-Pro-B Natriuret Pep Total Protein Albumin Procalcitonin < 0.1 Urine Color Urine Clarity Urine pH Ur Specific [place] Urine Protein Urine Ketones Urine Blood Urine Nitrite Urine Bilirubin Urine Urobilinogen Ur Leukocyte Esterase Urine Glucose SARS-CoV-2 (PCR) 07/01/22 07/01/22 07/02/22 18:19 21:30 06:38 WBC 3.92 L RBC 3.72 L Hgb 11.3 Hct 34.7 L MCV 93 MCH 30.4 MCHC 32.6 RDW 13.8 Plt Count 181 MPV 10.0 Immature Gran % 0.3 Neutrophils % 88.8 Lymphocytes % 9.4 Monocytes % 1.5 Eosinophils % 0.0 Basophils % 0.0 Nucleated RBC % 0.0 Absolute Neutrophils 3.48 Absolute Lymphocytes 0.37 L Absolute Monocytes 0.06 L Absolute Eosinophils 0.00 Absolute Basophils 0.00 VBG pH VBG pCO2 VBG pO2 VBG HCO3 VBG Total CO2 VBG O2 Saturation VBG Base Excess Sodium 133 L Potassium 3.8 Chloride 94 L Carbon Dioxide 34.3 H Anion Gap 4.7 BUN 11 Creatinine 0.6 Est GFR (CKD-EPI 2020) 95.31 Glucose 119 H Calcium 8.9 Magnesium Total Bilirubin AST ALT Alkaline Phosphatase Troponin I NT-Pro-B Natriuret Pep Total Protein Albumin Procalcitonin Urine Color Yellow Urine Clarity Clear Urine pH 7.0 Ur Specific [place] 1.015 Urine Protein Negative Urine Ketones 40 H Urine Blood Negative Urine Nitrite Negative Urine Bilirubin Negative Urine Urobilinogen 0.2 Ur Leukocyte Esterase Negative Urine Glucose Negative SARS-CoV-2 (PCR)
[2022-07-02] MEDS: MORPHine 10 MG/ML VIAL 2 MG IVP (19:16)
[2022-07-02] MEDS: Simvastatin 20 MG TAB 10 MG PO (19:38)
[2022-07-02] MEDS: Diclofenac 1% Gel 100 GM TUBE TP (20:19)
[2022-07-02] MEDS: diphenhydrAMINE 25 MG CAP 50 MG PO (22:25)
[2022-07-03] VITALS (8 sets, daily range): BP systolic 130–146; BP diastolic 71–78; PULSE 64–86; RESP 4–22; TEMP 36.5–37.3; O2SAT 91–99
[2022-07-03] MEDS: PIPERACILLIN/TAZO 3.375 GM in Normal Saline 50 ML IVPB ×4 (01:53→20:22)
[2022-07-03] MEDS: Normal Saline Flush 10 ML SYR IVP ×8 (01:54→21:36)
[2022-07-03] MEDS: methylPREDNISolone SUCC 125 MG VIAL 60 MG IVP ×3 (06:47→21:35)
[2022-07-03] MEDS: Omeprazole 20 MG CAPCR 40 MG PO (06:47)
[2022-07-03] MEDS: Albuterol 2.5 MG/3 ML INH SOLN VIAL UPD (06:59)
--- NOTE | 2022-07-03 08:08 | PCNE_ITS ---
Date of service: 07/03/22 Time of Service: 08:08 History of Present Illness History of Present Illness Chief Complaint: Shortness of breath, hypoxia Narrative: Nathalia is a 72-year-old woman with end-stage COPD. She is followed by pulmonology and multiple avenues have been recommended and pursued. At this time she is on medical management. She has had 2 hospitalizations recently. I have seen her in the office last week. She was doing well at the time of the appointment and 2 to 3 days later she was having more secretions and shortness of breath. She was prescribed antibiotics, her condition worsened and she went to the emergency room. She has a wonderful caregiver, significant other named Dc who takes very good care of her. I had told him the last office visit that they needed to go to the emergency room sooner rather than hold out and see if she improves. She was admitted for care. During our last clinic visit I did propose hospice. Nathalia was not in favor of it. Today Nathalia says she just wants to stay home. She understands that she is not going to get better and that her days are limited. She is interested in consideration of hospice Consults Consult date: 07/03/22 Requesting physician: Neelam Coleman Assessment and Plan Assessment and plan (1) VARGAS (dyspnea on exertion): Status: Acute (2) Rib pain on right side: Status: Acute (3) Acute exacerbation of chronic obstructive pulmonary disease: Status: Acute (4) Palliative care encounter: Status: Acute Assessment and plan: I met with Nathalia both in the morning and then in the evening when Dc was here. Their plan is to get a intercom system so that when Dc is working and Nathalia needs help that he can be quickly notified. Nathalia wants to go home and stay home. She understands that hospice carries the prognosis of 6 months or less to live. Her biggest wish is to be comfortable. She does not want to be dyspneic. She does not want to be uncomfortable. She does not want pain. She understands that this may require a morphine drip. She has received morphine twice today and both times it helps with her dyspnea. We talked about the benefits of hospice. She would want a hospice consult so that they can discuss hospice care. She understands that in general she would call the hospice nurse not come back to the hospital. COLST form has already been completed and she is a DNR/DNI. I have transmitted this information to Dr. Coleman. Review of Systems Narrative: Shortness of breath, no chest pain, understands that her days are limited PFSH All Active Problems (Updated 07/04/22 @ 07:59 by Kaycee Meyer MD, [place]) Palliative care encounter (Acute) VARGAS (dyspnea on exertion) (Acute) Rib pain on right side (Acute) Acute exacerbation of chronic obstructive pulmonary disease (Acute) Pulmonary nodule (Acute) Encounter for screening for COVID-19 (Acute) Ear congestion (Acute) Underweight (Acute) Chronic respiratory failure with hypoxia (Acute) GERD (gastroesophageal reflux disease) (Chronic) Tremor (Acute) Chest pain (Acute) Compression fracture of T5 vertebra (Acute) Acute right-sided thoracic back pain (Acute) Tubular adenoma of colon (Acute 10/12/16) Anxiety (Chronic 01/04/16) Acute gastric ulcer due to Helicobacter pylori (Acute 12/06/15) EGD, Dr Mcfarlane. positive SHARON test (treated) (also esophagitis) Hypogammaglobulinemia (Acute) [facility] Hemato.: negative workup/ Lung nodule (Acute 07/09/15) [facility]; [address] : stable/repeat yearly Hypoxemia (Chronic 11/28/14) Depression (Chronic) Hyperlipidemia (Chronic) Low back pain (Chronic) Osteoarthritis (Chronic) Osteopenia (Chronic) COPD (chronic obstructive pulmonary disease) (Chronic) Medical History Acute exacerbation of chronic obstructive pulmonary disease (11/28/14) Chronic obstructive airway disease Oxygen dependent Hyperlipidemia Low back pain Osteoarthritis Osteopenia Pneumonia (11/28/14) Renal cyst Smoker Tobacco abuse Surgical History Appendectomy Colonoscopy - MAC (10/10/16) Ligation of fallopian tube BSO NECK SURGERY Open Carpal Tunnel release X 2 RIB RESECTION Family History Mother Diabetes Essential hypertension Hyperlipidemia Stroke Asthma Brother , 58 Essential hypertension Neoplasm Throat Chronic obstructive lung disease Asthma Maternal Grandmother , 93 Chronic obstructive lung disease Asthma Father , 97 No problems noted. Sister No problems noted. Sister No problems noted. Brother No problems noted. Son , age 32 - Drown No problems noted. Maternal Grandfather , age 91 No problems noted. Paternal Grandfather No problems noted. Paternal Grandmother No problems noted. Social History Smoking/Tobacco Use Status: Former Tobacco Use tobacco type: cigarettes Quit Date: 12/29/18 Tobacco: How many years used: 53 Second Hand Exposure: Yes Smoking risk assessment performed?: Yes Alcohol Intake: former Drug use: Never Substance use type: does not use Caregiver/Support person: No Household members: spouse Housing: house Communication Needs: None Do you need help understanding health information?: Rarely Pets and animals: Yes Pets and animals: cat(s) Sexually active: No Do you think of yourself as: straight/heterosexual Current gender identity: female What is your relationship status?: Panel score (0-1 are the most socially isolated patients): 1 What type of physical activity do you participate in: none Fay/Yazidism: Congregational Seatbelt use: always Drive intox or ride w/intox automobile drivers: No Do you feel safe at home: Yes Do you feel safe in your relationship?: Yes Additional Social history: previous exposure to cleaning supplies History History Para 1 Hx # Term Pregnancies Multiple births Hx # Pregnancies Ectopic pregnancies AB induced Hx Number of Living Children AB spontaneous Exam Narrative Exam Narrative: As is Nathalia's habit, she cooperates completely with the exam. She is always smiling. She feels strongly that her days are limited and wants to spend them at home. There is very little air movement. I did not hear any wheezing probably because of lack of air movement. Her heart was regular. Results Last Vital Signs Temp 97.7 F 07/03/22 07:24 Pulse 64 07/03/22 07:24 Resp 22 07/03/22 07:24 BP 140/78 07/03/22 07:24 Pulse Ox 94 07/03/22 07:24 Labs Result diagrams: 07/02/22 06:38 07/01/22 18:19 Imaging Chest x-ray: report reviewed
[2022-07-03] MEDS: guaiFENesin 600 MG TABCR PO ×2 (08:17→20:22)
[2022-07-03] MEDS: Ascorbic Acid 500 MG TAB PO (08:17)
[2022-07-03] MEDS: Cholecalciferol (Vitamin D3) 1,000 UNIT TAB 2000 UNITS PO (08:17)
[2022-07-03] MEDS: Calcium 600mg/Vit D 200U TAB 1 TAB PO (08:17)
[2022-07-03] MEDS: Citalopram 20 MG TAB PO (08:17)
[2022-07-03] MEDS: Fluticasone NASAL SPRAY 16 GM BTL NS (08:21)
[2022-07-03] MEDS: clonazePAM 0.5 MG TAB PO ×2 (08:21→20:22)
[2022-07-03] MEDS: Albuterol/Ipratropium 3 ML UPD VIAL IH ×4 (08:56→20:20)
[2022-07-03] MEDS: Mometasone 220 MCG 14 DOSE INHALER IH ×2 (08:57→20:22)
[2022-07-03] MEDS: Tiotropium/Olodaterol 10 PUFF INHALER 2 PUFF IH (08:57)
[2022-07-03] MEDS: LORazepam 2 MG/ML VIAL 0.5 MG IVP (09:27)
--- NOTE | 2022-07-03 12:17 | W.PM.PROGNOT ---
Date of Service Date of service: 07/03/22 Time of Service: 12:17 Assessment and Plan Assessment and plan (1) Acute exacerbation of chronic obstructive pulmonary disease: Assessment and plan: slow to recover. palliative care consult placed. Cont sched Duonebs, prn albuterol. continue zosyn day 3 and IV solumedrol for now. continue oxygen, wears O2 at home 2-3 liters does not tolerate cpap at night so not using. (2) GERD (gastroesophageal reflux disease): Status: Chronic Assessment and plan: Cont omeprazole. (3) Anxiety: Status: Chronic Assessment and plan: Cont citalopram and BID prn Clonazepam (4) DVT prophylaxis: Status: Deleted Assessment and plan: TEDS, enoxaparin (5) Discharge planning issues: Status: Deleted Assessment and plan: case management following anticipate home when medically stable, likely on hospice palliative care consulted discussed with Dr. Coleman Subjective Subjective Patient reports: tolerating liquids well, voiding w/o difficulty, bowel movement, shortness of breath (still not at baseline with moderate to severe sob with activity) and afebrile Exam Const General: cooperative and acute distress mild, moderate and respiratory Nutritional Appearance: cachectic Orientation: alert, awake and oriented x3 HENMT Head: normal to inspection, normocephalic and atraumatic Mouth: moist mucous membranes abnormal (slightly dry, no exudate) Chest Chest: normal inspection of the chest Resp Effort & Inspection: not able to speak in complete sentences, no audible wheezes, pursed lip breathing (with activity), respiratory distress (with activity) and tachypneic Auscultation: diminished lung sounds, no rales, no rhonchi and no wheezes Cardio Rate: regular rate Rhythm: regular rhythm GI Inspection: normal to inspection and scaphoid Palpation: no masses Neuro General: patient alert, patient awake and patient oriented x3 Extrem General: full ROM, no pedal edema and muscle atrophy Objective Last Vital Signs Temp 36.5 C 07/03/22 07:24 Pulse 86 07/03/22 12:14 Resp 18 07/03/22 12:14 BP 140/78 07/03/22 07:24 Pulse Ox 95 07/03/22 12:14
[2022-07-03] MEDS: MORPHine 2 MG/ML SYR IVP (12:53)
--- NOTE | 2022-07-03 13:10 | PT.INTREAT ---
Date of service: 07/03/22 Time of Service: 12:50 PT Notes Visit Reasons: COPD Exacerbation Inpatient Physical Therapy Treatment Note [facility] Date: July 03, 2022 PRECAUTIONS:Standard SUBJECTIVE: Nathalia notes that she remains very tired however does feel that her breathing is doing a bit better. Her sats are staying in the low 90's today. She has been utilizing the commode for can not make it to the toilet without desaturating too much. OBJECTIVE: PAIN: Reduced pain in her mid back. Just received medication prior to PT treatment BED MOBILITY/TRANSFERS Rolling L/R: Independent Supine-sit: Independent Sit-supine: Independent Sit-stand: Supervision Stand-sit: Independent GAIT Assistive Device: FWW Weight bearing: Full Assist: CGA Distance: Bedside marching due to continued SOB VITALS: 02 saturation at rest 94% on 2.5 liters via nasal canula, post therex desaturated to 84%. Recovery to low 90's within ~1 minute rest THEREX: Completed open chain ROM and strength SLR x10 reps LAQ x10 reps Seated hip flexion x10 reps Hip adduction isometric x10 reps Hip abduction isometric x10 reps Ankle pumps x20 reps Elbow flexion x10 reps Shoulder flexion to 90 degrees x10 reps Scapular squeezes x10 reps ASSESSMENT: Nathalia continues to be very SOB with low O2 saturation level with any exertion. Reduced pain in her mid/low back noted. Improved independence with her transfers. PLAN: Cont with POC within patient allowance TREATMENT CODE/TIME: 12:50-11:15 [id number], [id number] 25 minutes Delia Kohli, ROSALINE
--- NOTE | 2022-07-03 16:31 | CMPROGNOTE_ITS ---
- If Service Date Differs Date of service: 07/03/22 Time of Service: 16:31 Care Management Progress Note S/O: Nathalia was sitting up in bed when CM met with her. She was very pleasant and engaged in conversation. She stated that she is preparing herself for the talk that will happen tonmichael with Dr. Meyer, Palliative care, about whether she should transition to hospice care. She shared stories about her life and said that she is at peace with dying, as she knows that she will see her son again after she passes. She expressed her gratitude for the conversation, stating that she doesn't have a lot of visitors. She stated that her is working, and she is hoping that he can make it this evening to meet with Palliative care. Her grandson, whom she is very close with, has only just recently understood that Nathalia's health is declining, because she didn't want to worry him. CM discussed Hospice with her, as there are many benefits including equipment and access to a provider 23/04. She stated that she feels that it is probably time, but that she is strong willed and will make the decision when the time is right. CM will continue to follow. A: Nathalia is a 72 year old female admitted to [facility] on 07/01/22 with COPD exacerbation. P: Nathalia is meeting with Palliative care [place] to discuss her discharge plan, specifically regarding her returning home on Hospice vs home with HH support. Her will drive her home when medically ready. She will follow up with palliative/hospice and her discharge plan of care. CM will continue to support Nathalia with discharge planning needs.
[2022-07-03] MEDS: Simvastatin 20 MG TAB 10 MG PO (20:21)
[2022-07-03] MEDS: diphenhydrAMINE 25 MG CAP 50 MG PO (21:36)
[2022-07-04 00:23] VITALS: BP 129/77; PULSE 72; RESP 16; TEMP 36.4; O2SAT 95
[2022-07-04] MEDS: PIPERACILLIN/TAZO 3.375 GM in Normal Saline 50 ML IVPB ×4 (02:11→19:30)
[2022-07-04] MEDS: methylPREDNISolone SUCC 125 MG VIAL 60 MG IVP ×2 (06:10→14:00)
[2022-07-04] MEDS: Normal Saline Flush 10 ML SYR IVP ×5 (06:13→19:32)
[2022-07-04 08:13] VITALS: BP 157/77; PULSE 84; RESP 20; TEMP 36.3; O2SAT 89
[2022-07-04] MEDS: Ascorbic Acid 500 MG TAB PO (08:21)
[2022-07-04] MEDS: Omeprazole 20 MG CAPCR 40 MG PO (08:21)
[2022-07-04] MEDS: guaiFENesin 600 MG TABCR PO ×2 (08:21→19:30)
[2022-07-04] MEDS: Calcium 600mg/Vit D 200U TAB 1 TAB PO (08:21)
[2022-07-04] MEDS: Citalopram 20 MG TAB PO (08:21)
[2022-07-04] MEDS: Cholecalciferol (Vitamin D3) 1,000 UNIT TAB 2000 UNITS PO (08:21)
[2022-07-04 08:22] VITALS: RESP 4
[2022-07-04] MEDS: Albuterol/Ipratropium 3 ML UPD VIAL IH ×4 (08:22→21:40)
[2022-07-04] MEDS: Tiotropium/Olodaterol 10 PUFF INHALER 2 PUFF IH (09:32)
[2022-07-04] MEDS: Mometasone 220 MCG 14 DOSE INHALER IH ×2 (09:33→19:30)
[2022-07-04] MEDS: MORPHine 2 MG/ML SYR IVP (10:15)
[2022-07-04] MEDS: Fluticasone NASAL SPRAY 16 GM BTL NS (10:28)
--- NOTE | 2022-07-04 10:47 | PGE_ITS ---
Date of Service Date of service: 07/04/22 Time of Service: 10:47 Assessment and Plan Assessment and plan (1) Acute exacerbation of chronic obstructive pulmonary disease: Status: Acute Assessment and plan: Nathalia met with Dr Betsy vasquez and has decided she wants comfort measures only and is going home with home hospice. We will cont sched Duonebs, AC/HS and prn albuterol. continue zosyn day 4 and change IV solumedrol to PO prednisone continue oxygen, wears O2 at home 2-3 liters declines CPAP (2) GERD (gastroesophageal reflux disease): Status: Chronic Assessment and plan: Cont omeprazole. She has no complaints today of any GI symptoms, she is eating and drinking well. She states she can eat better if nebulizers are delivered prior to meals - she was not able to eat breakfast until after 915 am today. I changed the QID order for duonebs to AC/HS so she can receive those prior to meals and sleep. She did have a duo neb treatment at 11:15 am and was able to eat lunch on time and without loosing her breath more than usual. (3) Anxiety: Status: Chronic Assessment and plan: Cont citalopram and BID prn Clonazepam She has no new complaints, she states that she is not more anxious after having decided to go home on hospice, than before that decision. (4) COPD (chronic obstructive pulmonary disease): Status: Chronic Qualifiers: COPD type: emphysema Emphysema type: centrilobular Qualified Code(s): J43.2 - Centrilobular emphysema (5) Discharge planning issues: Status: Acute Assessment and plan: Home with home hospice - has that cares for her. She has declined enoxaparin and lab work; does allow morphine and other oral medicaitons. Subjective Subjective Patient reports: no new complaints, tolerating a regular diet, voiding w/o difficulty, shortness of breath (unchanged from baseline - unable to eat until she has her nebs) and afebrile; denies diarrhea or vomiting Interval history since last seen: Nathalia has a headache today. She requested tylenol. She refused enoxaparin today. 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 Exam Narrative Exam Narrative: Nathalia is sitting on the side of the bed, oxygen on, dyspnea at rest - baseline. SPO2 ~88%; able to speak in short sentences. Audible expiratory wheeze. Const General: cooperative and acute distress mild, moderate and respiratory Nutritional Appearance: cachectic Orientation: alert, awake and oriented x3 HENMT Head: normal to inspection, normocephalic and atraumatic Mouth: moist mucous membranes abnormal (slightly dry, no exudate) Chest Chest: normal inspection of the chest Resp Effort & Inspection: not able to speak in complete sentences, audible wheezes (expiratory - with normal breathing), respiratory distress (with activity), t achypneic and prolonged expiratory phase Auscultation: diminished lung sounds, no rales, no rhonchi and wheezes expiratory wheezes (through out) Cardio Rate: regular rate Rhythm: regular rhythm GI Inspection: normal to inspection and scaphoid Palpation: no masses Neuro General: patient alert, patient awake and patient oriented x3 Extrem General: full ROM, no pedal edema and muscle atrophy Objective Last Vital Signs Temp 36.3 C L 07/04/22 08:13 Pulse 84 07/04/22 08:13 Resp 20 07/04/22 08:13 BP 157/77 H 07/04/22 08:13 Pulse Ox 89 L 07/04/22 08:13 Reviewed Pertinent PMH: Yes
[2022-07-04] MEDS: Acetaminophen 325 MG TAB 650 MG PO (11:26)
[2022-07-04 11:29] VITALS: RESP 4
--- NOTE | 2022-07-04 14:39 | PT.INNT ---
Date of service: 07/04/22 Time of Service: 14:40 PT Notes Visit Reasons: COPD Exacerbation 07/04/2022 Patient made the decision to start comfort measures, however, she would like to continue to receive PT services, as often as she is able to tolerate it. Today, she declined to participate in both a.m. and p.m. However, she requests that we check in with her tomorrow. Will attempt to resume PT services tomorrow morning.
[2022-07-04 17:32] VITALS: PULSE 94; RESP 20; RESP 4; O2SAT 89
--- NOTE | 2022-07-04 17:47 | CHAPLAIN ---
Nathalia and I remembered each other from previous admissions. According to Dr. Meyer's notes, she and Nathalia spoke about hospice care and Nathalia is interested in that as she wants to stay home and is aware that her prognosis is six months or less. Nathalia told me at the end of our conversation that she is likely going home on hospice. I suggested she request a visit from the paid search marketing analyst, Elissa Marks. Nathalia told me about her [place]. Her 97 year old dad recently and her mom is nearing the end of her life at 92. Nathalia speaks to her by phone. She did not feel up to visiting her this summer. Nathalia first young, (40s or 50s) she also had a son that survived only a few days and a son who after going through the ice, pulling [employer], when he was 32. She is in touch with a brother who lives in [place]. Another brother recently. She is not in touch with her two sisters, and doesn't want to be. She acknowledges all the difficulties in her life, but said she believes God is in charge, although she said it's unfair that he son and so young, and that doesn't make sense to. Experiencing the of her put things into perspective for her she explained, as now she is aware that things are just things, and they don't matter that much. I will continue to visit.
[2022-07-04] MEDS: clonazePAM 0.5 MG TAB PO (17:56)
--- NOTE | 2022-07-04 18:55 | CMPROGNOTE_ITS ---
- If Service Date Differs Date of service: 07/04/22 Time of Service: 18:55 Care Management Progress Note S/O: Nathalia was sitting up in bed when CM met with her. She was very pleasant and engaged easily with CM in conversation. Nathalia informed CM that she has known this time was coming but just did not expect it so soon. She noted wryly But then I guess no one ever does. After the Palliative consult last evening, Nathalia made the decision to go home on hospice. She will have a hospice consult this afternoon and likely discharge home tomorrow and be admitted to hospice on . After the consult, CM spoke with Rita, the hospice nurse, who noted that the visit went really well and that Nathalia was very excited about having hospice support. Her Freddy was also present for the consult and in agreement with the plan. A: Nathalia is a 72 year old female admitted to [facility] on 07/01/22 with COPD exacerbation. P: Nathalia will likely be discharged home tomorrow and be admitted to hospice the following day. She will follow up with the hospice team and pursue her goal of comfort focused care. Her will drive her home via private vehicle. CM will continue to support Nathalia with discharge planning needs.
[2022-07-04] MEDS: Simvastatin 10 MG TAB PO (21:39)
[2022-07-04] MEDS: diphenhydrAMINE 25 MG CAP 50 MG PO (21:40)
[2022-07-04 23:01] VITALS: BP 145/76; PULSE 83; RESP 19; TEMP 36.6; O2SAT 95
[2022-07-05] MEDS: Normal Saline Flush 10 ML SYR IVP ×3 (02:33→09:28)
[2022-07-05] MEDS: PIPERACILLIN/TAZO 3.375 GM in Normal Saline 50 ML IVPB ×2 (02:34→08:13)
[2022-07-05 07:41] VITALS: BP 149/87; PULSE 72; RESP 18; TEMP 37; O2SAT 97
[2022-07-05 08:05] VITALS: PULSE 73; RESP 20; RESP 4; RESP 8; O2SAT 93
[2022-07-05] MEDS: Albuterol/Ipratropium 3 ML UPD VIAL IH ×2 (08:05→11:59)
[2022-07-05] MEDS: Mometasone 220 MCG 14 DOSE INHALER IH (08:10)
[2022-07-05] MEDS: Tiotropium/Olodaterol 10 PUFF INHALER 2 PUFF IH (08:21)
[2022-07-05 08:22] VITALS: PULSE 82; RESP 24; RESP 4; O2SAT 95
[2022-07-05] MEDS: Calcium 600mg/Vit D 200U TAB 1 TAB PO (08:43)
[2022-07-05] MEDS: Omeprazole 20 MG CAPCR 40 MG PO (08:43)
[2022-07-05] MEDS: Ascorbic Acid 500 MG TAB PO (08:43)
[2022-07-05] MEDS: Citalopram 20 MG TAB PO (08:43)
[2022-07-05] MEDS: predniSONE 20 MG TAB 40 MG PO (08:43)
[2022-07-05] MEDS: guaiFENesin 600 MG TABCR PO (08:43)
[2022-07-05] MEDS: Cholecalciferol (Vitamin D3) 1,000 UNIT TAB 2000 UNITS PO (08:44)
[2022-07-05] MEDS: Fluticasone NASAL SPRAY 16 GM BTL NS (08:49)
[2022-07-05] MEDS: MORPHine 2 MG/ML SYR IVP (09:28)
[2022-07-05 10:19] VITALS: O2SAT 92
[2022-07-05 11:59] VITALS: PULSE 76; RESP 20; RESP 4; RESP 8; O2SAT 90
[2022-07-05 12:09] VITALS: PULSE 90; RESP 24; RESP 4; O2SAT 93
--- NOTE | 2022-07-05 12:37 | PT.INDS ---
PT Notes Visit Reasons: COPD Exacerbation Inpatient Physical Therapy Discharge Summary Treatment Dates: 07/02/22 - 07/04/22 Referring Doctor: Alona Kinney PT Orders: PT CONSULT This document serves as a summary of care. No PT services were provided on this date. Patient Profile/Admitting Diagnosis: Nathalia is a 72 year old female admitted 07/01/22 acute exacerbation of chronic obstructive pulmonary disease, VARGAS (dyspnea on exertion). She participated in 2 PT sessions and demonstrated independent mobility, although with continued limitations in activity tolerance and oxygen saturation. She transitioned to comfort measures only on 07/04/22, with planned discharge to hospice care. Appropriate for discharge from PT services at this time. Social History/Home Situation: Nathalia lives with her in a private home. She does not utilize an assistive device at baseline however her is putting together a rollator to assist her around her home with ambulation. Does utilize oxygen at home at all times. She reports I in basic ADL's. Her does assist her into and out of shower. Current Functional Limitations: Decreased activity tolerance due to SOB Equipment Owned/DME: Rollator Subjective: none obtained ROM: Right Upper Extremity: Shoulder Flexion WFL. Shoulder abduction WFL. Shoulder ER/IR WFL. Elbow flexion WFL. Forearm pronation/supination WFL. Wrist flexion WFL. Opening and closing of hand WFL. Left Upper Extremity: Shoulder Flexion WFL. Shoulder abduction WFL. Shoulder ER/IR WFL. Elbow flexion WFL. Forearm pronation/supination WFL. Wrist flexion WFL. Opening and closing of hand WFL. Right Lower Extremity: Hip flexion WFL. Hip abduction WFL. Hip ER/IR WFL. Knee flexion WFL. Knee extension. Ankle dorsiflexion/eversion WFL. Ankle plantarflexion/inversion WFL. Left Lower Extremity: Hip flexion WFL. Hip abduction WFL. Hip ER/IR WFL. Knee flexion WFL. Knee extension. Ankle dorsiflexion WFL. Ankle plantarflexion WFL. Strength: Right Upper Extremity: Shoulder flexors 4-/5. Shoulder abductors 4-/5. Elbow flexors 4-/5. Elbow extensors 4-/5. Wire Stitcher Machine strong. Left Upper Extremity: Shoulder flexors 4-/5. Shoulder abductors 4-/5. Elbow flexors 4-/5. Elbow extensors 4-/5. Wire Stitcher Machine strong. Right Lower Extremity: Hip flexors 4-/5. Hip abductors 4-/5. Knee flexors 4-/5. Knee extensors 4-/5. Ankle dorsiflexors/evertors 4-/5. Ankle plantarflexors/invertors 4-/5. Left Lower Extremity: Hip flexors 4-/5. Hip abductors 4-/5. Knee flexors 4-/5. Knee extensors 4-/5. Ankle dorsiflexors/evertors 4-/5. Ankle plantarflexors/invertors 4-/5. BED MOBILITY/TRANSFERS ? Rolling L/R: Independent Supine-sit: Independent? Sit-supine: Independent ? Sit-stand: Supervision? Stand-sit: Independent? GAIT? Assistive Device: FWW? Weight bearing: Full Assist: CGA? Distance:? Bedside marching due to continued SOB ?? Balance: Static Sitting: Normal Dynamic Sitting: Normal Static Standing: Fair Dynamic Standing: Fair Assessment: Nathalia participated in 2 PT sessions and demonstrated independent mobility, although with continued limitations in activity tolerance and oxygen saturation. She transitioned to comfort measures only on 07/04/22, with planned discharge to hospice care. Appropriate for discharge from PT services at this time. Goals: Goals X1 week 1. Supine-Sit independent (MET) 2. Sit-Supine independent (MET) 3. Sit-Stand independent (MET) 4. Stand-Sit independent (MET) 5. Bed-Chair independent (MET) 6. Chair-Bed independent (MET) 7. Independent gait on level surface with use of front wheel walker for at least 200 feet without report of pain nor dyspnea (NOT MET) 8. Independent stair negotiation while holding onto B rails for at least 5 steps without report of pain nor dyspnea (NOT MET) 9. Independent with home exercise program (NOT MET) 10. Good static and dynamic standing balance/tolerance (NOT MET) Plan of Care/Treatment Plan: D/C from PT services. DISCHARGE RECOMMENDATIONS: Home once medically cleared TREATMENT CODE/TIME: none Thank you for the opportunity to participate in the care of this patient. Pat Espino, PT, DPT [facility]
[2022-07-05] MEDS: Diclofenac 1% Gel 100 GM TUBE TP (12:58)
[2022-07-05] MEDS: clonazePAM 0.5 MG TAB PO (12:58)
--- NOTE | 2022-07-05 14:05 | W.PM.DS.N ---
Date of service: 07/05/22 Time of Service: 14:06 DS: Diagnosis Discharge Diagnosis (1) Acute exacerbation of chronic obstructive pulmonary disease: Status: Acute Asessment and Plan: End stage COPD, going home on hospice (2) GERD (gastroesophageal reflux disease): Status: Chronic Asessment and Plan: Stable on Omeprazole (3) Anxiety: Status: Chronic Asessment and Plan: Stable on lorazepam, she does describe some increased anxiety, she has chosen to go home on hospice. Discharge Plan Disposition Patient Disposition: HOSPICE, HOME Condition: Stable Discharge Details Reason For Visit: COPD Exacerbation Admit Date/Time: 07/01/22 17:18 Admit Provider: Neelam Coleman Attending Provider: Neelam Coleman Primary Care Provider: Kaycee Meyer Hospital Course Hospital Course: This is?a 72 year old female patient that has a past medical history of chronic obstructive airway disease, quite advanced, hyperlipidemia and cigarette smoking presented to the [facility] emergency department with several days of worsening difficulty breathing.?She was started on Augmentin. She states she has not been around any one with similar symptoms.? She complained of a subjective low grade fever.? She reported she started to produce more sputum after starting the Augmentin and she felt her respiratory status seemed to be worsening despite using her inhalers and updrafts as ordered.? The emergency department work up was most consistent with acute exacerbation of COPD. She was admitted to the hospitalist services for IV antibiotics and steroids with further monitoring and management.?She uses oxygen 100% of the time - 2-3L oxygen NC nightly.? She does not like to wear her CPAP and she states she refuses to ever wear it again.? She is on? 2-3 LPM of oxygen which is her baseline.?? She met with Dr Meyer and discussed Palliative/Hospice care.? She chose to go home with home hospice.? She is doing quite well, awake and alert. She states her family will take good care of her.? She feels she has all the equipment necessary to help him care for her at home.? She does report some anxiety, states it is controlled and not worse than usual. Care mgt did contact Hospice and a referral was made by [facility].? Nathalia is excited about going home and being with family. ?A COLST was updated to reflect her standing on the current situation. ?She was discharged to home with family stable.? Hospice admission to happen 07/06/2022. discussed with Dr Coleman Home Meds and New Rx's Prescriptions: New guaifenesin [Mucus Relief ER] 600 mg Tablet Extended Release 12hr 600 mg PO BID Qty: 0 0RF prednisone 20 mg tablet 10 mg PO DAILY Qty: 30 0RF Rx Instructions: 40 mg x 3d, 30 mg x 3d, 20 mg x 3d, then 10 mg daily Continued fluticasone propionate [Flovent HFA] 220 mcg/actuation HFA aerosol inhaler 2 puff inhalation BID Qty: 12 4RF cholecalciferol (vitamin D3) 2,000 unit capsule 2,000 unit PO DAILY diclofenac sodium 1 % gel 100 g topical QID Qty: 100 2RF Stiolto Respimat 2.5-2.5 mcg/actuation mist 2 puff inhalation DAILY Qty: 12 4RF diphenhydramine HCl [Allergy (diphenhydramine)] 25 mg tablet 50 mg PO QHS omeprazole 40 mg capsule,delayed release(DR/EC) 40 mg PO DAILY Qty: 90 5RF citalopram 20 mg tablet 20 mg PO DAILY Qty: 90 4RF Rx Instructions: 1 Tab (20mg) daily clonazepam 0.5 mg tablet 0.25 mg PO BID Qty: 60 3RF Rx Instructions: take 0.5 tablet twice a day as needed for anxiety ascorbic acid (vitamin C) [Vitamin C] 500 MG tablet 500 mg PO DAILY calcium carbonate-vitamin D3 [Calcium 600 + D(3)] 1 EACH tablet 1 ea PO DAILY Oxygen EACH NS PRN Qty: 2 1RF Rx Instructions: oxygen 2-2.5 L/NC prn ([employer]) fluticasone propionate 50 mcg/actuation spray,suspension 1 - 2 spray NS DAILY Qty: 15.8 3RF Rx Instructions: 1 spray each nostril daily benzonatate [Tessalon Perles] 100 mg capsule 100 mg PO BID PRN (Reason: cough) Qty: 30 1RF albuterol sulfate [Ventolin HFA] 90 mcg/actuation HFA aerosol inhaler 1 - 2 puff IH QID PRN (Reason: bronchospasm) Qty: 3 6RF ipratropium-albuterol 0.5 mg-3 mg(2.5 mg base)/3 mL solution for nebulization 3 ml Inhalation 5X/DAY Qty: 450 12RF Rx Instructions: J44.9 simvastatin 10 mg tablet 10 mg PO HS Qty: 90 5RF Rx Instructions: 1 TAB HS polyethylene glycol 3350 17 gram Powder In Packet 17 g PO DAILY PRN PRN (Reason: Constipation) Qty: 14 0RF Discontinued prednisone 10 mg tablet See Rx Instructions PO DAILY Qty: 11 0RF Rx Instructions: 10mg daily for 7 days; 5mg daily for 7 days orally daily; amoxicillin-pot clavulanate 500-125 mg tablet 1 tab PO BID Qty: 14 0RF No Action acetaminophen 650 mg suppository 650 mg MD Q6H PRN (Reason: fever, mild pain) Qty: 6 0RF Rx Instructions: Hospice Patient hyoscyamine sulfate 0.125 mg tablet,disintegrating 0.125 - 0.25 mg PO Q4H PRN (Reason: secretions) Qty: 24 0RF Rx Instructions: Hospice Patient lorazepam 1 mg tablet 1 mg PO Q4H PRN (Reason: anxiety, VARGAS or nausea) Qty: 6 5RF Rx Instructions: Hospice Patient haloperidol lactate 2 mg/mL concentrate 1 mg PO Q6H PRN (Reason: agitation) Qty: 15 0RF Rx Instructions: Hospice Patient morphine concentrate 100 mg/5 mL (20 mg/mL) solution 5 - 20 mg PO Q1-4H MDD 5 mL PRN (Reason: moderate to severe pain or shortness of breath) Qty: 30 0RF Rx Instructions: Hospice Patient prochlorperazine maleate 10 mg tablet 10 mg PO Q6H PRN (Reason: nausea and vomiting) Qty: 6 0RF Rx Instructions: Hospice Patient bisacodyl [Dulcolax (bisacodyl)] 10 mg suppository 10 mg MD daily PRN (Reason: constipation) Qty: 2 0RF Rx Instructions: Hospice Patient Insert 1 supp MD Daily PRN constipation (no BM in 3 days) Discharge Instructions Instructions: Hospice Care (GEN), Using Oxygen at Home (DC), COPD (Chronic Obstructive Pulmonary Disease) (DC) Additional Instructions: Someone from [facility] will be in touch with you to make an appointment for them to come to your home and do your admission to their services. Stand Alone Forms: Nursing Discharge Form Referrals: Kaycee Meyer MD, [place] [Primary Care Provider] - 07/18/22 1:30 pm Activity:: Activity as Tolerated Equipment/Supplies:: Oxygen (L/min Below) Diet:: As Tolerated Discharge Orders Discharge Orders: Discharge Order (Routine); Ordered 07/05/22 Ordered By: Amita Felix Discharge Data Discharge Date/Time-TO BE ENTERED AT DEPARTURE: 07/05/22 15:41 DS: Summary Time Spent with Patient providing and/or coordinating discharge services: Greater than 30 minutes Status at Discharge Functional status at discharge: uses cane/walker Overall status at discharge: patient is not back to baseline Mental Status: mental status grossly normal Speech and Movement: speech and movement normal Mood: congruent mood Affect: normal affect Exam Narrative Exam Narrative: Nathalia is sitting upright on the side of the bed, oxygen on, dyspnea at rest - baseline. SPO2 continues to be ~88%; able to speak in short sentences. Audible expiratory wheeze. She continues to have dyspnea while eating. Const General: cooperative and acute distress mild, moderate and respiratory Nutritional Appearance: cachectic Orientation: alert, awake and oriented x3 HENMT Head: normal to inspection, normocephalic and atraumatic Mouth: moist mucous membranes abnormal (slightly dry, no exudate) Chest Chest: normal inspection of the chest Resp Effort & Inspection: not able to speak in complete sentences, audible wheezes (expiratory - with normal breathing), respiratory distress (with activity), tachypneic and prolonged expiratory phase Auscultation: diminished lung sounds, no rales, no rhonchi and wheezes expiratory wheezes (through out) Cardio Rate: regular rate Rhythm: regular rhythm GI Inspection: normal to inspection and scaphoid Palpation: no masses Neuro General: patient alert, patient awake and patient oriented x3 Extrem General: full ROM, no pedal edema and muscle atrophy Psych Mental Status: mental status grossly normal Speech and Movement: speech and movement normal Mood: congruent mood Affect: normal affect DS: Data Vitals/I&O Vitals and I&O: Vital Signs Temperature 37.0 C 07/05/22 07:41 Temperature Source Tympanic 07/05/22 07:41 Pulse 90 07/05/22 12:09 Pulse Rhythm Regular 07/04/22 07:15 Pulse 90 07/01/22 18:01 Respiratory Rate 24 07/05/22 12:09 Respiratory Effort Labored 07/04/22 07:15 Respiratory Depth Shallow 07/04/22 07:15 Respiratory Pattern Normal 07/04/22 07:15 Blood Pressure 149/87 H 07/05/22 07:41 Blood Pressure Mean 92 07/01/22 18:01 Pulse Oximetry 93 07/05/22 12:09 Oxygen Delivery Method Nasal Cannula 07/05/22 11:59 Oxygen Flow Rate 3 07/05/22 11:59 Pain Level 0 07/05/22 10:19 Comment 07/05/22 07:41 Intake & Output 07/04/22 07/05/22 07/05/22 23:59 11:59 23:59 Intake Total 420 / 520 470 / 470 Output Total 200 / 650 Balance 220 / -130 470 / 470 Intake: IV 100 / 200 120 / 120 Oral 320 / 320 350 / 350 Output: Urine 200 / 650 Other: Urine Color Yellow Pale Yellow Urine Appearance Clear Clear Clear Urine Odor None Comment amount not measured pt voided in bedside commode with BM. Output urine amount in unknown pT voided Stool Size Moderate Moderate Stool Characteristics Soft Soft Brown Brown Voiding Methods Bedside Commode Bedside Commode Bedside Commode Data Completed and Pending Labs on day of discharge: Preliminary micro results at discharge 07/01/22 15:34 Blood Culture - Preliminary Blood NO GROWTH 72 HOURS 07/01/22 15:36 Blood Culture - Preliminary Blood NO GROWTH 72 HOURS PFSH All Active Problems (Updated 07/06/22 @ 00:10 by TAMMY MAURICIO) VARGAS (dyspnea on exertion) (Acute) Rib pain on right side (Acute) Acute exacerbation of chronic obstructive pulmonary disease (Acute) Pulmonary nodule (Acute) Encounter for screening for COVID-19 (Acute) Ear congestion (Acute) Underweight (Acute) Chronic respiratory failure with hypoxia (Acute) GERD (gastroesophageal reflux disease) (Chronic) Tremor (Acute) Chest pain (Acute) Compression fracture of T5 vertebra (Acute) Acute right-sided thoracic back pain (Acute) Tubular adenoma of colon (Acute 10/12/16) Anxiety (Chronic 01/04/16) Acute gastric ulcer due to Helicobacter pylori (Acute 12/06/15) EGD, Dr Mcfarlane. positive SHARON test (treated) (also esophagitis) Hypogammaglobulinemia (Acute) [facility] Hemato.: negative workup/ Lung nodule (Acute 07/09/15) [facility]; [address] : stable/repeat yearly Hypoxemia (Chronic 11/28/14) Depression (Chronic) Hyperlipidemia (Chronic) Low back pain (Chronic) Osteoarthritis (Chronic) Osteopenia (Chronic) COPD (chronic obstructive pulmonary disease) (Chronic) Medical History Acute exacerbation of chronic obstructive pulmonary disease (11/28/14) Chronic obstructive airway disease Oxygen dependent Hyperlipidemia Low back pain Osteoarthritis Osteopenia Pneumonia (11/28/14) Renal cyst Smoker Tobacco abuse Surgical History Appendectomy Colonoscopy - MAC (10/10/16) Ligation of fallopian tube BSO NECK SURGERY Open Carpal Tunnel release X 2 RIB RESECTION Family History Mother Diabetes Essential hypertension Hyperlipidemia Stroke Asthma Brother , 58 Essential hypertension Neoplasm Throat Chronic obstructive lung disease Asthma Maternal Grandmother , 93 Chronic obstructive lung disease Asthma Father , 97 No problems noted. Sister No problems noted. Sister No problems noted. Brother No problems noted. Son , age 32 - Drown No problems noted. Maternal Grandfather , age 91 No problems noted. Paternal Grandfather No problems noted. Paternal Grandmother No problems noted. Social History Smoking/Tobacco Use Status: Former Tobacco Use tobacco type: cigarettes Quit Date: 12/29/18 Tobacco: How many years used: 53 Second Hand Exposure: Yes Smoking risk assessment performed?: Yes Alcohol Intake: former Drug use: Never Substance use type: does not use Caregiver/Support person: No Household members: spouse Housing: house Communication Needs: None Do you need help understanding health information?: Rarely Pets and animals: Yes Pets and animals: cat(s) Sexually active: No Do you think of yourself as: straight/heterosexual Current gender identity: female What is your relationship status?: Panel score (0-1 are the most socially isolated patients): 1 What type of physical activity do you participate in: none Fay/Taoism: Baptism Seatbelt use: always Drive 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
--- NOTE | 2022-07-05 15:58 | PDOC.CMDIS ---
- If Service Date Differs Date of service: 07/05/22 Time of Service: 15:58 LACE Index Scoring Tool - Questions: Length of Stay (in days): 4 - 6 Acuity (Admit via E.D.?): Yes Comorbidities: Chronic Pulmonary Disease E.D. Visits: 3 - Answers: Total Score: 12 Risk of Readmission: High Risk Care Management Discharge Reason for Hospitalization: COPD Exacerbation Discharge Plan: Nathalia returned home today with an anticipated admission to Hospice care tomorrow at home. She will have a commode, provided by Hospice, and other equipment needs will be addressed upon admission to hospice. Her drove her home via private vehicle. She will follow up with her PCP and hospice once she transitions to their service. She is happy to be going home. Patient/Family Education Needs: Review discharge instructions and expectations for hospice, discussion of self care needs and goals of care. Services Needed at Discharge: Home Health Care Services (hospice)
== END 2022-07-05 15:41 | DRG 191 ==
LOC: ER 17:49 → MS 18:36
PROVIDERS: Nurse Practitioner Acute Care; Admitting Provider Internal Medicine; Emergency Provider Emergency Medicine; PCP Family Medicine; Visit Provider Internal Medicine
DX: J43.2 Centrilobular emphysema (principal); D80.1 Nonfamilial hypogammaglobulinemia; J96.11 Chronic respiratory failure with hypoxia; Z51.5 Encounter for palliative care; Z68.1 Body mass index [BMI] 19.9 or less, adult; K21.9 Gastro-esophageal reflux disease without esophagitis; F41.9 Anxiety disorder, unspecified; R91.1 Solitary pulmonary nodule; R63.6 Underweight; R25.1 Tremor, unspecified; F32.A Depression, unspecified; E78.5 Hyperlipidemia, unspecified; G89.29 Other chronic pain; M54.50 Low back pain, unspecified; M85.80 Other specified disorders of bone density and structure, unspecified site; Z87.11 Personal history of peptic ulcer disease; Z87.891 Personal history of nicotine dependence; R07.89 Other chest pain
CPT/HCPCS: 36415; 80048; 80053; 82805; 84145; 87040; 87635; 93005; 94640; 96365; 96375; 97110; 97162; 97530; 99285; 71045; 81003; 83735; 83880; 84484; 85025; 93010; 99223; 99232; 99233; 99239; J0696; J1650; J2060; J2270; J2543; J2930; J7512; J7613; J7620

== ENCOUNTER 2023-05-15 06:13 | Inpatient (IN) | payer MEDICARE, SELFPAY ==
[2023-05-15] VITALS (50 sets, daily range): BP systolic 98–146; BP diastolic 63–108; PULSE 71–99; RESP 10–21; TEMP 36.6–38.2; O2SAT 83–95; BMI 21.9
--- NOTE | 2023-05-15 06:15 | DI.RAD_ITS ---
Exam(s) XR CHEST 1V IN DI DEPT EXAM: XR CHEST 1V IN DI DEPT CLINICAL HISTORY: copd, hypoxia, fall TECHNIQUE: 2D digital imaging was performed. COMPARISON: CR,XR XR PORTABLE CHEST AP from 07/01/2022 FINDINGS: LUNGS: Chronic fibrotic changes. No pleural abnormality seen. HEART: Normal size. AORTA: Normal diameter. BONES: Unremarkable for age. Old left upper rib fracture. No acute fractures identified. Soft tissues: Unremarkable. IMPRESSION: No acute findings. DATA REPOSITORY: RADIATION DOSE DELIVERED:
--- NOTE | 2023-05-15 06:15 | DI.RAD_ITS ---
Exam(s) XR PELVIS AP XR FEMUR LT EXAM: XR PELVIS AP CLINICAL HISTORY: fall, left hip pain. TECHNIQUE: 2D digital imaging was performed. COMPARISON: CR XR FEMUR LT from 05/15/2023 FINDINGS: BONES: Subcapital fracture left femur with superior displacement of the femoral shaft. No additional fractures are seen distally. No bony destructive lesion is seen. JOINTS: No dislocation present. Hip joint spaces are maintained. The knee is suboptimally profiled. SOFT TISSUE: Normal. IMPRESSION: Subcapital fracture of left femur. DATA REPOSITORY: RADIATION DOSE DELIVERED:
--- NOTE | 2023-05-15 06:25 | W.ED.GENAD ---
Discharge Plan Disposition Patient Disposition: Admit to [facility] Discharge Details Chief Complaint: Fall/Non TraumaCriteria Clinical Impression: Femoral neck fracture Primary Care Provider: Kaycee Meyer ED Provider: Mac Dixon Home Meds and New Rx's Prescriptions: No Action cholecalciferol (vitamin D3) 2,000 unit capsule 2,000 unit PO DAILY diclofenac sodium 1 % gel 100 g topical QID Qty: 100 2RF diphenhydramine HCl [Allergy (diphenhydramine)] 25 mg tablet 50 mg PO QHS clonazepam 0.5 mg tablet 0.5 - 1 mg PO BID Qty: 60 3RF Rx Instructions: take 0.5 tablet twice a day as needed for anxiety. Hospice citalopram 20 mg tablet 30 mg PO DAILY Qty: 135 4RF Rx Instructions: 1.5 tab daily. Hospice prednisone 5 mg tablet 5 mg PO DAILY Qty: 90 5RF Rx Instructions: Hospice Qvar RediHaler 80 mcg/actuation HFA aerosol breath activated 1 inh inhalation BID Qty: 10.6 8RF Rx Instructions: administer with spacer. Hospice ascorbic acid (vitamin C) [Vitamin C] 500 MG tablet 500 mg PO DAILY Oxygen EACH NS PRN Qty: 2 1RF Rx Instructions: oxygen 2-2.5 L/NC prn ([facility]) fluticasone propionate 50 mcg/actuation spray,suspension 1 - 2 spray NS DAILY Qty: 15.8 3RF Rx Instructions: 1 spray each nostril daily albuterol sulfate [Ventolin HFA] 90 mcg/actuation HFA aerosol inhaler 1 - 2 puff IH QID PRN (Reason: bronchospasm) Qty: 3 6RF acetaminophen 650 mg suppository 650 mg ND Q6H PRN (Reason: fever, mild pain) Qty: 6 0RF Rx Instructions: Hospice Patient hyoscyamine sulfate 0.125 mg tablet,disintegrating 0.125 - 0.25 mg PO Q4H PRN (Reason: secretions) Qty: 24 0RF Rx Instructions: Hospice Patient lorazepam 1 mg tablet 1 mg PO Q4H PRN (Reason: anxiety, VARGAS or nausea) Qty: 6 5RF Rx Instructions: Hospice Patient haloperidol lactate 2 mg/mL concentrate 1 mg PO Q6H PRN (Reason: agitation) Qty: 15 0RF Rx Instructions: Hospice Patient prochlorperazine maleate 10 mg tablet 10 mg PO Q6H PRN (Reason: nausea and vomiting) Qty: 6 0RF Rx Instructions: Hospice Patient bisacodyl [Dulcolax (bisacodyl)] 10 mg suppository 10 mg ND daily PRN (Reason: constipation) Qty: 2 0RF Rx Instructions: Hospice Patient Insert 1 supp ND Daily PRN constipation (no BM in 3 days) Mucinex 1,200 mg tablet extended release 12hr 1,200 mg PO BID Qty: 60 8RF Rx Instructions: hospice polyethylene glycol 3350 8.5 gram powder in packet 8.5 g PO DAILY Qty: 72 4RF Rx Instructions: hospice omeprazole 40 mg capsule,delayed release(DR/EC) 40 mg PO DAILY Qty: 90 5RF Rx Instructions: hospice morphine concentrate 100 mg/5 mL (20 mg/mL) solution 5 - 20 mg PO Q1-4H MDD 5 mL PRN (Reason: moderate to severe pain or shortness of breath) Qty: 30 0RF Rx Instructions: Hospice Patient ipratropium-albuterol 0.5 mg-3 mg(2.5 mg base)/3 mL solution for nebulization 3 ml Inhalation 5X/DAY Qty: 450 12RF Rx Instructions: J44.9 Stiolto Respimat 2.5-2.5 mcg/actuation mist 2 puff inhalation DAILY Qty: 12 4RF Rx Instructions: hospice mupirocin 2 % ointment 1 applic topical BID Qty: 30 7RF hydrocodone-homatropine [Hycodan (with homatropine)] 5-1.5 mg/5 mL syrup 5 - 10 ml PO BID MDD 20ml PRN (Reason: cough) Qty: 473 0RF Rx Instructions: use for cough. Hospice morphine 15 mg tablet 15 mg PO Q4H MDD 3 tabs PRN (Reason: pain) Qty: 42 0RF Rx Instructions: Hospice. Use on bad days -4-6 times daily guaifenesin [Mucus Relief ER] 600 mg Tablet Extended Release 12hr 600 mg PO BID Qty: 0 0RF Medical Decision Making 73-year-old female presents after fall from bed, left hip pain, internally rotated foreshortened left lower extremity, DP pulse intact warm well perfused soft compartments no ankle or knee involvement, concern for left hip dislocation versus fracture versus pelvic fracture. No signs of cranial or thoracoabdominal trauma. Patient baseline hypoxic given COPD on 2.5 L nasal cannula. Lower suspicion for rib fracture pulmonary contusion or pneumothorax. Will obtain chest x-ray x-ray pelvis, x-ray femur, analgesia basic labs 7: 37 evidence of femoral neck fracture left, patient remains hemodynamically stable, controlling pain with fentanyl and IV Tylenol, will add preop EKG, orthopedic team returns tomorrow will admit to hospitalist service for pain control preop evaluation and further management. HPI General Date/Time Provider Initiated Documentation: 05/15/23 06:20. HPI Narrative: 73-year-old female history of COPD presents after mechanical slip out of bed this morning, fell onto her left hip, pain to left hip; denies hitting head, no loss of consciousness Related Data Home Medications Medication Instructions Recorded Confirmed ascorbic acid (vitamin C) 500 mg 500 mg PO DAILY 02/03/13 04/11/23 tablet (Vitamin C) cholecalciferol (vitamin D3) 50 2,000 unit PO DAILY 05/22/19 04/11/23 mcg (2,000 unit) capsule fluticasone propionate 50 1 - 2 spray NS DAILY #15.8 mL 12/30/20 04/11/23 mcg/actuation nasal spray,suspension diclofenac sodium 1 % topical gel 100 g topical QID #100 grams 05/25/21 04/11/23 diphenhydramine HCl 25 mg tablet 50 mg PO QHS 08/02/21 04/11/23 (Allergy (diphenhydramine)) albuterol sulfate 90 mcg/actuation 1 - 2 puff inhalation QID PRN 08/24/21 04/11/23 aerosol inhaler (Ventolin HFA) bronchospasm #3 multiple units guaifenesin 600 mg tablet, 600 mg PO BID #0 tabs 07/05/22 04/11/23 extended release 12 hr (Mucus Relief ER) acetaminophen 650 mg rectal 650 mg ND Q6H PRN fever, mild pain 07/06/22 04/11/23 suppository #6 supp bisacodyl 10 mg rectal suppository 10 mg ND daily PRN constipation #2 07/06/22 04/11/23 (Dulcolax (bisacodyl)) supp haloperidol lactate 2 mg/mL oral 1 mg (0.5 mL) PO Q6H PRN agitation 07/06/22 04/11/23 concentrate #15 mL hyoscyamine sulfate 0.125 mg 0.125 - 0.25 mg PO Q4H PRN 07/06/22 04/11/23 disintegrating tablet secretions #24 tabs lorazepam 1 mg tablet 1 mg PO Q4H PRN anxiety, VARGAS or 07/06/22 04/11/23 nausea #6 tabs prochlorperazine maleate 10 mg 10 mg PO Q6H PRN nausea and 07/06/22 04/11/23 tablet vomiting #6 tabs guaifenesin 1,200 mg tablet, 1,200 mg PO BID #60 tabs 09/19/22 04/11/23 extended release 12 hr (Mucinex) polyethylene glycol 3350 8.5 gram 8.5 g PO DAILY #72 ea 09/19/22 04/11/23 oral powder packet omeprazole 40 mg capsule,delayed 40 mg PO DAILY #90 caps 10/03/22 04/11/23 release morphine concentrate 100 mg/5 mL 5 - 20 mg (0.25 - 1 mL) PO Q1-4H 11/29/22 04/11/23 (20 mg/mL) oral solution PRN moderate to severe pain or shortness of breath #30 mL ipratropium 0.5 mg-albuterol 3 mg 3 ml inhalation 5X/DAY #450 mL 11/30/22 04/11/23 (2.5 mg base)/3 mL nebulization soln tiotropium 2.5 mcg-olodaterol 2.5 2 puff inhalation DAILY #12 grams 12/04/22 04/11/23 mcg/actuation mist for inhalation (Stiolto Respimat) mupirocin 2 % topical ointment 1 applic topical BID #30 grams 01/17/23 04/11/23 beclomethasone dipropionate 80 1 inh inhalation BID #10.6 grams 03/15/23 04/11/23 mcg/actuation HFA breath activated aerosol (Qvar RediHaler) citalopram 20 mg tablet 30 mg PO DAILY #135 tabs 03/15/23 04/11/23 clonazepam 0.5 mg tablet 0.5 - 1 mg PO BID #60 tab-caps 03/15/23 04/11/23 prednisone 5 mg tablet 5 mg PO DAILY #90 tabs 03/15/23 04/11/23 hydrocodone-homatropine 5 mg-1.5 5 - 10 ml PO BID PRN cough #473 mL 05/02/23 mg/5 mL oral syrup (Hycodan (with homatropine)) morphine 15 mg immediate release 15 mg PO Q4H PRN pain #42 tabs 05/14/23 tablet Previous Rx's Medication Instructions Recorded fluticasone propionate 50 1 - 2 spray NS DAILY #15.8 mL 12/30/20 mcg/actuation nasal spray,suspension diclofenac sodium 1 % topical gel 100 g topical QID #100 grams 05/25/21 albuterol sulfate 90 mcg/actuation 1 - 2 puff inhalation QID PRN 08/24/21 aerosol inhaler (Ventolin HFA) bronchospasm #3 multiple units guaifenesin 600 mg tablet, 600 mg PO BID #0 tabs 07/05/22 extended release 12 hr (Mucus Relief ER) acetaminophen 650 mg rectal 650 mg ND Q6H PRN fever, mild pain 07/06/22 suppository #6 supp bisacodyl 10 mg rectal suppository 10 mg ND daily PRN constipation #2 07/06/22 (Dulcolax (bisacodyl)) supp haloperidol lactate 2 mg/mL oral 1 mg (0.5 mL) PO Q6H PRN agitation 07/06/22 concentrate #15 mL hyoscyamine sulfate 0.125 mg 0.125 - 0.25 mg PO Q4H PRN 07/06/22 disintegrating tablet secretions #24 tabs lorazepam 1 mg tablet 1 mg PO Q4H PRN anxiety, VARGAS or 07/06/22 nausea #6 tabs prochlorperazine maleate 10 mg 10 mg PO Q6H PRN nausea and 07/06/22 tablet vomiting #6 tabs guaifenesin 1,200 mg tablet, 1,200 mg PO BID #60 tabs 09/19/22 extended release 12 hr (Mucinex) polyethylene glycol 3350 8.5 gram 8.5 g PO DAILY #72 ea 09/19/22 oral powder packet omeprazole 40 mg capsule,delayed 40 mg PO DAILY #90 caps 10/03/22 release morphine concentrate 100 mg/5 mL 5 - 20 mg (0.25 - 1 mL) PO Q1-4H 11/29/22 (20 mg/mL) oral solution PRN moderate to severe pain or shortness of breath #30 mL ipratropium 0.5 mg-albuterol 3 mg 3 ml inhalation 5X/DAY #450 mL 11/30/22 (2.5 mg base)/3 mL nebulization soln tiotropium 2.5 mcg-olodaterol 2.5 2 puff inhalation DAILY #12 grams 12/04/22 mcg/actuation mist for inhalation (Stiolto Respimat) mupirocin 2 % topical ointment 1 applic topical BID #30 grams 01/17/23 beclomethasone dipropionate 80 1 inh inhalation BID #10.6 grams 03/15/23 mcg/actuation HFA breath activated aerosol (Qvar RediHaler) citalopram 20 mg tablet 30 mg PO DAILY #135 tabs 03/15/23 clonazepam 0.5 mg tablet 0.5 - 1 mg PO BID #60 tab-caps 03/15/23 prednisone 5 mg tablet 5 mg PO DAILY #90 tabs 03/15/23 hydrocodone-homatropine 5 mg-1.5 5 - 10 ml PO BID PRN cough #473 mL 05/02/23 mg/5 mL oral syrup (Hycodan (with homatropine)) morphine 15 mg immediate release 15 mg PO Q4H PRN pain #42 tabs 05/14/23 tablet Allergies Allergy/AdvReac Type Severity Reaction Status Date / Time sulfamethoxazole Allergy Mild Hives Unverified 07/01/22 15:14 [From Bactrim] trimethoprim [From Bactrim] Allergy Mild Hives Unverified 07/01/22 15:14 nickel Allergy Verified 07/01/22 15:14 levofloxacin AdvReac Intermediate BACK AND Verified 07/01/22 15:14 STOMACH ACHE doxycycline AdvReac Unknown nausea Verified 07/01/22 15:14 General Stated Complaint: Fall/Non TraumaCriteria LARON: 3 Review of Systems Narrative: Review of Systems Constitutional: negative Eyes: negative ENT: negative Cardiovascular: negative Respiratory: negative Gastrointestinal: negative : negative Musculoskeletal: Hip discomfort Skin: negative Neurologic: negative Psych: negative PFSH All Active Problems (Updated 05/15/23 @ 07:38 by Mac Dixon MD) Femoral neck fracture (Acute) VARGAS (dyspnea on exertion) (Acute) Rib pain on right side (Acute) Acute exacerbation of chronic obstructive pulmonary disease (Acute) Pulmonary nodule (Acute) Encounter for screening for COVID-19 (Acute) Ear congestion (Acute) Underweight (Acute) Chronic respiratory failure with hypoxia (Acute) GERD (gastroesophageal reflux disease) (Chronic) Tremor (Acute) Chest pain (Acute) Compression fracture of T5 vertebra (Acute) Acute right-sided thoracic back pain (Acute) Tubular adenoma of colon (Acute 10/12/16) Anxiety (Chronic 01/04/16) Acute gastric ulcer due to Helicobacter pylori (Acute 12/06/15) EGD, Dr Mcfarlane. positive SHARON test (treated) (also esophagitis) Hypogammaglobulinemia (Acute) [facility] Hemato.: negative workup/ Lung nodule (Acute 07/09/15) [facility]; [address] : stable/repeat yearly Hypoxemia (Chronic 11/28/14) Depression (Chronic) Hyperlipidemia (Chronic) Low back pain (Chronic) Osteoarthritis (Chronic) Osteopenia (Chronic) COPD (chronic obstructive pulmonary disease) (Chronic) Medical History (Updated 05/15/23 @ 07:38 by Mac Dixon MD) Acute exacerbation of chronic obstructive pulmonary disease (11/28/14) Chronic obstructive airway disease Oxygen dependent Hyperlipidemia Low back pain Osteoarthritis Osteopenia Palliative care patient Pneumonia (11/28/14) Renal cyst Smoker Tobacco abuse Surgical History Appendectomy Colonoscopy - [facility] (10/10/16) Ligation of fallopian tube BSO NECK SURGERY Open Carpal Tunnel release X 2 RIB RESECTION Family History Mother Diabetes Essential hypertension Hyperlipidemia Stroke Asthma Brother , 58 Essential hypertension Neoplasm Throat Chronic obstructive lung disease Asthma Maternal Grandmother , 93 Chronic obstructive lung disease Asthma Father , 97 No problems noted. Sister No problems noted. Sister No problems noted. Brother No problems noted. Son , age 32 - Drown No problems noted. Maternal Grandfather , age 91 No problems noted. Paternal Grandfather No problems noted. Paternal Grandmother No problems noted. Social History Smoking/Tobacco Use Status: Former Tobacco Use tobacco type: cigarettes Quit Date: 12/29/18 Tobacco: How many years used: 53 Second Hand Exposure: Yes Smoking risk assessment performed?: Yes Alcohol Intake: former Drug use: Never Substance use type: does not use Caregiver/Support person: No Household members: spouse Housing: house Communication Needs: None Do you need help understanding health information?: Rarely Pets and animals: Yes Pets and animals: cat(s) Sexually active: No Do you think of yourself as: straight/heterosexual Current gender identity: female What is your relationship status?: How often do you talk on the phone with friends or family?: decline to answer How often do you get together with friends or relatives?: decline to answer How often do you attend denominational or yazidism services?: decline to answer Do you belong to any clubs or organized social groups?: no Panel score (0-1 are the most socially isolated patients): 1 What type of physical activity do you participate in: none Frequency: daily Fay/Scientology: [employer] Special fay needs: No Seatbelt use: always 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 Do you feel safe at home: Yes Do you feel safe in your relationship?: Yes Additional Social history: previous exposure to cleaning supplies History History Para 1 Hx # Term Pregnancies Multiple births Hx # Pregnancies Ectopic pregnancies AB induced Hx Number of Living Children AB spontaneous Exam Narrative Exam Narrative: Physical Examination General: alert, awake, cooperative, appears uncomfortable HEENT: normocephalic, atraumatic; PERRL, EOM intact, conjunctiva normal; no nasal discharge; moist mucous membranes, oral and pharyngeal mucosa normal, tolerating secretions Neck: supple, trachea midline; full ROM Chest: normal to inspection Respiratory: normal respiratory effort, speaking in full sentences, clear to auscultation, no wheezing, rales or rhonchi Cardiac: regular rate, regular rhythm, S1S2 intact, no murmurs rubs or gallops GI: abdomen soft, non-tender, non-distended; no palpable mass or hepatosplenomegaly Skin: no lesions, rashes or trauma appreciated Neuro: AAOx3, normal speech, moving all extremities Extremities: Foreshortened internally rotated left lower extremity held in slight flexion at hip and knee, soft compartments, DP pulse intact, no ankle or knee discomfort range of motion at hip limited by pain Psych: Appropriate mood and affect Course Vital Signs Vital signs: Vital Signs Temperature 36.8 C 05/15/23 06:15 Pulse 86 05/15/23 06:15 Respiratory Rate 17 05/15/23 06:15 Blood Pressure 130/108 H 05/15/23 06:15 Pulse Oximetry 83 L 05/15/23 06:15 Temperature 36.8 C 05/15/23 06:15 Temperature Source Oral 05/15/23 06:15 Pulse 86 05/15/23 06:15 Respiratory Rate 17 05/15/23 06:15 Respiratory Effort Short of Breath 05/15/23 06:20 Blood Pressure 130/108 H 05/15/23 06:15 Pulse Oximetry 83 L 05/15/23 06:15 Oxygen Delivery Method Nasal Cannula 05/15/23 06:15 Oxygen Flow Rate 2.5 05/15/23 06:15 Pain Level 4 05/15/23 06:20
[2023-05-15] MEDS: ACETAMINOPHEN 1,000 MG/100 ML BTL 400 MG IVPB ×3 (06:30→23:34)
[2023-05-15 06:43] LABS: Abs Immature Grans 0.04 10^3/uL (0.0-0.06); Absolute Basophil Count 0.03 10^3/uL (0.0-0.2); Absolute Lymphocyte Count 2.64 10^3/uL (1.2-3.4); Absolute Monocyte Count 0.73 10^3/uL (0.1-0.8); Absolute Neutrophil Count 3.61 10^3/uL (1.2-6.7); Basophils % 0.4; Eosinophils % 4.1; HCT 38.9 % (36.0-46.0); HGB 12.6 g/dL (11.2-15.7); Immature Grans % 0.5; Lymphocytes % 35.9; MCH 31.3 pg (27.0-33.0); MCHC 32.4 % (32.0-36.0); MCV 97 fL (80-95); MPV 10.7 fL (8.0-11.0); Monocytes % 9.9; Neutrophils % 49.2; Platelet Count 223 10^3/uL (130-400); RBC 4.03 10^6/uL (3.93-5.22); RDW 14.5 % (11.7-14.6); RDW-SD 51.5 fL; WBC 7.35 10^3/uL (4.4-10.8)
[2023-05-15] MEDS: fentaNYL 100 MCG/2 ML VIAL 25 MCG IVP (06:50)
[2023-05-15 07:07] LABS: ALT 23 U/L (14-59); AST 16 U/L (15-37); Albumin 3.3 g/dL (3.4-5.0); Alkaline Phosphatase 52 U/L (46-116); Anion Gap 4.1 mmol/L (3-11); BUN 12 mg/dL (7-18); Bilirubin, Total 0.3 mg/dL (0.2-1.0); CO2 31.9 mmol/L (21.0-32.0); CREATININE 0.9 mg/dL (0.55-1.02); Calcium 8.9 mg/dL (8.5-10.1); Chloride 104 mmol/L (98-107); Glucose 114 mg/dL (74-106); Potassium 4.4 mmol/L (3.5-5.1); Sodium 140 mmol/L (136-145); Total Protein 6.9 g/dL (6.4-8.2)
[2023-05-15] MEDS: fentaNYL 100 MCG/2 ML VIAL 50 MCG IVP (07:28)
--- NOTE | 2023-05-15 07:30 | RT.EKG_ITS ---
APPROVED REPORT Exam: Resting ECG Reason for Exam: pre op Patient Location: E HR:74 bpm ECG Measurements Heart Rate 74 AXIS MN 141 P 73 QRSd 99 QRS -77 QT 398 T 87 QTc 443 Conclusion Sinus rhythm...normal P axis, V-rate 60- 99 Markedly posterior QRS axis...late V-lead transition Nonspecific T abnormalities, lateral leads...T <-0.10mV, I aVL V5 V6 sinus rhtyhm, non ischemic
[2023-05-15] MEDS: HYDROmorphone 2 MG/ML SYR IVP ×2 (08:44→23:53)
--- NOTE | 2023-05-15 08:53 | DI.VRAD_ITS ---
PROCEDURE INFORMATION: Exam: XR Pelvis Exam date and time: 05/15/2023 7:00 AM Age: 73 years old Clinical indication: Injury or trauma; Fall TECHNIQUE: Imaging protocol: Radiologic exam of the pelvis. Views: 1 or 2 view. COMPARISON: MR LUMBAR SPINE WO 03/04/2021 12:19 PM FINDINGS: Bones/joints: Acute fracture of the left femoral neck, with varus angulation. No dislocation Soft tissues: Unremarkable. IMPRESSION: Acute fracture of the left femoral neck, with varus angulation. No dislocation Dictated and Authenticated by: Kadi Vega MD. Ordering:ANUJ Watts MD
--- NOTE | 2023-05-15 08:53 | DI.VRAD_ITS ---
PROCEDURE INFORMATION: Exam: XR Left Femur Exam date and time: 05/15/2023 7:01 AM Age: 73 years old Clinical indication: Injury or trauma; Fall TECHNIQUE: Imaging protocol: Radiologic exam of the left femur. Views: 2 views. COMPARISON: CR XR PELVIS AP 05/15/2023 7:00 AM FINDINGS: Bones/joints: Acute fracture of the left femoral neck, with varus angulation. No dislocation Soft tissues: Unremarkable. IMPRESSION: Acute fracture of the left femoral neck, with varus angulation. No dislocation Dictated and Authenticated by: Kadi Vega MD. Ordering:ANUJ Watts MD
--- NOTE | 2023-05-15 08:54 | DI.VRAD_ITS ---
PROCEDURE INFORMATION: Exam: XR Chest Exam date and time: 05/15/2023 7:08 AM Age: 73 years old Clinical indication: Injury or trauma; Fall TECHNIQUE: Imaging protocol: Radiologic exam of the chest. Views: 1 view. COMPARISON: XR PORTABLE CHEST AP 07/01/2022 3:47 PM FINDINGS: Lungs: Hyperinflation and interstitial changes consistent with COPD, without focal consolidation or mass. Pleural spaces: Unremarkable. No pleural effusion. No pneumothorax. Heart/Mediastinum: Unremarkable. No cardiomegaly. Bones/joints: Unremarkable. IMPRESSION: No acute findings. Dictated and Authenticated by: Kadi Vega MD. Ordering:ANUJ Watts MD
--- NOTE | 2023-05-15 08:56 | ED.PROG_ITS ---
Date of service: 05/15/23 Time of Service: 08:56 Medical Decision Making Patient initially admitted to hospital service given no Ortho coverage today, schedule showed that orthopedic team would return tomorrow however this is not the case, orthopedic team recommending transfer, [facility] unavailable to accept patient, I have placed a call to [facility] awaiting callback from orthopedic team. Patient family amenable to transfer if available. Discharge Plan Discharge Details Chief Complaint: Fall/Non TraumaCriteria Clinical Impression: Femoral neck fracture Primary Care Provider: Kaycee Meyer ED Provider: Mac Dixon Home Meds and New Rx's Prescriptions: No Action cholecalciferol (vitamin D3) 2,000 unit capsule 2,000 unit PO DAILY diclofenac sodium 1 % gel 100 g topical QID Qty: 100 2RF diphenhydramine HCl [Allergy (diphenhydramine)] 25 mg tablet 50 mg PO QHS clonazepam 0.5 mg tablet 0.5 - 1 mg PO BID Qty: 60 3RF Rx Instructions: take 0.5 tablet twice a day as needed for anxiety. Hospice citalopram 20 mg tablet 30 mg PO DAILY Qty: 135 4RF Rx Instructions: 1.5 tab daily. Hospice prednisone 5 mg tablet 5 mg PO DAILY Qty: 90 5RF Rx Instructions: Hospice Qvar RediHaler 80 mcg/actuation HFA aerosol breath activated 1 inh inhalation BID Qty: 10.6 8RF Rx Instructions: administer with spacer. Hospice ascorbic acid (vitamin C) [Vitamin C] 500 MG tablet 500 mg PO DAILY Oxygen EACH NS PRN Qty: 2 1RF Rx Instructions: oxygen 2-2.5 L/NC prn ([facility]) fluticasone propionate 50 mcg/actuation spray,suspension 1 - 2 spray NS DAILY Qty: 15.8 3RF Rx Instructions: 1 spray each nostril daily albuterol sulfate [Ventolin HFA] 90 mcg/actuation HFA aerosol inhaler 1 - 2 puff IH QID PRN (Reason: bronchospasm) Qty: 3 6RF acetaminophen 650 mg suppository 650 mg AK Q6H PRN (Reason: fever, mild pain) Qty: 6 0RF Rx Instructions: Hospice Patient hyoscyamine sulfate 0.125 mg tablet,disintegrating 0.125 - 0.25 mg PO Q4H PRN (Reason: secretions) Qty: 24 0RF Rx Instructions: Hospice Patient lorazepam 1 mg tablet 1 mg PO Q4H PRN (Reason: anxiety, VARGAS or nausea) Qty: 6 5RF Rx Instructions: Hospice Patient haloperidol lactate 2 mg/mL concentrate 1 mg PO Q6H PRN (Reason: agitation) Qty: 15 0RF Rx Instructions: Hospice Patient prochlorperazine maleate 10 mg tablet 10 mg PO Q6H PRN (Reason: nausea and vomiting) Qty: 6 0RF Rx Instructions: Hospice Patient bisacodyl [Dulcolax (bisacodyl)] 10 mg suppository 10 mg AK daily PRN (Reason: constipation) Qty: 2 0RF Rx Instructions: Hospice Patient Insert 1 supp AK Daily PRN constipation (no BM in 3 days) Mucinex 1,200 mg tablet extended release 12hr 1,200 mg PO BID Qty: 60 8RF Rx Instructions: hospice polyethylene glycol 3350 8.5 gram powder in packet 8.5 g PO DAILY Qty: 72 4RF Rx Instructions: hospice omeprazole 40 mg capsule,delayed release(DR/EC) 40 mg PO DAILY Qty: 90 5RF Rx Instructions: hospice morphine concentrate 100 mg/5 mL (20 mg/mL) solution 5 - 20 mg PO Q1-4H MDD 5 mL PRN (Reason: moderate to severe pain or shortness of breath) Qty: 30 0RF Rx Instructions: Hospice Patient ipratropium-albuterol 0.5 mg-3 mg(2.5 mg base)/3 mL solution for nebulization 3 ml Inhalation 5X/DAY Qty: 450 12RF Rx Instructions: J44.9 Stiolto Respimat 2.5-2.5 mcg/actuation mist 2 puff inhalation DAILY Qty: 12 4RF Rx Instructions: hospice mupirocin 2 % ointment 1 applic topical BID Qty: 30 7RF hydrocodone-homatropine [Hycodan (with homatropine)] 5-1.5 mg/5 mL syrup 5 - 10 ml PO BID MDD 20ml PRN (Reason: cough) Qty: 473 0RF Rx Instructions: use for cough. Hospice morphine 15 mg tablet 15 mg PO Q4H MDD 3 tabs PRN (Reason: pain) Qty: 42 0RF Rx Instructions: Hospice. Use on bad days -4-6 times daily guaifenesin [Mucus Relief ER] 600 mg Tablet Extended Release 12hr 600 mg PO BID Qty: 0 0RF
[2023-05-15] MEDS: HYDROmorphone 2 MG/ML SYR 1 MG IVP (12:02)
--- NOTE | 2023-05-15 12:34 | W.EDPROG ---
Date of service: 05/15/23 Time of Service: 08:30 Medical Decision Making This patient was signed out to me. Please see previous notes for H&P and initial eval. In brief, patient with femoral neck fracture. Initially plan for admission to [facility] however orthopedics not available until day after tomorrow. Attempted transfer to [facility], [facility], [facility] without success. Dr. Adkins able to do surgery tomorrow; anesthesia evaluated patient and patient consented for anesthesia here. Transferred to floor on medicine service. Sign Out Sign Out Data: Sign Out Comment: L fem neck fracture, mechanical fall; pending callback from [place] orth[facility] Dr. Shaikh regarding possible transfer; [facility] and [facility] not available; may need [facility] admission for pain control and ortho when available Last updated by Mac Dixon MD at 05/15/23 09:09 Discharge Plan Disposition Patient Disposition: Admit to [facility] Condition: Serious Discharge Details Chief Complaint: Fall/Non TraumaCriteria Clinical Impression: Femoral neck fracture Primary Care Provider: Kaycee Meyer ED Provider: Danica Oconnell Home Meds and New Rx's Prescriptions: No Action cholecalciferol (vitamin D3) 2,000 unit capsule 2,000 unit PO DAILY diclofenac sodium 1 % gel 100 g topical QID Qty: 100 2RF diphenhydramine HCl [Allergy (diphenhydramine)] 25 mg tablet 50 mg PO QHS clonazepam 0.5 mg tablet 0.5 - 1 mg PO BID Qty: 60 3RF Rx Instructions: take 0.5 tablet twice a day as needed for anxiety. Hospice citalopram 20 mg tablet 30 mg PO DAILY Qty: 135 4RF Rx Instructions: 1.5 tab daily. Hospice prednisone 5 mg tablet 5 mg PO DAILY Qty: 90 5RF Rx Instructions: Hospice Qvar RediHaler 80 mcg/actuation HFA aerosol breath activated 1 inh inhalation BID Qty: 10.6 8RF Rx Instructions: administer with spacer. Hospice ascorbic acid (vitamin C) [Vitamin C] 500 MG tablet 500 mg PO DAILY Oxygen EACH NS PRN Qty: 2 1RF Rx Instructions: oxygen 2-2.5 L/NC prn ([employer]) fluticasone propionate 50 mcg/actuation spray,suspension 1 - 2 spray NS DAILY Qty: 15.8 3RF Rx Instructions: 1 spray each nostril daily albuterol sulfate [Ventolin HFA] 90 mcg/actuation HFA aerosol inhaler 1 - 2 puff IH QID PRN (Reason: bronchospasm) Qty: 3 6RF acetaminophen 650 mg suppository 650 mg WA Q6H PRN (Reason: fever, mild pain) Qty: 6 0RF Rx Instructions: Hospice Patient hyoscyamine sulfate 0.125 mg tablet,disintegrating 0.125 - 0.25 mg PO Q4H PRN (Reason: secretions) Qty: 24 0RF Rx Instructions: Hospice Patient lorazepam 1 mg tablet 1 mg PO Q4H PRN (Reason: anxiety, VARGAS or nausea) Qty: 6 5RF Rx Instructions: Hospice Patient haloperidol lactate 2 mg/mL concentrate 1 mg PO Q6H PRN (Reason: agitation) Qty: 15 0RF Rx Instructions: Hospice Patient prochlorperazine maleate 10 mg tablet 10 mg PO Q6H PRN (Reason: nausea and vomiting) Qty: 6 0RF Rx Instructions: Hospice Patient bisacodyl [Dulcolax (bisacodyl)] 10 mg suppository 10 mg WA daily PRN (Reason: constipation) Qty: 2 0RF Rx Instructions: Hospice Patient Insert 1 supp WA Daily PRN constipation (no BM in 3 days) Mucinex 1,200 mg tablet extended release 12hr 1,200 mg PO BID Qty: 60 8RF Rx Instructions: hospice polyethylene glycol 3350 8.5 gram powder in packet 8.5 g PO DAILY Qty: 72 4RF Rx Instructions: hospice omeprazole 40 mg capsule,delayed release(DR/EC) 40 mg PO DAILY Qty: 90 5RF Rx Instructions: hospice morphine concentrate 100 mg/5 mL (20 mg/mL) solution 5 - 20 mg PO Q1-4H MDD 5 mL PRN (Reason: moderate to severe pain or shortness of breath) Qty: 30 0RF Rx Instructions: Hospice Patient ipratropium-albuterol 0.5 mg-3 mg(2.5 mg base)/3 mL solution for nebulization 3 ml Inhalation 5X/DAY Qty: 450 12RF Rx Instructions: J44.9 Stiolto Respimat 2.5-2.5 mcg/actuation mist 2 puff inhalation DAILY Qty: 12 4RF Rx Instructions: hospice mupirocin 2 % ointment 1 applic topical BID Qty: 30 7RF hydrocodone-homatropine [Hycodan (with homatropine)] 5-1.5 mg/5 mL syrup 5 - 10 ml PO BID MDD 20ml PRN (Reason: cough) Qty: 473 0RF Rx Instructions: use for cough. Hospice morphine 15 mg tablet 15 mg PO Q4H MDD 3 tabs PRN (Reason: pain) Qty: 42 0RF Rx Instructions: Hospice. Use on bad days -4-6 times daily guaifenesin [Mucus Relief ER] 600 mg Tablet Extended Release 12hr 600 mg PO BID Qty: 0 0RF
--- NOTE | 2023-05-15 13:27 | W.PM.HP.N ---
Date of service: 05/15/23 Time of Service: 13:27 Assessment and Plan Assessment and plan (1) Femoral neck fracture: Status: Deleted Assessment and plan: NPO after midnight, scheduled doses of iv acetaminophen, prn ketorolac, prn iv narcotics; anesthesia consult, they are currently performing nerve block and plan for spinal anesthetic for tomrrow. I initially had ordered heparin SC for DVT prophylaxis for today but have since cancelled this. She has had no anticoagulants and is not on any antiplatelets. Either Dr. Fernandez or Dr. Jauregui will perform her surgery tomorrow. Her understands that d/t her COPD she is very high risk of perioperative respiratory failure and may need intubation and short term mechanical ventilation perioperatively. He accepts these risks and has signed her consent. (2) Chronic obstructive airway disease: Assessment and plan: continue her home oxygen per NC, if needed can switch to HFNC to keep SPO2 over 88%, albuterol/ipatroprium aerosols prn; continue her home bronchodilators of LABA/LAMA (Stiolto Respimat) and ICS. She also was on prednisone so she may need stress dose corticosteroids perioperatively (she was on prednisone 5 mg daily therefore she should have equivalent of 15 mg daily x 3 days then go back to 5 mg daily. (3) GERD (gastroesophageal reflux disease): Status: Chronic Assessment and plan: iv protonix perioperatively then resume po omeprazole (4) DVT prophylaxis: Status: Acute Assessment and plan: SCD for now; not candidate for chemoprophylaxis d/t type of anesthetic planned i.e. spinal (5) Discharge planning issues: Status: Acute Assessment and plan: DNR/DNI however this will be revoked temporarily perioperatively. Disposition of her discharge will depend on how she does w/ surgery and whether or not she needs usp care postoperatively. Otherwise I would expect her to return home on hospice care History of Present Illness History of Present Illness Chief Complaint: left hip pain Narrative: 73 yr old female w/ severe COPD, on home oxygen at 2.5 lpm , had a fall out of bed while trying to get up to the bathroom, no LOC. heard the fall around 5:30 or 5:45 am and found her to be in severe pain and unable to stand. Evaluation in the ED included left femur and pelvic xray that demonstrated left femoral neck subcapital fracture. After initial confusion about whether or not we would have orthopedic coverage for surgery tomorrow, the patient was accepted to [facility] hospitalist service after I had discussions w/ Dr. Dixon, ED provider, Dr. Alvarez, UI APPLICATION DEVELOPER and text conversations w/ Dr. Fernandez. Anesthesia providers were asked to evaluate the patient preoperatively d/t the severity of her COPD. Patient apparently has been under hospice care for her end stage COPD and surgery is being done on a palliative basis to alleviate her pain and improve her mobility. Her is here to answer any questions. He denies any knowledge of her having any pre-existing heart arrhythmias, RI, CVA, DM, HTN. He understands that due to her COPD she is very high risk of perioperative respiratory failure and although she has had a DNR/DNI order in place, this order will be lifted for her surgery but will be resumed postoperatively. Review of Systems Unobtainable due to mental status (patient is sedated from narcotics) [facility] All Active Problems (Updated 05/15/23 @ 15:41 by Timoteo Fernandez MD) Left displaced femoral neck fracture (Acute 05/15/23) Discharge planning issues (Acute) DVT prophylaxis (Acute) VARGAS (dyspnea on exertion) (Acute) Rib pain on right side (Acute) Acute exacerbation of chronic obstructive pulmonary disease (Acute) Pulmonary nodule (Acute) Encounter for screening for COVID-19 (Acute) Ear congestion (Acute) Underweight (Acute) Chronic respiratory failure with hypoxia (Acute) GERD (gastroesophageal reflux disease) (Chronic) Tremor (Acute) Chest pain (Acute) Compression fracture of T5 vertebra (Acute) Acute right-sided thoracic back pain (Acute) Tubular adenoma of colon (Acute 10/12/16) Anxiety (Chronic 01/04/16) Acute gastric ulcer due to Helicobacter pylori (Acute 12/06/15) EGD, Dr Mcfarlane. positive SHARON test (treated) (also esophagitis) Hypogammaglobulinemia (Acute) [facility] Hemato.: negative workup/ Lung nodule (Acute 07/09/15) [facility]; [address] : stable/repeat yearly Hypoxemia (Chronic 11/28/14) Depression (Chronic) Hyperlipidemia (Chronic) Low back pain (Chronic) Osteoarthritis (Chronic) Osteopenia (Chronic) COPD (chronic obstructive pulmonary disease) (Chronic) Medical History Acute exacerbation of chronic obstructive pulmonary disease (11/28/14) Chronic obstructive airway disease Oxygen dependent Hyperlipidemia Low back pain Osteoarthritis Osteopenia Palliative care patient Pneumonia (11/28/14) Renal cyst Smoker Tobacco abuse Surgical History Appendectomy Colonoscopy - MAC (10/10/16) Ligation of fallopian tube BSO NECK SURGERY Open Carpal Tunnel release X 2 RIB RESECTION Family History Mother Diabetes Essential hypertension Hyperlipidemia Stroke Asthma Brother , 58 Essential hypertension Neoplasm Throat Chronic obstructive lung disease Asthma Maternal Grandmother , 93 Chronic obstructive lung disease Asthma Father , 97 No problems noted. Sister No problems noted. Sister No problems noted. Brother No problems noted. Son , age 32 - Drown No problems noted. Maternal Grandfather , age 91 No problems noted. Paternal Grandfather No problems noted. Paternal Grandmother No problems noted. Social History Smoking/Tobacco Use Status: Former Tobacco Use tobacco type: cigarettes Quit Date: 12/29/18 Tobacco: How many years used: 53 Second Hand Exposure: Yes Smoking risk assessment performed?: Yes Alcohol Intake: former Drug use: Never Substance use type: does not use Caregiver/Support person: No Household members: spouse Housing: house Communication Needs: None Do you need help understanding health information?: Rarely Pets and animals: Yes Pets and animals: cat(s) Sexually active: No Do you think of yourself as: straight/heterosexual Current gender identity: female What is your relationship status?: How often do you talk on the phone with friends or family?: decline to answer How often do you get together with friends or relatives?: decline to answer How often do you attend samaritan or episcopal services?: decline to answer Do you belong to any clubs or organized social groups?: no Panel score (0-1 are the most socially isolated patients): 1 What type of physical activity do you participate in: none Frequency: daily Fay/Pentecostal: Scientology Special fay needs: No Seatbelt use: always Drive intox or ride w/intox 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: No Do you feel safe at home: Yes Do you feel safe in your relationship?: Yes Additional Social history: previous exposure to cleaning supplies History History Para 1 Hx # Term Pregnancies Multiple births Hx # Pregnancies Ectopic pregnancies AB induced Hx Number of Living Children AB spontaneous Meds Allergies and Home Medications Allergies Allergy/AdvReac Type Severity Reaction Status Date / Time sulfamethoxazole Allergy Mild Hives Unverified 07/01/22 15:14 [From Bactrim] trimethoprim [From Bactrim] Allergy Mild Hives Unverified 07/01/22 15:14 nickel Allergy Verified 07/01/22 15:14 levofloxacin AdvReac Intermediate BACK AND Verified 07/01/22 15:14 STOMACH ACHE doxycycline AdvReac Unknown nausea Verified 07/01/22 15:14 Home Medications Medication Instructions Recorded Confirmed Type ascorbic acid (vitamin C) 500 mg 500 mg PO DAILY 02/03/13 05/15/23 History tablet (Vitamin C) Oxygen l NS PRN ##2 04/10/16 05/22/19 Clinic cholecalciferol (vitamin D3) 50 2,000 unit PO DAILY 05/22/19 05/15/23 History mcg (2,000 unit) capsule fluticasone propionate 50 1 - 2 spray NS DAILY #15.8 mL 12/30/20 05/15/23 Rx mcg/actuation nasal spray,suspension diclofenac sodium 1 % topical gel 100 g topical QID #100 grams 05/25/21 05/15/23 Rx diphenhydramine HCl 25 mg tablet 50 mg PO QHS 08/02/21 05/15/23 History (Allergy (diphenhydramine)) albuterol sulfate 90 mcg/actuation 1 - 2 puff inhalation QID PRN 08/24/21 05/15/23 Rx aerosol inhaler (Ventolin HFA) bronchospasm #3 multiple units guaifenesin 600 mg tablet, 600 mg PO BID #0 tabs 07/05/22 05/15/23 Rx extended release 12 hr (Mucus Relief ER) acetaminophen 650 mg rectal 650 mg OK Q6H PRN fever, mild pain 07/06/22 05/15/23 Rx suppository #6 supp bisacodyl 10 mg rectal suppository 10 mg OK daily PRN constipation #2 07/06/22 05/15/23 Rx (Dulcolax (bisacodyl)) supp haloperidol lactate 2 mg/mL oral 1 mg (0.5 mL) PO Q6H PRN agitation 07/06/22 05/15/23 Rx concentrate #15 mL hyoscyamine sulfate 0.125 mg 0.125 - 0.25 mg PO Q4H PRN 07/06/22 05/15/23 Rx disintegrating tablet secretions #24 tabs lorazepam 1 mg tablet 1 mg PO Q4H PRN anxiety, VARGAS or 07/06/22 05/15/23 Rx nausea #6 tabs prochlorperazine maleate 10 mg 10 mg PO Q6H PRN nausea and 07/06/22 05/15/23 Rx tablet vomiting #6 tabs guaifenesin 1,200 mg tablet, 1,200 mg PO BID #60 tabs 09/19/22 05/15/23 Rx extended release 12 hr (Mucinex) polyethylene glycol 3350 8.5 gram 8.5 g PO DAILY #72 ea 09/19/22 05/15/23 Rx oral powder packet omeprazole 40 mg capsule,delayed 40 mg PO DAILY #90 caps 10/03/22 05/15/23 Rx release morphine concentrate 100 mg/5 mL 5 - 20 mg (0.25 - 1 mL) PO Q1-4H 11/29/22 05/15/23 Rx (20 mg/mL) oral solution PRN moderate to severe pain or shortness of breath #30 mL ipratropium 0.5 mg-albuterol 3 mg 3 ml inhalation 5X/DAY #450 mL 11/30/22 05/15/23 Rx (2.5 mg base)/3 mL nebulization soln tiotropium 2.5 mcg-olodaterol 2.5 2 puff inhalation DAILY #12 grams 12/04/22 05/15/23 Rx mcg/actuation mist for inhalation (Stiolto Respimat) mupirocin 2 % topical ointment 1 applic topical BID #30 grams 01/17/23 05/15/23 Rx beclomethasone dipropionate 80 1 inh inhalation BID #10.6 grams 03/15/23 05/15/23 Rx mcg/actuation HFA breath activated aerosol (Qvar RediHaler) citalopram 20 mg tablet 30 mg PO DAILY #135 tabs 03/15/23 05/15/23 Rx clonazepam 0.5 mg tablet 0.5 - 1 mg PO BID #60 tab-caps 03/15/23 05/15/23 Rx prednisone 5 mg tablet 5 mg PO DAILY #90 tabs 03/15/23 05/15/23 Rx hydrocodone-homatropine 5 mg-1.5 5 - 10 ml PO BID PRN cough #473 mL 05/02/23 05/15/23 Rx mg/5 mL oral syrup (Hycodan (with homatropine)) morphine 15 mg immediate release 15 mg PO Q4H PRN pain #42 tabs 05/14/23 05/15/23 Rx tablet Exam Narrative Exam Narrative: Elderly white female lying in bed who is moaning but when asked if she is in any pain she denies any pain. Patient has been medicated with ketorolac, Tylenol, Dilaudid and had a nerve block performed by anesthesia. HEENT is remarkable for dry mucous membranes Neck supple nontender she has prominent external JVD normal carotid pulses Lungs with prolonged expiratory phase and fine end expiratory wheezes Heart is regular no appreciable murmur rub Abdomen soft nontender normal bowel sounds nondistended Extremities left leg is foreshortened compared to the right she has intact pedal pulses intact sensory exam to light touch over both feet and legs. Examination left hip I did not appreciate any bruising however it was uncomfortable to try to roll over to better examine her hip but she is tender to palpation over the left femoral neck Results Imaging Chest x-ray: report reviewed and image reviewed EKG: report reviewed and image reviewed Labs 05/15/23 06:25 05/15/23 06:25 Labs: Laboratory Results - last 24 hr 05/15/23 05/15/23 06:25 06:25 WBC 7.35 RBC 4.03 Hgb 12.6 Hct 38.9 MCV 97 H MCH 31.3 MCHC 32.4 RDW 14.5 Plt Count 223 MPV 10.7 Immature Gran % 0.5 Neutrophils % 49.2 Lymphocytes % 35.9 Monocytes % 9.9 Eosinophils % 4.1 Basophils % 0.4 Nucleated RBC % 0.0 Absolute Neutrophils 3.61 Absolute Lymphocytes 2.64 Absolute Monocytes 0.73 Absolute Eosinophils 0.30 Absolute Basophils 0.03 Sodium 140 Potassium 4.4 Chloride 104 Carbon Dioxide 31.9 Anion Gap 4.1 BUN 12 Creatinine 0.9 Est GFR (CKD-EPI 2020) 67.50 Glucose 114 H Calcium 8.9 Total Bilirubin 0.3 AST 16 ALT 23 Alkaline Phosphatase 52 Total Protein 6.9 Albumin 3.3 L Last Vital Signs Temp 36.8 C 05/15/23 06:15 Pulse 99 H 05/15/23 12:27 Resp 15 05/15/23 12:27 BP 115/76 05/15/23 12:27 Pulse Ox 88 L 05/15/23 12:27 Time Spent Time spent with Patient: 55-74 minutes Time was spent: preparing to see the patient(eg.review tests), obtaining and/or reviewing separately otained hiistory, ordering medications,tests, procedures, referring, communicating with other health body care manager, indepentently interpreting results, counseling the patient and care coordination
[2023-05-15] MEDS: Bupivacaine LIPOSOME/PF 133 MG/10 ML VIAL IJ (14:45)
[2023-05-15] MEDS: Bupivacaine 0.25% Pres-Free 30 ML VIAL 15 ML IJ (14:45)
--- NOTE | 2023-05-15 14:58 | W.ANESNERVE ---
Nerve Block Single Injection Procedure Date and Time Date Performed: 05/15/23 Procedure Start: 14:33 Location Where Procedure Performed Procedure Location: Med/Surg Reason Performed: Acute Pain Management Pain Diagnosis: Hip Pain Requesting Provider: Thanh Jauregui Timeout Performed Timeout Performed: Yes Monitoring Used ECG, Blood Pressure and SpO2 Sterility Sterility: Hand Hygiene, Surgical Cap, Surgical Mask, Sterile Gloves and Chlorhexidine Sedation Given During Procedure Sedation Given (Indicate Dose Given): No Sedation given Patient Mental Status Patient Mental Status: Sedate with meaningful communication (prior IV dilaudid) Nerve Block 1st Nerve Block: Laterality: Left Block Type: STONE Ultrasound Image Saved?: Yes Needle / Catheter Used: 100mm SonoPlex II Local Anesthetic Bolus (Indicate Dose Given): Lidocaine used for local infiltration of skin, Injected in 3-5ml increments after negative blood aspiration, Bupivacaine 0.25% Dose:: 15 ml and Exparel Dose:: 10 ml Additives (Indicate Dose Given): Normal Saline Ultrasound: Sterile probe cover and gel used Nerve Stimulator: Not Used Paresthesia: None Post Procedure Pain score (0-10): 0 Procedure Tolerated: No Complications and Patient tolerated well Procedure Outcome: Successful Procedure Comment: Attempt by Michelle Antonio CRNA. Difficult anatomy. Jose Oneil CRNA assisting and then took over as primary. Challenging anatomy but able to place needle between bone and tendon and deposit local anesthetic. Report handed off to floor RN. Requested patient remain on telemetry for 30 more minutes. Performed By: Ravinder Oneil Other (not listed above): Michelle Antonio
[2023-05-15] MEDS: Pantoprazole 40 MG VIAL IVP (15:31)
--- NOTE | 2023-05-15 15:40 | OCONE_ITS ---
Date of service: 05/15/23 Time of Service: 15:40 Assessment and Plan Assessment and plan (1) Left displaced femoral neck fracture: Status: Acute Assessment and plan: 73-year-old female with displaced Left femoral neck fracture Patient describes mechanical fall overnight, isolated left hip pain, inability to ambulate. History limited as patient just received narcotic pain medicine and is overly sleepy. Unclear prior ambulator in the home versus community. Unclear assist device. 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 Denies any other orthopedic injuries with this fall. Lives at home with for social support who is not in the hospital at this time. Limited medical history from patient. Chart review shows patient with end-stage COPD, requires 2.5 L oxygen nasal cannula constantly. Past medical history of anxiety, GERD, depression, hyperlipidemia, osteopenia. Sleepy but comfortable. Engaging in minimal conversation. Left lower extremity shortened externally rotated. Demonstrates wiggling toes, no other extremities with deformity, ecchymosis, or signs of a problem. Patient has also received regional anesthetic nerve block and does not really voice any pain about the left hip at this time either Complete medical admission and optimization for surgery tomorrow: Left hip hemiarthroplasty with Dr. Fernandez or Dr. Jauregui. Heparin appropriately administered earlier today, n.p.o. postmidnight. Hold chemical DVT prophylaxis after midnight pending surgery tomorrow. Bedrest, multimodal pain control, consider bilateral, but at least RLE, SCDs and/or SHAHZAD hose. Will discuss with medical team, BEHAVIORAL SCIENCE CHAIR's, and Dr. Jauregui. Case added onto OR. PFS All Active Problems (Updated 05/15/23 @ 15:41 by Timoteo Fernandez MD) Left displaced femoral neck fracture (Acute 05/15/23) Discharge planning issues (Acute) DVT prophylaxis (Acute) VARGAS (dyspnea on exertion) (Acute) Rib pain on right side (Acute) Acute exacerbation of chronic obstructive pulmonary disease (Acute) Pulmonary nodule (Acute) Encounter for screening for COVID-19 (Acute) Ear congestion (Acute) Underweight (Acute) Chronic respiratory failure with hypoxia (Acute) GERD (gastroesophageal reflux disease) (Chronic) Tremor (Acute) Chest pain (Acute) Compression fracture of T5 vertebra (Acute) Acute right-sided thoracic back pain (Acute) Tubular adenoma of colon (Acute 10/12/16) Anxiety (Chronic 01/04/16) Acute gastric ulcer due to Helicobacter pylori (Acute 12/06/15) EGD, Dr Mcfarlane. positive SHARON test (treated) (also esophagitis) Hypogammaglobulinemia (Acute) [facility] [place]/ Lung nodule (Acute 07/09/15) [facility]; [address] : stable/repeat yearly Hypoxemia (Chronic 11/28/14) Depression (Chronic) Hyperlipidemia (Chronic) Low back pain (Chronic) Osteoarthritis (Chronic) Osteopenia (Chronic) COPD (chronic obstructive pulmonary disease) (Chronic) Medical History Acute exacerbation of chronic obstructive pulmonary disease (11/28/14) Chronic obstructive airway disease Oxygen dependent Hyperlipidemia Low back pain Osteoarthritis Osteopenia Palliative care patient Pneumonia (11/28/14) Renal cyst Smoker Tobacco abuse Surgical History Appendectomy Colonoscopy - MAC (10/10/16) Ligation of fallopian tube BSO NECK SURGERY Open Carpal Tunnel release X 2 RIB RESECTION Family History Mother Diabetes Essential hypertension Hyperlipidemia Stroke Asthma Brother , 58 Essential hypertension Neoplasm Throat Chronic obstructive lung disease Asthma Maternal Grandmother , 93 Chronic obstructive lung disease Asthma Father , 97 No problems noted. Sister No problems noted. Sister No problems noted. Brother No problems noted. Son , age 32 - Drown No problems noted. Maternal Grandfather , age 91 No problems noted. Paternal Grandfather No problems noted. Paternal Grandmother No problems noted. Social History Smoking/Tobacco Use Status: Former Tobacco Use tobacco type: cigarettes Quit Date: 12/29/18 Tobacco: How many years used: 53 Second Hand Exposure: Yes Smoking risk assessment performed?: Yes Alcohol Intake: former Drug use: Never Substance use type: does not use Caregiver/Support person: No Household members: spouse Housing: house Communication Needs: None Do you need help understanding health information?: Rarely Pets and animals: Yes Pets and animals: cat(s) Sexually active: No Do you think of yourself as: straight/heterosexual Current gender identity: female What is your relationship status?: How often do you talk on the phone with friends or family?: decline to answer How often do you get together with friends or relatives?: decline to answer How often do you attend faith or church services?: decline to answer Do you belong to any clubs or organized social groups?: no Panel score (0-1 are the most socially isolated patients): 1 What type of physical activity do you participate in: none Frequency: daily Fay/Advent: Baptism Special fay needs: No Seatbelt use: always Drive intox or ride w/intox helper driver: No Do you feel safe at home: Yes Do you feel safe in your relationship?: Yes Additional Social history: previous exposure to cleaning supplies History History Para 1 Hx # Term Pregnancies Multiple births Hx # Pregnancies Ectopic pregnancies AB induced Hx Number of Living Children AB spontaneous Results Last Vital Signs Temp 97.9 F 05/15/23 12:55 Pulse 96 H 05/15/23 15:00 Resp 16 05/15/23 12:55 BP 98/64 L 05/15/23 12:55 Pulse Ox 88 L 05/15/23 12:55 Labs 05/15/23 06:25 05/15/23 06:25 Labs: Laboratory Results - last 24 hr 05/15/23 05/15/23 06:25 06:25 WBC 7.35 RBC 4.03 Hgb 12.6 Hct 38.9 MCV 97 H MCH 31.3 MCHC 32.4 RDW 14.5 Plt Count 223 MPV 10.7 Immature Gran % 0.5 Neutrophils % 49.2 Lymphocytes % 35.9 Monocytes % 9.9 Eosinophils % 4.1 Basophils % 0.4 Nucleated RBC % 0.0 Absolute Neutrophils 3.61 Absolute Lymphocytes 2.64 Absolute Monocytes 0.73 Absolute Eosinophils 0.30 Absolute Basophils 0.03 Sodium 140 Potassium 4.4 Chloride 104 Carbon Dioxide 31.9 Anion Gap 4.1 BUN 12 Creatinine 0.9 Est GFR (CKD-EPI 2020) 67.50 Glucose 114 H Calcium 8.9 Total Bilirubin 0.3 AST 16 ALT 23 Alkaline Phosphatase 52 Total Protein 6.9 Albumin 3.3 L
--- NOTE | 2023-05-15 15:55 | W.ANESPRE ---
General Info Date of Service Date Performed: 05/15/23 Height: 5 ft 1 in Weight: 52.7 kg Body Mass Index (BMI): 21.9 Surgical Procedure: Operation Date: 05/16/23 14:55 Proposed Procedure Side Surgeon p LEFT ANTERIOR HEMIARTHROPLASTY Left Thanh Jauregui MD Meds Allergies and Home Medications Allergies Allergy/AdvReac Type Severity Reaction Status Date / Time sulfamethoxazole Allergy Mild Hives Unverified 07/01/22 15:14 [From Bactrim] trimethoprim [From Bactrim] Allergy Mild Hives Unverified 07/01/22 15:14 nickel Allergy Verified 07/01/22 15:14 levofloxacin AdvReac Intermediate BACK AND Verified 07/01/22 15:14 STOMACH ACHE doxycycline AdvReac Unknown nausea Verified 07/01/22 15:14 Home Medication Medication Instructions Recorded ascorbic acid (vitamin C) 500 mg 500 mg PO DAILY 02/03/13 tablet (Vitamin C) cholecalciferol (vitamin D3) 50 2,000 unit PO DAILY 05/22/19 mcg (2,000 unit) capsule fluticasone propionate 50 1 - 2 spray NS DAILY #15.8 mL 12/30/20 mcg/actuation nasal spray,suspension diclofenac sodium 1 % topical gel 100 g topical QID #100 grams 05/25/21 diphenhydramine HCl 25 mg tablet 50 mg PO QHS 08/02/21 (Allergy (diphenhydramine)) albuterol sulfate 90 mcg/actuation 1 - 2 puff inhalation QID PRN 08/24/21 aerosol inhaler (Ventolin HFA) bronchospasm #3 multiple units guaifenesin 600 mg tablet, 600 mg PO BID #0 tabs 07/05/22 extended release 12 hr (Mucus Relief ER) acetaminophen 650 mg rectal 650 mg KS Q6H PRN fever, mild pain 07/06/22 suppository #6 supp bisacodyl 10 mg rectal suppository 10 mg KS daily PRN constipation #2 07/06/22 (Dulcolax (bisacodyl)) supp haloperidol lactate 2 mg/mL oral 1 mg (0.5 mL) PO Q6H PRN agitation 07/06/22 concentrate #15 mL hyoscyamine sulfate 0.125 mg 0.125 - 0.25 mg PO Q4H PRN 07/06/22 disintegrating tablet secretions #24 tabs lorazepam 1 mg tablet 1 mg PO Q4H PRN anxiety, VARGAS or 07/06/22 nausea #6 tabs prochlorperazine maleate 10 mg 10 mg PO Q6H PRN nausea and 07/06/22 tablet vomiting #6 tabs guaifenesin 1,200 mg tablet, 1,200 mg PO BID #60 tabs 09/19/22 extended release 12 hr (Mucinex) polyethylene glycol 3350 8.5 gram 8.5 g PO DAILY #72 ea 09/19/22 oral powder packet omeprazole 40 mg capsule,delayed 40 mg PO DAILY #90 caps 10/03/22 release morphine concentrate 100 mg/5 mL 5 - 20 mg (0.25 - 1 mL) PO Q1-4H 11/29/22 (20 mg/mL) oral solution PRN moderate to severe pain or shortness of breath #30 mL ipratropium 0.5 mg-albuterol 3 mg 3 ml inhalation 5X/DAY #450 mL 11/30/22 (2.5 mg base)/3 mL nebulization soln tiotropium 2.5 mcg-olodaterol 2.5 2 puff inhalation DAILY #12 grams 12/04/22 mcg/actuation mist for inhalation (Stiolto Respimat) mupirocin 2 % topical ointment 1 applic topical BID #30 grams 01/17/23 beclomethasone dipropionate 80 1 inh inhalation BID #10.6 grams 03/15/23 mcg/actuation HFA breath activated aerosol (Qvar RediHaler) citalopram 20 mg tablet 30 mg PO DAILY #135 tabs 03/15/23 clonazepam 0.5 mg tablet 0.5 - 1 mg PO BID #60 tab-caps 03/15/23 prednisone 5 mg tablet 5 mg PO DAILY #90 tabs 03/15/23 hydrocodone-homatropine 5 mg-1.5 5 - 10 ml PO BID PRN cough #473 mL 05/02/23 mg/5 mL oral syrup (Hycodan (with homatropine)) morphine 15 mg immediate release 15 mg PO Q4H PRN pain #42 tabs 05/14/23 tablet Current Visit Medications: Current Medications Generic Name Dose Route Start Last Admin Trade Name Freq PRN Reason Stop Dose Admin Al Hydrox/Mg Hydrox/Simethicone 30 ml 05/15/23 13:26 Mylanta Suspension 30 Ml Cup PO Q2H PRN PRN Albuterol Sulfate 2.5 mg 05/15/23 13:24 Albuterol 2.5 Mg/3 Ml Inh Soln Vial UPD Q2H PRN PRN Albuterol/Ipratropium 3 ml 05/15/23 13:24 Albuterol/Ipratropium 3 Ml Upd Vial UPD Q6H PRN PRN Bisacodyl 10 mg 05/15/23 13:27 Bisacodyl 10 Mg Supp KS DAILY PRN PRN constipation Cholecalciferol 2,000 units 05/16/23 08:30 Cholecalciferol (Vitamin D3) 1,000 Unit Tab PO DAILY [facility] Device 1 each 05/15/23 14:00 Inhaler, Assist Device DIRECTED [facility] Diclofenac Sodium 2 - 4 gm 05/15/23 16:00 Diclofenac 1% Gel 100 Gm Tube TP QID GABI Dimethicone/Zinc Oxide 0 gm 05/15/23 13:24 Nasrin Protect Cream 142 Gm Tube TP PRN PRN Docusate Sodium 100 mg 05/15/23 13:26 Docusate Sodium 100 Mg Cap PO TID PRN PRN Fluticasone Propionate 0 gm 05/16/23 08:30 Fluticasone Nasal [place] 16 Gm Btl NS DAILY [facility] Guaifenesin 1,200 mg 05/15/23 20:00 Guaifenesin 600 Mg Tabcr PO BID [facility] Hydromorphone HCl 0.5 - 1 mg 05/15/23 14:25 Hydromorphone 2 Mg/Ml Syr IVP Q4H PRN PRN Hyoscyamine Sulfate 0.125 - 0.25 mg 05/15/23 13:27 Hyoscyamine 0.125 Mg Sl/Oral/Chew PO Q4H PRN PRN secretions Acetaminophen 1,000 mg in 100 mls @ 400 mls/hr 05/15/23 14:00 05/15/23 15:32 Ofirmev IVPB 400 mls/hr Q8H GABI Administration Sodium Chloride 500 mls @ 0 mls/hr 05/15/23 13:24 Saline 500ml Bag IV PRN PRN As Directed IV Miscellaneous Supplies 1 each 05/15/23 13:30 Iv Access IV DIRECTED [facility] Ketorolac Tromethamine 15 mg 05/15/23 13:21 Ketorolac 15 Mg/Ml Vial IVP 05/20/23 13:20 Q6H PRN PRN Lorazepam 1 mg 05/15/23 13:27 Lorazepam 1 Mg Tab PO Q4H PRN PRN anxiety, VARGAS or nausea Magnesium Hydroxide 30 ml 05/15/23 13:26 Milk Of Magnesia 30 Ml Cup PO DAILY PRN PRN Mometasone Furoate 1 puff 05/16/23 08:30 Mometasone 220 Mcg 14 Dose [facility]er [facility] Pantoprazole Sodium 40 mg 05/15/23 16:00 05/15/23 15:31 Pantoprazole 40 Mg Vial IVP 40 mg Q24H [facility] Administration Polyethylene Glycol 17 gm 05/15/23 13:26 Polyethylene Glycol 3350 17 Gm Packet PO DAILY PRN PRN Constipation Polyethylene Glycol 8.5 gm 05/16/23 08:30 Polyethylene Glycol 3350 17 Gm Packet PO DAILY [facility] Prednisone 5 mg 05/16/23 08:30 Prednisone 5 Mg Tab PO DAILY [facility] Prochlorperazine Edisylate 5 mg 05/15/23 13:21 Prochlorperazine 10 Mg/2 Ml Vial IVP Q4H PRN PRN Sodium Chloride 0 ml 05/15/23 13:24 Normal Saline Flush 10 Ml Syr IVP PRN PRN Tiotropium [place]/Olodaterol 2 puff 05/15/23 16:00 Tiotropium/Olodaterol 10 Puff Inhaler DAILY [facility] PFSH Active Problems Active Problems: Problem Status Onset Code Left displaced femoral neck fracture 05/15/23 S72.002A Discharge planning issues Z02.9 DVT prophylaxis Z29.9 VARGAS (dyspnea on exertion) R06.09 Rib pain on right side R07.81 Acute exacerbation of chronic obstructive pulmonary disease J44.1 Pulmonary nodule R91.1 Encounter for screening for COVID-19 Z11.52 Ear congestion H93.8X9 Underweight R63.6 Chronic respiratory failure with hypoxia J96.11 GERD (gastroesophageal reflux disease) K21.9 Tremor R25.1 Chest pain R07.9 Compression fracture of T5 vertebra S22.050A Acute right-sided thoracic back pain M54.6 Tubular adenoma of colon 01/12/17 D12.6 Anxiety 01/04/16 F41.9 Acute gastric ulcer due to Helicobacter pylori 12/06/15 K25.3, B96.81 Hypogammaglobulinemia D80.1 Lung nodule 07/09/15 R91.1 Hypoxemia 11/28/14 R09.02 Depression F32.9 Hyperlipidemia E78.5 Low back pain M54.5 Osteoarthritis M19.90 Osteopenia M85.80 COPD (chronic obstructive pulmonary disease) J44.9 Medical History Medical History Acute exacerbation of chronic obstructive pulmonary disease (11/28/14) Chronic obstructive airway disease Oxygen dependent Hyperlipidemia Low back pain Osteoarthritis Osteopenia Palliative care patient Pneumonia (11/28/14) Renal cyst Smoker Tobacco abuse Surgical History Surgical History Appendectomy Colonoscopy - MAC (10/10/16) Ligation of fallopian tube BSO NECK SURGERY Open Carpal Tunnel release X 2 RIB RESECTION Tobacco Smoking/Tobacco Use Status: Former Tobacco Use Passive smoking exposure: Yes Second hand exposure: Yes Alcohol Alcohol Intake: former Substance Use Substance use: Never Substance use type: does not use Prental History History Para 1 Hx # Term Pregnancies Multiple births Hx # Pregnancies Ectopic pregnancies AB induced Hx Number of Living Children AB spontaneous Vital Signs and Lab Results Vital Signs Most Recent Vital Signs in EMR: Most Recent Vital Signs Temp Pulse Resp BP Pulse Ox 36.6 C 96 H 16 98/64 L 88 L 05/15/23 12:55 05/15/23 15:00 05/15/23 12:55 05/15/23 12:55 05/15/23 12:55 Lab Results 05/15/23 06:25 05/15/23 06:25 Blood Type / Crossmatch: No Data to Display Complete Blood Count: White Blood Count 7.35 10^3/uL (4.4-10.8) 05/15/23 06:25 Red Blood Count 4.03 10^6/uL (3.93-5.22) 05/15/23 06:25 Hemoglobin 12.6 g/dL (11.2-15.7) 05/15/23 06:25 Hematocrit 38.9 % (36.0-46.0) 05/15/23 06:25 Platelet Count 223 10^3/uL (130-400) 05/15/23 06:25 Complete Metabolic Panel: Sodium 140 mmol/L (136-145) 05/15/23 06:25 Potassium 4.4 mmol/L (3.5-5.1) 05/15/23 06:25 Chloride 104 mmol/L (98-107) 05/15/23 06:25 Carbon Dioxide 31.9 mmol/L (21.0-32.0) 05/15/23 06:25 BUN 12 mg/dL (7-18) 05/15/23 06:25 Creatinine 0.9 mg/dL (0.55-1.02) 05/15/23 06:25 Est GFR (CKD-EPI 2020) 67.50 (mL/min/1.73m2) 05/15/23 06:25 Calcium 8.9 mg/dL (8.5-10.1) 05/15/23 06:25 Albumin 3.3 g/dL (3.4-5.0) L 05/15/23 06:25 Glucose 114 mg/dL (74-106) H 05/15/23 06:25 Liver Function Panel: Alanine Aminotransferase (ALT/SGPT) 23 U/L (14-59) 05/15/23 06:25 Aspartate Amino Transf (AST/SGOT) 16 U/L (15-37) 05/15/23 06:25 Coagulation Panel: No Data to Display Cardiac Panel: No Data to Display Arterial Blood Gas: No Data to Display Venous Blood Gas: No Data to Display Pancreas Panel: No Data to Display Thyroid Panel: No Data to Display Infectious Disease: No Data to Display Blood Cultures: No Data to Display Toxicology Panel: No Data to Display Imaging and Studies Imaging and Studies Study information below may be from another EMR and interpreted by another provider. Please see original notes in EMR for more complete details. EKG Summary: 05/15/2023: Exam: Resting ECG Reason for Exam: pre op Patient Location: E HR:74 bpm ECG Measurements Heart Rate 74 AXIS KS 141 P 73 QRSd 99 QRS -77 QT 398 T87 QTc 443 Conclusion Sinus rhythm...normal P axis, V-rate 60- 99 Markedly posterior QRS axis...late V-lead transition Nonspecific T abnormalities, lateral leads...T <-0.10mV, I aVL V5 V6 sinus rhythm, non ischemic Echocardiogram Summary: 11/14/2021: Conclusion Normal left ventricular wall thickness and chamber size. Estimated ejection fraction is 60%. Wall motion is normal Normal right ventricular size and systolic function Both atria are normal in size Mild mitral annular calcification. Trace mitral regurgitation Estimated right ventricular systolic pressure is 28 mmHg Pulmonary Function Summary: 12/10/2017: INTERPRETATION OF STUDY Spirometry shows severe obstructive airways disease with no significant bronchodilator response. LUNG VOLUMES - Lung volumes show no evidence of restriction. There is moderate to severe hyperinflation and air trapping. DIFFUSION CAPACITY- Severely reduced even when corrected to alveolar volume. AIRWAY RESISTANCE - Elevated. IMPRESSION Severe obstructive airways disease with no sign bronchodilator response. This is associated with moderate hyperinflation and air trapping, and severe diffusion defect. Clinical correlation recommended. When this study was compared to previous one from 05/20/2010, the patient has a 470 cc decline in FVC, FEV1 has declined by 520 cc. Anesthesia Assessment and Plan Anesthesia History Personal History: No History of Anesthesia Complications Family History: No Family History of Anesthesia Complications Exercise Tolerance Exercise Tolerance: Metabolic Equivalents<4 Pertinent Negatives Pertinent Negatives: No Symptoms of GERD and No Major Cardiovascular Symptoms or Complaints Cardiac & Pulmonary Exam Cardiac Exam: Normal S1/S2 Heart Sounds Pulmonary Exam: Wheezing Present Implantable Cardiac Device Does patient have a Pacemaker or an ICD?: No Airway Exam Known Difficult Airway: No Mallampati Class: 2 Mouth Opening: Normal (> 3cm) Thyromental Distance: Greater than 3 cm Neck Range of Motion: Full ROM Neck Circumference: Normal Teeth Condition: Removable Dentures/Plates Upper, Removable Dentures/Plates Lower and Edentulous ASA Classification ASA Score: ASA 4 Emergency Case?: No NPO Status NPO Status: NPO Clears >2 hours, Solids >8 hours Anesthesia Plan Resuscitation Status: DNR Fully Suspended During Perioperative Period Anesthesia Technique: Spinal Anesthesia Airway Planned: Natural Airway Pain Management: Surgeon and patient request nerve block Monitors Used: Standard Monitors Preoperative Comments:: Primary plan for SAB with no sedation for fixation of fracture. Had lengthy discussion with patient and in ER regarding risk for surgery and the resources available post-surgery for care at [facility] compared to a larger tertiary care facility. The patient and her verbalize understanding of risk for surgery, but understand the need for surgical correction. Patient wishes to proceed with surgery and anesthesia at [facility] with spinal anesthetic and understands that general anesthesia and a breathing tube may be required and carries with it elevated risk for prolonged intubation, ICU care, and sedation. Patient will accept intubation if required for surgery, but wishes to not be kept alive on machines for an extended period of time. Plan for pain control with regional anesthesia until surgery. Patient and both verbalize understanding.
[2023-05-15] MEDS: methylPREDNISolone SUCC 40 MG VIAL 20 MG IVP ×2 (16:39→23:33)
[2023-05-15] MEDS: Tiotropium/Olodaterol 10 PUFF INHALER 2 PUFF IH (17:04)
[2023-05-15] MEDS: guaiFENesin 600 MG TABCR 1200 MG PO (19:43)
[2023-05-15] MEDS: Lactated Ringers 1,000 ML 100 ML IV (23:33)
[2023-05-16] VITALS (21 sets, daily range): BP systolic 92–162; BP diastolic 51–86; PULSE 64–92; RESP 4–21; TEMP 36.3–37.1; O2SAT 83–98
[2023-05-16] MEDS: HYDROmorphone 2 MG/ML SYR IVP ×4 (03:36→23:44)
[2023-05-16] MEDS: Ketorolac 15 MG/ML VIAL IVP ×3 (03:54→20:20)
[2023-05-16] MEDS: LORazepam 1 MG TAB PO ×2 (03:58→20:13)
[2023-05-16] MEDS: ACETAMINOPHEN 1,000 MG/100 ML BTL 400 MG IVPB ×2 (06:26→21:21)
[2023-05-16 07:11] LABS: Abs Immature Grans 0.07 10^3/uL (0.0-0.06); Absolute Basophil Count 0.03 10^3/uL (0.0-0.2); Basophils % 0.2; HCT 36.1 % (36.0-46.0); HGB 11.8 g/dL (11.2-15.7); Immature Grans % 0.5; Lymphocytes % 4.5; MCH 31.6 pg (27.0-33.0); MCHC 32.7 % (32.0-36.0); MCV 97 fL (80-95); MPV 11.5 fL (8.0-11.0); Monocytes % 2.7; Neutrophils % 92.1; Platelet Count 161 10^3/uL (130-400); RBC 3.74 10^6/uL (3.93-5.22); RDW 14.3 % (11.7-14.6); RDW-SD 51.1 fL; WBC 13.87 10^3/uL (4.4-10.8)
[2023-05-16 07:14] LABS: Absolute Lymphocyte Count 0.62 10^3/uL (1.2-3.4); Absolute Monocyte Count 0.37 10^3/uL (0.1-0.8); Absolute Neutrophil Count 12.77 10^3/uL (1.2-6.7)
[2023-05-16 07:27] LABS: Anion Gap 6.8 mmol/L (3-11); BUN 24 mg/dL (7-18); CO2 28.2 mmol/L (21.0-32.0); CREATININE 0.9 mg/dL (0.55-1.02); Chloride 101 mmol/L (98-107); Glucose 123 mg/dL (74-106); Potassium 5.1 mmol/L (3.5-5.1); Sodium 136 mmol/L (136-145)
[2023-05-16] MEDS: Normal Saline Flush 10 ML SYR IVP ×2 (07:43→12:18)
[2023-05-16] MEDS: methylPREDNISolone SUCC 40 MG VIAL 20 MG IVP ×2 (07:44→23:04)
[2023-05-16] MEDS: Tiotropium/Olodaterol 10 PUFF INHALER 2 PUFF IH (07:48)
[2023-05-16] MEDS: Mometasone 220 MCG 14 DOSE INHALER 1 PUFF IH (07:48)
[2023-05-16] MEDS: Diclofenac 1% Gel 100 GM TUBE TP ×2 (08:30→12:12)
--- NOTE | 2023-05-16 08:45 | RT.EKG_ITS ---
APPROVED REPORT Exam: Resting ECG Reason for Exam: Chest Pain Patient Location: I HR:63 bpm ECG Measurements Heart Rate 63 AXIS MA 142 P 77 QRSd 104 QRS -70 QT 401 T 55 QTc 411 Conclusion Sinus rhythm...normal P axis, V-rate 50- 99 LAD, consider left anterior fascicular block...axis(240,-40), S>R II III aVF Borderline low voltage, extremity leads...all extremity leads <0.6mV
--- NOTE | 2023-05-16 08:54 | W.PM.PROGNOT ---
Date of Service Date of service: 05/16/23 Time of Service: 08:54 Assessment and Plan Assessment and plan (1) Chest pain: Status: Acute Assessment and plan: Doubt ACS given reproducibility of chest pain. I suspect that this is due to musculoskeletal discomfort. Will await EKG/troponins and monitor on tele. I am also obtaining a d-dimer. I think we should continue treating the patient with prn IV dilaudid, nsaids, scheduled tylenol. I do not think that this will warrant a further ischemic workup at this time. (2) Femoral neck fracture: Status: Acute Assessment and plan: For OR today (3) Chronic obstructive airway disease: Assessment and plan: The patient is wheezing on exam today. I have now scheduled her duonebs and kept prn albuterol. (4) GERD (gastroesophageal reflux disease): Status: Chronic Assessment and plan: Continue IV protonix for now. (5) DVT prophylaxis: Status: Acute Assessment and plan: SCDs. Holding off of Chemical DVT ppx due to planned spinal anesthesia. (6) Discharge planning issues: Status: Acute Assessment and plan: DNR/DNI. On discharge, expected to return home on hospice. Subjective Subjective Interval history since last seen: Complains of central chest pain this morning. The pains have been happening at home as well for 2-3 weeks, accompanied by episodes of clamminess and with the pain moving to the back. The pain is reproducible with palpation. The pain is not worse on inspiration. The states that using voltaren cream at home has helped with the pain. The patient is wheezing and feels a little SOB. Expecting OR today. When I am in the room, she is saturating 87% on 3L of O2. Exam Narrative Exam Narrative: General: Pleasant frail-appearing pale elderly female, appears uncomfortable in bed, A&Ox3, not dyspneic/tachypneic/cyanotic. HEENT: EOMI, MMM Heart: RRR, no m/r/g Lungs: expiratory wheezing B Abdomen: soft, nontender, nondistended Extremities: no edema Objective Last Vital Signs Temp 37.1 C 05/16/23 08:35 Pulse 77 05/16/23 08:35 Resp 20 05/16/23 03:48 BP 160/78 H 05/16/23 08:35 Pulse Ox 92 05/16/23 07:24 Laboratory Results - last 24 hr 05/16/23 05/16/23 06:20 06:20 WBC 13.87 H RBC 3.74 L Hgb 11.8 Hct 36.1 MCV 97 H MCH 31.6 MCHC 32.7 RDW 14.3 Plt Count 161 MPV 11.5 H Immature Gran % 0.5 Neutrophils % 92.1 Lymphocytes % 4.5 Monocytes % 2.7 Eosinophils % 0.0 Basophils % 0.2 Nucleated RBC % 0.0 Absolute Neutrophils 12.77 H Absolute Lymphocytes 0.62 L Absolute Monocytes 0.37 Absolute Eosinophils 0.00 Absolute Basophils 0.03 Sodium 136 Potassium 5.1 Chloride 101 Carbon Dioxide 28.2 Anion Gap 6.8 BUN 24 H Creatinine 0.9 Est GFR (CKD-EPI 2020) 67.50 Glucose 123 H Calcium 9.0 Magnesium 2.0 Objective Narrative Objective Narrative: EKG pending Time Spent with Patient Time Spent with Patient: 25-34 minutes Time was spent: preparing to see the patient(eg.review tests), obtaining and/or reviewing separately otained hiistory, ordering medications,tests, procedures, referring, communicating with other health urgent care technician, indepentently interpreting results, counseling the patient and care coordination
[2023-05-16] MEDS: Albuterol 2.5 MG/3 ML INH SOLN VIAL UPD (09:03)
[2023-05-16] MEDS: HYDROmorphone 2 MG/ML SYR 0.5 MG IVP (09:25)
[2023-05-16 09:37] LABS: Troponin I < 50 ng/L (<or=60)
[2023-05-16 09:42] LABS: NT-proBNP 565 pg/mL (<300)
--- NOTE | 2023-05-16 09:43 | PDOC.CMIN ---
Date of service: 05/16/23 Time of Service: 09:44 Care Management Initial Assmt Initial Assessment REASON FOR HOSPITALIZATION:: Left femoral neck fracture PREVIOUS FUNCTIONAL STATUS/SOCIAL/FAMILY SUPPORTS:: Nathalia lives in [facility] with Clyde. She has 3 adult children that live locally. She names her and a neighbor, Hellen, as her supports. 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 Nathalia discharged from Hospice services on this admission after electing to have hip surgery, but plans on going back home on Hospice. CURRENT FUNCTIONAL STATUS:: Nathalia was lying in bed, visiting with her when CM met with her. She c/o significant pain in her left hip, unlike what she's ever felt before and she is still smiling and upbeat. She is planning on going to the OR this afternoon for a hip hemiarthroplasty and discharging home on hospice, when she is medically ready. Her is supportive and agrees that going back home is the best plan. ADVANCE DIRECTIVES:: AD and POA On file; Myah Jose Cat Sr. is appointed as Health Care Agent. Has patient been provided with info about the portal/API?: Yes Did the patient sign up for the portal?: No CODE STATUS:: DNR/DNI INSURANCE COVERAGE / FINANCIAL ISSUES:: [employer] Medicare CURRENT HOME/COMMUNITY SERVICES/EQUIPMENT:: Hospice PRIMARY CARE PHYSICIAN:: Kaycee Meyer POTENTIAL DISCHARGE NEEDS:: D/C home on hospice, [facility] PT PATIENT/FAMILY EDUCATION NEEDS:: Review discharge instructions, limitations, medications and plan to follow up with community and hospice providers. Discuss ask me three and goals of self care. ANTICIPATED BARRIERS TO DISCHARGE:: None identified TRANSPORTATION:: Dependent on mobility. PLAN:: Discharge recommendation will be dependent on how Nathalia does after surgery; home on Hospice vs. SNF for STR, when medically cleared by provider. Anticipate, Nathalia will discharge home on Hospice, transportation will be dependent on her mobility. CM will continue to follow. PFSH All Active Problems (Updated 05/16/23 @ 13:33 by Thanh Jauregui MD) Osteoporosis (Chronic) Femoral neck fracture (Acute) Left displaced femoral neck fracture (Acute 05/15/23) Discharge planning issues (Acute) DVT prophylaxis (Acute) VARGAS (dyspnea on exertion) (Acute) Rib pain on right side (Acute) Acute exacerbation of chronic obstructive pulmonary disease (Acute) Pulmonary nodule (Acute) Encounter for screening for COVID-19 (Acute) Ear congestion (Acute) Underweight (Acute) Chronic respiratory failure with hypoxia (Acute) GERD (gastroesophageal reflux disease) (Chronic) Tremor (Acute) Chest pain (Acute) Compression fracture of T5 vertebra (Acute) Acute right-sided thoracic back pain (Acute) Tubular adenoma of colon (Acute 10/12/16) Anxiety (Chronic 01/04/16) Acute gastric ulcer due to Helicobacter pylori (Acute 12/06/15) EGD, Dr Mcfarlane. positive SHARON test (treated) (also esophagitis) Hypogammaglobulinemia (Acute) [facility] Hemato.: negative workup/ Lung nodule (Acute 07/09/15) [facility]; [address] : stable/repeat yearly Hypoxemia (Chronic 11/28/14) Depression (Chronic) Hyperlipidemia (Chronic) Low back pain (Chronic) Osteoarthritis (Chronic) Osteopenia (Chronic) COPD (chronic obstructive pulmonary disease) (Chronic) Medical History Acute exacerbation of chronic obstructive pulmonary disease (11/28/14) Chronic obstructive airway disease Oxygen dependent Hyperlipidemia Low back pain Osteoarthritis Osteopenia Palliative care patient Pneumonia (11/28/14) Renal cyst Smoker Tobacco abuse Surgical History Appendectomy Colonoscopy - MAC (10/10/16) Ligation of fallopian tube BSO NECK SURGERY Open Carpal Tunnel release X 2 RIB RESECTION Family History Mother Diabetes Essential hypertension Hyperlipidemia Stroke Asthma Brother , 58 Essential hypertension Neoplasm Throat Chronic obstructive lung disease Asthma Maternal Grandmother , 93 Chronic obstructive lung disease Asthma Father , 97 No problems noted. Sister No problems noted. Sister No problems noted. Brother No problems noted. Son , age 32 - Drown No problems noted. Maternal Grandfather , age 91 No problems noted. Paternal Grandfather No problems noted. Paternal Grandmother No problems noted. Social History Smoking/Tobacco Use Status: Former Tobacco Use tobacco type: cigarettes Quit Date: 12/29/18 Tobacco: How many years used: 53 Second Hand Exposure: Yes Smoking risk assessment performed?: Yes Alcohol Intake: former Drug use: Never Substance use type: does not use Caregiver/Support person: No Household members: spouse Housing: house Communication Needs: None Do you need help understanding health information?: Rarely Pets and animals: Yes Pets and animals: cat(s) Sexually active: No Do you think of yourself as: straight/heterosexual Current gender identity: female What is your relationship status?: How often do you talk on the phone with friends or family?: decline to answer How often do you get together with friends or relatives?: decline to answer How often do you attend worship or sikhism services?: decline to answer Do you belong to any clubs or organized social groups?: no Panel score (0-1 are the most socially isolated patients): 1 What type of physical activity do you participate in: none Frequency: daily Fay/Presybeterian: Anabaptist Special fay needs: No Seatbelt use: always Drive 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
[2023-05-16 09:51] LABS: D-Dimer 3481 ng/mlFEU (<500)
[2023-05-16] MEDS: Albuterol/Ipratropium 3 ML UPD VIAL UPD ×2 (12:27→20:13)
[2023-05-16 12:35] LABS: Troponin I < 50 ng/L (<or=60)
--- NOTE | 2023-05-16 12:48 | W.PM.PROGNOT ---
Date of Service Date of service: 05/16/23 Time of Service: 07:20 Assessment and Plan Assessment and plan (1) Left displaced femoral neck fracture: Status: Acute Assessment and plan: Nathalia is a 73-year-old female who had a mechanical fall, landing on the left hip and suffering a displaced subcapital femoral neck fracture. She has end-stage COPD and is currently on palliative care on chronic home oxygen. She is limited in her activities due to her oxygen requirements and her lungs. Nevertheless, she moves independently about her home. Therefore, I do think it makes sense to proceed with fixation. I was very honest with Nathalia that fixing the femoral neck fracture will improve her pain control and allow her to mobilize which will be beneficial for her lungs. While I cannot guarantee a full recovery back to how she was, it is possible that she can. I recommend a hip hemiarthroplasty. I discussed this versus a total hip replacement. I also reviewed that operative fixation of this fracture has a seriously high failure rate and therefore is not an option. She does agree to proceed with a hip hemiarthroplasty. I reviewed the risk of the procedure to include bleeding, infection, pain, stiffness, damage to nerves and vessels, damage to muscle and tendons, fracture, dislocation, blood clot, cardiopulmonary demise. Despite these risk, she elects to proceed. Stay NPO. Proceed to the OR for surgery this afternoon. (2) Osteoporosis: Status: Chronic Assessment and plan: Diagnosed on previous DEXA scan. Consider treatment with long-acting agent to help prevent future fragility fractures. Subjective Subjective Interval history since last seen: Nathalia continues have pain about the left hip. She has pain with any motion. She has been able to wiggle her toes move her ankle but has a screw shooting pain she tries to move at all. She has been utilizing pain medication. She is on oxygen. No acute chest pain or shortness of breath. She has had no new symptoms since her initial presentation. She does report to being independent with ambulation at home although she only walks within her home. She used to enjoy walking but has not been to do so for quite some time. She also feels that she is getting significantly weaker by the day. She was diagnosed osteoporosis a few years ago and a DEXA scan but from what I can tell is on no medications for osteoporosis. Exam Narrative Exam Narrative: Sitting up in the hospital bed in a semireclined position. The left leg is shortened and externally rotated. There is no defect noted to the skin about the left hip. There is no significant bruising. There is some swelling but the thigh is quite soft and compressible. No pain palpation about the knee or distal leg, foot, or ankle. Sensation intact to light touch over the deep and superficial peroneal nerve and tibial nerve. Palpable DP pulse. He is able demonstrate active ankle dorsiflexion, plantarflexion as well as great toe extension and flexion. Objective Last Vital Signs Temp 37.1 C 05/16/23 11:00 Pulse 77 05/16/23 12:32 Resp 16 05/16/23 12:32 BP 162/79 H 05/16/23 11:00 Pulse Ox 94 05/16/23 12:32 Laboratory Results - last 24 hr 05/16/23 05/16/23 05/16/23 06:20 06:20 09:11 WBC 13.87 H RBC 3.74 L Hgb 11.8 Hct 36.1 MCV 97 H MCH 31.6 MCHC 32.7 RDW 14.3 Plt Count 161 MPV 11.5 H Immature Gran % 0.5 Neutrophils % 92.1 Lymphocytes % 4.5 Monocytes % 2.7 Eosinophils % 0.0 Basophils % 0.2 Nucleated RBC % 0.0 Absolute Neutrophils 12.77 H Absolute Lymphocytes 0.62 L Absolute Monocytes 0.37 Absolute Eosinophils 0.00 Absolute Basophils 0.03 D-Dimer Sodium 136 Potassium 5.1 Chloride 101 Carbon Dioxide 28.2 Anion Gap 6.8 BUN 24 H Creatinine 0.9 Est GFR (CKD-EPI 2020) 67.50 Glucose 123 H Calcium 9.0 Magnesium 2.0 Troponin I < 50 NT-Pro-B Natriuret Pep 05/16/23 05/16/23 05/16/23 09:11 09:11 12:11 WBC RBC Hgb Hct MCV MCH MCHC RDW Plt Count MPV Immature Gran % Neutrophils % Lymphocytes % Monocytes % Eosinophils % Basophils % Nucleated RBC % Absolute Neutrophils Absolute Lymphocytes Absolute Monocytes Absolute Eosinophils Absolute Basophils D-Dimer 3481 H Sodium Potassium Chloride Carbon Dioxide Anion Gap BUN Creatinine Est GFR (CKD-EPI 2020) Glucose Calcium Magnesium Troponin I < 50 NT-Pro-B Natriuret Pep 565 H Time Spent with Patient Time Spent with Patient: 35-49 minutes Time was spent: obtaining and/or reviewing separately otained hiistory and ordering medications,tests, procedures
--- NOTE | 2023-05-16 13:00 | DI.RAD_ITS ---
Exam(s) XR HIP LT IN OR EXAM: XR HIP LT IN OR CLINICAL HISTORY: left jane hip. TECHNIQUE: 2D and realtime digital imaging was performed. COMPARISON: CR,XR XR PELVIS AP from 05/15/2023 FINDINGS: Hard copy image shows placement a left hip prosthesis Please see procedure note for details. Fluoro time: 24.8seconds RADIATION DOSE DELIVERED: Kar=1.94 mGy
[2023-05-16] MEDS: Lactated Ringers 500 ML 30 ML IV (13:35)
[2023-05-16] MEDS: ceFAZolin 2 GM/50 ML BAG 100 GM (14:11)
[2023-05-16] MEDS: Tranexamic Acid 1,000 MG/10 ML VIAL 1000 MG (14:20)
--- NOTE | 2023-05-16 17:56 | W.PM.OP ---
Date of service: 05/16/23 Time of Service: 16:00 Operative Note Operative Note DATE OF PROCEDURE: 05/16/23 PRE-OP DIAGNOSIS: Left Subcapital Femoral Neck Hip Fracture POST-OP DIAGNOSIS: same PROCEDURE: Left Anterior Hip Hemiarthroplasty Cerclage Fixation of Femoral Fracture SURGEON: Thanh Jauregui FINANCIAL SERVICES COUNSELOR: Bret Hazel ANESTHESIA TYPE: Spinal Refer to Anesthesia Record ESTIMATED BLOOD LOSS: 200 PATHOLOGY: none sent COMPLICATIONS: Other (Fracture of the proximal femur during femoral preparation, treated with a cerclage wire) Patient was transported to: PACU Patient's condition: stable Implants: 1. Depuy [place] cemented Femoral Stem, Size 3 2. Depuy unipolar femoral head, Size 45mm with +0 neck and centralizer Indications: I have seen Nathalia for a radiographically proven hip fracture. Given the hip fracture I recommended operative fixation. I discussed the technical details. I explained the risks of the procedure to include, but not limited to, bleeding, infection, pain, stiffness, fracture, damage to nerves and vessels, damage to muscles and tendons, loosening, instability, leg length inequality, need for repeat procedure, blood clot and cardiopulmonary demise. Despite these risks, Nathalia elected to proceed. Findings: There was a subcapital femoral neck fracture which was grossly displaced. The bone in this region was quite soft and easily penetrated with retractors. During the preparation of the femur a small crack developed in the anterior medial aspect of the proximal femur. It was unstable and therefore a cerclage wire was placed around this to secure the fracture and prevent propagation. A cemented hemiarthroplasty was performed. Procedure Description: Nathalia was greeted in the preoperative holding area where the correct side was identified and marked. The consent was previously reviewed and signed. The history and physical was updated. All questions were answered. Nathalia was taken back to the operating room. A spinal anesthestic was then administered. The feet were wrapped with cast padding and Coban and then placed into the boot liners and then into the boots. Care was taken to protect the skin and make sure the heels were fully down and the boots were stable. The patient was then positioned onto the HANA table. Both legs were held in a neutral position. SCDs were applied. The patient was then slid down onto a peroneal post. Prophylactic antibiotics in the form of Cefazolin were administered. 1g of Tranxemic Acid was given intravenously within 30 minutes of incision. The left leg was then prepped with Chloraprep and draped in a standard fashion. A second prep with Chloraprep was performed prior to placement of a shower-curtain type drape with Iodine impregnated skin protection. A timeout to confirm correct identity, side and site, procedure, allergies, anesthesia, and medical concerns was performed. An obliquely oriented incision was made starting lateral to the ASIS and running distal over the Tensor Fascia Deysi (TFL) muscle belly toward the fibular head, approximately 10cm. The skin and soft tissue was dissected sharply, through Jocelyn?s fascia, and to the fascia of the TFL. With the fascia and superior border of the IT band identified, the fascia was incised with a new knife just above any perforators from the IT band. The TFL muscle belly was bluntly dissected away from the fascia and moved laterally. The fat between TFL and rectus was identified to ensure the dissection was not within the TFL. Blunt dissection created space between abductors and the capsule and retractor was placed over the lateral femoral neck. The fibers of the rectus femoris tendon were identified and these were freed from the anterior capsule. A second cobra retractor was placed around the medial femoral neck. The TFL was further retracted laterally to show the deep fascia. Careful dissection through this layer identified three main crossing vessels of the lateral femoral circumflex. These were cauterized in multiple locations and then cut without any noticeable bleeding. The TFL was further released bluntly from the deep fascia to expose anterior hip capsule and fat The Yuan orthopaedic retractor was then placed beneath the TFL and against sartorius and medial soft tissues to protect and retract the soft tissues. A T-capsulotomy was then performed starting at the superior lateral acetabulum and moving distally to the intertrochanteric ridge being mindful of the labrum and avoiding cutting this. These capsular flaps were tagged with a No. 1 Ethibond and elevated from within. The capsular flaps were released to the shoulder of the lateral neck and to the lesser trochanter to give excellent visualization of the proximal femur. The fracture was these identifiable. Gentle traction was applied to the leg. The femoral head was then removed with a corkscrew. A neck osteotomy was performed using an oscillating saw based on preoperative templates. This cut started in the shoulder and of the lateral neck and exited medially. The saw was at all times directed medially to avoid injury to the greater trochanter. The femoral head was measured on the back table to determine the unipolar head size. A retractor was placed over the anterior acetabulum to make sure there was no significant acetabular wear and no loose bodies. Traction was released from the femur. The leg was rotated to 120 degrees. Any remaining medial capsule was released until the lesser trochanter was easily palpable. A Keller retractor was placed medially. The lateral capsule was further released into the shoulder to allow access to the greater trochanter. A Keller retractor was placed over the greater trochanter and further posterior capsule was released which allowed the trochanter to flip in front of the capsule for excellent exposure. The leg was brought down into maximal extension and 20 degrees of adduction while ensuring there was no impingement on the acetabulum. Any remnant capsule within the trochanter was released. Piriformis and obturator externis were identified and protected. There was excellent access to the proximal femur. The lateral neck remnant was removed with a rongeur. A blunt canal probe was used to identify the canal and trajectory for later broaching. A box osteotome initiated the broach course. A small curved rasp and a curved curette were used to work laterally. Broaching then began with a starter broach from the Corail system. I went from the size 8 to the size 9. However, in doing this there is a small crack noted about the anterior femur. At this point, I decided to place a cerclage wire. The [employer] cerclage wire system was utilized to place the wire around the base of the greater trochanter and above the lesser trochanter. This was passed and secured temporarily with the clip. Broaching continued with the Corail system but they noted to be some instability of the fracture pieces and therefore this was aborted and transition into a cemented system. Starting with a size 0 [place] broach, I sequentially broached up to a size 3. This was inserted manually around the trochanter and into the canal before mallet blows. The broach was seated to based on the neck cut and the preoperative template. Sequential broaching was continued there was some resistance with the broach and some rotational control of the femur. I was able to broach to a size 3 femur. I reference the posterior cortex as the guide to correct anteversion. This was then trialed with a 45 mm +0 unipolar head. It was stable upon reduction and appeared to be appropriate length and offset. However, I was apprehensive about increasing size given the status of her bone of the proximal femur. On the back table, medium viscosity cement was mixed under vacuum. I used a pulse lavage to irrigate out the intramedullary space. A cement restrictor was placed down in the intramedullary space. A portion of the periarticular cocktail was injected into the soft tissues around the hip. This cocktail consisted of 123mg of Ropivacaine, 0.25mg of Epinephrine, 0.04mg of Clonidine, and 15mg of Ketorolac, diluted to 50cc. I then used a cement gun to fill the femoral canal with cement aligned the cement to push the nozzle out of the femur. The cemented stem was then placed by hand into the canal making sure to stay out of varus and also control rotation. Excess cement was removed and the positioning of the implant was closely inspected. Once in the desired position it was held firmly with an scalemaker. It was kept here until the cement hardened. Once the cement had finally hardened and was inspected within the hip. There is no excess cement. The leg was brought out of extension and adduction and reduced with traction and internal rotation. Stability was confirmed with no shuck at 90 degrees of external rotation and 30 degrees of extension. No impingement through range of motion arc. Final x-ray images were obtained with fluoroscopy to confirm adequate positioning and no intraoperative fracture. The deep tissues were thoroughly irrigated with Surgiphor, betadine solution. This was allowed to sit in the wound for 3 minutes before being thoroughly irrigated out with normal saline. The capsule was then reapproximated with the previously placed Ethibond sutures. The TFL fascia was finally closed with a No. 2 Stratafix, barbed suture. Deep tissues were then reapproximated with 0 Vicryl and a running 2-0 Vicryl. The skin was closed with a running 4-0 Monocryl in a subcuticular fashion. This was reinforced with skin glue. A Mepilex silver dressing was applied. At the end of the case, all counts were correct. Nathalia was transferred to the hospital bed without difficulty and suffering the proximal femur extension which was secured with the cerclage cable and without any signs of distal extension on x-ray. Nathalia has a gaurded prognosis. Physical therapy will start today and without restrictions, weight-bearing as tolerated. DVT prophylaxis may begin this evening.
[2023-05-16] MEDS: guaiFENesin 600 MG TABCR 1200 MG PO (20:13)
[2023-05-17] VITALS (14 sets, daily range): BP systolic 120–182; BP diastolic 58–77; PULSE 63–103; RESP 1–24; TEMP 36.5–37.4; O2SAT 85–97
[2023-05-17] MEDS: LORazepam 1 MG TAB PO ×3 (00:34→15:38)
[2023-05-17] MEDS: diphenhydrAMINE 25 MG CAP PO ×2 (02:18→22:28)
[2023-05-17] MEDS: Haloperidol 1 MG TAB 2 MG PO ×2 (02:18→08:16)
[2023-05-17] MEDS: ACETAMINOPHEN 1,000 MG/100 ML BTL 400 MG IVPB ×3 (05:09→22:27)
[2023-05-17 06:47] LABS: Abs Immature Grans 0.13 10^3/uL (0.0-0.06); Absolute Basophil Count 0.04 10^3/uL (0.0-0.2); Absolute Monocyte Count 0.92 10^3/uL (0.1-0.8); Basophils % 0.3; HGB 11.9 g/dL (11.2-15.7); Lymphocytes % 3.7; MCH 31.2 pg (27.0-33.0); MCHC 33.1 % (32.0-36.0); MCV 95 fL (80-95); MPV 11.2 fL (8.0-11.0); Monocytes % 6.7; Neutrophils % 88.3; Platelet Count 133 10^3/uL (130-400); RBC 3.81 10^6/uL (3.93-5.22); RDW 14.4 % (11.7-14.6); RDW-SD 50.2 fL; WBC 13.67 10^3/uL (4.4-10.8)
[2023-05-17 06:50] LABS: Absolute Lymphocyte Count 0.51 10^3/uL (1.2-3.4); Absolute Neutrophil Count 12.07 10^3/uL (1.2-6.7)
[2023-05-17 07:21] LABS: Anion Gap 9.7 mmol/L (3-11); BUN 37 mg/dL (7-18); CO2 25.3 mmol/L (21.0-32.0); CREATININE 0.9 mg/dL (0.55-1.02); Calcium 8.8 mg/dL (8.5-10.1); Chloride 100 mmol/L (98-107); Glucose 153 mg/dL (74-106); Magnesium 2.1 mg/dL (1.8-2.4); Potassium 4.8 mmol/L (3.5-5.1); Sodium 135 mmol/L (136-145)
[2023-05-17 07:55] LABS: Vitamin D 25 Total 90.5 ng/mL (30-100)
[2023-05-17] MEDS: methylPREDNISolone SUCC 40 MG VIAL 20 MG IVP ×2 (08:00→15:27)
[2023-05-17] MEDS: Cholecalciferol (Vitamin D3) 1,000 UNIT TAB 2000 UNITS PO (08:05)
[2023-05-17] MEDS: Polyethylene Glycol 3350 17 GM PACKET 8.5 GM PO (08:19)
--- NOTE | 2023-05-17 08:21 | CMPROGNOTE_ITS ---
Date of service: 05/17/23 Time of Service: 08:21 Care Management Progress Note Progress Note Text Progress Note Text: S/O: Nathalia was lying in bed sleeping, surrounded by her and family when CM met with her. Clyde shares that Nathalia was not getting her anxiety meds and was restless last night. He feels that she is doing much better now after having her Haldol. Nathalia appears comfortable and her family is happy to see her resting comfortably. Nathalia will discharge home and readmit to Hospice services when she is medically ready for discharge. Awaiting PT recommendations, anticipate she will need [facility] PT services. A: 73 year old female admitted to [facility] on 05/15/23 for Left femoral neck fracture P: Discharge recommendation will be dependent on how Nathalia does after surgery; home on Hospice vs. SNF for STR, when medically cleared by provider. Anticipate, Nathalia will discharge home on Hospice, transportation will be dependent on her mobility. CM will continue to follow.
[2023-05-17] MEDS: ceFAZolin 1 GM/50 ML BAG IVPB ×2 (08:32→15:26)
[2023-05-17] MEDS: Albuterol/Ipratropium 3 ML UPD VIAL UPD ×2 (09:22→19:11)
[2023-05-17] MEDS: Mometasone 220 MCG 14 DOSE INHALER 1 PUFF IH (09:23)
[2023-05-17] MEDS: Tiotropium/Olodaterol 10 PUFF INHALER 2 PUFF IH (09:23)
[2023-05-17] MEDS: Diclofenac 1% Gel 100 GM TUBE TP ×3 (11:47→20:05)
--- NOTE | 2023-05-17 14:08 | PT.INIE ---
PT Notes Visit Reasons: Left Femoral Neck Fracture Inpatient Physical Therapy Evaluation Date: 05/17/23 Referring Doctor: Dr. Jauregui PT Orders: PT CONSULT: s/p ortho surgery, WBAT Precautions: WBAT Patient Profile/Admitting Diagnosis: Patient admitted for medical management after fall at home resulting in femoral neck fracture. She is now 1 day s/p left LEVON, complicated by advanced COPD. Social History/Home Situation: Patient lives with her in a single level home. She has 3 NANO the home. Typically ambulates short distances without AD, although has both a 4WW and FWW at home. Mobility limited by breathing. Equipment Owned/DME: Commode, 4WW, FWW Subjective: Nathalia states that she is very tired today. She complains of pain in left hip, left ankle, and left side of chest. Objective: General Observation: Resting in bed with IV in LUE, Garner catheter, bilat TEDs. Mental Status: A&Ox3. Pain: left hip, left ankle, chest Vital Signs: Resting BP 133/70, HR 79, SaO2 91% ROM: Right Upper Extremity: WFL Left Upper Extremity: WFL Right Lower Extremity: WFL Left Lower Extremity: Able to demonstrate DF to neutral, painfree PF, inversion/eversion, although limiting in all planes Strength: Right Lower Extremity: DF 3/5 or greater, quads 3/5 or greater Left Lower Extremity: Able to pump ankles and wiggle toes. Quads 3-/5. Able to demonstrate limited quad set on the left. Sensation: intact distally Bed Mobility/Transfers: supine-sit: min A sit-supine: max A x 2 sit-stand: min A stand-sit: min A stand-pivot: unable Gait: unable Balance: Static Sitting: good Dynamic Sitting: fair Static Standing: fair Dynamic Standing: poor Special Tests: Mobility Limitations Standardized Measure [facility] AM-PAC 6 clicks Basic Mobility Inpatient Short Form: Raw Score: 12 Standardized Score: 69% impaiarment Informed Consent/Education: Patient instructed in purpose of PT consult and plan of care. Treatment: Initial Evaluation (93773) Therapeutic Activities ([id number]): Instructed in FWW management, including hand placement and advancement technique Instructed in sit-stand for 5 reps, with need for max cues for hand placement and safety. Also requires max A for management of lines. Instructed in stand-pivot transfer, with verbal and visual cues. Patient able to perform partial transfer, with good advancement of LLE, although increasing VARGAS and anxiety. Requires back up to bed and assisted stand-sit. Static standing with UE support to FWW, 1 minute x 4, requiring extended recovery for breathing Assessment: Patient is a 73 year old female referred to physical therapy services with the diagnosis of left femur fx, 1 day s/p LEVON. Patient presents with clinical signs and symptoms consistent with diagnosis, as demonstrated by the following impairment level findings: 1. decreased activity tolerance 2. decreased LE strength 3. VARGAS Impairments are contributing to the following functional limitations: 1. unable to perform stand-pivot transfers 2. unable to perform household distance ambulation 3. dependent for bed mobility 4. unable to manage 3 steps to enter home Patient is assessed as Moderate 63636 complexity based on the following: History: Patient is 1 day s/p left LEVON, complicated by advanced COPD and limited mobility at baseline. She is extremely fatigued and short of breath with activity, which is her major limiter for transfers. She requires skilled PT intervention to maximize mobility and activity tolerance. May require SNF stay prior to returning home; will continue monitoring progress. Examination: functional limitations as noted above Presentation: evolving Decision Making: moderate complexity Goals: Goals X1 week 1. Supine-Sit : supervision 2. Sit-Supine : supervision 3. Sit-Stand : supervision with FWW 4. Stand-Sit : supervision with FWW 5. Bed-Chair : min A with FWW 6. Chair-Bed : min A with FWW 7. Gait : min A with FWW x 25' 8. Stairs : ascend and descend 3 steps with bilat rails, min A Plan of Care/Treatment Plan: 1-2x/day, 7 days/week x 1 week. Plan of care has been reviewed with the PRODUCTION MANAGER providing the service under Physical Therapy direction. Initiate Physical Therapy intervention for strengthening, bed mobility, transfers, gait, stairs, balance training, use of assistive device. DISCHARGE RECOMMENDATIONS: Home vs SNF based on ability to participate and progress TREATMENT CODE/TIME: 1:25-2:00 ([id number], [id number]) Pat Espino, PT, DPT [facility] PFS All Active Problems (Updated 05/16/23 @ 13:33 by Thanh Jauregui MD) Osteoporosis (Chronic) Femoral neck fracture (Acute) Left displaced femoral neck fracture (Acute 05/15/23) Discharge planning issues (Acute) DVT prophylaxis (Acute) VARGAS (dyspnea on exertion) (Acute) Rib pain on right side (Acute) Acute exacerbation of chronic obstructive pulmonary disease (Acute) Pulmonary nodule (Acute) Encounter for screening for COVID-19 (Acute) Ear congestion (Acute) Underweight (Acute) Chronic respiratory failure with hypoxia (Acute) GERD (gastroesophageal reflux disease) (Chronic) Tremor (Acute) Chest pain (Acute) Compression fracture of T5 vertebra (Acute) Acute right-sided thoracic back pain (Acute) Tubular adenoma of colon (Acute 10/12/16) Anxiety (Chronic 01/04/16) Acute gastric ulcer due to Helicobacter pylori (Acute 12/06/15) EGD, Dr Mcfarlane. positive SHARON test (treated) (also esophagitis) Hypogammaglobulinemia (Acute) [facility] [place]up/ Lung nodule (Acute 07/09/15) [facility]; [address] : stable/repeat yearly Hypoxemia (Chronic 11/28/14) Depression (Chronic) Hyperlipidemia (Chronic) Low back pain (Chronic) Osteoarthritis (Chronic) Osteopenia (Chronic) COPD (chronic obstructive pulmonary disease) (Chronic) Medical History Acute exacerbation of chronic obstructive pulmonary disease (11/28/14) Chronic obstructive airway disease Oxygen dependent Hyperlipidemia Low back pain Osteoarthritis Osteopenia Palliative care patient Pneumonia (11/28/14) Renal cyst Smoker Tobacco abuse Surgical History Appendectomy Colonoscopy - MAC (10/10/16) Ligation of fallopian tube BSO NECK SURGERY Open Carpal Tunnel release X 2 RIB RESECTION
--- NOTE | 2023-05-17 14:24 | W.PM.PROGNOT ---
Date of Service Date of service: 05/17/23 Time of Service: 07:35 Assessment and Plan Assessment and plan (1) Left displaced femoral neck fracture: Status: Acute Assessment and plan: Nathalia is a 73-year-old female who is status post left hip arthroplasty via anterior approach. Is a challenging situation given her overall physical decline with past few years and ongoing severe COPD. The surgery was challenging given her osteoporosis but otherwise went well. She has some improvement of pain with simple motion of the left hip and with positioning in the bed. She did have some pain and sensitivity over the lateral aspect of the left ankle following surgery which is likely related to pressure from the boot. However, this seems to improve. At this point, she may continue to increase working with physical therapy. It will be a slow recovery given her significant weakness and physical decline. If the pain persist in the left ankle we can check that with x-rays for further evaluation tomorrow. Start physical therapy - WBAT. Subjective Subjective Interval history since last seen: Nathalia reports some improved pain about her left hip surgery. However, she does have pain about the left thigh as well as pain about the left foot. She did have sensitivity over the lateral aspect of the left hindfoot yesterday directly after surgery but this has proven. She otherwise reports feeling quite tired. Exam Narrative Exam Narrative: Resting in bed. No acute distress. Awakes appropriately although he is eyes closed most of the exam. Left hip shows a clean dry and intact dressing. There are some swelling of the thigh but no significant ecchymosis. No drainage on the dressing. He is able to tolerate some internal/external rotation of the left hip without any significant recent pain. Mild pain palpation about the lateral thigh. She does have some mild pain to palpation about the ankle, more lateral than medial. He is able to weakly demonstrate ankle dorsiflexion plantarflexion. Objective Last Vital Signs Temp 36.7 C 05/17/23 12:06 Pulse 81 05/17/23 12:06 Resp 17 05/17/23 12:06 BP 127/76 05/17/23 12:06 Pulse Ox 91 L 05/17/23 12:06 Laboratory Results - last 24 hr 05/17/23 05/17/23 05/17/23 05:36 05:36 05:36 WBC 13.67 H RBC 3.81 L Hgb 11.9 Hct 36.0 MCV 95 MCH 31.2 MCHC 33.1 RDW 14.4 Plt Count 133 MPV 11.2 H Immature Gran % 1.0 Neutrophils % 88.3 Lymphocytes % 3.7 Monocytes % 6.7 Eosinophils % 0.0 Basophils % 0.3 Nucleated RBC % 0.0 Absolute Neutrophils 12.07 H Absolute Lymphocytes 0.51 L Absolute Monocytes 0.92 H Absolute Eosinophils 0.00 Absolute Basophils 0.04 Sodium 135 L Potassium 4.8 Chloride 100 Carbon Dioxide 25.3 Anion Gap 9.7 BUN 37 H Creatinine 0.9 Est GFR (CKD-EPI 2020) 67.50 Glucose 153 H Calcium 8.8 Magnesium 2.1 25-OH Vitamin D Total 90.5 Time Spent with Patient Time Spent with Patient: <25 minutes Time was spent: preparing to see the patient(eg.review tests), obtaining and/or reviewing separately otained hiistory and indepentently interpreting results
[2023-05-17] MEDS: Pantoprazole 40 MG VIAL IVP (15:26)
[2023-05-17] MEDS: Normal Saline Flush 10 ML SYR IVP (15:27)
--- NOTE | 2023-05-17 17:36 | W.PM.PROGNOT ---
Date of Service Date of service: 05/17/23 Time of Service: 17:36 Assessment and Plan Assessment and plan (1) Femoral neck fracture: Status: Acute Assessment and plan: S/p hemiarthroplasty 05/17/23. Continue working with PT, pain control. Plan for discharge home on hospice once a stable pain medication regimen is found and PT deems it safe. (2) Chest pain: Status: Resolved Assessment and plan: noncardiac; musculoskeletal. Continue prn diclofenac gel. (3) Chronic obstructive airway disease: Assessment and plan: Continue scheduled + prn nebs (4) GERD (gastroesophageal reflux disease): Status: Chronic Assessment and plan: Continue IV protonix (5) DVT prophylaxis: Status: Acute Assessment and plan: SCDs. Will discuss with anesthesia when chemical DVT ppx is safe. (6) Discharge planning issues: Status: Acute Assessment and plan: DNR/DNI. On discharge, expected to return home on hospice. Subjective Subjective Interval history since last seen: Ms Cat is resting comfortably when I came to see her. She did not wake up to my presence in the room and verbal stimuli; I chose not to use painful stimuli considering overall goals of care. She is s/p hemiarthroplasty of her L hip yesterday. Her pain was finally better controlled by this morning. PT recommends home vs SNF. The plan is for discharge home with resumption of hospice. Exam Narrative Exam Narrative: General: frail-appearing pale elderly female, resting comfortably in bed, 4L of O2 by NC HEENT: eyes closed, MMM Heart: RRR, no m/r/g Lungs: CTAB anteriorly Abdomen: soft, nontender, nondistended Extremities: no edema; L hip anterior incision is dressed - c/d/i. Objective Last Vital Signs Temp 37.0 C 05/17/23 15:57 Pulse 63 05/17/23 16:58 Resp 20 05/17/23 15:57 BP 125/73 05/17/23 15:57 Pulse Ox 94 05/17/23 15:57 Laboratory Results - last 24 hr 05/17/23 05/17/23 05/17/23 05:36 05:36 05:36 WBC 13.67 H RBC 3.81 L Hgb 11.9 Hct 36.0 MCV 95 MCH 31.2 MCHC 33.1 RDW 14.4 Plt Count 133 MPV 11.2 H Immature Gran % 1.0 Neutrophils % 88.3 Lymphocytes % 3.7 Monocytes % 6.7 Eosinophils % 0.0 Basophils % 0.3 Nucleated RBC % 0.0 Absolute Neutrophils 12.07 H Absolute Lymphocytes 0.51 L Absolute Monocytes 0.92 H Absolute Eosinophils 0.00 Absolute Basophils 0.04 Sodium 135 L Potassium 4.8 Chloride 100 Carbon Dioxide 25.3 Anion Gap 9.7 BUN 37 H Creatinine 0.9 Est GFR (CKD-EPI 2020) 67.50 Glucose 153 H Calcium 8.8 Magnesium 2.1 25-OH Vitamin D Total 90.5 Time Spent with Patient Time Spent with Patient: 25-34 minutes Time was spent: preparing to see the patient(eg.review tests), obtaining and/or reviewing separately otained hiistory, ordering medications,tests, procedures, referring, communicating with other health critical care registered nurse, indepentently interpreting results, counseling the patient and care coordination
[2023-05-17] MEDS: Haloperidol 1 MG TAB PO (18:11)
[2023-05-17] MEDS: Albuterol 2.5 MG/3 ML INH SOLN VIAL UPD (18:42)
[2023-05-17] MEDS: guaiFENesin 600 MG TABCR 1200 MG PO (20:05)
[2023-05-18] VITALS (15 sets, daily range): BP systolic 111–146; BP diastolic 71–87; PULSE 54–114; RESP 1–22; TEMP 36.4–37.2; O2SAT 89–94
[2023-05-18] MEDS: methylPREDNISolone SUCC 40 MG VIAL 20 MG IVP ×2 (00:33→08:06)
[2023-05-18] MEDS: ACETAMINOPHEN 1,000 MG/100 ML BTL 400 MG IVPB ×3 (05:13→20:30)
[2023-05-18 06:36] LABS: Abs Immature Grans 0.06 10^3/uL (0.0-0.06); Absolute Basophil Count 0.02 10^3/uL (0.0-0.2); Absolute Lymphocyte Count 0.46 10^3/uL (1.2-3.4); Absolute Monocyte Count 0.86 10^3/uL (0.1-0.8); Basophils % 0.2; HCT 30.9 % (36.0-46.0); HGB 10.2 g/dL (11.2-15.7); Immature Grans % 0.5; Lymphocytes % 3.9; MCH 30.5 pg (27.0-33.0); MCV 93 fL (80-95); MPV 11.3 fL (8.0-11.0); Monocytes % 7.3; Neutrophils % 88.1; Platelet Count 179 10^3/uL (130-400); RBC 3.34 10^6/uL (3.93-5.22); RDW 14.4 % (11.7-14.6); RDW-SD 48.5 fL; WBC 11.82 10^3/uL (4.4-10.8)
[2023-05-18 06:47] LABS: Absolute Neutrophil Count 10.41 10^3/uL (1.2-6.7)
[2023-05-18 06:53] LABS: Anion Gap 8.5 mmol/L (3-11); BUN 21 mg/dL (7-18); CO2 28.5 mmol/L (21.0-32.0); CREATININE 0.8 mg/dL (0.55-1.02); Calcium 8.9 mg/dL (8.5-10.1); Chloride 102 mmol/L (98-107); Estimated GFR 77.75 (mL/min/1.73m2); Glucose 138 mg/dL (74-106); Magnesium 1.9 mg/dL (1.8-2.4); Potassium 4.3 mmol/L (3.5-5.1); Sodium 139 mmol/L (136-145)
[2023-05-18] MEDS: Cholecalciferol (Vitamin D3) 1,000 UNIT TAB 2000 UNITS PO (07:49)
[2023-05-18] MEDS: guaiFENesin 600 MG TABCR 1200 MG PO ×2 (07:49→20:28)
[2023-05-18] MEDS: Diclofenac 1% Gel 100 GM TUBE TP ×4 (07:50→20:29)
[2023-05-18] MEDS: Polyethylene Glycol 3350 17 GM PACKET 8.5 GM PO (07:50)
[2023-05-18] MEDS: Albuterol/Ipratropium 3 ML UPD VIAL UPD ×4 (08:04→19:13)
[2023-05-18] MEDS: Mometasone 220 MCG 14 DOSE INHALER 1 PUFF IH (08:05)
[2023-05-18] MEDS: Tiotropium/Olodaterol 10 PUFF INHALER 2 PUFF IH (08:05)
[2023-05-18] MEDS: Normal Saline Flush 10 ML SYR IVP ×5 (08:06→16:05)
[2023-05-18] MEDS: LORazepam 1 MG TAB PO ×2 (08:21→20:30)
[2023-05-18] MEDS: Ketorolac 30 MG/ML VIAL 15 MG IVP ×2 (08:41→20:27)
--- NOTE | 2023-05-18 08:44 | W.ANESPOSTOP ---
Postoperative Evaluation Date, Time and Location Date Performed: 05/18/23 Time Performed: 07:48 Patient Location: Med/Surg Vital Signs Most Recent Imported Vital Signs: Most Recent Vital Signs Temp Pulse Resp BP Pulse Ox 37.2 C 92 H 19 144/85 H 93 05/18/23 07:39 05/18/23 08:06 05/18/23 08:06 05/18/23 07:39 05/18/23 08:06 Pain Score Most Recent Pain Score: Most Recent Pain Score Pain Level [Generalized] 5 05/15/23 15:00 Pain Level [Left Hip] 5 05/15/23 11:00 Pain Level 5 05/18/23 07:39 Assessment Mental Status: Awake (Alert & Oriented to Patient Baseline) Airway and Respiratory Function: Patent airway with normal (patient baseline) respiratory exam Cardiovascular Function: Hemodynamically Stable Hydration Status: Adequately Hydrated Nausea & Vomiting: No Nausea or Vomiting Pain: Pain is Moderate or Severe Postoperative Pain Management: Ongoing pain, patient will be managed as an inpatient Peripheral Nerve Block: Patient did not receive a nerve block
[2023-05-18] MEDS: HYDROmorphone 2 MG/ML SYR IVP ×3 (09:57→20:27)
--- NOTE | 2023-05-18 10:05 | W.PALLCONSUL ---
Date of service: 05/18/23 Time of Service: 09:30 History of Present Illness Narrative: Nathalia is on hospice for COPD. She fell at home and sustained a L femoral neck Fx. She is s/p hemiarthroplasty 05/17/23. She had some difficulty with pain control initially but feels more comfortable today. Her goal is to get back home. She states she wants to be able to get in and out of bed and go to BR/kitchen on her own. Her is present and states that he will help her as needed. He already does all of the cooking and cleaning. She would go to rehab if recommended or if she does not feel safe going home. She is eating small amounts, mostly pudding and ice cream. Chest pain is her biggest concern today. This appears to be musculoskeletal, primarily occurs with coughing. She is interested in trying lidocaine patches. Hospice to get hospital bed and wheelchair in anticipation of her returning home. Assessment and Plan Assessment and plan (1) Femoral neck fracture: Status: Acute Assessment and plan: S/p hemiarthroplasty 05/17/23. Continue working with PT, pain control. Plan for discharge home on hospice once a stable pain medication regimen is found and PT deems it safe. (2) Chest pain: Status: Resolved Assessment and plan: noncardiac; musculoskeletal. Trial lidocaine patches. (3) Chronic obstructive airway disease: Assessment and plan: On hospice for this Dx. Will resume hospice services at home. (4) Discharge planning issues: Status: Acute Assessment and plan: DNR/DNI. On discharge, expected to return home on hospice. (5) Hospice care patient: Status: Acute Assessment and plan: Nathalia is on hospice for COPD. Her goal is to return home when she is discharged. She is hoping to be able to get in and out of bed at home. Continue PT. She would consider rehab if recommended but prefers to go home with hospice support. Her is her caregiver. Hospice is ordering a hospital bed and wheelchair for when she gets home. Review of Systems Narrative: SOB with talking, on O2. Breathing at baseline. PFSH All Active Problems (Updated 05/18/23 @ 11:22 by Delia Jimenez NP) Hospice care patient (Acute) Osteoporosis (Chronic) Femoral neck fracture (Acute) Left displaced femoral neck fracture (Acute 05/15/23) s/p Anterior Hip Hemiarthroplasty (05/16/23) Discharge planning issues (Acute) DVT prophylaxis (Acute) VARGAS (dyspnea on exertion) (Acute) Rib pain on right side (Acute) Acute exacerbation of chronic obstructive pulmonary disease (Acute) Pulmonary nodule (Acute) Encounter for screening for COVID-19 (Acute) Ear congestion (Acute) Underweight (Acute) Chronic respiratory failure with hypoxia (Acute) GERD (gastroesophageal reflux disease) (Chronic) Tremor (Acute) Compression fracture of T5 vertebra (Acute) Acute right-sided thoracic back pain (Acute) Tubular adenoma of colon (Acute 10/12/16) Anxiety (Chronic 01/04/16) Acute gastric ulcer due to Helicobacter pylori (Acute 12/06/15) EGD, Dr Mcfarlane. positive SHARON test (treated) (also esophagitis) Hypogammaglobulinemia (Acute) [facility] [place] Hemato.: negative workup/ Lung nodule (Acute 07/09/15) [facility]; [address] : stable/repeat yearly Hypoxemia (Chronic 11/28/14) Depression (Chronic) Hyperlipidemia (Chronic) Low back pain (Chronic) Osteoarthritis (Chronic) Osteopenia (Chronic) COPD (chronic obstructive pulmonary disease) (Chronic) Medical History Acute exacerbation of chronic obstructive pulmonary disease (11/28/14) Chronic obstructive airway disease Oxygen dependent Hyperlipidemia Low back pain Osteoarthritis Osteopenia Palliative care patient Pneumonia (11/28/14) Renal cyst Smoker Tobacco abuse Surgical History Appendectomy Colonoscopy - MAC (10/10/16) Ligation of fallopian tube BSO NECK SURGERY Open Carpal Tunnel release X 2 RIB RESECTION Family History Mother Diabetes Essential hypertension Hyperlipidemia Stroke Asthma Brother , 58 Essential hypertension Neoplasm Throat Chronic obstructive lung disease Asthma Maternal Grandmother , 93 Chronic obstructive lung disease Asthma Father , 97 No problems noted. Sister No problems noted. Sister No problems noted. Brother No problems noted. Son , age 32 - Drown No problems noted. Maternal Grandfather , age 91 No problems noted. Paternal Grandfather No problems noted. Paternal Grandmother No problems noted. Social History Smoking/Tobacco Use Status: Former Tobacco Use tobacco type: cigarettes Quit Date: 12/29/18 Tobacco: How many years used: 53 Second Hand Exposure: Yes Smoking risk assessment performed?: Yes Alcohol Intake: former Drug use: Never Substance use type: does not use Caregiver/Support person: No Household members: spouse Housing: house Communication Needs: None Do you need help understanding health information?: Rarely Pets and animals: Yes Pets and animals: cat(s) Sexually active: No Do you think of yourself as: straight/heterosexual Current gender identity: female What is your relationship status?: How often do you talk on the phone with friends or family?: decline to answer How often do you get together with friends or relatives?: decline to answer How often do you attend worship or mandaen services?: decline to answer Do you belong to any clubs or organized social groups?: no Panel score (0-1 are the most socially isolated patients): 1 What type of physical activity do you participate in: none Frequency: daily Fay/Nondenominational: Nondenominational Special fay needs: No Seatbelt use: always Drive intox or ride w/intox 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 She is awake, alert and oriented, talkative. HEENT: normocephalic, atraumatic, EOMI, mm slightly dry. Lungs: mildly SOB with talking, on O2 via nc. Abdomen: soft, nontender, nondistended Extremities: no edema; L hip anterior incision is dressed - c/d/i. feet are warm to touch, +PP bilaterally, wearing SCDs. Results Last Vital Signs Temp 37.2 C 05/18/23 07:39 Pulse 92 H 05/18/23 08:06 Resp 19 05/18/23 08:06 BP 144/85 H 05/18/23 07:39 Pulse Ox 93 05/18/23 08:06 Labs 05/19/23 06:04 05/19/23 06:04 Labs: Laboratory Results - last 24 hr 05/18/23 05/18/23 05:58 05:58 WBC 11.82 H RBC 3.34 L Hgb 10.2 L Hct 30.9 L MCV 93 MCH 30.5 MCHC 33.0 RDW 14.4 Plt Count 179 MPV 11.3 H Immature Gran % 0.5 Neutrophils % 88.1 Lymphocytes % 3.9 Monocytes % 7.3 Eosinophils % 0.0 Basophils % 0.2 Nucleated RBC % 0.0 Absolute Neutrophils 10.41 H Absolute Lymphocytes 0.46 L Absolute Monocytes 0.86 H Absolute Eosinophils 0.00 Absolute Basophils 0.02 Sodium 139 Potassium 4.3 Chloride 102 Carbon Dioxide 28.5 Anion Gap 8.5 BUN 21 H Creatinine 0.8 Est GFR (CKD-EPI 2020) 77.75 Glucose 138 H Calcium 8.9 Magnesium 1.9
[2023-05-18] MEDS: Lidocaine 5% Patch 1 PATCH TP (11:13)
--- NOTE | 2023-05-18 11:44 | PT.INTREAT ---
PT Notes Visit Reasons: Left Femoral Neck Fracture Inpatient Physical Therapy Treatment Note [facility] Date: 05/18/23 PRECAUTIONS: standard SUBJECTIVE: Nathalia states that she is very tired. She's agreeable to getting up to the chair, but states that she's nervous that she won't be able to do it. OBJECTIVE: ? PAIN: nursing applied Lidocaine patch to chest just prior to transfer VITALS: ? Pre-Treatment: SaO2 91% on 3.5LPM ? Post-Treatment: desaturates to 86% with first transfer; on second attempt at ambulation, she was cued for pursed lip breathing and was able to increase distance and standing time with SaO2 at 86% on 3.5 LPM, increasing to 91% wit seated rest x 30 seconds? Therapeutic Activities ([id number]): Direct one-on-one instruction in dynamic activities to improve functional performance. ? BED MOBILITY/TRANSFERS? Supine-sit: mod A x 2, cues for hand placement? Sit-supine: not assessed ? Sit-stand: CGA, cues for hand placement and equipment management. Instructed in sit<->stand x 3 reps, with cues for each. ? Stand-sit: CGA, cues as above ? Bed-Chair: CGA x 2, cues for technique and FWW management ? Provided skilled cues and instruction on performance and technique throughout, as above. ? Therapeutic Exercises ([id number]): Direct one-on-one instruction in therapeutic exercises to develop strength, endurance, range of motion and flexibility. ?Ambulation for improved activity tolerance? Assistive Device: FWW? Weight bearing: WBAT Assist: CGA ? Distance:? 10' ? Deviation: cues for pursed lip breathing and for equipment management, particularly staying inside the walker ? Provided skilled instruction in proper exercise performance Provided skilled manual cues to facilitate proper muscle recruitment and/or form: supine: ankle pumps 10x heel slides, 10x each, AROM right, AAROM left seated: LAQ 10x each ankle pumps 10x bicep curls 10x, cues for pursed lip breathing ASSESSMENT:? Improvements in mobility, primarily limited by breathing/activity tolerance. Goal is to maximize independence with transfers and short distance ambulation to allow for safe return back home on hospice. PLAN: Continue progressive transfer training and therapeutic exercise to maximize strength and activity tolerance. TREATMENT CODE/TIME: 11:05-11:40 ([id number], [id number]) Pat Espino, PT, DPT [facility]
--- NOTE | 2023-05-18 12:11 | PDOC.CMPRO ---
Date of service: 05/18/23 Time of Service: 12:11 Care Management Progress Note Progress Note Text Progress Note Text: S/O: Nathalia was lying in bed sleeping when CM met with her with David sitting at her bedside. The plan is for Nathalia to remain at [facility] through the weekend and discharge home on Sunday and re-admit to Hospice services. Hospice met with patient today and is getting Nathalia a hospital bed and wheelchair for home. A: 73 year old female admitted to [facility] on 05/15/23 for Left femoral neck fracture P: Nathalia will discharge home and readmit to Hospice services, transportation will be dependent on her mobility. Hospice is ordering her a hospital bed and wheelchair and advises that a PT eval will be ordered after discharge, if needed. CM will continue to follow.
--- NOTE | 2023-05-18 13:47 | W.PM.PROGNOT ---
Date of Service Date of service: 05/18/23 Time of Service: 13:47 Assessment and Plan Assessment and plan (1) Left displaced femoral neck fracture: Status: Acute Assessment and plan: Nathalia is improving postop day 2 of a hemiarthroplasty of her left hip for a fracture of femoral neck with cable fixation of the fracture as well. Hopefully she will be able to continue to increase her activity and weightbearing status with a walker over the next few days as she is relatively comfortable in a standing position at this time. Subjective Subjective Interval history since last seen: Nathalia is postop day 2 for a hemiarthroplasty of her left hip in the setting of a femoral neck fracture. She also had a cable fixation of a continuation of the fracture distally. Today she states that she is doing well and feels better than she did yesterday as far as the hip is concerned. She says that she has some soreness in her left hip and left leg, but does not have any significant pain in the left hip or groin. She has been able to get out of bed and stand and also transition to a chair comfortably. She denies any more ankle pain. She states that the lateral ankle pain that she had yesterday has completely resolved. She denies any ankle pain with standing on her left leg. Exam Narrative Exam Narrative: Exam of the left hip today shows that the Mepilex dressing is completely dry with no drainage. She is able to flex her hip to almost 90 degrees passively. She has smooth internal and external rotation which does not elicit pain. She is able to demonstrate a straight leg raise lying in bed. Brief exam of the ankle shows no obvious deformities. No pain to palpation throughout the ankle. Objective Last Vital Signs Temp 99.0 F 05/18/23 11:16 Pulse 114 H 05/18/23 12:13 Resp 18 05/18/23 11:49 BP 136/76 05/18/23 11:16 Pulse Ox 93 05/18/23 11:49 Laboratory Results - last 24 hr 05/18/23 05/18/23 05:58 05:58 WBC 11.82 H RBC 3.34 L Hgb 10.2 L Hct 30.9 L MCV 93 MCH 30.5 MCHC 33.0 RDW 14.4 Plt Count 179 MPV 11.3 H Immature Gran % 0.5 Neutrophils % 88.1 Lymphocytes % 3.9 Monocytes % 7.3 Eosinophils % 0.0 Basophils % 0.2 Nucleated RBC % 0.0 Absolute Neutrophils 10.41 H Absolute Lymphocytes 0.46 L Absolute Monocytes 0.86 H Absolute Eosinophils 0.00 Absolute Basophils 0.02 Sodium 139 Potassium 4.3 Chloride 102 Carbon Dioxide 28.5 Anion Gap 8.5 BUN 21 H Creatinine 0.8 Est GFR (CKD-EPI 2020) 77.75 Glucose 138 H Calcium 8.9 Magnesium 1.9 Time Spent with Patient Time Spent with Patient: <25 minutes Time was spent: preparing to see the patient(eg.review tests), obtaining and/or reviewing separately otained hiistory and care coordination
--- NOTE | 2023-05-18 15:07 | W.PM.PROGNOT ---
Date of Service Date of service: 05/18/23 Time of Service: 19:07 Assessment and Plan Assessment and plan (1) Femoral neck fracture: Status: Acute Assessment and plan: S/p hemiarthroplasty 05/17/23. Continue working with PT, pain control. Plan for discharge home on hospice once a stable pain medication regimen is found and PT deems it safe, possibly Monday 05/21 (2) Chest pain: Status: Resolved Assessment and plan: noncardiac; musculoskeletal. Denies chest pain today Continue prn diclofenac gel. (3) Chronic obstructive airway disease: Assessment and plan: Continue scheduled + prn nebs (4) GERD (gastroesophageal reflux disease): Status: Chronic Assessment and plan: Continue IV protonix (5) DVT prophylaxis: Status: Acute Assessment and plan: SCDs (6) Discharge planning issues: Status: Acute Assessment and plan: DNR/DNI. On discharge, expected to return home on hospice. Subjective Subjective Patient reports: no new complaints, voiding w/o difficulty, no flatus and afebrile; denies diarrhea or vomiting Interval history since last seen: Comfortable, sitting in bed, 45 degree HOB, nasal oxygen , speaking in full sentences. She states she is going home on Sunday and will go back on hospice care. She does understand and explains what that means. Exam Narrative Exam Narrative: In bed 45 degrees HOB up, conversant, family in visiting today. Const General: cooperative and acute distress mild, moderate and respiratory Nutritional Appearance: cachectic Orientation: alert, awake and oriented x3 HENMT Head: normal to inspection, normocephalic and atraumatic Mouth: moist mucous membranes abnormal (slightly dry, no exudate) Chest Chest: normal inspection of the chest Resp Effort & Inspection: able to speak in complete sentences, audible wheezes (expiratory - with normal breathing), respiratory distress (with activity), tachypneic and prolonged expiratory phase Auscultation: diminished lung sounds, no rales, no rhonchi and wheezes expiratory wheezes (through out) Cardio Rate: regular rate Rhythm: regular rhythm GI Inspection: normal to inspection and scaphoid Palpation: no masses Neuro General: patient alert, patient awake and patient oriented x3 Extrem General: full ROM, no pedal edema and muscle atrophy Objective Last Vital Signs Temp 36.9 C 05/18/23 15:01 Pulse 90 05/18/23 16:31 Resp 18 08/18/23 16:31 BP 111/71 05/18/23 15:01 Pulse Ox 93 05/18/23 16:31 Laboratory Results - last 24 hr 05/18/23 05/18/23 05:58 05:58 WBC 11.82 H RBC 3.34 L Hgb 10.2 L Hct 30.9 L MCV 93 MCH 30.5 MCHC 33.0 RDW 14.4 Plt Count 179 MPV 11.3 H Immature Gran % 0.5 Neutrophils % 88.1 Lymphocytes % 3.9 Monocytes % 7.3 Eosinophils % 0.0 Basophils % 0.2 Nucleated RBC % 0.0 Absolute Neutrophils 10.41 H Absolute Lymphocytes 0.46 L Absolute Monocytes 0.86 H Absolute Eosinophils 0.00 Absolute Basophils 0.02 Sodium 139 Potassium 4.3 Chloride 102 Carbon Dioxide 28.5 Anion Gap 8.5 BUN 21 H Creatinine 0.8 Est GFR (CKD-EPI 2020) 77.75 Glucose 138 H Calcium 8.9 Magnesium 1.9 Time Spent with Patient Time Spent with Patient: 25-34 minutes Time was spent: preparing to see the patient(eg.review tests), ordering medications,tests, procedures, referring, communicating with other health tree care foreman and indepentently interpreting results
[2023-05-18] MEDS: Pantoprazole 40 MG VIAL IVP (16:05)
--- NOTE | 2023-05-18 17:00 | PT.INTREAT ---
Date of service: 05/18/23 Time of Service: 15:02 PT Notes Visit Reasons: Left Femoral Neck Fracture Inpatient Physical Therapy Treatment Note [facility] Date: 05/18/23 PRECAUTIONS: Fall, standard, activity as tolerated. SUBJECTIVE: Patient in a lot of pain, supine in bed, agreeable to therapy. OBJECTIVE: ? PAIN: Yes, especially in abdomen with coughing. RN notified. VITALS: monitored by nursing. ? Therapeutic Activities (34954y8): Direct one-on-one instruction in dynamic activities to improve functional performance. ? BED MOBILITY/TRANSFERS? Rolling L/R: SBA Supine-sit: mod assist ? Sit-stand: min assist ? Stand-sit: CGA ? Bed-Chair: Min assist with verbal cues ? Chair-bed: min assist with verbal cues Provided skilled cues and instruction on performance and technique throughout. ASSESSMENT:? Patient tolerates therapy well. PLAN: Continue global strengthening per plan of care until patient is medically cleared for discharge. TREATMENT CODE/TIME: 17550 Ther Act 15 minutes beginning at 15:02
[2023-05-18] MEDS: diphenhydrAMINE 25 MG CAP PO (20:28)
[2023-05-18] MEDS: Benzonatate 100 MG CAP PO (20:29)
[2023-05-19] VITALS (11 sets, daily range): BP systolic 125–151; BP diastolic 72–84; PULSE 67–87; RESP 4–22; TEMP 36–37.9; O2SAT 86–98
[2023-05-19] MEDS: Lidocaine Patch Removal 1 EACH TP (00:22)
[2023-05-19] MEDS: Haloperidol 1 MG TAB PO (02:50)
[2023-05-19] MEDS: HYDROmorphone 2 MG/ML SYR IVP ×5 (02:57→22:00)
[2023-05-19] MEDS: LORazepam 1 MG TAB PO ×3 (02:59→19:09)
[2023-05-19] MEDS: ACETAMINOPHEN 1,000 MG/100 ML BTL 400 MG IVPB (06:02)
[2023-05-19 07:02] LABS: Abs Immature Grans 0.08 10^3/uL (0.0-0.06); Absolute Basophil Count 0.02 10^3/uL (0.0-0.2); Absolute Eosinophil Count 0.07 10^3/uL (0.0-0.7); Absolute Lymphocyte Count 1.98 10^3/uL (1.2-3.4); Absolute Monocyte Count 1.01 10^3/uL (0.1-0.8); Absolute Neutrophil Count 7.38 10^3/uL (1.2-6.7); Basophils % 0.2; Eosinophils % 0.7; HCT 30.9 % (36.0-46.0); HGB 10.2 g/dL (11.2-15.7); Immature Grans % 0.8; Lymphocytes % 18.8; MCH 31.1 pg (27.0-33.0); MCV 94 fL (80-95); Monocytes % 9.6; Neutrophils % 69.9; Platelet Count 186 10^3/uL (130-400); RBC 3.28 10^6/uL (3.93-5.22); RDW 14.6 % (11.7-14.6); RDW-SD 50.4 fL; WBC 10.54 10^3/uL (4.4-10.8)
[2023-05-19 07:23] LABS: Anion Gap 5.7 mmol/L (3-11); BUN 21 mg/dL (7-18); CO2 30.3 mmol/L (21.0-32.0); CREATININE 0.8 mg/dL (0.55-1.02); Chloride 100 mmol/L (98-107); Estimated GFR 77.75 (mL/min/1.73m2); Glucose 89 mg/dL (74-106); Magnesium 1.9 mg/dL (1.8-2.4); Sodium 136 mmol/L (136-145)
[2023-05-19] MEDS: Normal Saline Flush 10 ML SYR IVP ×3 (07:32→16:43)
[2023-05-19] MEDS: guaiFENesin 600 MG TABCR 1200 MG PO ×2 (08:30→19:10)
[2023-05-19] MEDS: Cholecalciferol (Vitamin D3) 1,000 UNIT TAB 2000 UNITS PO (08:30)
[2023-05-19] MEDS: Benzonatate 100 MG CAP PO ×3 (08:31→19:10)
[2023-05-19] MEDS: Albuterol/Ipratropium 3 ML UPD VIAL UPD ×2 (09:26→19:24)
[2023-05-19] MEDS: Tiotropium/Olodaterol 10 PUFF INHALER 2 PUFF IH (09:28)
[2023-05-19] MEDS: Mometasone 220 MCG 14 DOSE INHALER 1 PUFF IH (09:28)
[2023-05-19] MEDS: Diclofenac 1% Gel 100 GM TUBE TP ×2 (09:55→15:53)
[2023-05-19 10:52] LABS: BE (Venous) 6 mmol/L (-2-3); HCO3 (Venous) 31 mmol/L (23-28); O2 Sat (Venous) 87 %; TCO2 (Venous) 29 mmol/L (24-29); pCO2 (Venous) 49 mmHg (41-51); pH (Venous) 7.41 (7.31-7.41); pO2 (Venous) 52 mmHg
[2023-05-19] MEDS: Lidocaine 5% Patch 1 PATCH TP (11:01)
--- NOTE | 2023-05-19 11:33 | PT.INNT ---
PT Notes Visit Reasons: Left Femoral Neck Fracture Attempted x3. Nathalia states she is very tired. Having a hard time conversing. We attempted ex however she was not able to follow directions. Hold today. Will check in with her tomorrow.
[2023-05-19] MEDS: Ketorolac 30 MG/ML VIAL 15 MG IVP ×2 (11:55→19:10)
[2023-05-19 12:10] LABS: Bilirubin Negative (Negative); Blood Trace-intact (Negative); Clarity Clear (Clear); Glucose Negative (Negative); Ketones Negative (Negative); Leukocyte Esterase Negative (Negative); Nitrite Negative (Negative); Specific Gravity <= 1.005 (1.005-1.025); Urobilinogen 0.2 mg/dL (Up to 0.2)
[2023-05-19 12:21] LABS: Bacteria Negative HPF (Negative); C & S Indicated? No; Casts Negative LPF (Negative); Crystals Negative HPF (Negative); Epithelial Cells Rare HPF (Negative); Mucus Negative (Negative); RBC 0-2 HPF (0-2); WBC Negative HPF (0-5)
[2023-05-19] MEDS: Hyoscyamine 0.125 MG SL/ORAL/CHEW PO (14:20)
--- NOTE | 2023-05-19 16:32 | W.PM.PROGNOT ---
Date of Service Date of service: 05/19/23 Time of Service: 09:30 Assessment and Plan Assessment and plan (1) Femoral neck fracture: Status: Acute Assessment and plan: S/p hemiarthroplasty 05/17/23. Continue working with PT, pain control. Plan for discharge home on hospice once a stable pain medication regimen is found and PT deems it safe, possibly Monday 05/21 (2) Chest pain: Status: Resolved Assessment and plan: noncardiac; musculoskeletal. Denies chest pain today Continue prn diclofenac gel. (3) Chronic obstructive airway disease: Assessment and plan: Continue scheduled + prn nebs Patient feeling tired today, she received dilaudid and lorazepam this am which contributes to hypoventilation, Resp therapy felt she looked worse than baseline, VBG checked, better than baseline, continued with NC @ 2.5 l to keep SPO2 > 88% she was in no distress, appeared comfortable, I did ask her if she needed BiPap would she take it and she said she would like to try it if it comes to that. (4) GERD (gastroesophageal reflux disease): Status: Chronic Assessment and plan: Continue IV protonix (5) DVT prophylaxis: Status: Acute Assessment and plan: SCDs (6) Discharge planning issues: Status: Acute Assessment and plan: DNR/DNI. On discharge, expected to return home on hospice. Discussed with Dr Coleman Subjective Subjective Patient reports: no new complaints, tolerating a regular diet, bowel movement and afebrile; denies flatus, diarrhea, nausea or vomiting Interval history since last seen: States she did not sleep well and was feeling more tired than usual, No acute shortness of breath Exam Narrative Exam Narrative: In bed 45 degrees HOB up, conversant, family in visiting today. Const General: cooperative and acute distress mild, moderate and respiratory Nutritional Appearance: cachectic Orientation: alert, awake and oriented x3 HENMT Head: normal to inspection, normocephalic and atraumatic Mouth: moist mucous membranes abnormal (slightly dry, no exudate) Chest Chest: normal inspection of the chest Resp Effort & Inspection: able to speak in complete sentences, audible wheezes (expiratory - with normal breathing), respiratory distress (with activity), tachypneic and prolonged expiratory phase Auscultation: diminished lung sounds, no rales, no rhonchi and wheezes expiratory wheezes (through out) Cardio Rate: regular rate Rhythm: regular rhythm GI Inspection: normal to inspection and scaphoid Palpation: no masses Neuro General: patient alert, patient awake and patient oriented x3 Extrem General: full ROM, no pedal edema and muscle atrophy Objective Last Vital Signs Temp 36.0 C L 05/19/23 15:05 Pulse 85 05/19/23 15:05 Resp 20 05/19/23 09:33 BP 127/76 05/19/23 15:05 Pulse Ox 89 L 05/19/23 15:05 Laboratory Results - last 24 hr 05/19/23 05/19/23 05/19/23 06:04 06:04 10:45 WBC 10.54 RBC 3.28 L Hgb 10.2 L Hct 30.9 L MCV 94 MCH 31.1 MCHC 33.0 RDW 14.6 Plt Count 186 MPV 11.0 Immature Gran % 0.8 Neutrophils % 69.9 Lymphocytes % 18.8 Monocytes % 9.6 Eosinophils % 0.7 Basophils % 0.2 Nucleated RBC % 0.0 Absolute Neutrophils 7.38 H Absolute Lymphocytes 1.98 Absolute Monocytes 1.01 H Absolute Eosinophils 0.07 Absolute Basophils 0.02 VBG pH 7.41 VBG pCO2 49 VBG pO2 52 VBG HCO3 31 H VBG Total CO2 29 VBG O2 Saturation 87 VBG Base Excess 6 H Sodium 136 Potassium 4.0 Chloride 100 Carbon Dioxide 30.3 Anion Gap 5.7 BUN 21 H Creatinine 0.8 Est GFR (CKD-EPI 2020) 77.75 Glucose 89 Calcium 9.0 Magnesium 1.9 Urine Color Urine Clarity Urine pH Ur Specific [place] Urine Protein Urine Ketones Urine Blood Urine Nitrite Urine Bilirubin Urine Urobilinogen Ur Leukocyte Esterase Urine RBC Urine WBC Ur Epithelial Cells Urine Crystals Urine Bacteria Urine Casts Urine Mucus Ur Culture Indicated? Urine Glucose 05/19/23 12:00 WBC RBC Hgb Hct MCV MCH MCHC RDW Plt Count MPV Immature Gran % Neutrophils % Lymphocytes % Monocytes % Eosinophils % Basophils % Nucleated RBC % Absolute Neutrophils Absolute Lymphocytes Absolute Monocytes Absolute Eosinophils Absolute Basophils VBG pH VBG pCO2 VBG pO2 VBG HCO3 VBG Total CO2 VBG O2 Saturation VBG Base Excess Sodium Potassium Chloride Carbon Dioxide Anion Gap BUN Creatinine Est GFR (CKD-EPI 2020) Glucose Calcium Magnesium Urine Color Straw Urine Clarity Clear Urine pH 6.0 Ur Specific [place] <= 1.005 Urine Protein Negative Urine Ketones Negative Urine Blood Trace-intact H Urine Nitrite Negative Urine Bilirubin Negative Urine Urobilinogen 0.2 Ur Leukocyte Esterase Negative Urine RBC 0-2 Urine WBC Negative Ur Epithelial Cells Rare Urine Crystals Negative Urine Bacteria Negative Urine Casts Negative Urine Mucus Negative Ur Culture Indicated? No Urine Glucose Negative Time Spent with Patient Time Spent with Patient: 35-49 minutes Time was spent: preparing to see the patient(eg.review tests), ordering medications,tests, procedures, referring, communicating with other health healthcare consulting manager and indepentently interpreting results
[2023-05-20] VITALS (18 sets, daily range): BP systolic 118–150; BP diastolic 72–83; PULSE 73–105; RESP 4–24; TEMP 36.7–38.2; O2SAT 83–95
[2023-05-20] MEDS: LORazepam 1 MG TAB PO ×4 (00:22→20:11)
[2023-05-20] MEDS: HYDROmorphone 2 MG/ML SYR IVP (03:47)
[2023-05-20 06:58] LABS: Abs Immature Grans 0.08 10^3/uL (0.0-0.06); Absolute Basophil Count 0.02 10^3/uL (0.0-0.2); Absolute Eosinophil Count 0.58 10^3/uL (0.0-0.7); Absolute Lymphocyte Count 1.28 10^3/uL (1.2-3.4); Absolute Monocyte Count 0.71 10^3/uL (0.1-0.8); Absolute Neutrophil Count 6.29 10^3/uL (1.2-6.7); Basophils % 0.2; Eosinophils % 6.5; HCT 31.2 % (36.0-46.0); HGB 10.7 g/dL (11.2-15.7); Immature Grans % 0.9; Lymphocytes % 14.3; MCH 31.7 pg (27.0-33.0); MCHC 34.3 % (32.0-36.0); MCV 92 fL (80-95); MPV 11.8 fL (8.0-11.0); Monocytes % 7.9; Neutrophils % 70.2; Platelet Count 187 10^3/uL (130-400); RBC 3.38 10^6/uL (3.93-5.22); RDW 14.5 % (11.7-14.6); RDW-SD 49.1 fL; WBC 8.96 10^3/uL (4.4-10.8)
[2023-05-20 07:08] LABS: Anion Gap 8.5 mmol/L (3-11); BUN 20 mg/dL (7-18); CO2 27.5 mmol/L (21.0-32.0); CREATININE 0.8 mg/dL (0.55-1.02); Calcium 8.6 mg/dL (8.5-10.1); Chloride 102 mmol/L (98-107); Estimated GFR 77.75 (mL/min/1.73m2); Glucose 79 mg/dL (74-106); Magnesium 1.7 mg/dL (1.8-2.4); Potassium 4.3 mmol/L (3.5-5.1); Sodium 138 mmol/L (136-145)
[2023-05-20] MEDS: Albuterol/Ipratropium 3 ML UPD VIAL UPD ×3 (08:36→19:44)
[2023-05-20] MEDS: Pantoprazole 40 MG TABCR PO (09:36)
[2023-05-20] MEDS: Hyoscyamine 0.125 MG SL/ORAL/CHEW PO (09:43)
[2023-05-20] MEDS: Milk of Magnesia 30 ML CUP PO (09:43)
[2023-05-20] MEDS: Ketorolac 30 MG/ML VIAL 15 MG IVP (09:44)
[2023-05-20] MEDS: Benzonatate 100 MG CAP PO ×3 (10:00→20:11)
[2023-05-20] MEDS: guaiFENesin 600 MG TABCR 1200 MG PO ×2 (10:00→20:11)
[2023-05-20] MEDS: Cholecalciferol (Vitamin D3) 1,000 UNIT TAB 2000 UNITS PO (10:00)
[2023-05-20] MEDS: Lidocaine 5% Patch 1 PATCH TP (10:07)
[2023-05-20] MEDS: Fluticasone NASAL SPRAY 16 GM BTL NS (10:16)
[2023-05-20] MEDS: Diclofenac 1% Gel 100 GM TUBE TP (10:17)
--- NOTE | 2023-05-20 12:12 | W.PM.PROGNOT ---
Date of Service Date of service: 05/20/23 Time of Service: 12:13 Assessment and Plan Assessment and plan (1) Femoral neck fracture: Status: Acute Assessment and plan: S/p hemiarthroplasty 05/17/23. Continue working with PT, pain control. Plan for discharge home on hospice once a stable pain medication regimen is found and PT deems it safe, possibly Monday 05/21 (2) Chest pain: Status: Resolved Assessment and plan: noncardiac; musculoskeletal. Denies chest pain today Continue prn diclofenac gel. (3) Chronic obstructive airway disease: Assessment and plan: Continue scheduled + prn nebs Pt in no distress, appears anxious She would entertain BiPap if indicated Lorazepam and morphine, calmed her breathing and was much better VBG while hyperventilating pH 7.45 CO2 46 (4) GERD (gastroesophageal reflux disease): Status: Chronic Assessment and plan: Continue IV protonix (5) DVT prophylaxis: Status: Acute Assessment and plan: SCDs (6) Discharge planning issues: Status: Acute Assessment and plan: DNR/DNI. On discharge, expected to return home on hospice. Long discussion with , he doesn't feel he can take care of her at home, he is asking his daughter for help. He would like to honor patient's wishes to at home, however he doesn't feel that he has the resources. Reviewed SNF, comfort measures, private care givers. He is considering options. Nathalia wants to go home. Discussed with Dr De La O Subjective Subjective Patient reports: no new complaints, tolerating a regular diet, voiding w/o difficulty, shortness of breath and afebrile; denies bowel movement, diarrhea, nausea or vomiting Interval history since last seen: Continues to have shortness of breath exacerbated by her hyperventilating when she is anxious. has been there with her all day. Discussion regarding plan of care; very concerned about bringing her home as he has no help. He is going to ask his daughter if she can come for a week or two. That answer is pending at the time of this writing. Exam Narrative Exam Narrative: Sitting straight up in bed, at bedside, able to speak a few words, but is hyperventillating. Encouraged to slow breathing. Const General: cooperative and acute distress mild, moderate and respiratory Nutritional Appearance: cachectic Orientation: alert, awake and oriented x3 HENMT Head: normal to inspection, normocephalic and atraumatic Mouth: moist mucous membranes abnormal (slightly dry, no exudate) Chest Chest: normal inspection of the chest Resp Effort & Inspection: audible wheezes (expiratory - with normal breathing), decreased respiratory effort, respiratory distress (with activity), tachypneic and prolonged expiratory phase Auscultation: diminished lung sounds, no rales, no rhonchi and wheezes expiratory wheezes (through out) Cardio Rate: regular rate Rhythm: regular rhythm GI Inspection: normal to inspection and scaphoid Palpation: no masses Neuro General: patient alert, patient awake and patient oriented x3 Extrem General: full ROM, no pedal edema and muscle atrophy Objective Last Vital Signs Temp 37.8 C H 05/20/23 11:41 Pulse 101 H 05/20/23 11:41 Resp 22 05/20/23 11:41 BP 121/79 05/20/23 11:41 Pulse Ox 95 05/20/23 12:01 Laboratory Results - last 24 hr 05/19/23 05/20/23 05/20/23 12:00 06:00 06:00 WBC 8.96 RBC 3.38 L Hgb 10.7 L Hct 31.2 L MCV 92 MCH 31.7 MCHC 34.3 RDW 14.5 Plt Count 187 MPV 11.8 H Immature Gran % 0.9 Neutrophils % 70.2 Lymphocytes % 14.3 Monocytes % 7.9 Eosinophils % 6.5 Basophils % 0.2 Nucleated RBC % 0.0 Absolute Neutrophils 6.29 Absolute Lymphocytes 1.28 Absolute Monocytes 0.71 Absolute Eosinophils 0.58 Absolute Basophils 0.02 Sodium 138 Potassium 4.3 Chloride 102 Carbon Dioxide 27.5 Anion Gap 8.5 BUN 20 H Creatinine 0.8 Est GFR (CKD-EPI 2020) 77.75 Glucose 79 Calcium 8.6 Magnesium 1.7 L Urine RBC 0-2 Urine WBC Negative Ur Epithelial Cells Rare Urine Crystals Negative Urine Bacteria Negative Urine Casts Negative Urine Mucus Negative Ur Culture Indicated? No Time Spent with Patient Time Spent with Patient: 35-49 minutes Time was spent: preparing to see the patient(eg.review tests), ordering medications,tests, procedures, referring, communicating with other health career placement specialist, indepentently interpreting results, counseling the patient and care coordination
--- NOTE | 2023-05-20 12:17 | PT.INTREAT ---
PT Notes Visit Reasons: Left Femoral Neck Fracture Inpatient Physical Therapy Treatment Note [facility] Date: 05/20/23 SUBJECTIVE: Nathalia states that she is really uncomfortable. OBJECTIVE: []? PAIN:left hip pt was transferred to chair by nurse and RT. She refused to walk but willing to a few ex.? Therapeutic Exercises (77845k5): Direct one-on-one instruction in therapeutic exercises to develop strength, endurance, range of motion and flexibility. ? Exercises Sitting: LAQ 5x ea (that's enough) AP x10. glut squeeze: 5x hip ab/add (legs reclined x 8ea) ASSESSMENT:? pt not comfortable. Nurse made aware and she was given pain meds. PLAN: Will continue to work on her strength and ROM progressing her functional mobility and activity tolerance. TREATMENT CODE/TIME: 20 min [id number]
[2023-05-20] MEDS: Prochlorperazine 10 MG/2 ML VIAL 5 MG IVP ×2 (13:18→22:53)
[2023-05-20] MEDS: Haloperidol 1 MG TAB PO ×2 (13:48→22:53)
[2023-05-20 13:49] LABS: BE (Venous) 7 mmol/L (-2-3); HCO3 (Venous) 31 mmol/L (23-28); O2 Sat (Venous) 84 %; TCO2 (Venous) 29 mmol/L (24-29); pCO2 (Venous) 46 mmHg (41-51); pH (Venous) 7.45 (7.31-7.41); pO2 (Venous) 47 mmHg
[2023-05-20] MEDS: MORPHine 2 MG/ML SYR 1 MG IVP ×2 (14:03→20:12)
[2023-05-20] MEDS: Acetaminophen 325 MG TAB 650 MG PO ×2 (15:31→22:53)
[2023-05-20] MEDS: LORazepam 2 MG/ML VIAL 0.5 MG IVP (15:36)
[2023-05-20] MEDS: Normal Saline Flush 10 ML SYR IVP ×2 (20:12→22:54)
[2023-05-21] VITALS (13 sets, daily range): BP systolic 107–137; BP diastolic 71–84; PULSE 83–114; RESP 4–28; TEMP 35.9–37.2; O2SAT 90–100
[2023-05-21] MEDS: Lidocaine Patch Removal 1 EACH TP (01:56)
--- NOTE | 2023-05-21 08:01 | W.PM.PROGNOT ---
Date of Service Date of service: 05/21/23 Time of Service: 08:01 Assessment and Plan Assessment and plan (1) Femoral neck fracture: Status: Acute (2) Discharge planning issues: Status: Acute (3) Palliative care patient: Status: Acute Assessment and plan: Nathalia and I spoke about her abdominal problems. Although she has good bowel sounds and I did not feel any masses or constipation, she may need to have more of a work-up or at least keep the stool meds on a scheduled basis due to her use of narcotics to control her pain. Anxiety continues to be high. Staff report that at times she is owning. Regarding disposition, I did offer her comfort care in the hospital with the expectation that her life expectancy would be short, we talked about going to a rehab center such as the [facility], and also going home. Her first choice would be going home. I think it depends upon whether or not her feels that he can care for her. Addendum During the day Nathalia was quite upset about the prospect of going to the [facility] for possible rehab. She really wants to go home. I came back to the hospital this evening to talk with both Amita her nurse practitioner and she. She is hoping to find out if other people can help at home. Hospice already will get a wheelchair and a hospital bed. Amita reports that her was not able to help her get out of bed and pivot into a chair although Nathalia states that he is able to. Unfortunately Nathalia's left a few minutes before I arrived. Please note Nathalia was quite upset with me and felt that Amita and I were gaining up on her. She felt she should be able to stay in the hospital longer. We explained that she actually was in the hospital a few days longer than usual after her hip fracture. Plan is for her Nathalia Levi and her to talk about discharge. I will continue to follow Nathalia whether she is at the [facility] or at home Subjective Subjective Interval history since last seen: Nathalia is lying in her bed. She states that she has a lot of pain in her belly especially when she coughs. She states that she fell on her abdomen when she was getting out of bed and sustained a hip fracture. She wishes she did not have so much pain. She has not had a bowel movement in 2 days. She is not certain if that is part of her problem. She has been getting some narcotics for her pain. She does have scheduled bowel meds and also multiple as needed's. She did refuse bowel meds yesterday. She states that she does not think she is ever going to get home. She really wants to be home. She can barely stand and feels very very weak. She is depressed. (These are her words) She feels like she will never be able to make at home. Her Dc felt that he might not be able to care for her in her present state. Exam Narrative Exam Narrative: Nathalia is lying in bed. She does smile at times. Her heart is regular. Lungs decreased air movement but this is her baseline. Abdomen good bowel sounds but quite tender. She states that she has always been tender. This seems more tender than what I experienced during exams with her in the past. Mild edema in her leg. Objective Last Vital Signs Temp 96.6 F L 05/21/23 07:49 Pulse 96 H 05/21/23 07:49 Resp 24 05/21/23 07:49 BP 132/76 05/21/23 07:49 Pulse Ox 93 05/21/23 07:49 Laboratory Results - last 24 hr 05/20/23 13:45 VBG pH 7.45 H VBG pCO2 46 VBG pO2 47 VBG HCO3 31 H VBG Total CO2 29 VBG O2 Saturation 84 VBG Base Excess 7 H Time Spent with Patient Time Spent with Patient: >50 minutes Time was spent: preparing to see the patient(eg.review tests), obtaining and/or reviewing separately otained hiistory, referring, communicating with other health wound care rn, indepentently interpreting results, counseling the patient and care coordination
[2023-05-21 08:05] LABS: Abs Immature Grans 0.08 10^3/uL (0.0-0.06); Absolute Basophil Count 0.03 10^3/uL (0.0-0.2); Absolute Eosinophil Count 0.71 10^3/uL (0.0-0.7); Absolute Lymphocyte Count 1.08 10^3/uL (1.2-3.4); Absolute Neutrophil Count 8.71 10^3/uL (1.2-6.7); Basophils % 0.3; Eosinophils % 6.2; HCT 34.6 % (36.0-46.0); HGB 11.6 g/dL (11.2-15.7); Immature Grans % 0.7; Lymphocytes % 9.5; MCH 31.4 pg (27.0-33.0); MCHC 33.5 % (32.0-36.0); MCV 94 fL (80-95); MPV 10.6 fL (8.0-11.0); Monocytes % 6.8; Neutrophils % 76.5; Platelet Count 213 10^3/uL (130-400); RDW 14.2 % (11.7-14.6); RDW-SD 48.6 fL; WBC 11.39 10^3/uL (4.4-10.8)
[2023-05-21 08:06] LABS: Absolute Monocyte Count 0.77 10^3/uL (0.1-0.8)
[2023-05-21] MEDS: Mometasone 220 MCG 14 DOSE INHALER 1 PUFF IH (08:06)
[2023-05-21] MEDS: Tiotropium/Olodaterol 10 PUFF INHALER 2 PUFF IH (08:06)
[2023-05-21] MEDS: Albuterol/Ipratropium 3 ML UPD VIAL UPD ×3 (08:07→19:35)
[2023-05-21 08:17] LABS: Anion Gap 4.9 mmol/L (3-11); BUN 18 mg/dL (7-18); CO2 31.1 mmol/L (21.0-32.0); CREATININE 0.7 mg/dL (0.55-1.02); Calcium 8.9 mg/dL (8.5-10.1); Chloride 99 mmol/L (98-107); Estimated GFR 91.26 (mL/min/1.73m2); Glucose 159 mg/dL (74-106); Potassium 4.1 mmol/L (3.5-5.1); Sodium 135 mmol/L (136-145)
[2023-05-21] MEDS: Docusate Sodium 100 MG CAP PO ×2 (09:02→20:10)
[2023-05-21] MEDS: Pantoprazole 40 MG TABCR PO (09:02)
[2023-05-21] MEDS: Cholecalciferol (Vitamin D3) 1,000 UNIT TAB 2000 UNITS PO (09:02)
[2023-05-21] MEDS: MORPHine 2 MG/ML SYR 1 MG IVP ×2 (09:02→18:49)
[2023-05-21] MEDS: Benzonatate 100 MG CAP PO ×3 (09:02→20:09)
[2023-05-21] MEDS: guaiFENesin 600 MG TABCR 1200 MG PO ×2 (09:02→20:10)
[2023-05-21] MEDS: Polyethylene Glycol 3350 17 GM PACKET 8.5 GM PO (09:03)
--- NOTE | 2023-05-21 10:15 | CMPROGNOTE_ITS ---
Date of service: 05/21/23 Time of Service: 10:17 Care Management Progress Note Progress Note Text Progress Note Text: S/O: Nathalia was sitting up in bed when ANDRE met with her. She reported that she really wants to return home, not go to SNF. Her arrived, and CM discussed this plan with them both together, as well as with the provider later in the afternoon. She reports that she has concerns about going home without knowing what her support at home will look like, although she does not want to remain in the hospital, or go to a SNF. Freddy stated that his dakughter Jelly, as well as their friend, Hellen will both be helping take care of Nathalia at home. Dr. Meyer met with Nathalia twice today, and discussed her plan to return home. She will likely be discharged tomorrow, and will require EMS transport due to her current bed bound status, on hospice. Her hospital bed has been delivered to her house. CM will continue to follow. A: 73 year old female admitted to [facility] on 05/15/23 for Left femoral neck fracture P: Nathalia will discharge home and readmit to Hospice services, transportation will be dependent on her mobility.? Hospice is ordering her a hospital bed and wheelchair and advises that a PT eval will be ordered after discharge, if needed. CM will continue to follow.
[2023-05-21] MEDS: Acetaminophen 325 MG TAB 650 MG PO ×2 (10:57→20:09)
[2023-05-21] MEDS: Lidocaine 5% Patch 1 PATCH TP (10:57)
[2023-05-21] MEDS: Haloperidol 1 MG TAB PO ×2 (10:58→20:10)
[2023-05-21] MEDS: LORazepam 2 MG/ML VIAL 0.5 MG IVP (13:11)
--- NOTE | 2023-05-21 13:41 | PT.INTREAT ---
Date of service: 05/21/23 Time of Service: 11:47 PT Notes Visit Reasons: Left Femoral Neck Fracture Inpatient Physical Therapy Treatment Note [facility] Date: 05/21/23 PRECAUTIONS: Fall, standard, activity as tolerated. SUBJECTIVE: Patient supine in bed, reports not feeling great, feeling crooked in the bed. Just received lunch, however is agreeable to respositioning in bed. OBJECTIVE: ? PAIN: Yes, especially with cough. VITALS: monitored by nursing. ? Therapeutic Activities (53705x4): Direct one-on-one instruction in dynamic activities to improve functional performance. ? BED MOBILITY/TRANSFERS? Rolling L/R: SBA Supine-sit: mod assist ? Sit-supine: mod assist ? Scooting Left and Right: min assist with verbal cues Bridging: SBA with verbal and tactile cues. Provided skilled cues and instruction on performance and technique throughout. ASSESSMENT:? Patient tolerates therapy well, reports feeling much more comfortable after being guided in repositioning. PLAN: Continue global strengthening per plan of care until patient is medically ready for discharge. TREATMENT CODE/TIME: 06663 Ther Act 8 minutes beginning at 11:47
[2023-05-21] MEDS: Diclofenac 1% Gel 100 GM TUBE TP (15:36)
[2023-05-21] MEDS: Patch Removal 1 EACH TP (16:19)
[2023-05-21] MEDS: Lidocaine 5% Patch 2 PATCH TP (16:19)
--- NOTE | 2023-05-21 17:48 | W.PM.PROGNOT ---
Date of Service Date of service: 05/21/23 Time of Service: 17:49 Assessment and Plan Assessment and plan (1) Femoral neck fracture: Status: Deleted Assessment and plan: S/p hemiarthroplasty 05/17/23. Continue working with PT, pain control. Plan for discharge home on hospice once a stable pain medication regimen is found and PT deems it safe, possibly Monday 05/21 (2) Chest pain: Status: Resolved Assessment and plan: noncardiac; musculoskeletal. Denies chest pain today Continue prn diclofenac gel. (3) Chronic obstructive airway disease: Assessment and plan: Continue scheduled + prn nebs Pt in no distress, appears anxious She would entertain BiPap if indicated Lorazepam and morphine, calmed her breathing and was much better VBG while hyperventilating pH 7.45 CO2 46 (4) GERD (gastroesophageal reflux disease): Assessment and plan: Continue IV protonix (5) DVT prophylaxis: Status: Deleted Assessment and plan: SCDs (6) Discharge planning issues: Status: Acute Assessment and plan: DNR/DNI. On discharge, expected to return home on hospice. SNF v home hospice Discussed with Dr De La O (7) Depression: Status: Chronic Assessment and plan: After discussion with Dr Meyer, trial mirtazipine for depression which will also help with sleep. Subjective Subjective Patient reports: no new complaints, pain is less, tolerating a regular diet, bowel movement and afebrile; denies diarrhea, nausea or vomiting Interval history since last seen: Nathalia is doing well, she can't decide if she want to go to snf or home hospice. Discussion with Dr Meyer and decision for her to go home and trial home hospice, if it doesn't work out she will go to the [facility] hospice. Freddy is in agreement and has gotten some family help for about a week. Exam Const General: cooperative and acute distress mild, moderate and respiratory Nutritional Appearance: cachectic Orientation: alert, awake and oriented x3 HENMT Head: normal to inspection, normocephalic and atraumatic Mouth: moist mucous membranes abnormal (slightly dry, no exudate) Chest Chest: normal inspection of the chest Resp Effort & Inspection: audible wheezes (expiratory - with normal breathing), decreased respiratory effort, tachypneic and prolonged expiratory phase Auscultation: diminished lung sounds, no rales, no rhonchi and wheezes expiratory wheezes (through out) Cardio Rate: regular rate Rhythm: regular rhythm GI Inspection: normal to inspection and scaphoid Palpation: no masses Neuro General: patient alert, patient awake and patient oriented x3 Extrem General: full ROM, no pedal edema and muscle atrophy Objective Last Vital Signs Temp 37 C 05/21/23 15:44 Pulse 114 H 05/21/23 15:44 Resp 22 05/21/23 15:44 BP 136/84 05/21/23 15:44 Pulse Ox 90 L 05/21/23 15:44 Laboratory Results - last 24 hr 05/21/23 05/21/23 07:56 07:56 WBC 11.39 H RBC 3.70 L Hgb 11.6 Hct 34.6 L MCV 94 MCH 31.4 MCHC 33.5 RDW 14.2 Plt Count 213 MPV 10.6 Immature Gran % 0.7 Neutrophils % 76.5 Lymphocytes % 9.5 Monocytes % 6.8 Eosinophils % 6.2 Basophils % 0.3 Nucleated RBC % 0.0 Absolute Neutrophils 8.71 H Absolute Lymphocytes 1.08 L Absolute Monocytes 0.77 Absolute Eosinophils 0.71 H Absolute Basophils 0.03 Sodium 135 L Potassium 4.1 Chloride 99 Carbon Dioxide 31.1 Anion Gap 4.9 BUN 18 Creatinine 0.7 Est GFR (CKD-EPI 2020) 91.26 Glucose 159 H Calcium 8.9 Magnesium 2.0 Time Spent with Patient Time Spent with Patient: 25-34 minutes Time was spent: preparing to see the patient(eg.review tests), ordering medications,tests, procedures, referring, communicating with other health children's zoo caretaker, indepentently interpreting results, counseling the patient and care coordination
[2023-05-21] MEDS: LORazepam 1 MG TAB PO (21:23)
[2023-05-21] MEDS: Mirtazapine 15 MG TAB 7.5 MG PO (21:23)
[2023-05-21] MEDS: Senna TAB 1 TAB PO (21:23)
[2023-05-22 03:43] VITALS: BP 110/68; PULSE 72; RESP 18; TEMP 36.3; O2SAT 94
[2023-05-22] MEDS: Lidocaine Patch Removal 2 EACH TP (06:09)
[2023-05-22 07:13] LABS: Abs Immature Grans 0.14 10^3/uL (0.0-0.06); Absolute Basophil Count 0.04 10^3/uL (0.0-0.2); Absolute Eosinophil Count 0.59 10^3/uL (0.0-0.7); Absolute Lymphocyte Count 1.23 10^3/uL (1.2-3.4); Absolute Monocyte Count 0.93 10^3/uL (0.1-0.8); Absolute Neutrophil Count 6.67 10^3/uL (1.2-6.7); Basophils % 0.4; Eosinophils % 6.1; HCT 31.2 % (36.0-46.0); HGB 10.5 g/dL (11.2-15.7); Immature Grans % 1.5; Lymphocytes % 12.8; MCH 31.5 pg (27.0-33.0); MCHC 33.7 % (32.0-36.0); MCV 94 fL (80-95); Monocytes % 9.7; Neutrophils % 69.5; Platelet Count 215 10^3/uL (130-400); RBC 3.33 10^6/uL (3.93-5.22); RDW 14.4 % (11.7-14.6); RDW-SD 49.1 fL
[2023-05-22 07:25] LABS: Anion Gap 4.7 mmol/L (3-11); BUN 12 mg/dL (7-18); CO2 32.3 mmol/L (21.0-32.0); CREATININE 0.7 mg/dL (0.55-1.02); Calcium 8.7 mg/dL (8.5-10.1); Chloride 102 mmol/L (98-107); Estimated GFR 91.26 (mL/min/1.73m2); Glucose 87 mg/dL (74-106); Potassium 3.9 mmol/L (3.5-5.1); Sodium 139 mmol/L (136-145)
[2023-05-22 07:53] VITALS: BP 134/80; PULSE 94; RESP 19; TEMP 38; O2SAT 93
--- NOTE | 2023-05-22 08:11 | W.PALPGNOTE ---
Date of service: 05/22/23 Time of Service: 08:12 Assessment and Plan Assessment and plan (1) Femoral neck fracture: Status: Acute (2) Palliative care patient: Status: Acute Assessment and plan: I read care management note. It appears that things will be in place for her to go home which will make her very very happy. Her pain seems better controlled. Her abdominal discomfort is improved. I will continue to follow her at home. Hospice will be her primary caregiver. Subjective Subjective Interval history since last seen: I came in to see Nathalia this morning. She states that she was feeling better. Less abdominal pain. She also states that her was not able to make the contacts yesterday to determine where she was going to be discharged to: Home versus the [facility]. She seemed reluctantly okay with possibly going to the [facility]. Exam Narrative Exam Narrative: She looks much more comfortable. She was smiling. Her breathing was good. She had less abdominal tenderness. Objective Last Vital Signs Temp 100.4 F H 05/22/23 07:53 Pulse 94 H 05/22/23 07:53 Resp 19 05/22/23 07:53 BP 134/80 05/22/23 07:53 Pulse Ox 93 05/22/23 07:53 Laboratory Results - last 24 hr 05/21/23 05/22/23 05/22/23 07:56 05:40 05:40 WBC 9.60 RBC 3.33 L Hgb 10.5 L Hct 31.2 L MCV 94 MCH 31.5 MCHC 33.7 RDW 14.4 Plt Count 215 MPV 11.0 Immature Gran % 1.5 Neutrophils % 69.5 Lymphocytes % 12.8 Monocytes % 9.7 Eosinophils % 6.1 Basophils % 0.4 Nucleated RBC % 0.0 Absolute Neutrophils 6.67 Absolute Lymphocytes 1.23 Absolute Monocytes 0.93 H Absolute Eosinophils 0.59 Absolute Basophils 0.04 Sodium 135 L 139 Potassium 4.1 3.9 Chloride 99 102 Carbon Dioxide 31.1 32.3 H Anion Gap 4.9 4.7 BUN 18 12 Creatinine 0.7 0.7 Est GFR (CKD-EPI 2020) 91.26 91.26 Glucose 159 H 87 Calcium 8.9 8.7 Magnesium 2.0 2.0
[2023-05-22] MEDS: guaiFENesin 600 MG TABCR 1200 MG PO (08:36)
[2023-05-22] MEDS: Cholecalciferol (Vitamin D3) 1,000 UNIT TAB 2000 UNITS PO (08:36)
[2023-05-22] MEDS: Docusate Sodium 100 MG CAP PO (08:36)
[2023-05-22] MEDS: Benzonatate 100 MG CAP PO (08:36)
[2023-05-22 08:37] VITALS: PULSE 94; RESP 19; O2SAT 93
[2023-05-22] MEDS: Albuterol/Ipratropium 3 ML UPD VIAL UPD (08:37)
[2023-05-22] MEDS: Pantoprazole 40 MG TABCR PO (08:37)
[2023-05-22] MEDS: Polyethylene Glycol 3350 17 GM PACKET 8.5 GM PO (08:38)
[2023-05-22] MEDS: Diclofenac 1% Gel 100 GM TUBE TP (08:39)
[2023-05-22] MEDS: Lidocaine 5% Patch 2 PATCH TP (10:08)
[2023-05-22] MEDS: Mometasone 220 MCG 14 DOSE INHALER 1 PUFF IH (10:29)
[2023-05-22] MEDS: Tiotropium/Olodaterol 10 PUFF INHALER 2 PUFF IH (10:31)
--- NOTE | 2023-05-22 10:31 | CMDISCH_ITS ---
Date of service: 05/22/23 Time of Service: 10:32 LACE Index Scoring Tool Questions: Length of Stay (in days): 7 - 13 Was the patient admitted via the E.D.?: Yes Comorbidities: Chronic Pulmonary Disease E.D. Visits: 0 Answers: Total Score: 10 Risk of Readmission: High Risk Care Management Discharge Plan Reason for Hospitalization: Left femoral neck fracture Discharge Plan: Nathalia returned home today and resumed hospice services. She was transported via EMS, coordinated by CM. Nathalia's , Freddy was in the room visiting, and agrees to this plan as her primary caregiver, and states that his daughter and their friend/neighbor are willing to help support Nathalia at home. Nathalia was offered a bed at the [facility], which she declined, as her wishes are to return home. She will follow up with hospice supports and her discharge plan of care. Patient/Family Education Needs: Review discharge instructions and limitations, discussion of self care needs including ask me three. Services Needed at Discharge: Home Health Care Services (hospice, resume services) and Transportation (EMS)
--- NOTE | 2023-05-22 10:34 | W.PM.DS.N ---
Date of service: 05/22/23 Time of Service: 10:34 DS: Diagnosis Discharge Diagnosis (1) Femoral neck fracture: Status: Deleted (2) Palliative care patient: Status: Deleted Discharge Plan Disposition Patient Disposition: Home W/Hospice Services Condition: Poor Discharge Details Reason For Visit: Left Femoral Neck Fracture Admit Date/Time: 05/15/23 13:21 Admit Provider: Fred De La O Attending Provider: Fred De La O Primary Care Provider: Kaycee Meyer Hospital Course Hospital Course: This is a 73 yr old female w/ severe COPD, on home oxygen at 2.5 lpm , had a fall out of bed while trying to get up to the bathroom, no LOC. Evaluation in the ED included left femur and pelvic xray that demonstrated left femoral neck subcapital fracture. Patient is on home hospice care for her end stage COPD. Surgery was done on a palliative basis to alleviate her pain and improve her mobility. She underwent surgery on her hip and did well. She had some difficulty deciding to go home on hospice or go the [facility] on hospice. She, after discussion with Dr Meyer, decided to trial going home. We will request home PT. She should follow up in 3 weeks with orthopedics. She was told to take aspirin 81 mg twice a day for 30 days. She was told she can stop taking lipitor and vitamins. Dr Meyer will follow her at home with primary being hospice. She is discharged to home via EMS stable. Home Meds and New Rx's Prescriptions: New benzonatate 100 mg Capsule 100 mg PO TID Qty: 60 0RF morphine 15 mg Tablet Extended Release 15 mg PO BID Qty: 60 0RF mirtazapine 15 mg Tablet 7.5 mg PO HS Qty: 30 0RF aspirin 81 mg tablet,delayed release (DR/EC) 81 mg PO BID Qty: 60 0RF Continued diclofenac sodium 1 % gel 100 g topical QID Qty: 100 2RF diphenhydramine HCl [Allergy (diphenhydramine)] 25 mg tablet 50 mg PO QHS clonazepam 0.5 mg tablet 0.5 - 1 mg PO BID Qty: 60 3RF Rx Instructions: take 0.5 tablet twice a day as needed for anxiety. Hospice citalopram 20 mg tablet 30 mg PO DAILY Qty: 135 4RF Rx Instructions: 1.5 tab daily. Hospice prednisone 5 mg tablet 5 mg PO DAILY Qty: 90 5RF Rx Instructions: Hospice Qvar RediHaler 80 mcg/actuation HFA aerosol breath activated 1 inh inhalation BID Qty: 10.6 8RF Rx Instructions: administer with spacer. Hospice Oxygen EACH NS PRN Qty: 2 1RF Rx Instructions: oxygen 2-2.5 L/NC prn ([employer]) fluticasone propionate 50 mcg/actuation spray,suspension 1 - 2 spray NS DAILY Qty: 15.8 3RF Rx Instructions: 1 spray each nostril daily albuterol sulfate [Ventolin HFA] 90 mcg/actuation HFA aerosol inhaler 1 - 2 puff IH QID PRN (Reason: bronchospasm) Qty: 3 6RF acetaminophen 650 mg suppository 650 mg ND Q6H PRN (Reason: fever, mild pain) Qty: 6 0RF Rx Instructions: Hospice Patient hyoscyamine sulfate 0.125 mg tablet,disintegrating 0.125 - 0.25 mg PO Q4H PRN (Reason: secretions) Qty: 24 0RF Rx Instructions: Hospice Patient lorazepam 1 mg tablet 1 mg PO Q4H PRN (Reason: anxiety, VARGAS or nausea) Qty: 6 5RF Rx Instructions: Hospice Patient haloperidol lactate 2 mg/mL concentrate 1 mg PO Q6H PRN (Reason: agitation) Qty: 15 0RF Rx Instructions: Hospice Patient prochlorperazine maleate 10 mg tablet 10 mg PO Q6H PRN (Reason: nausea and vomiting) Qty: 6 0RF Rx Instructions: Hospice Patient bisacodyl [Dulcolax (bisacodyl)] 10 mg suppository 10 mg ND daily PRN (Reason: constipation) Qty: 2 0RF Rx Instructions: Hospice Patient Insert 1 supp ND Daily PRN constipation (no BM in 3 days) Mucinex 1,200 mg tablet extended release 12hr 1,200 mg PO BID Qty: 60 8RF Rx Instructions: hospice polyethylene glycol 3350 8.5 gram powder in packet 8.5 g PO DAILY Qty: 72 4RF Rx Instructions: hospice omeprazole 40 mg capsule,delayed release(DR/EC) 40 mg PO DAILY Qty: 90 5RF Rx Instructions: hospice morphine concentrate 100 mg/5 mL (20 mg/mL) solution 5 - 20 mg PO Q1-4H MDD 5 mL PRN (Reason: moderate to severe pain or shortness of breath) Qty: 30 0RF Rx Instructions: Hospice Patient ipratropium-albuterol 0.5 mg-3 mg(2.5 mg base)/3 mL solution for nebulization 3 ml Inhalation 5X/DAY Qty: 450 12RF Rx Instructions: J44.9 Stiolto Respimat 2.5-2.5 mcg/actuation mist 2 puff inhalation DAILY Qty: 12 4RF Rx Instructions: hospice mupirocin 2 % ointment 1 applic topical BID Qty: 30 7RF hydrocodone-homatropine [Hycodan (with homatropine)] 5-1.5 mg/5 mL syrup 5 - 10 ml PO BID MDD 20ml PRN (Reason: cough) Qty: 473 0RF Rx Instructions: use for cough. Hospice guaifenesin [Mucus Relief ER] 600 mg Tablet Extended Release 12hr 600 mg PO BID Qty: 0 0RF No Action lidocaine 5 % adhesive patch,medicated 2 patch topical Q24H Qty: 5 0RF Rx Instructions: hospice Discharge Instructions Instructions: Lidocaine (On the skin), Mirtazapine (By mouth), Morphine, Slow Release (By mouth), Hip Fracture (GEN) Additional Instructions: Start Mirtazapine 7.5 mg at bedtime every night. You can discontinue oral vitamins and medication for cholesterol. Take aspirin 81mg twice a day for 30 days. Take morphine for pain AND/OR shorness of breath. Resume all other home medications. Follow up with orthopedics in four weeks. Stand Alone Forms: Nursing Discharge Form Referrals: Kaycee Meyer MD, [place] [Primary Care Provider] - (home visits as planned) Timoteo Fernandez MD [ [facility] STAFF PHYSICIAN] - 06/25/23 10:00 am (4 weeks) Activity:: Activity as Tolerated Equipment/Supplies:: Walker Diet:: As Tolerated Discharge Orders Discharge Orders: Discharge Order (Routine); Ordered 05/22/23 Ordered By: Amita Felix Discharge Data Discharge Date/Time-TO BE ENTERED AT DEPARTURE: 05/22/23 11:07 DS: Summary Time Spent with Patient providing and/or coordinating discharge services: Greater than 30 minutes Status at Discharge Functional status at discharge: wheelchair bound Overall status at discharge: patient is progressing back to baseline Mental Status: mental status grossly normal Speech and Movement: speech and movement normal Mood: congruent mood Affect: normal affect Exam Narrative Exam Narrative: In bed 45 degrees HOB up, conversant, family in visiting today. Const General: cooperative and acute distress mild, moderate and respiratory Nutritional Appearance: cachectic Orientation: alert, awake and oriented x3 HENMT Head: normal to inspection, normocephalic and atraumatic Mouth: moist mucous membranes abnormal (slightly dry, no exudate) Chest Chest: normal inspection of the chest Resp Effort & Inspection: able to speak in complete sentences, audible wheezes (expiratory - with normal breathing), respiratory distress (with activity), tachypneic and prolonged expiratory phase Auscultation: diminished lung sounds, no rales, no rhonchi and wheezes expiratory wheezes (through out) Cardio Rate: regular rate Rhythm: regular rhythm GI Inspection: normal to inspection and scaphoid Palpation: no masses Neuro General: patient alert, patient awake and patient oriented x3 Extrem General: full ROM, no pedal edema and muscle atrophy Psych Mental Status: mental status grossly normal Speech and Movement: speech and movement normal Mood: congruent mood Affect: normal affect DS: Data Vitals/I&O Vitals and I&O: Vital Signs Temperature 38.0 C H 05/22/23 07:53 Temperature Source Tympanic 05/22/23 07:53 Pulse 94 H 05/22/23 08:37 Pulse Rhythm Regular 05/21/23 21:58 Pulse 98 H 05/15/23 12:27 Respiratory Rate 19 05/22/23 08:37 Respiratory Effort Short of Breath 05/21/23 21:58 Respiratory Depth Shallow 05/21/23 21:58 Respiratory Pattern Normal 05/19/23 22:05 Blood Pressure 134/80 05/22/23 07:53 Blood Pressure Mean 86 05/15/23 12:27 Pulse Oximetry 93 05/22/23 08:37 Respiratory End-tidal CO2 30 05/16/23 17:18 Oxygen Delivery Method Nasal Cannula 05/22/23 08:37 Oxygen Flow Rate 2.5 05/22/23 08:37 Fraction of Inspired Oxygen (FIO2) 92 05/18/23 21:49 Pain Level 3 05/22/23 07:53 Comment refused 05/21/23 06:30 Intake & Output 05/21/23 05/21/23 05/22/23 11:59 23:59 11:59 Intake Total Output Total 400 / 600 200 / 600 750 / 750 Balance -390 / -570 -180 / -570 -750 / -750 Intake: IV Output: Urine 400 / 600 200 / 600 750 / 750 Other: Urine Color Light Mily Yellow Yellow Urine Appearance Clear Clear Clear Stool Size Moderate Small Stool Characteristics Soft Soft Data Completed and Pending Labs on day of discharge: Labs from last 24 hours 05/22/23 05/22/23 05:40 05:40 WBC 9.60 RBC 3.33 L Hgb 10.5 L Hct 31.2 L MCV 94 MCH 31.5 MCHC 33.7 RDW 14.4 Plt Count 215 MPV 11.0 Immature Gran % 1.5 Neutrophils % 69.5 Lymphocytes % 12.8 Monocytes % 9.7 Eosinophils % 6.1 Basophils % 0.4 Nucleated RBC % 0.0 Absolute Neutrophils 6.67 Absolute Lymphocytes 1.23 Absolute Monocytes 0.93 H Absolute Eosinophils 0.59 Absolute Basophils 0.04 Sodium 139 Potassium 3.9 Chloride 102 Carbon Dioxide 32.3 H Anion Gap 4.7 BUN 12 Creatinine 0.7 Est GFR (CKD-EPI 2020) 91.26 Glucose 87 Calcium 8.7 Magnesium 2.0 PFSH All Active Problems (Updated 05/23/23 @ 00:06 by TAMMY MAURICIO) Left displaced femoral neck fracture (Acute 05/15/23) s/p Anterior Hip Hemiarthroplasty (05/16/23) Discharge planning issues (Acute) VARGAS (dyspnea on exertion) (Acute) Rib pain on right side (Acute) Acute exacerbation of chronic obstructive pulmonary disease (Acute) Pulmonary nodule (Acute) Encounter for screening for COVID-19 (Acute) Ear congestion (Acute) Underweight (Acute) Chronic respiratory failure with hypoxia (Acute) Tremor (Acute) Compression fracture of T5 vertebra (Acute) Acute right-sided thoracic back pain (Acute) Tubular adenoma of colon (Acute 10/12/16) Anxiety (Chronic 01/04/16) Acute gastric ulcer due to Helicobacter pylori (Acute 12/06/15) EGD, Dr Mcfarlane. positive SHARON test (treated) (also esophagitis) Hypogammaglobulinemia (Acute) [facility] Hemato.: negative workup/ Lung nodule (Acute 07/09/15) [facility]; [address] : stable/repeat yearly Hypoxemia (Chronic 11/28/14) Depression (Chronic) Hyperlipidemia (Chronic) Low back pain (Chronic) Osteoarthritis (Chronic) Osteopenia (Chronic) COPD (chronic obstructive pulmonary disease) (Chronic) Medical History Acute exacerbation of chronic obstructive pulmonary disease (11/28/14) Chronic obstructive airway disease Oxygen dependent Hyperlipidemia Low back pain Osteoarthritis Osteopenia Palliative care patient Pneumonia (11/28/14) Renal cyst Smoker Tobacco abuse Surgical History Appendectomy Colonoscopy - MAC (10/10/16) Ligation of fallopian tube BSO NECK SURGERY Open Carpal Tunnel release X 2 RIB RESECTION Family History Mother Diabetes Essential hypertension Hyperlipidemia Stroke Asthma Brother , 58 Essential hypertension Neoplasm Throat Chronic obstructive lung disease Asthma Maternal Grandmother , 93 Chronic obstructive lung disease Asthma Father , 97 No problems noted. Sister No problems noted. Sister No problems noted. Brother No problems noted. Son , age 32 - Drown No problems noted. Maternal Grandfather , age 91 No problems noted. Paternal Grandfather No problems noted. Paternal Grandmother No problems noted. Social History Smoking/Tobacco Use Status: Former Tobacco Use tobacco type: cigarettes Quit Date: 12/29/18 Tobacco: How many years used: 53 Second Hand Exposure: Yes Smoking risk assessment performed?: Yes Alcohol Intake: former Drug use: Never Substance use type: does not use Caregiver/Support person: No Household members: spouse Housing: house Communication Needs: None Do you need help understanding health information?: Rarely Pets and animals: Yes Pets and animals: cat(s) Sexually active: No Do you think of yourself as: straight/heterosexual Current gender identity: female What is your relationship status?: How often do you talk on the phone with friends or family?: decline to answer How often do you get together with friends or relatives?: decline to answer How often do you attend amish or yazdanism services?: decline to answer Do you belong to any clubs or organized social groups?: no Panel score (0-1 are the most socially isolated patients): 1 What type of physical activity do you participate in: none Frequency: daily Fay/Scientology: Pentecostalism Special fay needs: No Seatbelt use: always Drive intox or ride w/intox milk wagon driver: No Do you feel safe at home: Yes Do you feel safe in your relationship?: Yes Additional Social history: previous exposure to cleaning supplies History History Para 1 Hx # Term Pregnancies Multiple births Hx # Pregnancies Ectopic pregnancies AB induced Hx Number of Living Children AB spontaneous Time Spent with Patient Time Spent with Patient: 70-84 minutes4 Time was spent: preparing to see the patient(eg.review tests), ordering medications,tests, procedures, referring, communicating with other health lawn caretaker, indepentently interpreting results, counseling the patient and care coordination
[2023-05-22 10:36] VITALS: O2SAT 93
--- NOTE | 2023-05-22 11:43 | NUR.NOTE ---
After several attempts, phone call to patient's was successful. Discharge paperwork was discussed which included, appointment with on June 25 @10, news meds to be picked up at [facility] in [facility]. He was also advised that home health will continue their scheduled visits. He was also remined that paper work was given to ambulance team which he verbalized he had received the envelope. Questions were addressed.
--- NOTE | 2023-05-23 09:11 | PT.INDS ---
PT Notes Visit Reasons: Left Femoral Neck Fracture Inpatient Physical Therapy Discharge Summary Treatment Dates: 05/17/23 - 05/22/23 Referring Doctor: Dr. Jauregui PT Orders: PT CONSULT: s/p ortho surgery, WBAT Precautions: WBAT This document serves as a summary of care. No PT services were provided on this date. Patient Profile/Admitting Diagnosis: Patient admitted for medical management after fall at home resulting in femoral neck fracture. She is underwent left LEVON, complicated by advanced COPD. Patient participated in 5 sessions of PT intervention over the course of 6 days. Although rehab goals were not met, she was able to demonstrate safety and mobility sufficient to allow for safe return home with hospice care and family support. Social History/Home Situation: Patient lives with her in a single level home. She has 3 NANO the home. Typically ambulates short distances without AD, although has both a 4WW and FWW at home. Mobility limited by breathing. Equipment Owned/DME: Commode, 4WW, FWW Subjective: none obtained Objective: ROM: Right Upper Extremity: WFL Left Upper Extremity: WFL Right Lower Extremity: WFL Left Lower Extremity: Able to demonstrate DF to neutral, painfree PF, inversion/eversion, although limiting in all planes Strength: Right Lower Extremity: DF 3/5 or greater, quads 3/5 or greater Left Lower Extremity: Able to pump ankles and wiggle toes. Quads 3-/5. Able to demonstrate limited quad set on the left. Sensation: intact distally BED MOBILITY/TRANSFERS?Rolling L/R: SBA ?Supine-sit: mod assist ?Sit-supine: mod assist?Scooting Left and Right: min assist with verbal cues Gait: was able to demonstrate ability to ambulate 10' with FWW, CGA with cues for pacing due to VARGAS. Balance: Static Sitting: good Dynamic Sitting: fair Static Standing: fair Dynamic Standing: fair Assessment: Patient is a 73 year old female referred to physical therapy services with the diagnosis of left femur fx, s/p LEVON. This was complicated by advanced COPD, with limited activity tolerance and poor baseline mobility. She participated in 5 sessions of PT intervention over the course of 6 days. Although rehab goals were not fully met, she was able to demonstrate safety and mobility sufficient to allow for safe return home with hospice care and family support. Goals: Goals X1 week 1. Supine-Sit : supervision (progressing toward) 2. Sit-Supine : supervision (progressing toward) 3. Sit-Stand : supervision with FWW (progressing toward) 4. Stand-Sit : supervision with FWW (progressing toward) 5. Bed-Chair : min A with FWW (met) 6. Chair-Bed : min A with FWW (met) 7. Gait : min A with FWW x 25' (met) 8. Stairs : ascend and descend 3 steps with bilat rails, min A (not met) Plan of Care/Treatment Plan: Discharge from PT in acute care setting. DISCHARGE RECOMMENDATIONS: Home with family support and hospice care TREATMENT CODE/TIME: none Pat Espino, PT, DPT [place] [facility]
--- NOTE | 2023-05-23 10:35 | PDOC.HHF2F_ITS ---
Home Health Referral Home Health Orders Clinical synopsis of why skilled professionals are needed: 73 yr old female w/ severe COPD, on home oxygen at 2.5 lpm , had a fall out of bed while trying to get up to the bathroom, no LOC. heard the fall around 5:30 or 5:45 am and found her to be in severe pain and unable to stand. Evaluation in the ED included left femur and pelvic xray that demonstrated left femoral neck subcapital fracture. After initial confusion about whether or not we would have orthopedic coverage for surgery tomorrow, the patient was accepted to [facility] hospitalist service after I had discussions w/ Dr. Dixon, ED provider, Dr. Alvarez AVIATION PROJECT ENGINEER and text conversations w/ Dr. Fernandez. Anesthesia providers were asked to evaluate the patient preoperatively d/t the severity of her COPD. Patient apparently has been under hospice care for her end stage COPD and surgery is being done on a palliative basis to alleviate her pain and improve her mobility. Her is here to answer any questions. He denies any knowledge of her having any pre-existing heart arrhythmias, LA, CVA, DM, HTN. He understands that due to her COPD she is very high risk of perioperative respiratory failure and although she has had a DNR/DNI order in place, this order will be lifted for her surgery but will be resumed postoperatively. ? Medical diagnosis necessitation home health referral: Fractured left hip Physical Therapist: Check all that apply Increase strength & endurance for safe mobility at home: Ordered To design/establish home maintenance program: Ordered Fall reduction therapy program for patient with history of frequent falls: Ordered Home safety evaluation and teaching/gait training including stair management (if applicable): Ordered Home Bound Status Requires the aid of supportive device (check all that apply): Walker Patient has a condition such that leaving home is medically contraindicated (Describe): Patient is on home hospice. She fell and fractured her hip. She will benefit having home PT in regards to comfort and mobility. Encounter Date and Reason: I certify that a FTF encounter for this patient was performed on May 23, 2023 and that such encounter was related to the primary reason the patient requires home health services. The encounter was conducted in the following manner: * By me as the certifying physician, SUPERCALENDER OPERATOR HELPER, PA or * By an inpatient physician, SUPERCALENDER OPERATOR HELPER or PA during an inpatient stay who communicated findings to me, Certification And Authentication I certify that I composed the above information based on my clinical judgment relating to this patient's medical condition and, if applicable, clinical findings communicated to me by the NPP or inpatient physician who performed the FTF encounter. Name of Provider that will be monitoring home health services: Kaycee Meyer
== END 2023-05-22 11:07 | disposition hospice, home (50) | DRG 522 ==
LOC: ER 12:37 → MS 12:49
PROVIDERS: Emergency Medicine; Internal Medicine; Nurse Practitioner Family; Student in an Organized Health Care Education/Training Program; Admitting Provider Internal Medicine; Emergency Provider Student in an Organized Health Care Education/Training Program; PCP Family Medicine; Visit Provider Internal Medicine
PROC: 0SRS0J9 Replacement of Left Hip Joint, Femoral Surface with Synthetic Substitute, Cemented, Open Approach (ICD-10-PCS; CPT 27125; principal; 2023-05-16 14:45)
DX: J96.11 Chronic respiratory failure with hypoxia; D80.0 Hereditary hypogammaglobulinemia; S72.012A Unspecified intracapsular fracture of left femur, initial encounter for closed fracture; D80.1 Nonfamilial hypogammaglobulinemia; M96.662 Fracture of femur following insertion of orthopedic implant, joint prosthesis, or bone plate, left leg; K21.9 Gastro-esophageal reflux disease without esophagitis; J44.9 Chronic obstructive pulmonary disease, unspecified; R91.1 Solitary pulmonary nodule; G25.0 Essential tremor; F41.9 Anxiety disorder, unspecified; F32.A Depression, unspecified; E78.5 Hyperlipidemia, unspecified; M54.50 Low back pain, unspecified; W06.XXXA Fall from bed, initial encounter; R07.89 Other chest pain; Z66 Do not resuscitate; Z87.11 Personal history of peptic ulcer disease; M81.0 Age-related osteoporosis without current pathological fracture; Z99.81 Dependence on supplemental oxygen; Z87.891 Personal history of nicotine dependence; Z79.899 Other long term (current) drug therapy; Y83.4 Other reconstructive surgery as the cause of abnormal reaction of the patient, or of later complication, without mention of misadventure at the time of the procedure
CPT/HCPCS: 27236; 36415; 73552; 76942; 80048; 80053; 82306; 82805; 93005; 94640; 96365; 96375; 96376; 97110; 97162; 97530; 99285; 71045; 72170; 73501; 81003; 81015; 83735; 83880; 84484; 85025; 85379; 93010; 94664; 94667; 94668; 94760; 94762; 99223; 99232; 99233; 99239; 99254; J0131; J0690; J0780; J1170; J1885; J2060; J2250; J2270; J2704; J3010; J3490; J7613; J7620

== ENCOUNTER 2023-05-25 09:44 | Outpatient (REF) | payer MEDICARE, SELFPAY ==
[2023-05-25 16:46] LABS: Bilirubin Negative (Negative); Blood Moderate (Negative); Clarity Sl Cloudy (Clear); Glucose Negative (Negative); Ketones Negative (Negative); Leukocyte Esterase Small (Negative); Nitrite Negative (Negative); Specific Gravity <= 1.005 (1.005-1.025); Urobilinogen 0.2 mg/dL (Up to 0.2); pH 5.5 (5-8)
[2023-05-25 17:04] LABS: Bacteria Many HPF (Negative); C & S Indicated? C&S Done As Ordered; Casts Negative LPF (Negative); Crystals Negative HPF (Negative); Epithelial Cells Few HPF (Negative); Mucus Negative (Negative)
== END 2023-05-25 09:45 | disposition home or self-care (01) ==
LOC: LBN 09:44
PROVIDERS: PCP Family Medicine; Visit Provider Family Medicine
DX: R30.0 Dysuria (principal); R82.79 Other abnormal findings on microbiological examination of urine
CPT/HCPCS: 87077; 81003; 81015; 87086; 87186